=== PATIENT | female | born 1985 | race Caucasian/White ===

== ENCOUNTER 2019-11-21 11:47 | Outpatient (REF) | payer OTHER, SELFPAY | END 2019-11-21 11:48 | disposition home or self-care (01) | LOC: HO.LAB 11:47 | PROVIDERS: PCP Internal Medicine; Visit Provider Internal Medicine | DX: Z20.828 Contact with and (suspected) exposure to other viral communicable diseases (principal) | CPT/HCPCS: 87635 ==

== ENCOUNTER 2020-02-19 06:57 | Outpatient (REF) | payer OTHER, SELFPAY ==
--- NOTE | 2020-02-19 07:02 | ECG_ITS ---
Test Reason : ANESTH PRE OP Blood Pressure : / mmHG Vent. Rate : 072 BPM Atrial Rate : 072 BPM P-R Int : 148 ms QRS Dur : 088 ms QT Int : 386 ms P-R-T Axes : 059 040 038 degrees QTc Int : 422 ms Normal sinus rhythm Normal ECG When compared with ECG of 03-OCT-2016 21:07, No significant change was found Referred By: Mireille Linn Electronically Signed By:Getachew Lui
[2020-02-19 07:40] LABS: MANUAL DIFF FLAG NO
[2020-02-19 07:44] LABS: Basophils Percent Auto 0.5 % (0-2); Eosinophils Absolute Auto 0.1 X10*3/uL (0.0-0.4); Eosinophils Percent Auto 1.9 % (0-4); Hematocrit 41.8 % (37-47); Imm Gran Abs Auto 0.02 X10*3/uL (0.00-0.03); Imm Gran Pct Auto 0.3 % (0.0-0.4); Lymphocytes Percent Auto 31.8 % (20-40); Mean Corpuscular HGB Conc 33.5 g/dl (31.0-35.0); Mean Corpuscular Hemoglobin 29.5 pg (27.0-33.0); Mean Platelet Volume 9.3 fL (9.4-12.3); Monocytes Absolute Auto 0.6 X10*3/uL (0.1-1.2); Monocytes Percent Auto 9.3 % (2-11); Neutrophils Absolute Auto 3.6 X10*3/uL (2.0-8.3); Neutrophils Percent Auto 56.2 % (45-73); Platelet Count 234 X10*3/uL (160-400); Red Blood Count 4.75 X10*6/uL (4.20-5.50); Red Cell Distribution Width 12.3 % (11.0-16.0); White Blood Count 6.4 X10*3/uL (4.8-10.8)
[2020-02-19 07:58] LABS: Estimated Average Glucose 100 mg/dL; Hemoglobin A1c % 5.1 %
[2020-02-19 08:29] LABS: INTERNATIONAL NORM RATIO 1.1 (0.9-1.1); Prothrombin Time 13.3 SEC (10.8-13.0)
[2020-02-19 08:31] LABS: Partial Thromboplastin Time 34.6 SEC (24.1-38.0)
[2020-02-19 08:40] LABS: Alanine Aminotransferase 19 U/L (0-31); Albumin Level 4.3 g/dL (3.5-5.0); Alkaline Phosphatase 87 U/L (39-117); Anion Gap 16 (12-20); Aspartate Amino Transferase 14 U/L (5-31); Bilirubin Total 0.6 mg/dL (0.0-1.0); Blood Urea Nitrogen 14 mg/dL (9-16); Carbon Dioxide 21 mmol/L (22-29); Chloride 105 mmol/L (96-108); Estimated Glomerular Filt Rate > 60; Glucose Fasting 82 mg/dL (60-99); Potassium 3.8 mmol/l (3.3-5.1); Sodium 138 mmol/L (135-145); Total Protein 7.6 g/dL (6.5-8.0)
[2020-02-19 09:01] LABS: Free T4 (Free Thyroxine) 1.22 ng/dL (0.71-1.85); HCG Quantitative < 2 mIU/mL
[2020-02-19 09:09] LABS: HIV AB/AG Nonreactive (Nonreactive); HIV Num 1 0.09 S/CO (0.00-0.99)
[2020-02-20 20:23] LABS: Triiodothyronine T3 Total 107 ng/dL (76-181)
== END 2020-02-19 06:58 | disposition home or self-care (01) ==
LOC: HO.LAB 06:57
PROVIDERS: Visit Provider Internal Medicine
DX: Z01.818 Encounter for other preprocedural examination (principal)
CPT/HCPCS: 36415; 80053; 83036; 84439; 84443; 84480; 84702; 85025; 85610; 85730; 87389; 93005

== ENCOUNTER 2020-02-19 07:36 | Outpatient (REF) | payer OTHER, SELFPAY ==
--- NOTE | 2020-02-19 07:46 | US_ITS ---
EXAMINATION: US DIAGNOSTIC ULTRASOUND BREAST, RIGHT US DIAGNOSTIC ULTRASOUND BREAST, LEFT CLINICAL INFORMATION: Z98.82 Breast implant status. 34-year-old with bilateral implants for approximately 13 years duration. Patient plans replacement to be performed in [place]. No family history breast cancer. No prior breast imaging. COMPARISON: None. TECHNIQUE: Ultrasound of each breast is performed from all 4 quadrants and retroareolar region. Attention is directed to the implants. FINDINGS: There are bilateral saline implants present. The implant contours are smooth and the implant size appears grossly symmetric. There is no visible sonographic linguini sign. There is no skin thickening or edema tracking in soft tissue planes. No parenchymal lesion demonstrated on the submitted images. Results are discussed with the patient at time of visit. If further evaluation of breast implant integrity is clinically indicated, then breast MRI would be recommended. If comprehensive evaluation of the breast parenchyma is clinically indicated prior to surgery, standard 3-D digital breast tomosynthesis would be recommended. US/US breast RT complete IMPRESSION: Normal study. ASSESSMENT: BI-RADS 1: Negative RECOMMENDATION: 1. Patient should be managed based on the clinical impression. 2. If further evaluation of breast implant integrity is clinically indicated, then breast MRI would be recommended. 3. If comprehensive evaluation of the breast parenchyma is clinically indicated prior to surgery, standard 3-D digital breast tomosynthesis would be recommended. Otherwise, routine annual screening mammography beginning age 40 or earlier as clinical risk factors warrant. This patient's information was entered into a reminder system with a target due date for their next mammogram.
== END 2020-02-19 07:37 | disposition home or self-care (01) ==
LOC: HO.MAMMO 07:36
PROVIDERS: Visit Provider Nurse Practitioner Family
DX: Z98.82 Breast implant status (principal)
CPT/HCPCS: 76641

== ENCOUNTER 2020-07-24 09:25 | Outpatient (REF) | payer OTHER, SELFPAY ==
[2020-07-24 14:23] LABS: CT PCR NOT DETECTED (Not Detect.); NG PCR NOT DETECTED (Not Detect.)
[2020-07-25 12:55] LABS: BV Int Neg Control Negative (Negative); BV Int Pos Control Positive (Positive)
== END 2020-07-24 09:26 | disposition home or self-care (01) ==
LOC: HO.LAB 09:25
PROVIDERS: PCP Internal Medicine; Visit Provider Advanced Practice Midwife
DX: N93.0 Postcoital and contact bleeding (principal); N94.10 Unspecified dyspareunia
CPT/HCPCS: 81003; 81025; 87480; 87491; 87510; 87591; 87660; 99212

== ENCOUNTER 2020-08-06 11:14 | Outpatient (REF) | payer OTHER, SELFPAY ==
--- NOTE | ~2020-08-06 | US_ITS ---
EXAMINATION: US PELVIS CLINICAL INFORMATION: Postcoital and contact bleeding COMPARISON: Most recent comparison is a first trimester OB ultrasound from 02/01/2018 TECHNIQUE: Ultrasound of the pelvis is performed using both transabdominal and transvaginal transducers along with Doppler. Transvaginal imaging is performed to better evaluate the endometrium and adnexa. FINDINGS: Uterus: The uterus is anteverted and measures 8.2 x 4.4 x 5.8 cm. The double wall endometrial thickness is 7 mm. The myometrium is heterogeneous. However, no discrete fibroid is identified. Adnexa: Both ovaries are visualized. There is normal color flow to the adnexa. There is no ovarian torsion. The right ovary contains a complex appearing cystic structure measuring 2.7 x 2.3 x 2.1 cm, possibly representing an involuting corpus luteum. On the previous ultrasound, a similar appearing structure was present in the left ovary, now no longer visualized. Right ovary measures 4.3 x 2.9 x 2.3 cm. Volume of 15 mL. Left ovary measures 2.5 x 1.6 x 1.7 cm. Volume of 4 mL. There is no pelvic ascites or fluid collection. There is trace fluid in the cul-de-sac which is likely physiologic in nature. US/US pelvic and transvaginal IMPRESSION: The myometrium of the uterus is heterogeneous in echotexture but no discrete fibroid is identified. The adnexa are within normal limits.
== END 2020-08-06 11:15 | disposition home or self-care (01) ==
LOC: HO.US 11:14
PROVIDERS: Visit Provider Advanced Practice Midwife
DX: N93.0 Postcoital and contact bleeding (principal)
CPT/HCPCS: 76830; 76856

== ENCOUNTER → 2020-08-13 11:53 | Outpatient (BNVA) | payer OTHER, SELFPAY | PROVIDERS: PCP Internal Medicine; Visit Provider Advanced Practice Midwife ==

== ENCOUNTER 2020-08-26 10:52 | Outpatient (REF) | payer OTHER, SELFPAY | END 2020-08-26 10:53 | disposition home or self-care (01) | LOC: HO.LAB 10:52 | PROVIDERS: PCP Internal Medicine; Visit Provider Obstetrics & Gynecology | DX: N92.6 Irregular menstruation, unspecified (principal); N93.0 Postcoital and contact bleeding | CPT/HCPCS: 57454; 58100; 81025; 88305 ==

== ENCOUNTER → 2020-09-09 11:00 | Outpatient (BNVA) | payer OTHER, SELFPAY | PROVIDERS: PCP Internal Medicine; Visit Provider Obstetrics & Gynecology ==

== ENCOUNTER 2020-11-13 09:32 | Outpatient (REF) | payer OTHER, SELFPAY ==
[2020-11-13 09:58] LABS: Hematocrit 40.3 % (37-47); Hemoglobin 13.2 g/dl (12.0-16.0); Mean Corpuscular HGB Conc 32.8 g/dl (31.0-35.0); Mean Corpuscular Hemoglobin 29.1 pg (27.0-33.0); Mean Corpuscular Volume 88.8 fL (80-98); Mean Platelet Volume 9.2 fL (9.4-12.3); Platelet Count 224 X10*3/uL (160-400); Red Blood Count 4.54 X10*6/uL (4.20-5.50); Red Cell Distribution Width 13.4 % (11.0-16.0); White Blood Count 5.5 X10*3/uL (4.8-10.8)
[2020-11-13 10:04] LABS: Prothrombin Time 11.9 SEC (9.9-13.0)
[2020-11-13 10:06] LABS: Partial Thromboplastin Time 36.9 SEC (24.1-38.0)
[2020-11-13 10:27] LABS: Estimated Average Glucose 97 mg/dL; Hemoglobin A1C 108.3599 umol/L
[2020-11-13 10:38] LABS: Alanine Aminotransferase 20 U/L (0-31); Albumin Level 3.9 g/dL (3.5-5.0); Alkaline Phosphatase 90 U/L (39-117); Anion Gap 8 (12-20); Aspartate Amino Transferase 14 U/L (5-31); Bilirubin Total 0.5 mg/dL (0.0-1.0); Blood Urea Nitrogen 9 mg/dL (9-16); Calcium 8.9 mg/dL (8.4-10.2); Carbon Dioxide 27 mmol/L (22-29); Chloride 109 mmol/L (96-108); Estimated Glomerular Filt Rate > 60; Glucose Fasting 89 mg/dL (60-99); Sodium 140 mmol/L (135-145)
[2020-11-13 10:43] LABS: HIV AB/AG Nonreactive (Nonreactive); HIV Num 1 0.06 S/CO (0.00-0.99)
[2020-11-13 10:49] LABS: Thyroid Stimulating Hormone 0.43 uIU/mL (0.32-4.0)
[2020-11-13 10:55] LABS: HCG Quantitative < 2 mIU/mL
== END 2020-11-13 09:33 | disposition home or self-care (01) ==
LOC: HO.LAB 09:32
PROVIDERS: PCP Internal Medicine; Visit Provider Nurse Practitioner Family
DX: Z01.818 Encounter for other preprocedural examination (principal); E11.9 Type 2 diabetes mellitus without complications; E78.00 Pure hypercholesterolemia, unspecified
CPT/HCPCS: 36415; 80053; 83036; 84443; 84702; 85027; 85610; 85730; 87389

== ENCOUNTER 2020-11-13 09:56 | Outpatient (REF) | payer OTHER, SELFPAY | END 2020-11-13 09:57 | disposition home or self-care (01) | LOC: HO.LAB 09:56 | PROVIDERS: PCP Internal Medicine; Visit Provider Internal Medicine | DX: Z20.822 Contact with and (suspected) exposure to COVID-19 (principal) | CPT/HCPCS: C9803; U0003; U0005 ==

== ENCOUNTER 2020-11-22 23:15 | Emergency (ER) | payer OTHER, SELFPAY ==
--- NOTE | ~2020-11-22 | CT_ITS ---
EXAMINATION: CT ABDOMEN AND PELVIS WITH CONTRAST CLINICAL INFORMATION: Right upper quadrant pain COMPARISON: None TECHNIQUE: Multidetector volumetric images were obtained from the superior aspect of the liver through the pubic symphysis following administration 85 mL of Omnipaque 350 intravenous contrast. Sagittal and coronal reformatted images were obtained on the technologist's workstation. Oral contrast: No This CT examination was performed using dose optimization techniques as appropriate, variously including the following: *Automated exposure control *Adjustment of mA and/or kV according to patient size (this includes techniques or standardized protocols for targeted exams where dose is matched to indication/reason for exam; i.e. extremities or head) *Use of iterative reconstruction technique DLP: 645 mGy-cm FINDINGS: LUNG BASES: The visualized lung bases are unremarkable. Partially visualized bilateral breast implants. LIVER, GALLBLADDER, AND BILIARY TREE: The liver is normal in size, shape, and attenuation. Subcentimeter hypoattenuating lesions are noted, too small to fully characterize. No biliary ductal dilatation. The gallbladder is unremarkable with no evidence of radiopaque gallstones, gallbladder wall thickening, or obvious pericholecystic inflammatory changes. PANCREAS: Unremarkable. SPLEEN: Unremarkable. ADRENAL GLANDS: Unremarkable. KIDNEYS AND URETERS: The kidneys are normal in size, shape, and attenuation. No hydronephrosis, hydroureter, or calculi seen. No perinephric stranding. BLADDER: Unremarkable. GASTROINTESTINAL TRACT: The small and large bowel are unremarkable. The appendix is unremarkable. ABDOMINAL WALL: No significant hernia is appreciated. LYMPH NODES: Normal. VASCULAR: Unremarkable. PELVIC VISCERA: The uterus and adnexa are unremarkable. OSSEOUS STRUCTURES: Unremarkable. CT/CT abdomen pelvis w con IMPRESSION: No acute findings in the abdomen or pelvis. No inflammatory changes.
[2020-11-22 23:24] VITALS: BP 125/79; PULSE 71; RESP 16; TEMP 36.6; O2SAT 99; BMI 32.0
[2020-11-22 23:47] LABS: MANUAL DIFF FLAG NO
[2020-11-22 23:48] LABS: Basophils Percent Auto 0.3 % (0-2); Eosinophils Absolute Auto 0.1 X10*3/uL (0.0-0.4); Eosinophils Percent Auto 1.4 % (0-4); Hematocrit 41.1 % (37-47); Hemoglobin 13.5 g/dl (12.0-16.0); Imm Gran Abs Auto 0.02 X10*3/uL (0.00-0.03); Imm Gran Pct Auto 0.3 % (0.0-0.4); Lymphocytes Absolute Auto 2.3 X10*3/uL (1.2-4.9); Lymphocytes Percent Auto 29.3 % (20-40); Mean Corpuscular HGB Conc 32.8 g/dl (31.0-35.0); Mean Corpuscular Hemoglobin 29.2 pg (27.0-33.0); Mean Platelet Volume 9.2 fL (9.4-12.3); Monocytes Absolute Auto 0.5 X10*3/uL (0.1-1.2); Monocytes Percent Auto 6.9 % (2-11); Neutrophils Absolute Auto 4.8 X10*3/uL (2.0-8.3); Neutrophils Percent Auto 61.8 % (45-73); Platelet Count 225 X10*3/uL (160-400); Red Blood Count 4.62 X10*6/uL (4.20-5.50); Red Cell Distribution Width 13.1 % (11.0-16.0); White Blood Count 7.8 X10*3/uL (4.8-10.8)
--- NOTE | 2020-11-22 23:48 | PC.NURSE ---
IN ROOM FOR EVAL. IV PLACED TO LAC, LABS DRAWN TO LAB.
--- NOTE | 2020-11-22 23:50 | ED_ITS ---
HPI - Abdominal Pain General Chief Complaint: Abdominal Pain Stated Complaint: stomach pain radiates to back Time Seen by Provider: 11/22/20 23:30 Source: patient Mode of arrival: ambulatory Limitations: no limitations History of Present Illness HPI narrative: 35-year-old female presents with right upper quadrant pain radiating to her right back for 1 day. Patient has vomited from the pain. States that yesterday she went to a alliance party and ate a lot of chicken salad. The pain started shortly after that. The pain is a 7/10. It is an achy pain that is deep inside. It is worse when she lays down. It is not worse with eating or with movement. No fever, no diarrhea. She has no UTI symptoms. She is sexually active and her last menstrual period was November 10. No abnormal vaginal bleeding or vaginal discharge. Patient has had a tummy tuck and liposuction, no other abdominal surgeries except tubal ligation. No chest pain, no shortness of breath, no fevers. Related Data Home Medications Medication Instructions Recorded Confirmed albuterol sulfate 90 mcg/actuation 2 puff INHALATION Q6H PRN 12/16/19 11/16/20 aerosol inhaler Previous Rx's Medication Instructions Recorded phentermine 37.5 mg tablet 37.5 mg PO DAILY 90 Days #90 tab 07/09/20 Allergies Allergy/AdvReac Type Severity Reaction Status Date / Time amoxicillin [AMOXICILLIN] Allergy Intermediate SWELLING Verified 11/13/20 08:54 OF VAGINAL AREA , vaginal itching Review of Systems Constitutional: Denies body ache(s), Denies chills, Denies fatigue, Denies fever(s), Denies headache(s), Denies malaise and Denies weakness Eyes: Denies diplopia Denies vertigo, Denies dizziness, Denies otalgia, Denies headache(s), Denies mouth pain, Denies post nasal drip, Denies sinus pain, Denies sinus pressure, Denies sore throat and Denies throat swelling Cardiovascular: Denies chest pain, Denies syncope, Denies leg edema, Denies lightheadedness, Denies Loss of Consciousness, Denies palpitations and Denies dyspnea Respiratory: Denies chest congestion, Denies cough and Denies dyspnea Gastrointestinal: Reports abdominal pain, Denies hematochezia, Denies constipation, Denies diarrhea and Reports vomiting Genitourinary: Denies abnormal vaginal bleeding, Denies dyspareunia, Denies dysuria, Denies pelvic pain, Denies urinary hesitancy, Denies urinary urgency and Denies vaginal discharge Musculoskeletal: Reports back pain Skin/Breast: Denies rash Denies confusion, Denies vertigo, Denies dizziness, Denies syncope, Denies headache(s) and Denies weakness Psychiatric: Denies anxiety, Denies confusion and Denies depression Endocrine: Denies fatigue and Denies palpitations Allergic/Immunologic: Denies throat swelling Physical Exam Vital Signs: Vital Signs: Last Vital Signs Temp 97.9 F 11/22/20 23:24 Pulse 71 11/22/20 23:24 Resp 18 11/23/20 00:25 BP 125/79 11/22/20 23:24 Pulse Ox 99 11/22/20 23:24 Body Mass Index 32.0 Const: General: No confusion Nutritional Appearance: well nourished Orientation/consciousness: No confusion Limitations: no limitations Eyes: Pupils: Equal, round and reactive pupils present Neck: Neck: Yes full ROM, Yes no lymphadenopathy and Yes supple Resp: Effort & Inspection: normal respiratory effort and able to speak in complete sentences Auscultation: clear to auscultation bilaterally, no crackles, no rales, no rhonchi and no wheezes Cardio: Rate: regular rate Rhythm: regular rhythm Heart sounds: S1 normal heart sound present and S2 normal heart sound present GI: Inspection: Yes normal to inspection Palpation (GI): Soft to palpation, Tenderness to palpation present (GI) in the RUQ and no guarding Percussion: Yes normal to percussion Auscultation: normal bowel sounds : General: Yes no CVA tenderness Back/Spine/Pelvis: Other: No tenderness to palpation soft tissue of right thoracic back Back: no CVA tenderness Cervical Spine: No cervical ROM normal, No Cervical spine tenderness and No cervical ROM abnormal Thoracic/Lumbar Spine: No paraspinal muscle tenderness, No thoraco-lumbar spasm, No thoracic spinal tenderness and No lumbar spinal tenderness Skin: General skin exam: no rashes or lesions noted Neuro: General: No confusion Cranial nerves: Yes Equal, round and reactive pupils present Extrem: General: Yes normal to inspection and Yes full ROM Psych: Appearance: grossly normal Affect: normal affect Attitude: cooperative Thought process: Normal thought process present Course Course Course Narrative: 35-year-old female presents with 1 day of severe right upper quadrant pain radiating to her back. She has vomited from the pain. On exam, patient is tender in her right upper quadrant, I cannot reproduce the back pain, she has no CVA tenderness. Abdomen soft. Vital signs stable. Patient well appearing. Will get urine analysis, U preg, lipase, labs, and obtain abdominal pelvic CT. Reevaluation(s) Reevaluation #1: On re-examine, patient has no pain is feeling much better. Patient is worried what to do if the pain returns. Patient has normal labs, lipase 23, CT scan is negative for any acute pathology. Awaiting urine. Discuss with patient that CT is not the best imaging modality to image the gallb ladder. Stated patient should call her primary care provider on the next business day and discuss her primary care provider ordering an outpatient ultrasound to assess her gallbladder. Reevaluation #2: UA negative. MDM - Abdominal Pain Lab Data Result diagrams: 11/22/20 23:42 11/22/20 23:42 Labs: Lab Results 11/22/20 11/22/20 11/23/20 Range/Units 23:42 23:42 00:28 WBC 7.8 (4.8-10.8) X10*3/uL RBC 4.62 (4.20-5.50) X10*6/uL Hgb 13.5 (12.0-16.0) g/dl Hct 41.1 (37-47) % MCV 89.0 (80-98) fL MCH 29.2 (27.0-33.0) pg MCHC 32.8 (31.0-35.0) g/dl RDW 13.1 (11.0-16.0) % Plt Count 225 (160-400) X10*3/uL MPV 9.2 L (9.4-12.3) fL Immature Gran % (Auto) 0.3 (0.0-0.4) % Neut % (Auto) 61.8 (45-73) % Lymph % (Auto) 29.3 (20-40) % Burt % (Auto) 6.9 (2-11) % Eos % (Auto) 1.4 (0-4) % Baso % (Auto) 0.3 (0-2) % Lymph # (Auto) 2.3 (1.2-4.9) X10*3/uL Burt # (Auto) 0.5 (0.1-1.2) X10*3/uL Eos # (Auto) 0.1 (0.0-0.4) X10*3/uL Baso # (Auto) 0.0 (0.0-0.2) X10*3/uL Abs Immat Gran (auto) 0.02 (0.00-0.03) X10*3/uL Absolute Neuts (auto) 4.8 (2.0-8.3) X10*3/uL Absolute Nucleated RBC 0.000 (0.0-0.012) X10*3/uL Nucleated RBC % (auto) 0.0 (0.0-0.2) /100WBC Sodium 138 (135-145) mmol/L Potassium 3.8 (3.3-5.1) mmol/L Chloride 105 (96-108) mmol/L Carbon Dioxide 27 (22-29) mmol/L Anion Gap 10 L (12-20) BUN 17 H D (9-16) mg/dL Creatinine 0.78 (0.5-1.4) mg/dL Estim Creat Clear Calc 100.0 Estimated GFR > 60 Random Glucose 100 (60-115) mg/dL Calcium 9.5 D (8.4-10.2) mg/dL Total Bilirubin 0.4 (0.0-1.0) mg/dL AST 14 (5-31) U/L ALT 19 (0-31) U/L Alkaline Phosphatase 114 D (39-117) U/L Total Protein 7.6 (6.5-8.0) g/dL Albumin 4.2 (3.5-5.0) g/dL Lipase 33 (8-78) U/L Urine Color YELLOW Urine Appearance HAZY Urine pH 6.0 (5.0-8.0) Ur Specific [place] 1.020 (1.005-1.025) Urine Protein NEG (NEG-TRACE) MG/DL Urine Glucose (UA) NEG (NEG) MG/DL Urine Ketones NEG (NEG) MG/DL Urine Blood 1+ H (NEG) Urine Nitrite NEG (NEG) Ur Leukocyte Esterase NEG (NEG) Urine RBC 1-4 (0) /HPF Urine WBC 1-4 (0-4) /HPF Ur Squamous Epith Cells 3+ /LPF Urine Bacteria 1+ /LPF Urine Test (NEGATIVE) 11/23/20 Range/Units 00:28 WBC (4.8-10.8) X10*3/uL RBC (4.20-5.50) X10*6/uL Hgb (12.0-16.0) g/dl Hct (37-47) % MCV (80-98) fL MCH (27.0-33.0) pg MCHC (31.0-35.0) g/dl RDW (11.0-16.0) % Plt Count (160-400) X10*3/uL MPV (9.4-12.3) fL Immature Gran % (Auto) (0.0-0.4) % Neut % (Auto) (45-73) % Lymph % (Auto) (20-40) % Burt % (Auto) (2-11) % Eos % (Auto) (0-4) % Baso % (Auto) (0-2) % Lymph # (Auto) (1.2-4.9) X10*3/uL Burt # (Auto) (0.1-1.2) X10*3/uL Eos # (Auto) (0.0-0.4) X10*3/uL Baso # (Auto) (0.0-0.2) X10*3/uL Abs Immat Gran (auto) (0.00-0.03) X10*3/uL Absolute Neuts (auto) (2.0-8.3) X10*3/uL Absolute Nucleated RBC (0.0-0.012) X10*3/uL Nucleated RBC % (auto) (0.0-0.2) /100WBC Sodium (135-145) mmol/L Potassium (3.3-5.1) mmol/L Chloride (96-108) mmol/L Carbon Dioxide (22-29) mmol/L Anion Gap (12-20) BUN (9-16) mg/dL Creatinine (0.5-1.4) mg/dL Estim Creat Clear Calc Estimated GFR Random Glucose (60-115) mg/dL Calcium (8.4-10.2) mg/dL Total Bilirubin (0.0-1.0) mg/dL AST (5-31) U/L ALT (0-31) U/L Alkaline Phosphatase (39-117) U/L Total Protein (6.5-8.0) g/dL Albumin (3.5-5.0) g/dL Lipase (8-78) U/L Urine Color Urine Appearance Urine pH (5.0-8.0) Ur Specific [place] (1.005-1.025) Urine Protein (NEG-TRACE) MG/DL Urine Glucose (UA) (NEG) MG/DL Urine Ketones (NEG) MG/DL Urine Blood (NEG) Urine Nitrite (NEG) Ur Leukocyte Esterase (NEG) Urine RBC (0) /HPF Urine WBC (0-4) /HPF Ur Squamous Epith Cells /LPF Urine Bacteria /LPF Urine Test NEGATIVE (NEGATIVE) Discharge Plan Discharge Clinical Impression: Abdominal pain Qualifiers: Abdominal location: right upper quadrant Qualified Code(s): R10.11 - Right upper quadrant pain Patient Disposition: Home, Self-Care Instructions: Abdominal Pain (ED) Additional Instructions: We did not find a cause of your abdominal pain today, however we discussed that CT scan is not as sensitive as ultrasound to detect gallbladder disease. Today all of your labs were normal, your CT scan was normal, you are not , and your urinalysis was normal. Please call your primary care provider on Monday for a follow-up appointment. They may want to order an outpatient ultrasound of your gallbladder. Please alternate Tylenol and ibuprofen for pain. Take 1 or the other every 4 hours. For example, at midnight take 1000 mg of Tylenol, then at 4:00 a.m. take 800 mg ibuprofen, at 8:00 a.m. take 1000 mg of Tylenol, at noon take 800 mg of ibuprofen, at 4:00 p.m. take 1000 mg of Tylenol, at 8:00 p.m. take 800 mg of ibuprofen. Do not exceed 3000 mg of Tylenol in 24 hours. This method is proven to be as effective as an opioid for pain control. If you have fevers, worsening pain, uncontrollable nausea or vomiting, please return to emergency room. Prescriptions: No Action phentermine 37.5 mg tablet 37.5 mg PO DAILY 90 Days Qty: 90 RF: 0 albuterol sulfate 90 mcg/actuation HFA aerosol inhaler 2 puff inhalation Q6H PRNRF: 0 PMFSH Past Medical History Medical History Breast implant status Mild asthma Surgical History History of abdominoplasty History of tubal ligation History of wisdom tooth extraction Hx of breast implants, bilateral Urethral diverticulum Family History Family History Father Diabetes Mother No problems noted. Maternal Grandmother Diabetes Pacemaker CVD (cardiovascular disease) Paternal Grandfather Alcoholism Family/Other ADHD Chronic mental illness Asthma Social History Social History Housing: House Alcohol intake: current Alcohol intake frequency: holidays/special occasions only Patient Tobacco Use Status: Never used Tobacco Second Hand Smoke Exposure: Yes Advance Directives: No Advance Directives Information Provided: Yes Patient : No service: No Current occupational status: employed
--- NOTE | 2020-11-23 | PC.NURSE ---
PT TO CT IN STRETCHER.
[2020-11-23 00:05] LABS: Alanine Aminotransferase 19 U/L (0-31); Albumin Level 4.2 g/dL (3.5-5.0); Alkaline Phosphatase 114 U/L (39-117); Anion Gap 10 (12-20); Aspartate Amino Transferase 14 U/L (5-31); Bilirubin Total 0.4 mg/dL (0.0-1.0); Blood Urea Nitrogen 17 mg/dL (9-16); Calcium 9.5 mg/dL (8.4-10.2); Carbon Dioxide 27 mmol/L (22-29); Chloride 105 mmol/L (96-108); Estimated Glomerular Filt Rate > 60; Glucose Random 100 mg/dL (60-115); Potassium 3.8 mmol/L (3.3-5.1); Sodium 138 mmol/L (135-145); Total Protein 7.6 g/dL (6.5-8.0)
[2020-11-23 00:25] VITALS: RESP 18
[2020-11-23] MEDS: Morphine Sulfate 4 MG/ML CARTRIDGE IVPUSH (00:25)
[2020-11-23] MEDS: ondansetron HCL 4 MG/2 ML VIAL IVPUSH (00:25)
--- NOTE | 2020-11-23 00:30 | PC.NURSE ---
PT MEDICATED FOR PAIN AND NAUSEA PER EMAR.
[2020-11-23] MEDS: iohexoL 350 MG/ML 100 ML INFUS..BTL 85 ML IV (00:32)
[2020-11-23 00:49] LABS: Lipase 33 U/L (8-78)
[2020-11-23 01:04] LABS: Appearance Urine HAZY; Color Urine YELLOW; Glucose Urine UA NEG (NEG); Leukocyte Esterase Urine NEG (NEG); Nitrite Urine NEG (NEG); Urine Blood 1+ (NEG); Urine Ketones NEG (NEG); Urine Protein NEG (NEG-TRACE)
[2020-11-23 01:05] LABS: UPreg QC Valid YES; Urine Pregnancy NEGATIVE (NEGATIVE)
[2020-11-23 01:15] LABS: Bacteria Urine 1+ /LPF; Squamous Epithelial Cell Urine 3+ /LPF
[2020-11-23] MEDS: Magnesium Hydrox/Alum Hydrox 30 ML ORAL.SUSP PO (01:45)
[2020-11-23] MEDS: Lidocaine HCl Viscous 2 % 15 ML SOLUTION MUCOUS MEM (01:45)
--- NOTE | 2020-11-23 01:50 | PC.NURSE ---
PT MEDICATED PER EMAR.
== END 2020-11-23 01:59 | disposition home or self-care (01) ==
PROVIDERS: Physician Assistant; Emergency Provider Emergency Medicine; PCP Internal Medicine
DX: R10.11 Right upper quadrant pain (principal)
CPT/HCPCS: 36415; 74177; 80053; 81001; 81003; 81025; 83690; 85025; 96374; 96375; 99283; J2270; J2405; Q9967

== ENCOUNTER 2020-11-23 22:44 | Emergency (ER) | payer OTHER, SELFPAY ==
[2020-11-24 00:21] VITALS: BP 129/76; PULSE 71; RESP 18; TEMP 36.6; O2SAT 98; BMI 32.7
--- NOTE | 2020-11-24 00:48 | PC.NURSE ---
REFUSING TO HAVE LABS DRAWN ONLY WNTS TEM DRAWN WHEN AN IV IS PLACED BY THE NURSE, EDUCATED THAT IT GOES BASED OFF OF WHAT THE MD ORDERS. PATIENT VERBALIZED UNDERSTANDING I WILL TAKE MY CHANCES ONCE I AM SEEN
[2020-11-24 00:56] LABS: Appearance Urine CLEAR; Color Urine YELLOW; Glucose Urine UA NEG (NEG); Leukocyte Esterase Urine NEG (NEG); Nitrite Urine NEG (NEG); UACC Culture Trigger NO; Urine Blood 1+ (NEG); Urine Ketones NEG (NEG); Urine Protein NEG (NEG-TRACE)
[2020-11-24 00:58] LABS: UPreg QC Valid YES; Urine Pregnancy NEGATIVE (NEGATIVE)
[2020-11-24 01:03] LABS: Bacteria Urine TRACE /LPF; Mucus Urine TRACE /LPF; Squamous Epithelial Cell Urine 3+ /LPF; WBC Urine 0-2 /HPF (0-4)
[2020-11-24 02:29] VITALS: BP 111/79; PULSE 70; RESP 17; TEMP 36.6; O2SAT 99
--- NOTE | 2020-11-24 02:43 | PC.NURSE ---
Patient refused blood work stating that she wanted to wait for the doctor. Patient was asked 3 times by this marketing copywriter to let staff draw her blood but each time refused stating she would wait for the doctor.
== END 2020-11-24 02:46 | disposition left against medical advice (07) ==
PROVIDERS: Emergency Provider Emergency Medicine; PCP Internal Medicine
DX: R10.10 Upper abdominal pain, unspecified (principal)
CPT/HCPCS: 81001; 81025; 99283; 99284

== ENCOUNTER 2021-02-22 07:52 | Emergency (ER) | payer OTHER, SELFPAY ==
--- NOTE | ~2021-02-22 | XR_ITS ---
EXAMINATION: XR CHEST CLINICAL INFORMATION: Cough. COMPARISON: None TECHNIQUE: 2 views of the chest were obtained. FINDINGS: No significant abnormality is noted involving the heart, lungs, mediastinum, bony thorax or soft tissues. There is a small radiopaque round foreign body along the midline anterior chest wall. XR/XR chest 2V IMPRESSION: Unremarkable chest examination.
[2021-02-22 07:58] VITALS: BP 105/66; PULSE 99; RESP 19; TEMP 36.6; O2SAT 99; BMI 31.1
--- NOTE | 2021-02-22 09:03 | ED.URI ---
HPI - URI/Sore Throat General Chief Complaint: Upper Respiratory Symptoms Stated Complaint: headache body aches chest pain Time Seen by Provider: 02/22/21 08:10 Source: patient Mode of arrival: ambulatory Limitations: no limitations History of Present Illness HPI Narrative: 35-year-old female presenting to the ER with 4 days of headache, body aches, nasal congestion, dry cough, sore throat. She recently had COVID-19 on 02/04/2021 and fully recovered about a week later on the . She states she now again has all of the same symptoms at the same severity. She has been doing home COVID test that of bed negative. She is not sure if she had her flu vaccination this fall. No known sick contacts. She denies any chest pain or shortness of breath. She has had no fevers at home. MD elicited complaint: cough, sore throat, nasal congestion and other (Body aches) Onset (ago): day(s) (4) Consistency: constant Severity: moderate Description of mucous: clear Able to tolerate fluids by mouth: Yes Exacerbating factors: nothing Relieving factors: OTC cold medicine Associated symptoms: chills, myalgias, headache, nasal congestion, sore throat, cough and nausea Treatments prior to arrival: none Related Data Previous Rx's Medication Instructions Recorded albuterol sulfate 90 mcg/actuation 2 puff INHALATION Q6H PRN #8.5 g 12/23/20 aerosol inhaler phentermine 37.5 mg tablet 37.5 mg PO DAILY 90 Days #90 tab 12/23/20 Allergies Allergy/AdvReac Type Severity Reaction Status Date / Time amoxicillin [AMOXICILLIN] Allergy Intermediate SWELLING Verified 02/01/21 11:08 OF VAGINAL AREA , vaginal itching Review of Systems Review of Systems: Constitutional: No Fever, + Chills ENT/Mouth: + sore throat, No Rhinorrhea, No Swallowing Difficulty Eyes: No Eye Pain, No Swelling, No Redness Cardiovascular: No Chest Pain, No SOB Respiratory: + Cough, No Sputum, No Wheezing, No dyspnea Gastrointestinal: + Nausea, No Vomiting, No Diarrhea, No abdominal Pain Musculoskeletal: + joint pain, + Myalgias Skin: No Skin Lesions, No rash Neuro: + Weakness, No Numbness, No Dizziness, + Headache Heme/Lymph: No Lymphadenopathy PMFSH Past Medical History Medical History (Updated 02/22/21 @ 10:21 by DRAKE Sandoval) Breast implant status Migraines Mild asthma Photosensitivity Surgical History History of abdominoplasty History of tubal ligation History of wisdom tooth extraction Hx of breast implants, bilateral Urethral diverticulum Family History Family History Father Diabetes Mother No problems noted. Maternal Grandmother Diabetes Pacemaker CVD (cardiovascular disease) Paternal Grandfather Alcoholism Substance use disorder Family/Other ADHD Chronic mental illness Asthma Social History Social History Housing: House Alcohol intake: never Patient Tobacco Use Status: Never used Tobacco e-Cigarette/Vaping Use: Never Used Second Hand Smoke Exposure: Yes Advance Directives: No Advance Directives Information Provided: No Patient : No service: No Current occupational status: employed Physical Exam Vital Signs: Vital Signs: Last Vital Signs Temp 98 F 02/22/21 07:58 Pulse 99 02/22/21 07:58 Resp 19 02/22/21 07:58 BP 105/66 02/22/21 07:58 Pulse Ox 99 02/22/21 07:58 BMI result Body Mass Index 31.1 Appearance: Alert. Oriented X3. No acute distress. Eyes: Pupils equal, round and reactive to light. ENT: Pharynx with moderate generalized posterior erythema, no tonsillar exudate or swelling. Uvula midline. Nasal turbinates are erythematous with clear nasal discharge. No sinus tenderness. Normal TMs bilaterally Neck: Normal inspection. Neck supple. CVS: Normal heart rate and rhythm. Pulses normal. Respiratory: No respiratory distress. Breath sounds normal. Abdomen: Soft and nontender. +BS x4 Skin: Skin warm and dry. Normal skin color. Normal skin turgor. No rashes. Extremities: No lower extremity edema. Neuro: Oriented X 3. Grossly normal, nonfocal Course Course Course Narrative: 35-year-old female who recently had COVID a few weeks ago presents to the ER with similar symptoms including sore throat, body aches, headache, nasal congestion. Her vital signs today are normal. She appears well. Will check chest x-ray and viral PCR. Her symptoms are most likely viral in etiology. Doubt pneumonia. Reevaluation(s) Reevaluation #1: Strep test is negative. Her viral PCR is pending. She would like to be discharged home and called with the results. Patient is stable for discharge home with supportive care. MDM - URI/Sore Throat Lab Data Labs: Lab Results 02/22/21 Range/Units 09:40 S. pyogenes GrpA GUDELIA Negative (Negative) Discharge Plan Discharge Clinical Impression: Viral infection Patient Disposition: Home, Self-Care Instructions: Viral Syndrome (ED) Additional Instructions: Your Strep test was negative. Your Flu, COVID, & RSV test is pending. Rest. Drink plenty of fluids. Do not go out in public while you are feeling unwell. Take over the counter cold/flu medications as needed for your symptoms. Take Tylenol and/or Motrin as needed for fevers and body aches. Follow up with your doctor this week. If you develop new or worsening symptoms call 911 or come back to the ER for further evaluation. Prescriptions: No Action phentermine 37.5 mg tablet 37.5 mg PO DAILY 90 Days Qty: 90 RF: 0 albuterol sulfate 90 mcg/actuation HFA aerosol inhaler 2 puff inhalation Q6H PRN (Reason: shortness of breath or wheezing) Qty: 8.5 RF: 1 Referrals: Mireille Mari MD [Primary Care Provider] - 1 week (follow up viral syndrome) Stand Alone Forms: Work/School Release
[2021-02-22 09:59] LABS: IDNOW Serial# 08D9AD1C; Strep A Nucleic Acid Negative (Negative)
[2021-02-22 10:28] LABS: Influenza A PCR POSITIVE (Negative); Influenza B PCR NEGATIVE (Negative); Resp Syncy Virus RNA Qual PCR NEGATIVE (Negative); SARS COV2 PCR INHOUSE NEGATIVE (Negative)
== END 2021-02-22 10:29 | disposition home or self-care (01) ==
PROVIDERS: Physician Assistant; Emergency Provider Emergency Medicine; PCP Internal Medicine
DX: J10.1 Influenza due to other identified influenza virus with other respiratory manifestations (principal); B34.9 Viral infection, unspecified; R51.9 Headache, unspecified
CPT/HCPCS: 0241U; 36415; 71046; 87651; 99283

== ENCOUNTER 2021-03-01 10:46 | Emergency (ER) | payer OTHER, SELFPAY ==
--- NOTE | ~2021-03-01 | US_ITS ---
EXAMINATION: US VENOUS ULTRASOUND WITH DOPPLER LOWER EXTREMITY, RIGHT CLINICAL INFORMATION: Right calf pain times months COMPARISON: None TECHNIQUE: Ultrasound of the deep veins is performed from the hip to the calf with compression sonography and color and pulse Doppler assessment. Spectral analysis with color-flow imaging is performed. FINDINGS: There is normal venous compression and respiratory variation and augmented flow. The visualized common femoral vein, superficial femoral vein, profunda femoral vein, popliteal vein, and the trifurcation region shows no evidence of deep venous thrombosis. There is no significant popliteal fossa cyst. If the patient's symptoms persist, followup ultrasound in 5 days 7 days might be of value to exclude proximal propagation from a non-visualized calf vein. US/US venous duplex LE RT IMPRESSION: No DVT demonstrated in the right lower extremity.
[2021-03-01 10:51] VITALS: BP 118/76; PULSE 75; RESP 18; TEMP 36.8; O2SAT 99; BMI 31.1
--- NOTE | 2021-03-01 12:42 | ED.LOWEXIN ---
HPI - Extremity Injury (Lower) General Chief Complaint: Extremity Injury, Lower Stated Complaint: Knee pain Time Seen by Provider: 03/01/21 11:45 Source: patient Mode of arrival: ambulatory History of Present Illness HPI Narrative: 35-year-old female with a past medical history of migraines, asthma, presenting to ED complaining of right calf pain x a couple weeks to months. Denies known injury/ trauma or fall. Denies fever, chills, numbness, tingling, recent travel, oral OCPs, cigarette smoking, history of prior clots, SOB complaint: leg injury Onset (ago): week(s) Related Data Previous Rx's Medication Instructions Recorded albuterol sulfate 90 mcg/actuation 2 puff INHALATION Q6H PRN #8.5 g 12/23/20 aerosol inhaler phentermine 37.5 mg tablet 37.5 mg PO DAILY 90 Days #90 tab 12/23/20 Allergies Allergy/AdvReac Type Severity Reaction Status Date / Time amoxicillin [AMOXICILLIN] Allergy Intermediate SWELLING Verified 02/01/21 11:08 OF VAGINAL AREA , vaginal itching Review of Systems Review of Systems: Constitutional: No Fever, No Chills ENT/Mouth: No Ear Pain, No Nasal Congestion, No Sinus Pain, No sore throat Cardiovascular: No Chest Pain, No SOB Respiratory: No Cough, No Sputum, No Wheezing Gastrointestinal: No Nausea, No Vomiting, No Diarrhea, No Constipation, No Abdominal pain Musculoskeletal: + joint pain, No Myalgias, No Joint Swelling Skin: No Skin Lesions, No rash Neuro: No Weakness, No Numbness, No Paresthesias Yes all other systems are reviewed and are negative [facility] Past Medical History Attestation statement: The following information was validated with the patient. Medical History Breast implant status Migraines Mild asthma Photosensitivity Surgical History History of abdominoplasty History of tubal ligation History of wisdom tooth extraction Hx of breast implants, bilateral Urethral diverticulum Family History Family History Father Diabetes Mother No problems noted. Maternal Grandmother Diabetes Pacemaker CVD (cardiovascular disease) Paternal Grandfather Alcoholism Substance use disorder Family/Other ADHD Chronic mental illness Asthma Social History Social History Housing: House Alcohol intake: never Patient Tobacco Use Status: Never used Tobacco e-Cigarette/Vaping Use: Never Used Second Hand Smoke Exposure: Yes Advance Directives: No Advance Directives Information Provided: No Patient : No service: No Current occupational status: employed Physical Exam Vital Signs: Vital Signs: Last Vital Signs Temp 98.2 F 03/01/21 10:51 Pulse 75 03/01/21 10:51 Resp 18 03/01/21 10:51 BP 118/76 03/01/21 10:51 Pulse Ox 99 03/01/21 10:51 BMI result Body Mass Index 31.1 Const: General: cooperative, healthy appearing and no acute distress Orientation/consciousness: patient oriented x3 Limitations: no limitations HENMT: Head: Yes normal to inspection Ears: hearing grossly normal bilaterally General nose exam: Normal external nose present Face and sinus: Yes normal facial exam Eyes: General: appearance normal, both eyes and all related structures EOM: EOMs intact bilaterally Neck: Neck: Yes normal visual inspection and Yes no meningeal signs Resp: Effort & Inspection: normal respiratory effort and no respiratory distress Cardio: Rate: regular rate Heart sounds: S1 normal heart sound present and S2 normal heart sound present Peripheral pulses: dorsalis pedis present Skin: Rashes: no rashes Wounds: no wounds Neuro: General: patient oriented x3, gait normal, tone normal, moves all extremities and no meningeal signs Gait exam (Neuro): Normal gait present Extrem: Other: + right calf tenderness to palpation. No deformity. No edema. Neurovascular intact distally. General: Yes normal to inspection and Yes no pedal edema Course Course Course Narrative: US venous duplex LE RT IMPRESSION: No DVT demonstrated in the right lower extremity. >> results discussed with patient including worrisome signs and symptoms and strict return precautions to need close follow-up with PCP MDM - Extremity Injury (Lower) MDM Narrative Medical decision making narrative: 35-year-old female with a past medical history of migraines, asthma, presenting to ED complaining of right calf pain x a couple weeks to months. On exam vital signs stable, NAD/ nontoxic-appearing, physical exam as above, right calf tenderness noted. Rule out DVT. Low concern for PE plan: Venous duplex ultrasound Medical Records Attestation: I reviewed the patient's medical records. Lab Data Attestation: I reviewed the patient's lab results. Discharge Plan Discharge Clinical Impression: Pain of right calf Patient Disposition: Home, Self-Care Instructions: Leg Pain (ED) Additional Instructions: your ultrasound was negative for any blood clot please follow-up with her primary care doctor [facility] Take Tylenol and Motrin at home as needed if symptoms persist or worsen, you develop numbness, weakness please return to the ED Prescriptions: No Action phentermine 37.5 mg tablet 37.5 mg PO DAILY 90 Days Qty: 90 RF: 0 albuterol sulfate 90 mcg/actuation HFA aerosol inhaler 2 puff inhalation Q6H PRN (Reason: shortness of breath or wheezing) Qty: 8.5 RF: 1 Referrals: Mireille Mari MD [Primary Care Provider] - 5 days
== END 2021-03-01 13:01 | disposition home or self-care (01) ==
PROVIDERS: Emergency Provider Emergency Medicine; PCP Internal Medicine
DX: M79.661 Pain in right lower leg (principal)
CPT/HCPCS: 93971; 99283; 99284

== ENCOUNTER 2021-03-27 20:08 | Emergency (ER) | payer OTHER, SELFPAY ==
[2021-03-27 20:31] VITALS: BP 131/80; PULSE 70; RESP 16; TEMP 36.7; O2SAT 100; BMI 31.6
[2021-03-27 21:10] LABS: MANUAL DIFF FLAG NO
[2021-03-27 21:11] LABS: Basophils Percent Auto 0.4 % (0-2); Eosinophils Absolute Auto 0.1 X10*3/uL (0.0-0.4); Eosinophils Percent Auto 0.9 % (0-4); Hematocrit 37.5 % (37.0-47.0); Hemoglobin 12.1 g/dl (12.0-16.0); Imm Gran Abs Auto 0.02 X10*3/uL (0.00-0.03); Imm Gran Pct Auto 0.2 % (0.0-0.4); Lymphocytes Absolute Auto 2.5 X10*3/uL (1.2-4.9); Lymphocytes Percent Auto 25.8 % (20-40); Mean Corpuscular HGB Conc 32.3 g/dl (31.0-35.0); Mean Corpuscular Hemoglobin 28.5 pg (27.0-33.0); Mean Corpuscular Volume 88.2 fL (80.0-98.0); Mean Platelet Volume 9.2 fL (9.4-12.3); Monocytes Absolute Auto 0.8 X10*3/uL (0.1-1.2); Monocytes Percent Auto 7.7 % (2-11); Neutrophils Absolute Auto 6.3 x10*3/uL (2.0-8.3); Platelet Count 260 X10*3/uL (160-400); Red Blood Count 4.25 X10*6/uL (4.20-5.50); Red Cell Distribution Width 14.5 % (11.0-16.0); White Blood Count 9.7 X10*3/uL (4.8-10.8)
[2021-03-27 21:25] LABS: Alanine Aminotransferase 22 U/L (0-31); Albumin Level 3.9 g/dL (3.5-5.0); Alkaline Phosphatase 108 U/L (39-117); Anion Gap 12 (12-20); Aspartate Amino Transferase 17 U/L (5-31); Bilirubin Direct < 0.2 mg/dL (0.0-0.5); Bilirubin Total 0.2 mg/dL (0.0-1.0); Blood Urea Nitrogen 14 mg/dL (9-16); Calcium 8.9 mg/dL (8.4-10.2); Carbon Dioxide 24 mmol/L (22-29); Chloride 107 mmol/L (96-108); Creatinine Clr Calc Pharmacy 97.1; Estimated Glomerular Filt Rate > 60; Glucose Random 90 mg/dL (60-115); Lipase 32 U/L (8-78); Sodium 139 mmol/L (135-145); Total Protein 7.1 g/dL (6.5-8.0)
--- NOTE | 2021-03-28 00:36 | ED.ABDPAIN ---
HPI - Abdominal Pain General Chief Complaint: Abdominal Pain Stated Complaint: stomach pain Time Seen by Provider: 03/28/21 00:34 Source: patient Mode of arrival: ambulatory Limitations: no limitations History of Present Illness HPI narrative: 35-year-old female came in for evaluation of abdominal pain. Pain stay for 4-5 days every month for the past 5 months, pain is constant for 5 days then spontaneously go away, described as dull aching pain, pain in his localized to the epigastric area sometimes radiate to the right flank area, no aggravating factor, no relieving factor, no associated nausea or vomiting or diarrhea, no unintentional weight loss or weight gain. Not food related. Never had history of abdominal surgery. Patient was seen and evaluated in the ED for similar abdominal pain, had a CT of the pelvis which was unremarkable. Related Data Previous Rx's Medication Instructions Recorded albuterol sulfate 90 mcg/actuation 2 puff INHALATION Q6H PRN #8.5 g 12/23/20 aerosol inhaler phentermine 37.5 mg tablet 37.5 mg PO DAILY 90 Days #90 tab 12/23/20 Allergies Allergy/AdvReac Type Severity Reaction Status Date / Time amoxicillin [AMOXICILLIN] Allergy Intermediate SWELLING Verified 02/01/21 11:08 OF VAGINAL AREA , vaginal itching Review of Systems Review of Systems All other systems are reviewed and are negative Constitutional: Reports as per HPI and Reports no additional constitutional complaints Eyes: Reports as per HPI and Reports no additional eye complaints Reports system reviewed and no additional complaints, except as documented Cardiovascular: Reports as per HPI and Reports no additional cardiovascular complaints Respiratory: Reports as per HPI and Reports no additional respiratory complaints Gastrointestinal: Reports as per HPI and Reports no additional gastrointestinal complaints Genitourinary: Reports no additional female genitourinary complaints Musculoskeletal: Reports no additional musculoskeletal complaints Skin/Breast: Reports system reviewed and no additional complaints, except as docu Psychiatric: Reports no additional psychiatric complaints Endocrine: Reports no additional endocrine complaints Hematologic/Lymphatic: Reports no additional hematologic/lymphatic complaints Allergic/Immunologic: Reports no additional allergic/immunologic complaints Reports system reviewed and no additional complaints, except as documented and Reports Abnormal speech present Physical Exam Vital Signs: Vital Signs: Last Vital Signs Temp 98.0 F 03/27/21 20:31 Pulse 63 03/28/21 00:38 Resp 16 03/28/21 00:38 BP 119/66 03/28/21 00:38 Pulse Ox 100 03/28/21 00:38 BMI result Body Mass Index 31.6 Vital signs have been reviewed as appeared to be correct. Blood pressure normal. Heart rate normal. Respiration rate normal. Temperature normal. Oxygen saturation normal. Appearance: Alert. Oriented X3. No acute distress. Head: Normal external exam. Normocephalic. Atraumatic. No Lam signs noted. No raccoon eyes noted Eyes: PERRLA. EOMI. Conjunctiva and sclera normal. Eyelids normal. ENT: TM's Normal. Pharynx normal. Uvula midline. Moist mucous membranes. No trismus noted. No drooling noted. No muffled voice noted. Neck: Normal inspection. Neck supple. FROM. No adenopathy. Thyroid Normal. No meningeal signs. No neck mass noted. CVS: Normal heart rate and rhythm. Heart sound normal. No murmurs noted. Pulses normal throughout. Respiratory: No respiratory distress. Painless inspiration. Breath sounds normal. No wheezes/rales/rhonchi noted. Chest nontender. No accessory muscle usage noted or decreased air movement noted. Abdomen: Soft, mild epigastric tenderness, no guarding, no rebound tenderness. Bowel sounds normal in all 4 quadrants. No distention noted. No organomegaly noted. No visible injury noted. Back: No CVA tenderness. Full range of motion noted. Skin: Skin warm and dry. Normal skin color. Normal skin turgor. No rashes/lesions/lacerations noted. Extremities: No lower extremity edema. Extremities exhibit normal range of motion. Extremities nontender. Neuro: Oriented X 3. Cranial nerve exam: II-XII are grossly intact No motor deficit. No sensory deficit. Reflexes normal. Course Course Course Narrative: Assessment and plan. 35-year-old female came in for upper abdominal pain intermittently for the past few months, abdominal exam is revealing mild epigastric tenderness, labs are unremarkable and UA/ is negative. Bedside ultrasound showed no obvious gallbladder stone however patient needs an official ultrasound which is not available now in this institution. Will discharge home refer to outpatient GI follow-up. MDM - Abdominal Pain Lab Data Attestation: I reviewed the patient's lab results. Result diagrams: 03/27/21 21:04 03/27/21 21:04 Labs: Lab Results 03/27/21 03/27/21 03/28/21 Range/Units 21:04 21:04 00:41 WBC 9.7 (4.8-10.8) X10*3/uL RBC 4.25 (4.20-5.50) X10*6/uL Hgb 12.1 (12.0-16.0) g/dl Hct 37.5 (37.0-47.0) % MCV 88.2 (80.0-98.0) fL MCH 28.5 (27.0-33.0) pg MCHC 32.3 (31.0-35.0) g/dl RDW 14.5 (11.0-16.0) % Plt Count 260 (160-400) X10*3/uL MPV 9.2 L (9.4-12.3) fL Immature Gran % (Auto) 0.2 (0.0-0.4) % Neut % (Auto) 65.0 (45-73) % Lymph % (Auto) 25.8 (20-40) % [place] % (Auto) 7.7 (2-11) % Eos % (Auto) 0.9 (0-4) % Baso % (Auto) 0.4 (0-2) % Lymph # (Auto) 2.5 (1.2-4.9) X10*3/uL [place] # (Auto) 0.8 (0.1-1.2) X10*3/uL Eos # (Auto) 0.1 (0.0-0.4) X10*3/uL Baso # (Auto) 0.0 (0.0-0.2) X10*3/uL Abs Immat Gran (auto) 0.02 (0.00-0.03) X10*3/uL Absolute Neuts (auto) 6.3 (2.0-8.3) x10*3/uL Absolute Nucleated RBC 0.000 (0.0-0.012) X10*3/uL Nucleated RBC % (auto) 0.0 (0.0-0.2) /100WBC Sodium 139 (135-145) mmol/L Potassium 4.0 (3.3-5.1) mmol/L Chloride 107 (96-108) mmol/L Carbon Dioxide 24 (22-29) mmol/L Anion Gap 12 (12-20) BUN 14 (9-16) mg/dL Creatinine 0.80 (0.5-1.4) mg/dL Estim Creat Clear Calc 97.1 Estimated GFR > 60 Random Glucose 90 (60-115) mg/dL Calcium 8.9 D (8.4-10.2) mg/dL Total Bilirubin 0.2 (0.0-1.0) mg/dL Direct Bilirubin < 0.2 (0.0-0.5) mg/dL AST 17 (5-31) U/L ALT 22 (0-31) U/L Alkaline Phosphatase 108 (39-117) U/L Total Protein 7.1 (6.5-8.0) g/dL Albumin 3.9 (3.5-5.0) g/dL Lipase 32 (8-78) U/L Urine Color YELLOW Urine Appearance HAZY Urine pH 6.5 (5.0-8.0) Ur Specific [place] 1.025 (1.005-1.025) Urine Protein NEG (NEG-TRACE) MG/DL Urine Glucose (UA) NEG (NEG) MG/DL Urine Ketones NEG (NEG) MG/DL Urine Blood TRACE (NEG) Urine Nitrite NEG (NEG) Ur Leukocyte Esterase NEG (NEG) Urine RBC 1-4 (0) /HPF Urine WBC 0 (0-4) /HPF Ur Squamous Epith Cells 1+ /LPF Amorphous Sediment TRACE /LPF Urine Bacteria NONE /LPF Urine Mucus 3+ /LPF Urine Test (NEGATIVE) 03/28/21 Range/Units 00:41 WBC (4.8-10.8) X10*3/uL RBC (4.20-5.50) X10*6/uL Hgb (12.0-16.0) g/dl Hct (37.0-47.0) % MCV (80.0-98.0) fL MCH (27.0-33.0) pg MCHC (31.0-35.0) g/dl RDW (11.0-16.0) % Plt Count (160-400) X10*3/uL MPV (9.4-12.3) fL Immature Gran % (Auto) (0.0-0.4) % Neut % (Auto) (45-73) % Lymph % (Auto) (20-40) % [place] % (Auto) (2-11) % Eos % (Auto) (0-4) % Baso % (Auto) (0-2) % Lymph # (Auto) (1.2-4.9) X10*3/uL [place] # (Auto) (0.1-1.2) X10*3/uL Eos # (Auto) (0.0-0.4) X10*3/uL Baso # (Auto) (0.0-0.2) X10*3/uL Abs Immat Gran (auto) (0.00-0.03) X10*3/uL Absolute Neuts (auto) (2.0-8.3) x10*3/uL Absolute Nucleated RBC (0.0-0.012) X10*3/uL Nucleated RBC % (auto) (0.0-0.2) /100WBC Sodium (135-145) mmol/L Potassium (3.3-5.1) mmol/L Chloride (96-108) mmol/L Carbon Dioxide (22-29) mmol/L Anion Gap (12-20) BUN (9-16) mg/dL Creatinine (0.5-1.4) mg/dL Estim Creat Clear Calc Estimated GFR Random Glucose (60-115) mg/dL Calcium (8.4-10.2) mg/dL Total Bilirubin (0.0-1.0) mg/dL Direct Bilirubin (0.0-0.5) mg/dL AST (5-31) U/L ALT (0-31) U/L Alkaline Phosphatase (39-117) U/L Total Protein (6.5-8.0) g/dL Albumin (3.5-5.0) g/dL Lipase (8-78) U/L Urine Color Urine Appearance Urine pH (5.0-8.0) Ur Specific [place] (1.005-1.025) Urine Protein (NEG-TRACE) MG/DL Urine Glucose (UA) (NEG) MG/DL Urine Ketones (NEG) MG/DL Urine Blood (NEG) Urine Nitrite (NEG) Ur Leukocyte Esterase (NEG) Urine RBC (0) /HPF Urine WBC (0-4) /HPF Ur Squamous Epith Cells /LPF Amorphous Sediment /LPF Urine Bacteria /LPF Urine Mucus /LPF Urine Test NEGATIVE (NEGATIVE) Discharge Plan Discharge Clinical Impression: Abdominal pain Patient Disposition: Home, Self-Care Instructions: Abdominal Pain (ED) Prescriptions: No Action phentermine 37.5 mg tablet 37.5 mg PO DAILY 90 Days Qty: 90 0RF Rx Instructions: must administer 30 minutes before or 1-2 hours after breakfast albuterol sulfate 90 mcg/actuation HFA aerosol inhaler 2 puff inhalation Q6H PRN (Reason: shortness of breath or wheezing) Qty: 8.5 1RF Referrals: Mireille Mari MD [Primary Care Provider] - 2 days Ray Weller MD [Physician] - 2 days [facility] Past Medical History Medical History Breast implant status Migraines Mild asthma Photosensitivity Surgical History History of abdominoplasty History of tubal ligation History of wisdom tooth extraction Hx of breast implants, bilateral Urethral diverticulum Family History Family History Father Diabetes Mother No problems noted. Maternal Grandmother Diabetes Pacemaker CVD (cardiovascular disease) Paternal Grandfather Alcoholism Substance use disorder Family/Other ADHD Chronic mental illness Asthma Social History Social History Housing: House Alcohol intake: never Patient Tobacco Use Status: Never used Tobacco e-Cigarette/Vaping Use: Never Used Second Hand Smoke Exposure: Yes Advance Directives: No Patient : No service: No Current occupational status: employed
[2021-03-28 00:38] VITALS: BP 119/66; PULSE 63; RESP 16; O2SAT 100
[2021-03-28 00:47] LABS: Appearance Urine HAZY; Color Urine YELLOW; Glucose Urine UA NEG (NEG); Leukocyte Esterase Urine NEG (NEG); Nitrite Urine NEG (NEG); PH 6.5 (5.0-8.0); Specific Gravity - Urine 1.025 (1.005-1.025); UACC Culture Trigger NO; Urine Blood TRACE (NEG); Urine Ketones NEG (NEG); Urine Protein NEG (NEG-TRACE)
[2021-03-28 00:49] LABS: UPreg QC Valid YES; Urine Pregnancy NEGATIVE (NEGATIVE)
[2021-03-28 01:09] LABS: Amorphous Sediment Urine TRACE /LPF; Mucus Urine 3+ /LPF; Squamous Epithelial Cell Urine 1+ /LPF; WBC Urine 0 /HPF (0-4)
== END 2021-03-28 01:34 | disposition home or self-care (01) ==
PROVIDERS: Emergency Provider Emergency Medicine; PCP Internal Medicine
DX: R10.13 Epigastric pain (principal); Z79.899 Other long term (current) drug therapy
CPT/HCPCS: 36415; 80053; 81001; 81025; 82248; 83690; 85025; 99284

== ENCOUNTER 2021-04-22 08:55 | Outpatient (REF) | payer OTHER, SELFPAY ==
--- NOTE | ~2021-04-22 | US_ITS ---
EXAMINATION: US ABDOMEN COMPLETE CLINICAL INFORMATION: Right upper quadrant pain. Rule out cholelithiasis. COMPARISON: CT abdomen and pelvis 11/23/2020. X-ray abdomen KUB 03/08/2016. Ultrasound abdomen 06/01/2010. TECHNIQUE: Real-time imaging of the abdominal viscera. FINDINGS: PANCREAS: Normal. ABDOMINAL AORTA: The proximal, mid, and distal segments are normal in caliber. INFERIOR VENA CAVA: Visualized portions are normal. LIVER: Normal. The liver is normal in size. The liver contour is normal. Parenchymal echogenicity is normal. No focal hepatic lesion. There is no intrahepatic biliary duct dilatation seen. GALLBLADDER: There are 2 structures adherent to the fat of the gallbladder neck which on average measures 3 mm in diameter which either may represent foci of adherent sludge or tiny gallbladder polyps. The gallbladder is otherwise unremarkable. COMMON BILE DUCT: Normal in caliber measuring 0.4 cm in diameter. RIGHT KIDNEY: Normal. No hydronephrosis. No renal calculi or focal parenchymal lesions. The kidney measures 11.4 cm in maximum dimension. LEFT KIDNEY: Normal. No hydronephrosis. No renal calculi or focal parenchymal lesions. The kidney measures 10.8 cm in maximum dimension. SPLEEN: Normal. The spleen measures 12.3 cm in maximum dimension. FREE FLUID: None. US/US abdomen complete IMPRESSION: There are two 3 mm polyps versus adherent sludge within the neck of the gallbladder. There is no evidence of cholecystitis.
== END 2021-04-22 08:56 | disposition home or self-care (01) ==
LOC: HO.HMGCX 08:55
PROVIDERS: PCP Internal Medicine; Visit Provider Internal Medicine
DX: R10.11 Right upper quadrant pain (principal)
CPT/HCPCS: 76700

== ENCOUNTER 2021-06-11 08:22 | Outpatient (REF) | payer OTHER, SELFPAY ==
[2021-06-11 12:44] LABS: Vitamin B12 392 pg/mL (200-900)
[2021-06-13 11:22] LABS: H Pylori Breath Test Positive (Negative)
[2021-06-16 11:06] LABS: Vitamin D 25-OH, D2 <4 ng/mL; Vitamin D 25-OH, D3 15 ng/mL; Vitamin D 25-OH, Total 15 ng/mL (30-100)
== END 2021-06-11 08:23 | disposition home or self-care (01) ==
LOC: HO.LAB 08:22
PROVIDERS: PCP Internal Medicine; Referring Provider Internal Medicine; Visit Provider Nurse Practitioner Family
DX: R19.7 Diarrhea, unspecified (principal); E55.9 Vitamin D deficiency, unspecified; K21.9 Gastro-esophageal reflux disease without esophagitis; K82.4 Cholesterolosis of gallbladder; R14.0 Abdominal distension (gaseous); K58.9 Irritable bowel syndrome, unspecified
CPT/HCPCS: 36415; 82306; 82607; 82746; 83013; 99202

== ENCOUNTER → 2021-07-01 08:16 | Outpatient (BNVA) | payer OTHER, SELFPAY | PROVIDERS: PCP Internal Medicine; Referring Provider Internal Medicine; Visit Provider Surgery | DX: K82.4 Cholesterolosis of gallbladder (principal); K21.9 Gastro-esophageal reflux disease without esophagitis; R10.11 Right upper quadrant pain; A04.8 Other specified bacterial intestinal infections; E66.9 Obesity, unspecified; Z68.33 Body mass index [BMI] 33.0-33.9, adult | CPT/HCPCS: 99202 ==

== ENCOUNTER 2021-07-28 22:13 | Emergency (ER) | payer OTHER, SELFPAY ==
--- NOTE | ~2021-07-28 | CT_ITS ---
EXAMINATION: CT ABDOMEN AND PELVIS WITHOUT CONTRAST CLINICAL INFORMATION: Epigastric and right-sided abdominal pain. COMPARISON: 11/23/2020 TECHNIQUE: Multidetector volumetric imaging was performed from the superior aspect of the liver through the pubic symphysis. Sagittal and coronal reformatted images were obtained on the technologist's workstation. This CT examination was performed using dose optimization techniques as appropriate, variously including the following: *Automated exposure control *Adjustment of mA and/or kV according to patient size (this includes techniques or standardized protocols for targeted exams where dose is matched to indication/reason for exam; i.e. extremities or head) *Use of iterative reconstruction technique DLP: 678 mGy-cm FINDINGS: LUNG BASES: Pleural parenchymal scarring redemonstrated within the middle lobe and lingula. LIVER, GALLBLADDER, AND BILIARY TREE: The liver is normal in size, shape, and attenuation. No focal hepatic lesion or biliary ductal dilatation is present. There is gallbladder wall edema and/or pericholecystic inflammation. PANCREAS: Unremarkable. SPLEEN: Unremarkable. ADRENAL GLANDS: Unremarkable. KIDNEYS AND URETERS: The kidneys are normal in size, shape, and attenuation. There are bilateral nonobstructive intrarenal calculi numbering at least 6 in the left kidney and one in the right kidney ranging in size from punctate to 3 mm (upper pole left kidney). No hydronephrosis or perinephric stranding. No ureteral calculi. BLADDER: Unremarkable. GASTROINTESTINAL TRACT: The small and large bowel are unremarkable. The appendix is unremarkable. ABDOMINAL WALL: No significant hernia is appreciated. Changes related to previous tummy tuck and bilateral flank panniculectomy. LYMPH NODES: Normal. VASCULAR: Unremarkable. PELVIC VISCERA: Uterus and adnexa unremarkable. OSSEOUS STRUCTURES: Unremarkable. CT/CT abdomen pelvis wo con IMPRESSION: * There is gallbladder wall edema/pericholecystic inflammation suggestive of cholecystitis. * Bilateral nonobstructive intrarenal calculi. No ureteral calculi or hydronephrosis. Fleischner guidelines were followed.
[2021-07-28 22:26] VITALS: BP 118/68; PULSE 63; RESP 18; TEMP 36.4; O2SAT 100; BMI 32.9
[2021-07-28 23:04] LABS: MANUAL DIFF FLAG NO
[2021-07-28 23:05] LABS: Basophils Percent Auto 0.4 % (0-2); Eosinophils Absolute Auto 0.1 X10*3/uL (0.0-0.4); Eosinophils Percent Auto 1.5 % (0-4); Hematocrit 36.6 % (37.0-47.0); Hemoglobin 12.1 g/dl (12.0-16.0); Imm Gran Abs Auto 0.03 X10*3/uL (0.00-0.03); Imm Gran Pct Auto 0.4 % (0.0-0.4); Lymphocytes Percent Auto 24.3 % (20-40); Mean Corpuscular HGB Conc 33.1 g/dl (31.0-35.0); Mean Corpuscular Hemoglobin 29.4 pg (27.0-33.0); Mean Corpuscular Volume 89.1 fL (80.0-98.0); Mean Platelet Volume 9.2 fL (9.4-12.3); Monocytes Absolute Auto 0.6 X10*3/uL (0.1-1.2); Monocytes Percent Auto 7.3 % (2-11); Neutrophils Absolute Auto 5.4 x10*3/uL (2.0-8.3); Neutrophils Percent Auto 66.1 % (45-73); Platelet Count 224 X10*3/uL (160-400); Red Blood Count 4.11 X10*6/uL (4.20-5.50); Red Cell Distribution Width 13.3 % (11.0-16.0); White Blood Count 8.1 X10*3/uL (4.8-10.8)
[2021-07-28 23:11] LABS: Appearance Urine HAZY; Color Urine YELLOW; Glucose Urine UA NEG (NEG); Leukocyte Esterase Urine NEG (NEG); Nitrite Urine NEG (NEG); UACC Culture Trigger NO; Urine Blood 1+ (NEG); Urine Ketones NEG (NEG); Urine Protein NEG (NEG-TRACE)
[2021-07-28 23:12] LABS: UPreg QC Valid YES; Urine Pregnancy NEGATIVE (NEGATIVE)
[2021-07-28 23:17] LABS: Bacteria Urine TRACE /LPF; Mucus Urine 2+ /LPF; Squamous Epithelial Cell Urine 3+ /LPF
[2021-07-28 23:24] LABS: Alanine Aminotransferase 30 U/L (0-31); Albumin Level 3.8 g/dL (3.5-5.0); Alkaline Phosphatase 94 U/L (39-117); Anion Gap 9 (12-20); Aspartate Amino Transferase 18 U/L (5-31); Bilirubin Total 0.2 mg/dL (0.0-1.0); Blood Urea Nitrogen 13 mg/dL (9-16); Calcium 8.9 mg/dL (8.4-10.2); Carbon Dioxide 26 mmol/L (22-29); Chloride 109 mmol/L (96-108); Creatinine Clr Calc Pharmacy 102.9; Estimated Glomerular Filt Rate > 60; Glucose Random 112 mg/dL (60-115); Lipase 20 U/L (8-78); Potassium 3.7 mmol/L (3.3-5.1); Sodium 140 mmol/L (135-145); Total Protein 6.5 g/dL (6.5-8.0)
--- NOTE | 2021-07-28 23:50 | ED.ABDPAIN ---
HPI - Abdominal Pain General Chief Complaint: Abdominal Pain Stated Complaint: abd and back pain Time Seen by Provider: 07/28/21 23:40 Source: patient Mode of arrival: ambulatory Limitations: no limitations History of Present Illness HPI narrative: 35-year-old female history of H pylori, GERD, asthma presents to the emergency department with complaints of epigastric pain, and right sided abdominal pain since yesterday night, describes the pain is severe, intermittent in nature with radiation to back at times. Patient tells me that she is having pain mainly tender epigastric region, she describes as a spasming/crampy sensation to her epigastric area and then tells me that she is having pain to the right side of her abdomen. She tells me it is both upper and lower. She tells me that this pain started last night after she ate. She tells me that it went away after 4-5 hours and then came back today. She tells me that the pain today started at around 16:00, after eating, and it did not resolve. She tells me she recently finished treatment for H pylori around 2 weeks ago. She is currently followed by GI nurse practitioner Kandy. Patient denies chest pain, shortness of breath, vomiting, nausea, fevers, chills, weakness, hematochezia, hematemesis, changes in bowel habits MD elicited complaint: abdominal pain Pertinent past history: other (H pylori) Onset (ago): day(s) (2) Pain Consistency: intermittent Location: none Severity: severe Quality: cramping and fullness Exacerbating factors: nothing Relieving factors: nothing Associated symptoms: denies other symptoms Related Data Previous Rx's Medication Instructions Recorded albuterol sulfate 90 mcg/actuation 2 puff inhalation Q6H PRN 12/23/20 aerosol inhaler shortness of breath or wheezing #8.5 grams cholecalciferol (vitamin D3) 50 50 mcg PO DAILY #90 caps 06/18/21 mcg (2,000 unit) capsule levofloxacin 750 mg tablet 750 mg PO DAILY 7 days #7 tabs 07/29/21 metronidazole 500 mg tablet 500 mg PO BID 7 days #14 tabs 07/29/21 Allergies Allergy/AdvReac Type Severity Reaction Status Date / Time amoxicillin [AMOXICILLIN] Allergy Intermediate SWELLING Verified 07/28/21 22:29 OF VAGINAL AREA , vaginal itching Review of Systems Review of Systems Constitutional : No Weight loss, No Fever, No Chills, No Fatigue, No Malaise ENT/Mouth : No sore throat, No Rhinorrhea Eyes: No Eye Pain, No Swelling, No Redness Cardiovascular : No Chest Pain, No SOB, No Dyspnea on Exertion, No Orthopnea, No Edema, No Palpitations Respiratory : No Cough, No Sputum, No Wheezing Gastrointestinal : No Nausea, No Vomiting, No Diarrhea, No Constipation, + abdominal Pain, No Hematochezia, No Melena Genitourinary : No Dysuria, No Urinary Frequency, No Hematuria, Musculoskeletal : No joint pain, No Myalgias, No Joint Swelling Skin : No Skin Lesions, No rash Neuro : No Weakness, No Numbness, No Dizziness, No Headache All other systems reviewed and are negative Yes all other systems are reviewed and are negative [facility] Past Medical History Attestation statement: The following information was validated with the patient. Source: old records reviewed and nursing notes reviewed Surgical History History of abdominoplasty History of blepharoplasty History of tubal ligation History of wisdom tooth extraction Hx of breast implants, bilateral Urethral diverticulum Family History Family History Father Diabetes Mother No problems noted. Maternal Grandmother Diabetes Pacemaker CVD (cardiovascular disease) Paternal Grandfather Alcoholism Substance use disorder Family/Other ADHD Chronic mental illness Asthma Social History Social History Housing: House Alcohol intake: current Alcohol intake frequency: holidays/special occasions only Alcohol type: other Patient Tobacco Use Status: Never used Tobacco e-Cigarette/Vaping Use: Never Used Second Hand Smoke Exposure: Yes Advance Directives: No Advance Directives Information Provided: Yes service: No Current occupational status: employed Current occupational exposures/hazards: No Cognitive needs: No Hearing needs: No Vision needs: No Physical Exam ED Vital Signs: Vital Signs - 24 hr 07/28/21 22:26 07/29/21 00:12 Temperature 97.5 F Pulse Rate 63 56 Respiratory Rate 18 16 Blood Pressure 118/68 109/67 Pulse Oximetry 100 99 Oxygen Delivery Method Room Air Room Air BMI result Body Mass Index 32.9 Vital signs stable Appearance: Alert.? Oriented X3.? No acute distress.? Head: Normocephalic, atraumatic, no step-offs or deformities Eyes: Pupils equal, round and reactive to light.? Neck: Normal inspection.? Neck supple.? CVS: Normal heart rate and rhythm.? Pulses normal.? Respiratory: No respiratory distress.? Breath sounds normal.? Abdomen: Soft and + minimal tenderness to epigastric region,RUQ and RLQ? Normal BS Skin: Skin warm and dry.? Normal skin color.? Normal skin turgor.? Extremities: No lower extremity edema.? No calf ttp. 5/5 strength to bilateral upper and lower extremities Back: No midline tenderness, no C-spine tenderness, full range of motion, no CVA tenderness bilaterally Neuro: Oriented X 3.? No motor deficit.? No sensory deficit. CN 2-12 intact Course Reevaluation(s) Reevaluation #1: There is gallbladder wall edema/pericholecystic inflammation suggestive of cholecystitis, however patient with a very benign exam. Likely contributing to patient's discomfort. I also re-evaluated patient at this time patient is not tender to palpation, she tells me she is feeling better. I discussed this case and image findings with , at this time patient does not require immediate intervention, I will have her follow-up with the general surgery office tomorrow to schedule prompt outpatient follow-up, tells me if it is not tender now and feeling better patient is to be discharged home with po antibiotics for a week. Patient's vital signs are stable, no signs of evident obstruction, patient's exam initially with mild discomfort, borderline normal, patient appears comfortable not complaining of pain at this time. 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 I educated her on all the worrisome signs and symptoms, I educated her on the risks of leaving, she verbalizes understanding and tells me she will return immediately if she is experiencing pain. At this time patient will be discharged home with prompt general surgery follow-up. Educated patient on worrisome signs and symptoms and when to return. At this time I feel comfortable with discharge home Time: 02:25 MDM - Abdominal Pain MDM Narrative Medical decision making narrative: 0020 35-year-old female who recently finished treatment for H pylori presents to the emergency department was which she described as epigastric pain and right abdominal pain including the right upper and right lower quadrant started yesterday has been intermittent since then worse post prandial. Patient tells me that she feels like she can not eat. Upon examination patient is noted to have mild tenderness to the epigastric region, RUQ & RLQ. Abdomen is soft with normoactive bowel sounds. Lungs clear. Regular rate and rhythm. Neuro exam nonfocal. Patient overall appears comfortable. Upon chart review it is noted that patient is seen by GI and nurse practitioner Kandy patient has presented with a similar presentation, she has reported epigastric discomfort postprandially, she is not following a specific diet. She has also had multiple emergency department visits for the same complaint. Will rule out UTI, intra-abdominal processes, kidney stones, cholecystitis. Unlikely appendicitis. Plan at this time is to obtain labs, urine, CT of the abdomen and pelvis. Medical Records Attestation: I reviewed the patient's medical records. Lab Data Attestation: I reviewed the patient's lab results. Result diagrams: 07/28/21 22:52 07/28/21 22:52 Labs: Lab Results 07/28/21 07/28/21 07/28/21 Range/Units 22:52 22:52 22:52 WBC 8.1 (4.8-10.8) X10*3/uL RBC 4.11 L (4.20-5.50) X10*6/uL Hgb 12.1 (12.0-16.0) g/dl Hct 36.6 L (37.0-47.0) % MCV 89.1 (80.0-98.0) fL MCH 29.4 (27.0-33.0) pg MCHC 33.1 (31.0-35.0) g/dl RDW 13.3 (11.0-16.0) % Plt Count 224 (160-400) X10*3/uL MPV 9.2 L (9.4-12.3) fL Immature Gran % (Auto) 0.4 (0.0-0.4) % Neut % (Auto) 66.1 (45-73) % Lymph % (Auto) 24.3 (20-40) % [place] % (Auto) 7.3 (2-11) % Eos % (Auto) 1.5 (0-4) % Baso % (Auto) 0.4 (0-2) % Lymph # (Auto) 2.0 (1.2-4.9) X10*3/uL [place] # (Auto) 0.6 (0.1-1.2) X10*3/uL Eos # (Auto) 0.1 (0.0-0.4) X10*3/uL Baso # (Auto) 0.0 (0.0-0.2) X10*3/uL Abs Immat Gran (auto) 0.03 (0.00-0.03) X10*3/uL Absolute Neuts (auto) 5.4 (2.0-8.3) x10*3/uL Absolute Nucleated RBC 0.000 (0.0-0.012) X10*3/uL Nucleated RBC % (auto) 0.0 (0.0-0.2) /100WBC Sodium 140 (135-145) mmol/L Potassium 3.7 (3.3-5.1) mmol/L Chloride 109 H (96-108) mmol/L Carbon Dioxide 26 (22-29) mmol/L Anion Gap 9 L (12-20) BUN 13 (9-16) mg/dL Creatinine 0.77 (0.5-1.4) mg/dL Estim Creat Clear Calc 102.9 Estimated GFR > 60 Random Glucose 112 (60-115) mg/dL Calcium 8.9 (8.4-10.2) mg/dL Total Bilirubin 0.2 (0.0-1.0) mg/dL AST 18 (5-31) U/L ALT 30 (0-31) U/L Alkaline Phosphatase 94 (39-117) U/L Total Protein 6.5 (6.5-8.0) g/dL Albumin 3.8 (3.5-5.0) g/dL Lipase 20 (8-78) U/L Urine Color YELLOW Urine Appearance HAZY Urine pH 7.0 (5.0-8.0) Ur Specific [place] 1.020 (1.005-1.025) Urine Protein NEG (NEG-TRACE) MG/DL Urine Glucose (UA) NEG (NEG) MG/DL Urine Ketones NEG (NEG) MG/DL Urine Blood 1+ H (NEG) Urine Nitrite NEG (NEG) Ur Leukocyte Esterase NEG (NEG) Urine RBC 5-9 H (0) /HPF Urine WBC 1-4 (0-4) /HPF Ur Squamous Epith Cells 3+ /LPF Urine Bacteria TRACE /LPF Urine Mucus 2+ /LPF Urine Test (NEGATIVE) 07/28/21 Range/Units 22:52 WBC (4.8-10.8) X10*3/uL RBC (4.20-5.50) X10*6/uL Hgb (12.0-16.0) g/dl Hct (37.0-47.0) % MCV (80.0-98.0) fL MCH (27.0-33.0) pg MCHC (31.0-35.0) g/dl RDW (11.0-16.0) % Plt Count (160-400) X10*3/uL MPV (9.4-12.3) fL Immature Gran % (Auto) (0.0-0.4) % Neut % (Auto) (45-73) % Lymph % (Auto) (20-40) % [place] % (Auto) (2-11) % Eos % (Auto) (0-4) % Baso % (Auto) (0-2) % Lymph # (Auto) (1.2-4.9) X10*3/uL [place] # (Auto) (0.1-1.2) X10*3/uL Eos # (Auto) (0.0-0.4) X10*3/uL Baso # (Auto) (0.0-0.2) X10*3/uL Abs Immat Gran (auto) (0.00-0.03) X10*3/uL Absolute Neuts (auto) (2.0-8.3) x10*3/uL Absolute Nucleated RBC (0.0-0.012) X10*3/uL Nucleated RBC % (auto) (0.0-0.2) /100WBC Sodium (135-145) mmol/L Potassium (3.3-5.1) mmol/L Chloride (96-108) mmol/L Carbon Dioxide (22-29) mmol/L Anion Gap (12-20) BUN (9-16) mg/dL Creatinine (0.5-1.4) mg/dL Estim Creat Clear Calc Estimated GFR Random Glucose (60-115) mg/dL Calcium (8.4-10.2) mg/dL Total Bilirubin (0.0-1.0) mg/dL AST (5-31) U/L ALT (0-31) U/L Alkaline Phosphatase (39-117) U/L Total Protein (6.5-8.0) g/dL Albumin (3.5-5.0) g/dL Lipase (8-78) U/L Urine Color Urine Appearance Urine pH (5.0-8.0) Ur Specific [place] (1.005-1.025) Urine Protein (NEG-TRACE) MG/DL Urine Glucose (UA) (NEG) MG/DL Urine Ketones (NEG) MG/DL Urine Blood (NEG) Urine Nitrite (NEG) Ur Leukocyte Esterase (NEG) Urine RBC (0) /HPF Urine WBC (0-4) /HPF Ur Squamous Epith Cells /LPF Urine Bacteria /LPF Urine Mucus /LPF Urine Test NEGATIVE (NEGATIVE) Critical Care Time Critical Care Time Critical Care Time: Yes Total Critical Care Time: 35 Attestation: I attest to this time spent taking care of the patient, obtaining history, physical, reviewing labs, imaging, speaking to specialist. Discharge Plan Discharge Clinical Impression: Abdominal pain, Cholecystitis Patient Disposition: Home, Self-Care Instructions: Cholecystitis (ED), Diet for Stomach Ulcers and Gastritis (ED), Abdominal Pain (ED) Additional Instructions: Take your medications as prescribed. If you were prescribed antibiotics today, it is important that you take your medication to their entirety, do not skip any doses, do not finish them early. Follow-up with your primary care provider this week. Please follow-up with Kandy nurse practitioner within a week. You need to call the general surgery office tomorrow to schedule an appointment as soon as possible preferably tomorrow. Return to the emergency department with new or worsening symptoms. Such as fevers, chills, chest pain, shortness of breath, nausea, vomiting, dizziness, headache, vision changes, lethargy In case of emergency call 911 I offered you hospital admission however you did not want hospital for various reasons, however you did understand the risks of leaving such as potentially worsening condition, infection, progression of disease, you also verbalized understanding of when to return to the emergency department. Return with new or worsening symptoms. And follow-up with general surgery as soon as possible. Educated you a black box warning of levofloxacin. Prescriptions: New metronidazole 500 mg tablet 500 mg PO BID 7 Days Qty: 14 0RF levofloxacin 750 mg tablet 750 mg PO DAILY 7 Days Qty: 7 0RF No Action cholecalciferol (vitamin D3) 50 mcg (2,000 unit) capsule 50 mcg PO DAILY Qty: 90 3RF albuterol sulfate 90 mcg/actuation HFA aerosol inhaler 2 puff inhalation Q6H PRN (Reason: shortness of breath or wheezing) Qty: 8.5 1RF Referrals: Karen Lopez FNP-BC [Nurse Practitioner] - 1 week Mireille Mari MD [Primary Care Provider] - 2 days Stand Alone Forms: Work/School Release
[2021-07-29] MEDS: 0.9 % Sodium Chloride 1,000 ML 999 ML IV (00:09)
[2021-07-29 00:12] VITALS: BP 109/67; PULSE 56; RESP 16; O2SAT 99
[2021-07-29] MEDS: Ketorolac Tromethamine 15 MG/ML VIAL 30 MG IM (00:23)
[2021-07-29] MEDS: Magnesium Hydrox/Alum Hydrox 30 ML ORAL.SUSP 15 ML PO (02:15)
[2021-07-29] MEDS: PHENobarb/Hyoscy/Atropine/Scop 10 ML ELIXIR PO (02:15)
== END 2021-07-29 02:56 | disposition home or self-care (01) ==
PROVIDERS: Emergency Provider Internal Medicine; PCP Internal Medicine
DX: R10.13 Epigastric pain (principal); K81.9 Cholecystitis, unspecified; Z86.19 Personal history of other infectious and parasitic diseases
CPT/HCPCS: 36415; 74176; 80053; 81001; 81025; 83690; 85025; 96360; 96372; 99284; 99285; J1885

== ENCOUNTER 2021-07-30 14:20 | Emergency (ER) | payer OTHER, SELFPAY ==
[2021-07-30 14:22] VITALS: BP 129/83; PULSE 75; RESP 18; TEMP 36.6; O2SAT 99; BMI 32.9
--- NOTE | 2021-07-30 15:00 | ED_ITS ---
HPI - General Adult General Chief complaint: Abdominal Pain Stated complaint: abd pain Time Seen by Provider: 07/30/21 14:55 Source: patient Limitations: no limitations History of Present Illness HPI narrative: This is a 35-year-old female who complains of abdominal pain off and on for several months, worse in the last 3-4 days. The patient was here the night before last and evaluated the CT scan which showed evidence of gallbladder wall inflammation, consistent with cholecystitis. Patient was advised to be admitted however she declined admission and was given surgery follow-up. She was started on Levaquin and Flagyl. Patient reports she felt better yesterday but this morning around 12 12 had eaten fried eggs and fried cheese and then developed abdominal pain that has been persistent since then. She has had nausea but no vomiting. She denies any fever. She denies any constipation or diarrhea. She denies any urinary symptoms. She notes she does have follow-up with her service dog trainer on Monday. Patient does have history of GERD Related Data Previous Rx's Medication Instructions Recorded albuterol sulfate 90 mcg/actuation 2 puff inhalation Q6H PRN 12/23/20 aerosol inhaler shortness of breath or wheezing #8.5 grams cholecalciferol (vitamin D3) 50 50 mcg PO DAILY #90 caps 06/18/21 mcg (2,000 unit) capsule levofloxacin 750 mg tablet 750 mg PO DAILY 7 days #7 tabs 07/29/21 metronidazole 500 mg tablet 500 mg PO BID 7 days #14 tabs 07/29/21 Allergies Allergy/AdvReac Type Severity Reaction Status Date / Time amoxicillin [AMOXICILLIN] Allergy Intermediate SWELLING Verified 07/28/21 22:29 OF VAGINAL AREA , vaginal itching Review of Systems Review of Systems: Yes all other systems are reviewed and are negative Constitutional: Constitutional: Reports as per HPI and Denies fever(s) Eyes: Eyes: Reports as per HPI and Reports no additional eye complaints ENT: Reports system reviewed and no additional complaints, except as documented, Reports as per HPI, Denies nasal congestion, Denies nasal discharge and Denies sore throat Cardiovascular: Cardiovascular: Reports as per HPI, Denies chest pain and Den ies dyspnea Respiratory: Respiratory: Reports as per HPI, Denies cough and Denies dyspnea Gastrointestinal: Gastrointestinal: Reports as per HPI, Reports abdominal pain, Denies diarrhea, Reports nausea and Denies vomiting Genitourinary: Genitourinary: Reports as per HPI, Denies hematuria, Denies urinary frequency and Denies dysuria Musculoskeletal: Musculoskeletal: Reports no additional musculoskeletal complaints and Denies numbness Integumentary/Breasts: Skin/Breast: Reports as per HPI and Denies rash Neurologic: Reports as per HPI, Denies focal weakness and Denies numbness Psychiatric: Psychiatric: Reports no additional psychiatric complaints and Reports as per HPI Endocrine: Endocrine: Reports no additional endocrine complaints and Reports as per HPI Hematologic/Lymphatic: Hematologic/Lymphatic: Reports no additional hemato logic/lymphatic complaints, Reports as per HPI and Reports other (No peripheral edema) [facility], LAT[facility] Past Medical History Surgical History History of abdominoplasty History of blepharoplasty History of tubal ligation History of wisdom tooth extraction Hx of breast implants, bilateral Urethral diverticulum Family History Family History Father Diabetes Mother No problems noted. Maternal Grandmother Diabetes Pacemaker CVD (cardiovascular disease) Paternal Grandfather Alcoholism Substance use disorder Family/Other ADHD Chronic mental illness Asthma Social History Social History Housing: House Alcohol intake: current Alcohol intake frequency: holidays/special occasions only Alcohol type: other Patient Tobacco Use Status: Never used Tobacco e-Cigarette/Vaping Use: Never Used Second Hand Smoke Exposure: Yes Advance Directives: No Advance Directives Information Provided: No service: No Current occupational status: employed Current occupational exposures/hazards: No Cognitive needs: No Hearing needs: No Vision needs: No Physical Exam ED Vital Signs: Vital Signs - 24 hr 07/30/21 14:22 07/30/21 15:21 Temperature 98 F Pulse Rate 75 Respiratory Rate 18 16 Blood Pressure 129/83 Pulse Oximetry 99 Oxygen Delivery Method Room Air BMI result Body Mass Index 32.9 Const General: no acute distress Orientation/consciousness: patient oriented x3 HENMT Head: Yes normal to inspection General nose exam: Normal external nose present Mouth: moist mucous membranes Throat: Yes posterior oropharynx normal, Yes tonsils normal and Yes uvula midline Eyes Eyelids: Yes eyelids normal Conjunctivae: conjunctivae normal Pupils: Equal, round and reactive pupils present Neck Neck: Yes supple Resp Effort & Inspection: normal respiratory effort Auscultation: clear to auscultation bilaterally Cardio Rate: regular rate Rhythm: regular rhythm Heart sounds: S1 normal heart sound present, S2 normal heart sound present, no gallops, no murmurs and no rubs GI Inspection: No distended Palpation (GI): Soft to palpation and Tenderness to palpation present (GI) in the RUQ; not at McBurney's point and with no rebound tenderness Auscultation: normal bowel sounds Skin General skin exam: other (Warm and dry) Neuro General: patient oriented x3 and CN's II-XI intact bilaterally Cranial nerves: Yes Equal, round and reactive pupils present Extrem General: Yes no pedal edema Psych Affect: normal affect Attitude: cooperative Medical Decision Making MDM Narrative Medical decision making narrative: Patient was improved with single dose of Dilaudid 0.5 mg IV, and Reglan 5 mg IV. Said her pain was gone. Patient had eaten fatty food this morning including salami, fried cheese, fried egg. The patient appears well clinically with minimal tenderness, negative Rowland sign. Patient's white blood cell count is normal as are her LFTs. The patient had an ultrasound done in April of this year which did not show gallstones, showed question of some adherent sludge versus polyps near the neck of her gallbladder. CT scan done 2 days ago showed some findings consistent with cholecystitis, though the patient had a normal white blood cell count, was afebrile. The patient had felt better yesterday and says she had eaten pizza with salami yesterday without onset of pain. The patient was prescribed Levaquin and Flagyl after her last visit. At this point I do not have a high clinical suspicion for cholecystitis. The patient is pain- free. She needs to adhere to a low-fat diet and follow up with general surgery. Lab Data Result diagrams: 07/30/21 15:17 07/30/21 15:17 Labs: Lab Results 07/30/21 07/30/21 Range/Units 15:17 15:17 WBC 7.2 (4.8-10.8) X10*3/uL RBC 4.01 L (4.20-5.50) X10*6/uL Hgb 11.8 L (12.0-16.0) g/dl Hct 35.8 L (37.0-47.0) % MCV 89.3 (80.0-98.0) fL MCH 29.4 (27.0-33.0) pg MCHC 33.0 (31.0-35.0) g/dl RDW 13.2 (11.0-16.0) % Plt Count 202 (160-400) X10*3/uL MPV 9.1 L (9.4-12.3) fL Immature Gran % (Auto) 0.3 (0.0-0.4) % Neut % (Auto) 57.9 (45-73) % Lymph % (Auto) 30.9 (20-40) % [place] % (Auto) 8.6 (2-11) % Eos % (Auto) 1.9 (0-4) % Baso % (Auto) 0.4 (0-2) % Lymph # (Auto) 2.2 (1.2-4.9) X10*3/uL [place] # (Auto) 0.6 (0.1-1.2) X10*3/uL Eos # (Auto) 0.1 (0.0-0.4) X10*3/uL Baso # (Auto) 0.0 (0.0-0.2) X10*3/uL Abs Immat Gran (auto) 0.02 (0.00-0.03) X10*3/uL Absolute Neuts (auto) 4.2 (2.0-8.3) x10*3/uL Absolute Nucleated RBC 0.000 (0.0-0.012) X10*3/uL Nucleated RBC % (auto) 0.0 (0.0-0.2) /100WBC Sodium 139 (135-145) mmol/L Potassium 3.6 (3.3-5.1) mmol/L Chloride 107 (96-108) mmol/L Carbon Dioxide 26 (22-29) mmol/L Anion Gap 10 L (12-20) BUN 13 (9-16) mg/dL Creatinine 0.72 (0.5-1.4) mg/dL Estim Creat Clear Calc 110.0 Estimated GFR > 60 Random Glucose 87 (60-115) mg/dL Calcium 9.1 (8.4-10.2) mg/dL Total Bilirubin 0.2 (0.0-1.0) mg/dL AST 19 (5-31) U/L ALT 32 H (0-31) U/L Alkaline Phosphatase 83 (39-117) U/L Total Protein 6.5 (6.5-8.0) g/dL Albumin 3.7 (3.5-5.0) g/dL Lipase 29 (8-78) U/L Discharge Plan Discharge Clinical Impression: Biliary colic Patient Disposition: Home, Self-Care Instructions: Biliary Colic (ED), Low Fat Diet (ED) Additional Instructions: He had a low-fat diet-avoid any fried foods or fatty foods such as cheese, [place] fries or other deep fried foods. Try to be steamed or baked low-fat meats such as chicken breast, fish. Avoid cured meats such as salami. Follow- up with her service dog trainer on Monday, and with general surgery as referred previously. Return for any new or worsened symptoms such as progressive abdominal pain, fever, nausea vomiting Prescriptions: No Action cholecalciferol (vitamin D3) 50 mcg (2,000 unit) capsule 50 mcg PO DAILY Qty: 90 3RF metronidazole 500 mg tablet 500 mg PO BID 7 Days Qty: 14 0RF levofloxacin 750 mg tablet 750 mg PO DAILY 7 Days Qty: 7 0RF albuterol sulfate 90 mcg/actuation HFA aerosol inhaler 2 puff inhalation Q6H PRN (Reason: shortness of breath or wheezing) Qty: 8.5 1RF Referrals: Vu Barry MD [Physician] - 3 days
[2021-07-30 15:21] VITALS: RESP 16
[2021-07-30 15:21] LABS: MANUAL DIFF FLAG NO
[2021-07-30] MEDS: HYDROmorphone HCl 0.5 MG/0.5 ML SYRINGE IVPUSH (15:21)
[2021-07-30] MEDS: Metoclopramide HCl 10 MG/2 ML VIAL 5 MG IVPUSH (15:21)
[2021-07-30 15:22] LABS: Basophils Percent Auto 0.4 % (0-2); Eosinophils Absolute Auto 0.1 X10*3/uL (0.0-0.4); Eosinophils Percent Auto 1.9 % (0-4); Hematocrit 35.8 % (37.0-47.0); Hemoglobin 11.8 g/dl (12.0-16.0); Imm Gran Abs Auto 0.02 X10*3/uL (0.00-0.03); Imm Gran Pct Auto 0.3 % (0.0-0.4); Lymphocytes Absolute Auto 2.2 X10*3/uL (1.2-4.9); Lymphocytes Percent Auto 30.9 % (20-40); Mean Corpuscular Hemoglobin 29.4 pg (27.0-33.0); Mean Corpuscular Volume 89.3 fL (80.0-98.0); Mean Platelet Volume 9.1 fL (9.4-12.3); Monocytes Absolute Auto 0.6 X10*3/uL (0.1-1.2); Monocytes Percent Auto 8.6 % (2-11); Neutrophils Absolute Auto 4.2 x10*3/uL (2.0-8.3); Neutrophils Percent Auto 57.9 % (45-73); Platelet Count 202 X10*3/uL (160-400); Red Blood Count 4.01 X10*6/uL (4.20-5.50); Red Cell Distribution Width 13.2 % (11.0-16.0); White Blood Count 7.2 X10*3/uL (4.8-10.8)
[2021-07-30 15:41] LABS: Alanine Aminotransferase 32 U/L (0-31); Albumin Level 3.7 g/dL (3.5-5.0); Alkaline Phosphatase 83 U/L (39-117); Anion Gap 10 (12-20); Aspartate Amino Transferase 19 U/L (5-31); Bilirubin Total 0.2 mg/dL (0.0-1.0); Blood Urea Nitrogen 13 mg/dL (9-16); Calcium 9.1 mg/dL (8.4-10.2); Carbon Dioxide 26 mmol/L (22-29); Chloride 107 mmol/L (96-108); Estimated Glomerular Filt Rate > 60; Glucose Random 87 mg/dL (60-115); Lipase 29 U/L (8-78); Potassium 3.6 mmol/L (3.3-5.1); Sodium 139 mmol/L (135-145); Total Protein 6.5 g/dL (6.5-8.0)
== END 2021-07-30 16:20 | disposition home or self-care (01) ==
PROVIDERS: Emergency Provider Emergency Medicine; PCP Internal Medicine
DX: K80.50 Calculus of bile duct without cholangitis or cholecystitis without obstruction (principal)
CPT/HCPCS: 36415; 80053; 83690; 85025; 96374; 96375; 99284; J1170; J2765

== ENCOUNTER 2021-08-01 05:18 | Emergency (ER) | payer OTHER, SELFPAY ==
--- NOTE | ~2021-08-01 | US_ITS ---
EXAMINATION: US ABDOMEN LIMITED CLINICAL INFORMATION: Right upper quadrant pain. Evaluate for cholecystitis. COMPARISON: Abdomen CT from 07/29/2021. Prior ultrasound from 04/22/2021. TECHNIQUE: Limited real-time imaging of the right upper quadrant. FINDINGS: Limited right upper quadrant ultrasound focused on the gallbladder is performed. Gallbladder is physiologically distended. No evidence of stones or sludge. Small, 0.3 cm gallbladder polyp is detected (image 4 of 33). There is no edematous thickening of the gallbladder wall. No pericholecystic fluid. Common bile duct is 0.4 - 0.5 cm diameter. No free fluid in the visualized upper abdomen. US/US abdomen limited IMPRESSION: * No acute abnormalities compared to prior ultrasound from 04/22/2021. * Small gallbladder polyp is detected.
[2021-08-01 05:22] VITALS: BP 116/81; PULSE 81; RESP 18; TEMP 37.1; O2SAT 97; BMI 32.9
[2021-08-01 05:44] VITALS: BP 109/70; PULSE 74; RESP 22; TEMP 37.1; O2SAT 97
[2021-08-01 05:46] LABS: Basophils Percent Auto 0.2 % (0-2); Eosinophils Absolute Auto 0.2 X10*3/uL (0.0-0.4); Eosinophils Percent Auto 1.9 % (0-4); Hematocrit 38.8 % (37.0-47.0); Hemoglobin 12.9 g/dl (12.0-16.0); Imm Gran Abs Auto 0.02 X10*3/uL (0.00-0.03); Imm Gran Pct Auto 0.2 % (0.0-0.4); Lymphocytes Absolute Auto 1.8 X10*3/uL (1.2-4.9); Lymphocytes Percent Auto 21.4 % (20-40); MANUAL DIFF FLAG NO; Mean Corpuscular HGB Conc 33.2 g/dl (31.0-35.0); Mean Corpuscular Hemoglobin 29.4 pg (27.0-33.0); Mean Corpuscular Volume 88.4 fL (80.0-98.0); Monocytes Absolute Auto 0.6 X10*3/uL (0.1-1.2); Monocytes Percent Auto 7.4 % (2-11); Neutrophils Absolute Auto 5.9 x10*3/uL (2.0-8.3); Neutrophils Percent Auto 68.9 % (45-73); Platelet Count 227 X10*3/uL (160-400); Red Blood Count 4.39 X10*6/uL (4.20-5.50); Red Cell Distribution Width 13.3 % (11.0-16.0); White Blood Count 8.6 X10*3/uL (4.8-10.8)
[2021-08-01 06:02] LABS: Alanine Aminotransferase 35 U/L (0-31); Albumin Level 3.9 g/dL (3.5-5.0); Alkaline Phosphatase 91 U/L (39-117); Anion Gap 11 (12-20); Aspartate Amino Transferase 19 U/L (5-31); Bilirubin Total 0.2 mg/dL (0.0-1.0); Blood Urea Nitrogen 17 mg/dL (9-16); Calcium 9.2 mg/dL (8.4-10.2); Carbon Dioxide 26 mmol/L (22-29); Chloride 107 mmol/L (96-108); Creatinine Clr Calc Pharmacy 84.2; Estimated Glomerular Filt Rate > 60; Glucose Random 102 mg/dL (60-115); Lipase 30 U/L (8-78); Potassium 4.1 mmol/L (3.3-5.1); Sodium 140 mmol/L (135-145); Total Protein 6.9 g/dL (6.5-8.0)
[2021-08-01 06:04] LABS: Appearance Urine HAZY; Color Urine YELLOW; Glucose Urine UA NEG (NEG); Leukocyte Esterase Urine NEG (NEG); Nitrite Urine NEG (NEG); Specific Gravity - Urine 1.025 (1.005-1.025); UACC Culture Trigger NO; Urine Blood 1+ (NEG); Urine Ketones NEG (NEG); Urine Protein NEG (NEG-TRACE)
[2021-08-01 06:08] LABS: UPreg QC Valid YES; Urine Pregnancy NEGATIVE (NEGATIVE)
[2021-08-01 06:13] LABS: Bacteria Urine TRACE /LPF; RBC Urine 0-2 /HPF (0); Squamous Epithelial Cell Urine 3+ /LPF; WBC Urine 0 /HPF (0-4)
[2021-08-01] MEDS: 0.9 % Sodium Chloride 1,000 ML 999 ML IV (06:42)
[2021-08-01] MEDS: ondansetron HCL 4 MG/2 ML VIAL IVPUSH (06:42)
[2021-08-01] MEDS: Morphine Sulfate 4 MG/ML CARTRIDGE IVPUSH (06:42)
--- NOTE | 2021-08-01 06:42 | ED_ITS ---
HPI - Abdominal Pain General Chief Complaint: Abdominal Pain Stated Complaint: abd & back pains Time Seen by Provider: 08/01/21 06:16 Source: patient Mode of arrival: ambulatory Limitations: no limitations History of Present Illness HPI narrative: 35-year-old female who presents emergency department for evaluation abdominal pain. This is the patient's 3rd visit within a week for this pain. The patient states that she was getting this pain every month last year and resolved in November. She states that in June she had 1 week of similar pain. States the pain often comes on after eating. She states that over the past week she has had 5 episodes of this pain. The patient states that she ate dinner last night around 18:00. She states that around 22:00 she ate potato chips and then went to bed. She states that this morning at 05:30 she woke up with abdominal pain. She points to her mid epigastric area and right upper quadrant when asked to localize the pain. The pain is a constant soreness that is 6/10 at its worst. The pain does radiate to her back. Patient had associated nausea with no vomiting. She denied fever, chills, change in her bowel movements. The patient was seen in the emergency room on 07/28/2021 for similar pain. At that time her laboratory evaluation was unremarkable with normal LFTs and non elevated lipase. She had a CT scan of the abdomen pelvis which revealed g allbladder wall edema with very colic fluid. The patient was feeling better and was discharged home with a plan to follow-up with outpatient surgery. The patient was again seen on 07/30/2021 with similar pain, her laboratory evaluation was unremarkable and she was treated with pain medications and discharged home. The patient had a right upper quadrant ultrasound on 04/22/2021 which was consistent with a 3 mm polyp versus sludge. MD elicited complaint: abdominal pain Pertinent past history: other ( gallbladder polyp/blood, CT scan 07/29/2021 gallbladder wall thickening pericholecystic fluid) Onset (ago): minute(s) (45 prior to arrival) Pain Consistency: constant Location: RUQ Severity: moderate Pain scale (0-10): 6 Quality: other ( soreness) Radiation: back Migration to: no migration Exacerbating factors: eating Relieving factors: nothing Associated symptoms: nausea Related Data Previous Rx's Medication Instructions Recorded albuterol sulfate 90 mcg/actuation 2 puff inhalation Q6H PRN 12/23/20 aerosol inhaler shortness of breath or wheezing #8.5 grams cholecalciferol (vitamin D3) 50 50 mcg PO DAILY #90 caps 06/18/21 mcg (2,000 unit) capsule levofloxacin 750 mg tablet 750 mg PO DAILY 7 days #7 tabs 07/29/21 metronidazole 500 mg tablet 500 mg PO BID 7 days #14 tabs 07/29/21 Allergies Allergy/AdvReac Type Severity Reaction Status Date / Time amoxicillin [AMOXICILLIN] Allergy Intermediate SWELLING Verified 08/01/21 05:26 OF VAGINAL AREA , vaginal itching Review of Systems Review of Systems Yes all other systems are reviewed and are negative PMFSH Past Medical History Surgical History History of abdominoplasty History of blepharoplasty History of tubal ligation History of wisdom tooth extraction Hx of breast implants, bilateral Urethral diverticulum Family History Family History Father Diabetes Mother No problems noted. Maternal Grandmother Diabetes Pacemaker CVD (cardiovascular disease) Paternal Grandfather Alcoholism Substance use disorder Family/Other ADHD Chronic mental illness Asthma Social History Social History Housing: House Alcohol intake: current Alcohol intake frequency: holidays/special occasions only Alcohol type: other Patient Tobacco Use Status: Never used Tobacco e-Cigarette/Vaping Use: Never Used Second Hand Smoke Exposure: Yes Advance Directives: No Advance Directives Information Provided: Yes service: No Current occupational status: employed Current occupational exposures/hazards: No Cognitive needs: No Hearing needs: No Vision needs: No Physical Exam ED Vital Signs: Vital Signs - 24 hr 08/01/21 05:22 08/01/21 05:44 08/01/21 08:07 Temperature 98.8 F 98.7 F 98.4 F Pulse Rate 81 74 67 Respiratory Rate 18 22 H 18 Blood Pressure 116/81 109/70 105/63 Pulse Oximetry 97 97 99 Oxygen Delivery Method Room Air Room Air Room Air BMI result Body Mass Index 32.9 Const General: cooperative and no acute distress Orientation/consciousness: oriented to person and oriented to place Limitations: no limitations HENMT Head: Yes normal to inspection, Yes normocephalic and Yes atraumatic Ears: external ears normal General nose exam: Normal external nose present Face and sinus: Yes normal facial exam Mouth: Normal oral and palatal mucosa present Throat: Yes posterior oropharynx normal Eyes General: appearance normal, both eyes and all related structures Pupils: Equal, round and reactive pupils present Neck Neck: Yes normal visual inspection, Yes no lymphadenopathy, Yes trachea midline and Yes supple Chest Chest palpation & inspection: normal inspection of the chest and normal palpation of entire chest wall Resp Effort & Inspection: normal respiratory effort and able to speak in complete sentences Auscultation: clear to auscultation bilaterally Cardio Rate: regular rate Rhythm: regular rhythm Heart sounds: S1 normal heart sound present, S2 normal heart sound present and no murmurs GI Inspection: Yes normal to inspection Palpation (GI): Soft to palpation, Tenderness to palpation present (GI) in the epigastrum (mild), in the RLQ ( moderate) and Rowland's sign positive and no guarding Auscultation: normal bowel sounds General: Yes no CVA tenderness Back/Spine/Pelvis Back: no CVA tenderness Skin General skin exam: no rashes or lesions noted Neuro General: oriented to person and oriented to place Cranial nerves: Yes CN's II-XII intact bilaterally and Yes Equal, round and reactive pupils present Cognition (Neuro): normal cognition Motor exam (neuro): 5/5 motor strength present throughout Extrem General: Yes normal to inspection Psych Appearance: grossly normal Speech and movement: Normal speech and movement present Affect: normal affect Attitude: cooperative Thought process: Normal thought process present Thought content: Normal thought content present Course Course Course Narrative: 35-year-old female who presents emergency department for evaluation mid epiga stric abdominal and right upper quadpain radiating to her back which started approximately 45 minutes prior to coming to the emergency department. The patient last ate at around 22:00 hours ( potato chips). This is the patient's 3rd visit for this type of pain, on 07/29/[address] scan of the abdomen pelvis which revealed gallbladder wall thickening impaired coli cystic fluid with normal laboratory evaluation. She was seen again 2 days prior on 07/30/2021 with similar abdominal pain, treated with medications and discharged home. The patient has had similar recurring pain over the past year with at least 5 episodes over the past week. Patient's vital signs were normal. Patient had a CBC, CMP, lipase, urinalysis and test which were relatively unremarkable except for an elevated AST of 35. Patient was ordered to get morphine 4 mg IV, Zofran 4 mg IV and normal saline x1 L. I will obtain a right upper quadrant ultrasound and discuss the patient's presentation with the covering surgeon. 0944: ultrasound revealed a gallbladder polyp which was seen previously as well, there was no evidence for gallbladder thickening or distension seen to suggest that she has acute cholecystitis at this time. The patient did tell me she is not taking the antibiotics that were prescribed previously, given her findings I do not think that she needs to be on antibiotics. I did discuss the patient's presentation with the covering surgeon, Dr. Barry and he agreed to follow the patient up in the office. Patient also states she has an appointment to see GI tomorrow for this pain MDM - Abdominal Pain Lab Data Result diagrams: 08/01/21 05:42 08/01/21 05:42 Labs: Lab Results 08/01/21 08/01/21 08/01/21 Range/Units 05:42 05:42 05:55 WBC 8.6 (4.8-10.8) X10*3/uL RBC 4.39 (4.20-5.50) X10*6/uL Hgb 12.9 (12.0-16.0) g/dl Hct 38.8 (37.0-47.0) % MCV 88.4 (80.0-98.0) fL MCH 29.4 (27.0-33.0) pg MCHC 33.2 (31.0-35.0) g/dl RDW 13.3 (11.0-16.0) % Plt Count 227 (160-400) X10*3/uL MPV 9.0 L (9.4-12.3) fL Immature Gran % (Auto) 0.2 (0.0-0.4) % Neut % (Auto) 68.9 (45-73) % Lymph % (Auto) 21.4 (20-40) % [place] % (Auto) 7.4 (2-11) % Eos % (Auto) 1.9 (0-4) % Baso % (Auto) 0.2 (0-2) % Lymph # (Auto) 1.8 (1.2-4.9) X10*3/uL [place] # (Auto) 0.6 (0.1-1.2) X10*3/uL Eos # (Auto) 0.2 (0.0-0.4) X10*3/uL Baso # (Auto) 0.0 (0.0-0.2) X10*3/uL Abs Immat Gran (auto) 0.02 (0.00-0.03) X10*3/uL Absolute Neuts (auto) 5.9 (2.0-8.3) x10*3/uL Absolute Nucleated RBC 0.000 (0.0-0.012) X10*3/uL Nucleated RBC % (auto) 0.0 (0.0-0.2) /100WBC Sodium 140 (135-145) mmol/L Potassium 4.1 (3.3-5.1) mmol/L Chloride 107 (96-108) mmol/L Carbon Dioxide 26 (22-29) mmol/L Anion Gap 11 L (12-20) BUN 17 H (9-16) mg/dL Creatinine 0.94 (0.5-1.4) mg/dL Estim Creat Clear Calc 84.2 Estimated GFR > 60 Random Glucose 102 (60-115) mg/dL Calcium 9.2 (8.4-10.2) mg/dL Total Bilirubin 0.2 (0.0-1.0) mg/dL AST 19 (5-31) U/L ALT 35 H (0-31) U/L Alkaline Phosphatase 91 (39-117) U/L Total Protein 6.9 (6.5-8.0) g/dL Albumin 3.9 (3.5-5.0) g/dL Lipase 30 (8-78) U/L Urine Color YELLOW Urine Appearance HAZY Urine pH 7.0 (5.0-8.0) Ur Specific [place] 1.025 (1.005-1.025) Urine Protein NEG (NEG-TRACE) MG/DL Urine Glucose (UA) NEG (NEG) MG/DL Urine Ketones NEG (NEG) MG/DL Urine Blood 1+ H (NEG) Urine Nitrite NEG (NEG) Ur Leukocyte Esterase NEG (NEG) Urine RBC 0-2 (0) /HPF Urine WBC 0 (0-4) /HPF Ur Squamous Epith Cells 3+ /LPF Urine Bacteria TRACE /LPF Urine Yeast TRACE /HPF Urine Test (NEGATIVE) 08/01/21 Range/Units 05:55 WBC (4.8-10.8) X10*3/uL RBC (4.20-5.50) X10*6/uL Hgb (12.0-16.0) g/dl Hct (37.0-47.0) % MCV (80.0-98.0) fL MCH (27.0-33.0) pg MCHC (31.0-35.0) g/dl RDW (11.0-16.0) % Plt Count (160-400) X10*3/uL MPV (9.4-12.3) fL Immature Gran % (Auto) (0.0-0.4) % Neut % (Auto) (45-73) % Lymph % (Auto) (20-40) % [place] % (Auto) (2-11) % Eos % (Auto) (0-4) % Baso % (Auto) (0-2) % Lymph # (Auto) (1.2-4.9) X10*3/uL [place] # (Auto) (0.1-1.2) X10*3/uL Eos # (Auto) (0.0-0.4) X10*3/uL Baso # (Auto) (0.0-0.2) X10*3/uL Abs Immat Gran (auto) (0.00-0.03) X10*3/uL Absolute Neuts (auto) (2.0-8.3) x10*3/uL Absolute Nucleated RBC (0.0-0.012) X10*3/uL Nucleated RBC % (auto) (0.0-0.2) /100WBC Sodium (135-145) mmol/L Potassium (3.3-5.1) mmol/L Chloride (96-108) mmol/L Carbon Dioxide (22-29) mmol/L Anion Gap (12-20) BUN (9-16) mg/dL Creatinine (0.5-1.4) mg/dL Estim Creat Clear Calc Estimated GFR Random Glucose (60-115) mg/dL Calcium (8.4-10.2) mg/dL Total Bilirubin (0.0-1.0) mg/dL AST (5-31) U/L ALT (0-31) U/L Alkaline Phosphatase (39-117) U/L Total Protein (6.5-8.0) g/dL Albumin (3.5-5.0) g/dL Lipase (8-78) U/L Urine Color Urine Appearance Urine pH (5.0-8.0) Ur Specific [place] (1.005-1.025) Urine Protein (NEG-TRACE) MG/DL Urine Glucose (UA) (NEG) MG/DL Urine Ketones (NEG) MG/DL Urine Blood (NEG) Urine Nitrite (NEG) Ur Leukocyte Esterase (NEG) Urine RBC (0) /HPF Urine WBC (0-4) /HPF Ur Squamous Epith Cells /LPF Urine Bacteria /LPF Urine Yeast /HPF Urine Test NEGATIVE (NEGATIVE) Discharge Plan Discharge Clinical Impression: Biliary colic, Gallbladder polyp Patient Disposition: Home, Self-Care Instructions: Biliary Colic (ED), Low Fat Diet (ED) Additional Instructions: Your blood work today was normal. The ultrasound of your gallbladder revealed a polyp, you had a similar finding on your previous ultrasound. There was no evidence for gallbladder inflammation on today's study which is reassuring. At this time I believe that your pain is being caused by your gallbladder and you will need to follow-up with Dr. Barry, he has the same surgeon that you saw before. Call his office on Monday morning to schedule an appointment for next week, when you talk to the office let the office know that I spoke to Dr. Barry and he wants you scheduled for an urgent appointment this week. Stay on a low-fat diet Take Tylenol (acetaminophen) 500 mg pills, 2 pills every 4 to 6 hours as needed for pain. Follow-up with your doctor in 2 days. Please return to the emergency department if your symptoms get worse or if you develop any symptoms that are concerning to you. Prescriptions: No Action cholecalciferol (vitamin D3) 50 mcg (2,000 unit) capsule 50 mcg PO DAILY Qty: 90 3RF metronidazole 500 mg tablet 500 mg PO BID 7 Days Qty: 14 0RF levofloxacin 750 mg tablet 750 mg PO DAILY 7 Days Qty: 7 0RF albuterol sulfate 90 mcg/actuation HFA aerosol inhaler 2 puff inhalation Q6H PRN (Reason: shortness of breath or wheezing) Qty: 8.5 1RF
[2021-08-01 08:07] VITALS: BP 105/63; PULSE 67; RESP 18; TEMP 36.9; O2SAT 99
== END 2021-08-01 10:16 | disposition home or self-care (01) ==
PROVIDERS: Emergency Provider Emergency Medicine Emergency Medical Services; PCP Internal Medicine
DX: K80.50 Calculus of bile duct without cholangitis or cholecystitis without obstruction (principal); R10.9 Unspecified abdominal pain; M54.50 Low back pain, unspecified; Z79.899 Other long term (current) drug therapy
CPT/HCPCS: 36415; 76705; 80053; 81001; 81025; 83690; 85025; 96374; 96376; 99284; J2270; J2405

== ENCOUNTER → 2021-08-02 12:05 | Outpatient (BNVA) | payer OTHER, SELFPAY | PROVIDERS: PCP Internal Medicine; Visit Provider Nurse Practitioner Family | DX: A04.8 Other specified bacterial intestinal infections (principal); K21.9 Gastro-esophageal reflux disease without esophagitis; K80.50 Calculus of bile duct without cholangitis or cholecystitis without obstruction; R10.11 Right upper quadrant pain; E66.09 Other obesity due to excess calories; Z68.33 Body mass index [BMI] 33.0-33.9, adult | CPT/HCPCS: 99212 ==

== ENCOUNTER → 2021-08-04 15:31 | Outpatient (BNVA) | payer OTHER, SELFPAY | PROVIDERS: PCP Internal Medicine; Visit Provider Surgery | DX: K82.4 Cholesterolosis of gallbladder (principal); R10.11 Right upper quadrant pain; K21.9 Gastro-esophageal reflux disease without esophagitis; E66.09 Other obesity due to excess calories; A04.8 Other specified bacterial intestinal infections; Z68.33 Body mass index [BMI] 33.0-33.9, adult | CPT/HCPCS: 99212 ==

== ENCOUNTER 2021-08-04 15:45 | Outpatient (REF) | payer OTHER, SELFPAY ==
[2021-08-05 17:27] LABS: H Pylori Breath Test Positive (Negative)
== END 2021-08-04 15:46 | disposition home or self-care (01) ==
LOC: HO.LNP 15:45
PROVIDERS: Visit Provider Nurse Practitioner Family
DX: Z11.2 Encounter for screening for other bacterial diseases (principal)
CPT/HCPCS: 83013

== ENCOUNTER 2021-08-11 10:03 | Outpatient (REF) | payer OTHER, SELFPAY ==
[2021-08-11 10:57] LABS: Alanine Aminotransferase 32 U/L (0-31); Alkaline Phosphatase 94 U/L (39-117); Anion Gap 12 (12-20); Aspartate Amino Transferase 20 U/L (5-31); Bilirubin Total 0.6 mg/dL (0.0-1.0); Blood Urea Nitrogen 10 mg/dL (9-16); Calcium 8.6 mg/dL (8.4-10.2); Carbon Dioxide 23 mmol/L (22-29); Chloride 108 mmol/L (96-108); Cholesterol 164 mg/dL; Estimated Glomerular Filt Rate > 60; Glucose Fasting 93 mg/dL (60-99); HDL Cholesterol 42 mg/dL; LDL Cholesterol Calculated 110 mg/dl; Potassium 3.7 mmol/L (3.3-5.1); Sodium 139 mmol/L (135-145); Triglycerides 64 mg/dL
[2021-08-11 11:23] LABS: Vitamin D 25-OH Total 18.1 ng/mL (>30)
== END 2021-08-11 10:04 | disposition home or self-care (01) ==
LOC: HO.LAB 10:03
PROVIDERS: PCP Internal Medicine; Visit Provider Internal Medicine
DX: Z00.00 Encounter for general adult medical examination without abnormal findings (principal); E55.9 Vitamin D deficiency, unspecified
CPT/HCPCS: 36415; 80053; 80061; 82306

== ENCOUNTER 2021-09-29 23:49 | Emergency (ER) | payer OTHER, SELFPAY ==
--- NOTE | ~2021-09-29 | CT_ITS ---
EXAMINATION: CT ABDOMEN AND PELVIS WITHOUT CONTRAST CLINICAL INFORMATION: Right flank pain COMPARISON: 07/29/2021 TECHNIQUE: Multidetector volumetric imaging was performed from the superior aspect of the liver through the pubic symphysis. Sagittal and coronal reformatted images were obtained on the technologist's workstation. This CT examination was performed using dose optimization techniques as appropriate, variously including the following: *Automated exposure control *Adjustment of mA and/or kV according to patient size (this includes techniques or standardized protocols for targeted exams where dose is matched to indication/reason for exam; i.e. extremities or head) *Use of iterative reconstruction technique DLP: 706 mGy-cm FINDINGS: LUNG BASES: The visualized lung bases are clear. Bilateral breast implants partially visualized. LIVER, GALLBLADDER, AND BILIARY TREE: The liver is normal in size, shape, and attenuation. No focal hepatic lesion or biliary ductal dilatation is present. The gallbladder is unremarkable with no evidence of radiopaque gallstones, gallbladder wall thickening, or obvious pericholecystic inflammatory changes. PANCREAS: Unremarkable. SPLEEN: Unremarkable. ADRENAL GLANDS: Unremarkable. KIDNEYS AND URETERS: The kidneys are normal in size, shape, and attenuation. No hydronephrosis or hydroureter. There are 2 left upper pole renal calculi. The largest measures 0.3 cm, 7 cm from the posterior axillary line. BLADDER: Unremarkable. GASTROINTESTINAL TRACT: The small and large bowel are unremarkable. The appendix is unremarkable. ABDOMINAL WALL: No significant hernia is appreciated. LYMPH NODES: Normal. VASCULAR: Unremarkable. PELVIC VISCERA: The uterus and adnexa are unremarkable. OSSEOUS STRUCTURES: No acute or suspicious osseous abnormality. CT/CT abdomen pelvis wo con IMPRESSION: No hydronephrosis. Nonobstructing left renal calculi. No acute finding in the abdomen or pelvis. Fleischner guidelines were followed.
[2021-09-30 00:03] VITALS: BP 113/75; PULSE 73; RESP 20; TEMP 36.1; O2SAT 97; BMI 33.5
[2021-09-30] MEDS: Ondansetron ODT 4 MG TAB.RAPDIS PO (00:15)
--- NOTE | 2021-09-30 00:16 | PC.NURSE ---
Patient declined to have labs drawn in triage. Does not want to get stuck twice.
[2021-09-30 00:27] LABS: Appearance Urine Clear; Color Urine Yellow; Glucose Urine UA Negative (Negative); Leukocyte Esterase Urine Trace (Negative); Nitrite Urine Negative (Negative); Specific Gravity - Urine 1.025 (1.005-1.025); Urine Blood Negative (Negative); Urine Ketones Trace mg/dL (Negative); Urine Protein Trace mg/dL (Neg-Trace)
[2021-09-30 00:29] LABS: UPreg QC Valid YES; Urine Pregnancy NEGATIVE (NEGATIVE)
[2021-09-30 00:42] LABS: Bacteria Urine None Seen (None Seen); Hyaline Casts Urine 0-2 /LPF (0-2); WBC Urine 0-5 /HPF (0-5)
--- NOTE | 2021-09-30 01:22 | PC.NURSE ---
PATIENT REFUSED TO BE DRAWN ,BECAUSE SHE DOES NOT WANT TO BE POKE TWICE .
[2021-09-30 03:13] LABS: Basophils Percent Auto 0.5 % (0-2); Eosinophils Absolute Auto 0.2 X10*3/uL (0.0-0.4); Eosinophils Percent Auto 1.8 % (0-4); Hematocrit 41.8 % (37.0-47.0); Hemoglobin 13.7 g/dl (12.0-16.0); Imm Gran Abs Auto 0.03 X10*3/uL (0.00-0.03); Imm Gran Pct Auto 0.3 % (0.0-0.4); Lymphocytes Absolute Auto 2.2 X10*3/uL (1.2-4.9); Lymphocytes Percent Auto 24.4 % (20-40); MANUAL DIFF FLAG NO; Mean Corpuscular HGB Conc 32.8 g/dl (31.0-35.0); Mean Corpuscular Hemoglobin 29.2 pg (27.0-33.0); Mean Corpuscular Volume 89.1 fL (80.0-98.0); Mean Platelet Volume 8.9 fL (9.4-12.3); Monocytes Absolute Auto 0.7 X10*3/uL (0.1-1.2); Monocytes Percent Auto 7.4 % (2-11); Neutrophils Absolute Auto 5.8 x10*3/uL (2.0-8.3); Neutrophils Percent Auto 65.6 % (45-73); Platelet Count 249 X10*3/uL (160-400); Red Blood Count 4.69 X10*6/uL (4.20-5.50); White Blood Count 8.8 X10*3/uL (4.8-10.8)
[2021-09-30 03:31] LABS: Alanine Aminotransferase 30 U/L (0-31); Albumin Level 4.3 g/dL (3.5-5.0); Alkaline Phosphatase 107 U/L (39-117); Anion Gap 13 (12-20); Aspartate Amino Transferase 17 U/L (5-31); Bilirubin Total < 0.2 mg/dL (0.0-1.0); Blood Urea Nitrogen 12 mg/dL (9-16); Calcium 8.9 mg/dL (8.4-10.2); Carbon Dioxide 26 mmol/L (22-29); Chloride 104 mmol/L (96-108); Creatinine Clr Calc Pharmacy 105.1; Estimated Glomerular Filt Rate > 60; Glucose Random 88 mg/dL (60-115); Potassium 4.1 mmol/L (3.3-5.1); Sodium 139 mmol/L (135-145); Total Protein 7.6 g/dL (6.5-8.0)
--- NOTE | 2021-09-30 03:41 | ED.BACK ---
HPI - Back Pain/Injury General Chief Complaint: Back Pain/Injury Stated Complaint: pain on right side, moving towards stomach Time Seen by Provider: 09/30/21 00:10 Source: patient Mode of arrival: ambulatory History of Present Illness HPI Narrative: 35-year-old female without significant past medical history presents with recurrent right-sided approximate T12 back pain that starts off in a ?pulsing manner? and then becomes constant with radiation into the ?front?. This was associated with some nausea but patient denies any fever or chills and denies any diarrhea or urinary pain/burning/frequency. Related Data Previous Rx's Medication Instructions Recorded albuterol sulfate 90 mcg/actuation 2 puff inhalation Q6H PRN 12/23/20 aerosol inhaler shortness of breath or wheezing #8.5 grams cholecalciferol (vitamin D3) 50 50 mcg PO DAILY #90 caps 06/18/21 mcg (2,000 unit) capsule clarithromycin 500 mg tablet 500 mg PO BID 14 days #28 tabs 08/14/21 tetracycline 500 mg capsule 1,000 mg PO Q12H #56 caps 08/14/21 meloxicam 15 mg tablet 15 mg PO DAILY #14 tabs 08/17/21 omeprazole 20 mg capsule,delayed 20 mg PO DAILY #30 caps 08/18/21 release ketorolac 10 mg tablet 10 mg PO Q6H PRN pain 5 days #20 09/30/21 tabs Allergies Allergy/AdvReac Type Severity Reaction Status Date / Time amoxicillin [AMOXICILLIN] Allergy Intermediate SWELLING Verified 09/30/21 00:03 OF VAGINAL AREA , vaginal itching Review of Systems Review of Systems: Pertinent positives and negatives as stated in HPI 10 point review of systems otherwise negative. [facility] Past Medical History Source: nursing notes reviewed Medical History Breast implant status Class 1 obesity with body mass index (BMI) of 33.0 to 33.9 in adult Gallbladder polyp GERD (gastroesophageal reflux disease) Helicobacter pylori (H. pylori) Migraines Mild asthma Photosensitivity Physical exam Right upper quadrant abdominal pain Surgical History History of abdominoplasty History of blepharoplasty History of tubal ligation History of wisdom tooth extraction Hx of breast implants, bilateral Urethral diverticulum Family History Family History Father Diabetes Mother No problems noted. Maternal Grandmother Diabetes Pacemaker CVD (cardiovascular disease) Paternal Grandfather Alcoholism Substance use disorder Family/Other ADHD Chronic mental illness Asthma Social History Social History Housing: House Alcohol intake: current Alcohol intake frequency: holidays/special occasions only Alcohol type: other Patient Tobacco Use Status: Never used Tobacco e-Cigarette/Vaping Use: Never Used Second Hand Smoke Exposure: Yes Advance Directives: No service: No Current occupational status: employed Current occupational exposures/hazards: No Cognitive needs: No Hearing needs: No Vision needs: No Physical Exam Vital Signs: Vital Signs: Last Vital Signs Temp 97.0 F 09/30/21 00:03 Pulse 73 09/30/21 00:03 Resp 20 09/30/21 00:03 BP 113/75 09/30/21 00:03 Pulse Ox 97 09/30/21 00:03 O2 Del Method 09/30/21 00:03 BMI result Body Mass Index 33.5 VITAL SIGNS: Reviewed. GENERAL: Well developed, well nourished, in no acute distress. HEAD: Normocephalic/atraumatic EYES: PERRLA, EOMI EARS: Ext canals without abnormality OROPHARYNX: no oral lesions noted, posterior pharynx clear LUNGS: Normal breath sounds. No adventitious sounds or accessory muscle use. SpO2<97> CARDIOVASCULAR: Regular rate and rhythm without noted murmurs ABDOMEN: Soft, non-tender, non-distended with bowel sounds, no CVA tenderness BACK: No midline vertebral tenderness, there is noted spasming on the right paraspinal area near the T12 location there is no erythema or induration MUSCULOSKELETAL: No tenderness, deformities, or effusions noted on gross inspection. EXTREMITIES: No cyanosis, clubbing or edema. SKIN: Inspection of the skin reveals no rashes NEUROLOGIC: Alert and oriented x 4. Strength and sensation to light touch were grossly intact x 4. Course Course Course Narrative: 35-year-old female with history and clinical presentation most consistent with muscle spasm and doubt infectious etiologies such as cholecystitis/pyelonephritis given the absence of fever/chills. Given the clinical exam which demonstrates muscle spasm and on review of all investigations there are no acute findings to otherwise explain patient's presentation. Patient was reassured and given combination analgesics to include lidocaine patch and on re-evaluation patient reports resolution of her discomfort. MDM - Back Pain/Injury Lab Data Result diagrams: 09/30/21 03:08 09/30/21 03:08 Labs: Lab Results 09/30/21 09/30/21 09/30/21 Range/Units 00:21 00:21 03:08 WBC 8.8 (4.8-10.8) X10*3/uL RBC 4.69 (4.20-5.50) X10*6/uL Hgb 13.7 (12.0-16.0) g/dl Hct 41.8 (37.0-47.0) % MCV 89.1 (80.0-98.0) fL MCH 29.2 (27.0-33.0) pg MCHC 32.8 (31.0-35.0) g/dl RDW 13.0 (11.0-16.0) % Plt Count 249 (160-400) X10*3/uL MPV 8.9 L (9.4-12.3) fL Immature Gran % (Auto) 0.3 (0.0-0.4) % Neut % (Auto) 65.6 (45-73) % Lymph % (Auto) 24.4 (20-40) % [place] % (Auto) 7.4 (2-11) % Eos % (Auto) 1.8 (0-4) % Baso % (Auto) 0.5 (0-2) % Lymph # (Auto) 2.2 (1.2-4.9) X10*3/uL [place] # (Auto) 0.7 (0.1-1.2) X10*3/uL Eos # (Auto) 0.2 (0.0-0.4) X10*3/uL Baso # (Auto) 0.0 (0.0-0.2) X10*3/uL Abs Immat Gran (auto) 0.03 (0.00-0.03) X10*3/uL Absolute Neuts (auto) 5.8 (2.0-8.3) x10*3/uL Absolute Nucleated RBC 0.000 (0.0-0.012) X10*3/uL Nucleated RBC % (auto) 0.0 (0.0-0.2) /100WBC Sodium (135-145) mmol/L Potassium (3.3-5.1) mmol/L Chloride (96-108) mmol/L Carbon Dioxide (22-29) mmol/L Anion Gap (12-20) BUN (9-16) mg/dL Creatinine (0.5-1.4) mg/dL Estim Creat Clear Calc Estimated GFR Random Glucose (60-115) mg/dL Calcium (8.4-10.2) mg/dL Total Bilirubin (0.0-1.0) mg/dL AST (5-31) U/L ALT (0-31) U/L Alkaline Phosphatase (39-117) U/L Total Protein (6.5-8.0) g/dL Albumin (3.5-5.0) g/dL Urine Color Yellow Urine Appearance Clear Urine pH 8.0 (5.0-8.0) Ur Specific [place] 1.025 (1.005-1.025) Urine Protein Trace (Neg-Trace) mg/dL Urine Glucose (UA) Negative (Negative) mg/dL Urine Ketones Trace (Negative) mg/dL Urine Blood Negative (Negative) Urine Nitrite Negative (Negative) Ur Leukocyte Esterase Trace H (Negative) Urine RBC 6-10 H (0-2) /HPF Urine WBC 0-5 (0-5) /HPF Ur Squamous Epith Cells 6-10 (0-2) /HPF Urine Bacteria None Seen (None Seen) Hyaline Casts 0-2 (0-2) /LPF Urine Test NEGATIVE (NEGATIVE) 09/30/21 Range/Units 03:08 WBC (4.8-10.8) X10*3/uL RBC (4.20-5.50) X10*6/uL Hgb (12.0-16.0) g/dl Hct (37.0-47.0) % MCV (80.0-98.0) fL MCH (27.0-33.0) pg MCHC (31.0-35.0) g/dl RDW (11.0-16.0) % Plt Count (160-400) X10*3/uL MPV (9.4-12.3) fL Immature Gran % (Auto) (0.0-0.4) % Neut % (Auto) (45-73) % Lymph % (Auto) (20-40) % [place] % (Auto) (2-11) % Eos % (Auto) (0-4) % Baso % (Auto) (0-2) % Lymph # (Auto) (1.2-4.9) X10*3/uL [place] # (Auto) (0.1-1.2) X10*3/uL Eos # (Auto) (0.0-0.4) X10*3/uL Baso # (Auto) (0.0-0.2) X10*3/uL Abs Immat Gran (auto) (0.00-0.03) X10*3/uL Absolute Neuts (auto) (2.0-8.3) x10*3/uL Absolute Nucleated RBC (0.0-0.012) X10*3/uL Nucleated RBC % (auto) (0.0-0.2) /100WBC Sodium 139 (135-145) mmol/L Potassium 4.1 (3.3-5.1) mmol/L Chloride 104 (96-108) mmol/L Carbon Dioxide 26 (22-29) mmol/L Anion Gap 13 (12-20) BUN 12 (9-16) mg/dL Creatinine 0.76 (0.5-1.4) mg/dL Estim Creat Clear Calc 105.1 Estimated GFR > 60 Random Glucose 88 (60-115) mg/dL Calcium 8.9 (8.4-10.2) mg/dL Total Bilirubin < 0.2 (0.0-1.0) mg/dL AST 17 (5-31) U/L ALT 30 (0-31) U/L Alkaline Phosphatase 107 (39-117) U/L Total Protein 7.6 (6.5-8.0) g/dL Albumin 4.3 (3.5-5.0) g/dL Urine Color Urine Appearance Urine pH (5.0-8.0) Ur Specific [place] (1.005-1.025) Urine Protein (Neg-Trace) mg/dL Urine Glucose (UA) (Negative) mg/dL Urine Ketones (Negative) mg/dL Urine Blood (Negative) Urine Nitrite (Negative) Ur Leukocyte Esterase (Negative) Urine RBC (0-2) /HPF Urine WBC (0-5) /HPF Ur Squamous Epith Cells (0-2) /HPF Urine Bacteria (None Seen) Hyaline Casts (0-2) /LPF Urine Test (NEGATIVE) Discharge Plan Discharge Clinical Impression: Back pain, Acid reflux, Muscle spasm Patient Disposition: Home, Self-Care Instructions: Indigestion (ED), Muscle Spasm (ED), Back Pain (ED) Additional Instructions: 1. Tylenol 1000 mg, orally, every 6 hours as needed for pain control. Do not exceed 4000 mg within 24 hours. 2. Lidocaine patch, apply to area of maximal tenderness as directed on the outside packaging. 3. Would recommend back stretches to help resolve the spasm. 4. Follow-up with your primary care provider by calling the office in the morning and setting up an appointment for re-evaluation and possible discussion regarding referral for physical therapy. Return to the ER for worsening symptoms. Prescriptions: New ketorolac 10 mg tablet 10 mg PO Q6H PRN (Reason: pain) 5 Days Qty: 20 0RF Rx Instructions: 1. Patient received Toradol in the emergency room. 2. Please instruct patient to stop all other NSAIDs. No Action cholecalciferol (vitamin D3) 50 mcg (2,000 unit) capsule 50 mcg PO DAILY Qty: 90 3RF clarithromycin 500 mg tablet 500 mg PO BID 14 Days Qty: 28 0RF tetracycline 500 mg capsule 1,000 mg PO Q12H Qty: 56 0RF omeprazole 20 mg capsule,delayed release(DR/EC) 20 mg PO DAILY Qty: 30 2RF albuterol sulfate 90 mcg/actuation HFA aerosol inhaler 2 puff inhalation Q6H PRN (Reason: shortness of breath or wheezing) Qty: 8.5 1RF meloxicam 15 mg tablet 15 mg PO DAILY Qty: 14 0RF Referrals: Mireille Mari MD [Primary Care Provider] - Stand Alone Forms: Work/School Release
[2021-09-30] MEDS: Lidocaine 4 % Patch ADH..PATCH 1 PATCH TRANSDERMA (03:59)
[2021-09-30] MEDS: Ketorolac Tromethamine 30 MG/ML VIAL 15 MG IVPUSH (03:59)
[2021-09-30] MEDS: Acetaminophen 325 MG TABLET 975 MG PO (04:00)
[2021-09-30 04:08] VITALS: BP 130/76; PULSE 83; RESP 16; TEMP 36.8; O2SAT 98
== END 2021-09-30 04:09 | disposition home or self-care (01) ==
PROVIDERS: Emergency Provider Student in an Organized Health Care Education/Training Program; PCP Internal Medicine
DX: M54.6 Pain in thoracic spine (principal); M62.830 Muscle spasm of back; K21.9 Gastro-esophageal reflux disease without esophagitis
CPT/HCPCS: 36415; 74176; 80053; 81001; 81025; 85025; 96372; 99284; J1885

== ENCOUNTER 2021-11-08 16:47 | Emergency (ER) | payer OTHER, SELFPAY ==
[2021-11-08 19:21] VITALS: BP 124/97; PULSE 77; RESP 16; TEMP 37; O2SAT 99; BMI 32.9
[2021-11-08 19:53] LABS: Appearance Urine Cloudy; Color Urine Yellow; Glucose Urine UA Negative (Negative); Leukocyte Esterase Urine Trace (Negative); Nitrite Urine Negative (Negative); PH 7.5 (5.0-9.0); UMIC TRIGGER UACC YES; Urine Blood Trace (Negative); Urine Ketones Negative (Negative); Urine Protein Negative (Neg-Trace)
[2021-11-08 20:03] LABS: UPreg QC Valid YES; Urine Pregnancy NEGATIVE (NEGATIVE)
[2021-11-08 20:03] LABS: Basophils Percent Auto 0.4 % (0-2); Eosinophils Absolute Auto 0.2 X10*3/uL (0.0-0.4); Eosinophils Percent Auto 2.7 % (0-4); Hemoglobin 13.2 g/dl (12.0-16.0); Imm Gran Abs Auto 0.02 X10*3/uL (0.00-0.03); Imm Gran Pct Auto 0.2 % (0.0-0.4); Lymphocytes Absolute Auto 2.2 X10*3/uL (1.2-4.9); Lymphocytes Percent Auto 24.3 % (20-40); MANUAL DIFF FLAG NO; Mean Corpuscular Hemoglobin 29.5 pg (27.0-33.0); Mean Corpuscular Volume 89.5 fL (80.0-98.0); Mean Platelet Volume 9.1 fL (9.4-12.3); Monocytes Absolute Auto 0.7 X10*3/uL (0.1-1.2); Neutrophils Absolute Auto 5.7 x10*3/uL (2.0-8.3); Neutrophils Percent Auto 64.4 % (45-73); Platelet Count 243 X10*3/uL (160-400); Red Blood Count 4.47 X10*6/uL (4.20-5.50); Red Cell Distribution Width 12.9 % (11.0-16.0); White Blood Count 8.9 X10*3/uL (4.8-10.8)
[2021-11-08 20:25] LABS: Anion Gap 14 (12-20); Blood Urea Nitrogen 16 mg/dL (9-16); Calcium 9.4 mg/dL (8.4-10.2); Carbon Dioxide 24 mmol/L (22-29); Chloride 106 mmol/L (96-108); Estimated Glomerular Filt Rate > 60; Glucose Random 85 mg/dL (60-115); Potassium 3.9 mmol/L (3.3-5.1); Sodium 140 mmol/L (135-145)
[2021-11-08 20:26] LABS: Bacteria Urine Trace (None Seen); Hyaline Casts Urine 0-2 /LPF (0-2); RBC Urine 0-2 /HPF (0-2); WBC Urine 0-5 /HPF (0-5)
[2021-11-08 23:39] VITALS: BP 110/56; PULSE 66; O2SAT 99
--- NOTE | 2021-11-08 23:50 | ED_ITS ---
HPI - General Adult General Chief complaint: Headache Stated complaint: head and neck pain Time Seen by Provider: 11/08/21 23:50 Source: patient Mode of arrival: ambulatory Limitations: no limitations History of Present Illness HPI narrative: Patient has no significant past medical history complaining of bilateral occipital pain right frontal pain stating for last 1 week no nausea no neck pain no paresthesia, no history of migraine headache, multiple complaints Related Data Previous Rx's Medication Instructions Recorded albuterol sulfate 90 mcg/actuation 2 puff inhalation Q6H PRN 12/23/20 aerosol inhaler shortness of breath or wheezing #8.5 grams cholecalciferol (vitamin D3) 50 50 mcg PO DAILY #90 caps 06/18/21 mcg (2,000 unit) capsule clarithromycin 500 mg tablet 500 mg PO BID 14 days #28 tabs 08/14/21 tetracycline 500 mg capsule 1,000 mg PO Q12H #56 caps 08/14/21 meloxicam 15 mg tablet 15 mg PO DAILY #14 tabs 08/17/21 omeprazole 20 mg capsule,delayed 20 mg PO DAILY #30 caps 08/18/21 release ketorolac 10 mg tablet 10 mg PO Q6H PRN pain 5 days #20 09/30/21 tabs tramadol 50 mg tablet 50 mg PO Q6H PRN pain #20 tabs 11/09/21 Allergies Allergy/AdvReac Type Severity Reaction Status Date / Time amoxicillin [AMOXICILLIN] Allergy Intermediate SWELLING Verified 09/30/21 00:03 OF VAGINAL AREA , vaginal itching Review of Systems Review of Systems: Yes all other systems are reviewed and are negative PMFSH Past Medical History Medical History Breast implant status Class 1 obesity with body mass index (BMI) of 33.0 to 33.9 in adult Gallbladder polyp GERD (gastroesophageal reflux disease) Helicobacter pylori (H. pylori) Migraines Mild asthma Photosensitivity Physical exam Right upper quadrant abdominal pain Surgical History History of abdominoplasty History of blepharoplasty History of tubal ligation History of wisdom tooth extraction Hx of breast implants, bilateral Urethral diverticulum Family History Family History Father Diabetes Mother No problems noted. Maternal Grandmother Diabetes Pacemaker CVD (cardiovascular disease) Paternal Grandfather Alcoholism Substance use disorder Family/Other ADHD Chronic mental illness Asthma Social History Social History Housing: House Alcohol intake: current Alcohol intake frequency: holidays/special occasions only Alcohol type: other Patient Tobacco Use Status: Never used Tobacco e-Cigarette/Vaping Use: Never Used Second Hand Smoke Exposure: Yes Advance Directives: No Patient : No service: No Current occupational status: employed Current occupational exposures/hazards: No Cognitive needs: No Hearing needs: No Vision needs: No Physical Exam ED Vital Signs: Vital Signs - 24 hr 11/08/21 19:21 11/08/21 23:39 Temperature 98.6 F Pulse Rate 77 66 Respiratory Rate 16 Blood Pressure 124/97 H 110/56 L Pulse Oximetry 99 99 Oxygen Delivery Method Room Air Room Air BMI result Body Mass Index 32.9 Appearance: Alert. Oriented X3. No acute distress. Eyes: PERRLA, No Nystagmus HEENT: Pharynx normal. Oral Mucosa moist tenderness at the bilateral occipital nerve area no temporal artery tenderness cervical spine nontender good range of movement Neck: Normal inspection. Neck supple. CVS: Normal heart rate and rhythm. Pulses normal. Respiratory: No respiratory distress. Equal air entry bilateral, Abdomen: Soft and nontender. Bowel sounds are present, Skin: Skin warm and dry. Normal skin color. Normal skin turgor. Extremities: No lower extremity edema. No calf tenderness Neuro: Oriented X 3. No motor deficit. No sensory deficit. Medical Decision Making MDM Narrative Medical decision making narrative: Clinically patient has occipital neuralgia with tenderness at the great occipital nerve area at this time patient does not have significant tenderness we will give a trial follow with PCP Lab Data Result diagrams: 11/08/21 19:57 11/08/21 19:57 Labs: Lab Results 11/08/21 11/08/21 11/08/21 Range/Units 19:44 19:44 19:57 WBC 8.9 (4.8-10.8) X10*3/uL RBC 4.47 (4.20-5.50) X10*6/uL Hgb 13.2 (12.0-16.0) g/dl Hct 40.0 (37.0-47.0) % MCV 89.5 (80.0-98.0) fL MCH 29.5 (27.0-33.0) pg MCHC 33.0 (31.0-35.0) g/dl RDW 12.9 (11.0-16.0) % Plt Count 243 (160-400) X10*3/uL MPV 9.1 L (9.4-12.3) fL Immature Gran % (Auto) 0.2 (0.0-0.4) % Neut % (Auto) 64.4 (45-73) % Lymph % (Auto) 24.3 (20-40) % [place] % (Auto) 8.0 (2-11) % Eos % (Auto) 2.7 (0-4) % Baso % (Auto) 0.4 (0-2) % Lymph # (Auto) 2.2 (1.2-4.9) X10*3/uL [place] # (Auto) 0.7 (0.1-1.2) X10*3/uL Eos # (Auto) 0.2 (0.0-0.4) X10*3/uL Baso # (Auto) 0.0 (0.0-0.2) X10*3/uL Abs Immat Gran (auto) 0.02 (0.00-0.03) X10*3/uL Absolute Neuts (auto) 5.7 (2.0-8.3) x10*3/uL Absolute Nucleated RBC 0.000 (0.0-0.012) X10*3/uL Nucleated RBC % (auto) 0.0 (0.0-0.2) /100WBC Sodium (135-145) mmol/L Potassium (3.3-5.1) mmol/L Chloride (96-108) mmol/L Carbon Dioxide (22-29) mmol/L Anion Gap (12-20) BUN (9-16) mg/dL Creatinine (0.5-1.4) mg/dL Estim Creat Clear Calc Estimated GFR Random Glucose (60-115) mg/dL Calcium (8.4-10.2) mg/dL Urine Color Yellow Urine Appearance Cloudy Urine pH 7.5 (5.0-9.0) Ur Specific [place] 1.020 (1.005-1.025) Urine Protein Negative (Neg-Trace) mg/dL Urine Glucose (UA) Negative (Negative) mg/dL Urine Ketones Negative (Negative) mg/dL Urine Blood Trace H (Negative) Urine Nitrite Negative (Negative) Ur Leukocyte Esterase Trace H (Negative) Urine RBC 0-2 (0-2) /HPF Urine WBC 0-5 (0-5) /HPF Ur Squamous Epith Cells 6-10 (0-2) /HPF Urine Bacteria Trace (None Seen) Hyaline Casts 0-2 (0-2) /LPF Urine Test NEGATIVE (NEGATIVE) 11/08/21 Range/Units 19:57 WBC (4.8-10.8) X10*3/uL RBC (4.20-5.50) X10*6/uL Hgb (12.0-16.0) g/dl Hct (37.0-47.0) % MCV (80.0-98.0) fL MCH (27.0-33.0) pg MCHC (31.0-35.0) g/dl RDW (11.0-16.0) % Plt Count (160-400) X10*3/uL MPV (9.4-12.3) fL Immature Gran % (Auto) (0.0-0.4) % Neut % (Auto) (45-73) % Lymph % (Auto) (20-40) % [place] % (Auto) (2-11) % Eos % (Auto) (0-4) % Baso % (Auto) (0-2) % Lymph # (Auto) (1.2-4.9) X10*3/uL [place] # (Auto) (0.1-1.2) X10*3/uL Eos # (Auto) (0.0-0.4) X10*3/uL Baso # (Auto) (0.0-0.2) X10*3/uL Abs Immat Gran (auto) (0.00-0.03) X10*3/uL Absolute Neuts (auto) (2.0-8.3) x10*3/uL Absolute Nucleated RBC (0.0-0.012) X10*3/uL Nucleated RBC % (auto) (0.0-0.2) /100WBC Sodium 140 (135-145) mmol/L Potassium 3.9 (3.3-5.1) mmol/L Chloride 106 (96-108) mmol/L Carbon Dioxide 24 (22-29) mmol/L Anion Gap 14 (12-20) BUN 16 (9-16) mg/dL Creatinine 0.74 (0.5-1.4) mg/dL Estim Creat Clear Calc 106.0 Estimated GFR > 60 Random Glucose 85 (60-115) mg/dL Calcium 9.4 (8.4-10.2) mg/dL Urine Color Urine Appearance Urine pH (5.0-9.0) Ur Specific [place] (1.005-1.025) Urine Protein (Neg-Trace) mg/dL Urine Glucose (UA) (Negative) mg/dL Urine Ketones (Negative) mg/dL Urine Blood (Negative) Urine Nitrite (Negative) Ur Leukocyte Esterase (Negative) Urine RBC (0-2) /HPF Urine WBC (0-5) /HPF Ur Squamous Epith Cells (0-2) /HPF Urine Bacteria (None Seen) Hyaline Casts (0-2) /LPF Urine Test (NEGATIVE) Discharge Plan Discharge Clinical Impression: Bilateral occipital neuralgia Patient Disposition: Home, Self-Care Instructions: Acute Headache (ED) Additional Instructions: Likely you have occipital neuralgia Take pain medication as prescribed At this time you do not need any imaging Follow-up with PCP Report to the ER if headache gets worse/vomiting/fever Prescriptions: New tramadol 50 mg tablet 50 mg PO Q6H PRN (Reason: pain) Qty: 20 0RF No Action cholecalciferol (vitamin D3) 50 mcg (2,000 unit) capsule 50 mcg PO DAILY Qty: 90 3RF clarithromycin 500 mg tablet 500 mg PO BID 14 Days Qty: 28 0RF tetracycline 500 mg capsule 1,000 mg PO Q12H Qty: 56 0RF omeprazole 20 mg capsule,delayed release(DR/EC) 20 mg PO DAILY Qty: 30 2RF ketorolac 10 mg tablet 10 mg PO Q6H PRN (Reason: pain) 5 Days Qty: 20 0RF Rx Instructions: 1. Patient received Toradol in the emergency room. 2. Please instruct patient to stop all other NSAIDs. albuterol sulfate 90 mcg/actuation HFA aerosol inhaler 2 puff inhalation Q6H PRN (Reason: shortness of breath or wheezing) Qty: 8.5 1RF meloxicam 15 mg tablet 15 mg PO DAILY Qty: 14 0RF Interventions: ED Discharge Assessment Last Done: 11/09/21 00:07 Discharge Date/Time: 11/09/21 00:08
[2021-11-09] MEDS: traMADoL HCL 50 MG TABLET PO (00:06)
== END 2021-11-09 00:08 | disposition home or self-care (01) ==
PROVIDERS: Emergency Provider Internal Medicine; PCP Internal Medicine
DX: M54.81 Occipital neuralgia (principal); R51.9 Headache, unspecified; E66.9 Obesity, unspecified; Z68.32 Body mass index [BMI] 32.0-32.9, adult
CPT/HCPCS: 36415; 80048; 81001; 81003; 81025; 85025; 99283; 99284

== ENCOUNTER 2021-11-19 15:16 | Emergency (ER) | payer OTHER, SELFPAY ==
[2021-11-19 15:44] VITALS: BP 124/86; PULSE 87; RESP 16; TEMP 36.6; O2SAT 97; BMI 32.9
[2021-11-19 16:06] LABS: Appearance Urine Clear; Color Urine Yellow; Glucose Urine UA Negative (Negative); Leukocyte Esterase Urine Trace (Negative); Nitrite Urine Negative (Negative); PH 6.5 (5.0-9.0); Specific Gravity - Urine 1.025 (1.005-1.025); UMIC TRIGGER UACC YES; Urine Blood Negative (Negative); Urine Ketones Trace mg/dL (Negative); Urine Protein Negative (Neg-Trace)
[2021-11-19 16:09] LABS: Bacteria Urine 1+ (None Seen); UACC Culture Trigger YES
[2021-11-19 19:48] VITALS: BP 118/66; PULSE 78; RESP 17; TEMP 36.1; O2SAT 97
[2021-11-19 21:56] VITALS: BP 122/73; PULSE 63; RESP 16; TEMP 36.4; O2SAT 98
[2021-11-19 22:20] LABS: MANUAL DIFF FLAG NO
[2021-11-19 22:21] LABS: Basophils Percent Auto 0.5 % (0-2); Eosinophils Absolute Auto 0.2 X10*3/uL (0.0-0.4); Eosinophils Percent Auto 2.3 % (0-4); Hematocrit 39.5 % (37.0-47.0); Hemoglobin 13.2 g/dl (12.0-16.0); Imm Gran Abs Auto 0.02 X10*3/uL (0.00-0.03); Imm Gran Pct Auto 0.2 % (0.0-0.4); Lymphocytes Absolute Auto 2.2 X10*3/uL (1.2-4.9); Lymphocytes Percent Auto 26.5 % (20-40); Mean Corpuscular HGB Conc 33.4 g/dl (31.0-35.0); Mean Corpuscular Hemoglobin 29.4 pg (27.0-33.0); Monocytes Absolute Auto 0.6 X10*3/uL (0.1-1.2); Monocytes Percent Auto 6.9 % (2-11); Neutrophils Absolute Auto 5.3 x10*3/uL (2.0-8.3); Neutrophils Percent Auto 63.6 % (45-73); Platelet Count 240 X10*3/uL (160-400); Red Blood Count 4.49 X10*6/uL (4.20-5.50); Red Cell Distribution Width 12.7 % (11.0-16.0); White Blood Count 8.4 X10*3/uL (4.8-10.8)
[2021-11-19] MEDS: Ketorolac Tromethamine 15 MG/ML VIAL IVPUSH (22:26)
[2021-11-19] MEDS: 0.9 % Sodium Chloride 1,000 ML 999 ML IV (22:26)
--- NOTE | 2021-11-19 22:27 | ED.BACK ---
HPI - Back Pain/Injury General Chief Complaint: Back Pain/Injury Stated Complaint: lower r side back pain Time Seen by Provider: 11/19/21 21:41 Source: patient Mode of arrival: ambulatory Limitations: no limitations History of Present Illness HPI Narrative: 36-year-old female with chronic right lower back pain she states has been going for several months she has not seen anyone or taken any medications for that she denies any nausea vomiting she denies any falls or injuries she states she did feel some dizziness which feels like she might pass out but did not. Patient denies chest pain or cough. Of note with months of back pain she was seen here a little over a week ago she was seen here for headache MD elicited complaint: back pain Pertinent past history: prior back pain Related Data Previous Rx's Medication Instructions Recorded albuterol sulfate 90 mcg/actuation 2 puff inhalation Q6H PRN 12/23/20 aerosol inhaler shortness of breath or wheezing #8.5 grams cholecalciferol (vitamin D3) 50 50 mcg PO DAILY #90 caps 06/18/21 mcg (2,000 unit) capsule clarithromycin 500 mg tablet 500 mg PO BID 14 days #28 tabs 08/14/21 tetracycline 500 mg capsule 1,000 mg PO Q12H #56 caps 08/14/21 meloxicam 15 mg tablet 15 mg PO DAILY #14 tabs 08/17/21 omeprazole 20 mg capsule,delayed 20 mg PO DAILY #30 caps 08/18/21 release ketorolac 10 mg tablet 10 mg PO Q6H PRN pain 5 days #20 09/30/21 tabs tramadol 50 mg tablet 50 mg PO Q6H PRN pain #20 tabs 11/09/21 prednisone 20 mg tablet 60 mg PO DAILY Asthma 5 days #15 11/19/21 tabs Allergies Allergy/AdvReac Type Severity Reaction Status Date / Time amoxicillin [AMOXICILLIN] Allergy Intermediate SWELLING Verified 09/30/21 00:03 OF VAGINAL AREA , vaginal itching Review of Systems Review of Systems: Review of systems: General: Patient denies any fever chills recent illness or falls Musculoskeletal: back denies or body aches or other injuries HEENT: denies headache, runny nose, ear pain Respiratory: denies shortness of breath, cough Cardiovascular: no chest pain or palpitations : denies dysuria, frequency Abdomen: no nausea vomiting denies abdominal pain Extremities: no swelling, no pain Skin: no diaphoresis Yes all other systems are reviewed and are negative PMFSH Past Medical History Medical History Breast implant status Class 1 obesity with body mass index (BMI) of 33.0 to 33.9 in adult Gallbladder polyp GERD (gastroesophageal reflux disease) Helicobacter pylori (H. pylori) Migraines Mild asthma Photosensitivity Physical exam Right upper quadrant abdominal pain Surgical History History of abdominoplasty History of blepharoplasty History of tubal ligation History of wisdom tooth extraction Hx of breast implants, bilateral Urethral diverticulum Family History Family History Father Diabetes Mother No problems noted. Maternal Grandmother Diabetes Pacemaker CVD (cardiovascular disease) Paternal Grandfather Alcoholism Substance use disorder Family/Other ADHD Chronic mental illness Asthma Social History Social History Housing: House Alcohol intake: current Alcohol intake frequency: holidays/special occasions only Alcohol type: other Patient Tobacco Use Status: Never used Tobacco e-Cigarette/Vaping Use: Never Used Second Hand Smoke Exposure: Yes Advance Directives: No Advance Directives Information Provided: Yes service: No Current occupational status: employed Current occupational exposures/hazards: No Cognitive needs: No Hearing needs: No Vision needs: No Physical Exam Vital Signs: Vital Signs: Last Vital Signs Temp 97.5 F 11/19/21 21:56 Pulse 63 11/19/21 21:56 Resp 16 11/19/21 21:56 BP 122/73 11/19/21 21:56 Pulse Ox 98 11/19/21 21:56 O2 Del Method 11/19/21 21:56 BMI result Body Mass Index 32.9 General: Well-appearing well-nourished in no signs of distress HEENT: Normocephalic atraumatic Neck: No signs of JVD, no masses no tenderness or lymphadenopathy Cardiovascular: Regular rate and rhythm Respiratory: Clear to auscultation bilaterally Abdomen: Soft nontender no massesno CVA tenderness. Extremities: Normal pedal pulses no signs of edema Skin: Dry warm no rashes Back: No tenderness full ROM MDM - Back Pain/Injury MDM Narrative Medical decision making narrative: Patient with normal vitals pain is reproducible with movement not on exam or palpation. I will give toradol fluids and recheck the UA as the patient gave a contaminated sample and has had a bad reaction in the past to antibiotics including desquamation of her clitoris. I will resend the urine after educating the patient. No CVA tenderness no blood in the urine I don't think this is a kidney stone so I will hold off on imaging. 2317 Urine is negative story sounds like a musculoskeletal pain. I will discharge home on prednisone. Differential Diagnosis Differential diagnosis: Likely lumbar radiculopathy, strain of lumbar region and renal colic Medical Records Attestation: I reviewed the patient's medical records. Lab Data Attestation: I reviewed the patient's lab results. Result diagrams: 11/19/21 22:16 11/19/21 22:16 Labs: Lab Results 11/19/21 11/19/21 11/19/21 Range/Units 15:55 22:16 22:16 WBC 8.4 (4.8-10.8) X10*3/uL RBC 4.49 (4.20-5.50) X10*6/uL Hgb 13.2 (12.0-16.0) g/dl Hct 39.5 (37.0-47.0) % MCV 88.0 (80.0-98.0) fL MCH 29.4 (27.0-33.0) pg MCHC 33.4 (31.0-35.0) g/dl RDW 12.7 (11.0-16.0) % Plt Count 240 (160-400) X10*3/uL MPV 9.0 L (9.4-12.3) fL Immature Gran % (Auto) 0.2 (0.0-0.4) % Neut % (Auto) 63.6 (45-73) % Lymph % (Auto) 26.5 (20-40) % Slope % (Auto) 6.9 (2-11) % Eos % (Auto) 2.3 (0-4) % Baso % (Auto) 0.5 (0-2) % Lymph # (Auto) 2.2 (1.2-4.9) X10*3/uL Slope # (Auto) 0.6 (0.1-1.2) X10*3/uL Eos # (Auto) 0.2 (0.0-0.4) X10*3/uL Baso # (Auto) 0.0 (0.0-0.2) X10*3/uL Abs Immat Gran (auto) 0.02 (0.00-0.03) X10*3/uL Absolute Neuts (auto) 5.3 (2.0-8.3) x10*3/uL Absolute Nucleated RBC 0.000 (0.0-0.012) X10*3/uL Nucleated RBC % (auto) 0.0 (0.0-0.2) /100WBC Sodium 141 (135-145) mmol/L Potassium 4.1 (3.3-5.1) mmol/L Chloride 105 (96-108) mmol/L Carbon Dioxide 26 (22-29) mmol/L Anion Gap 14 (12-20) BUN 12 (9-16) mg/dL Creatinine 0.70 (0.5-1.4) mg/dL Estim Creat Clear Calc 112.1 Estimated GFR > 60 Random Glucose 92 (60-115) mg/dL Calcium 9.4 (8.4-10.2) mg/dL Beta HCG, Quant < 2 mIU/mL Urine Color Yellow Urine Appearance Clear Urine pH 6.5 (5.0-9.0) Ur Specific [place] 1.025 (1.005-1.025) Urine Protein Negative (Neg-Trace) mg/dL Urine Glucose (UA) Negative (Negative) mg/dL Urine Ketones Trace (Negative) mg/dL Urine Blood Negative (Negative) Urine Nitrite Negative (Negative) Ur Leukocyte Esterase Trace H (Negative) Urine RBC 3-5 H (0-2) /HPF Urine WBC 6-10 H (0-5) /HPF Ur Squamous Epith Cells 6-10 (0-2) /HPF Urine Bacteria 1+ (None Seen) Hyaline Casts 3-5 (0-2) /LPF 11/19/21 Range/Units 22:22 WBC (4.8-10.8) X10*3/uL RBC (4.20-5.50) X10*6/uL Hgb (12.0-16.0) g/dl Hct (37.0-47.0) % MCV (80.0-98.0) fL MCH (27.0-33.0) pg MCHC (31.0-35.0) g/dl RDW (11.0-16.0) % Plt Count (160-400) X10*3/uL MPV (9.4-12.3) fL Immature Gran % (Auto) (0.0-0.4) % Neut % (Auto) (45-73) % Lymph % (Auto) (20-40) % Slope % (Auto) (2-11) % Eos % (Auto) (0-4) % Baso % (Auto) (0-2) % Lymph # (Auto) (1.2-4.9) X10*3/uL Slope # (Auto) (0.1-1.2) X10*3/uL Eos # (Auto) (0.0-0.4) X10*3/uL Baso # (Auto) (0.0-0.2) X10*3/uL Abs Immat Gran (auto) (0.00-0.03) X10*3/uL Absolute Neuts (auto) (2.0-8.3) x10*3/uL Absolute Nucleated RBC (0.0-0.012) X10*3/uL Nucleated RBC % (auto) (0.0-0.2) /100WBC Sodium (135-145) mmol/L Potassium (3.3-5.1) mmol/L Chloride (96-108) mmol/L Carbon Dioxide (22-29) mmol/L Anion Gap (12-20) BUN (9-16) mg/dL Creatinine (0.5-1.4) mg/dL Estim Creat Clear Calc Estimated GFR Random Glucose (60-115) mg/dL Calcium (8.4-10.2) mg/dL Beta HCG, Quant mIU/mL Urine Color Yellow Urine Appearance Clear Urine pH 6.0 (5.0-9.0) Ur Specific [place] 1.025 (1.005-1.025) Urine Protein Negative (Neg-Trace) mg/dL Urine Glucose (UA) Negative (Negative) mg/dL Urine Ketones Negative (Negative) mg/dL Urine Blood Negative (Negative) Urine Nitrite Negative (Negative) Ur Leukocyte Esterase Negative (Negative) Urine RBC (0-2) /HPF Urine WBC (0-5) /HPF Ur Squamous Epith Cells (0-2) /HPF Urine Bacteria (None Seen) Hyaline Casts (0-2) /LPF Discharge Plan Discharge Clinical Impression: Back pain Patient Disposition: Home, Self-Care Instructions: Acute Low Back Pain (ED) Additional Instructions: Please take the prednisone as prescribed and follow up with your doctor. Prescriptions: New prednisone 20 mg tablet 60 mg PO DAILY 5 Days Qty: 15 0RF No Action cholecalciferol (vitamin D3) 50 mcg (2,000 unit) capsule 50 mcg PO DAILY Qty: 90 3RF clarithromycin 500 mg tablet 500 mg PO BID 14 Days Qty: 28 0RF tetracycline 500 mg capsule 1,000 mg PO Q12H Qty: 56 0RF omeprazole 20 mg capsule,delayed release(DR/EC) 20 mg PO DAILY Qty: 30 2RF ketorolac 10 mg tablet 10 mg PO Q6H PRN (Reason: pain) 5 Days Qty: 20 0RF Rx Instructions: 1. Patient received Toradol in the emergency room. 2. Please instruct patient to stop all other NSAIDs. tramadol 50 mg tablet 50 mg PO Q6H PRN (Reason: pain) Qty: 20 0RF albuterol sulfate 90 mcg/actuation HFA aerosol inhaler 2 puff inhalation Q6H PRN (Reason: shortness of breath or wheezing) Qty: 8.5 1RF meloxicam 15 mg tablet 15 mg PO DAILY Qty: 14 0RF
[2021-11-19 22:34] LABS: Anion Gap 14 (12-20); Blood Urea Nitrogen 12 mg/dL (9-16); Calcium 9.4 mg/dL (8.4-10.2); Carbon Dioxide 26 mmol/L (22-29); Chloride 105 mmol/L (96-108); Creatinine Clr Calc Pharmacy 112.1; Estimated Glomerular Filt Rate > 60; Glucose Random 92 mg/dL (60-115); Potassium 4.1 mmol/L (3.3-5.1); Sodium 141 mmol/L (135-145)
[2021-11-19 22:35] LABS: Appearance Urine Clear; Color Urine Yellow; Glucose Urine UA Negative (Negative); Leukocyte Esterase Urine Negative (Negative); Nitrite Urine Negative (Negative); Specific Gravity - Urine 1.025 (1.005-1.025); Urine Blood Negative (Negative); Urine Ketones Negative (Negative); Urine Protein Negative (Neg-Trace)
[2021-11-19 22:51] LABS: HCG Quantitative < 2 mIU/mL
[2021-11-19 23:25] VITALS: BP 108/66; PULSE 63; RESP 17; TEMP 36.4; O2SAT 98
[2021-11-19 23:56] VITALS: BP 100/61; PULSE 64; RESP 16; TEMP 36.6; O2SAT 99
== END 2021-11-19 23:57 | disposition home or self-care (01) ==
PROVIDERS: Emergency Provider Student in an Organized Health Care Education/Training Program; PCP Internal Medicine
DX: M54.50 Low back pain, unspecified (principal); Z79.899 Other long term (current) drug therapy
CPT/HCPCS: 36415; 80048; 81001; 81003; 84702; 85025; 87086; 96374; 99284; 99285; J1885

== ENCOUNTER 2021-11-28 18:53 | Emergency (ER) | payer OTHER, SELFPAY ==
[2021-11-28 19:17] VITALS: BP 118/64; PULSE 80; RESP 18; TEMP 36.7; O2SAT 97; BMI 32.9
--- NOTE | 2021-11-28 21:58 | ED.GENADULT ---
HPI - General Adult General Chief complaint: General Medical Stated complaint: pain on neck (nerve), right side abdominal pain Time Seen by Provider: 11/28/21 21:30 Source: patient Mode of arrival: ambulatory History of Present Illness HPI narrative: 36-year-old female presents with concerns regarding months of left-sided neck discomfort that is been going on and off for months now . Patient states that she has had some difficulty getting in to see her primary care doctor but states she does have an appointment with a physician this Monday. Patient denies any associated fevers, chills and has been evaluated here previously for the same pain. She denies any traumatic event and has not been associated with shortness of breath or chest pain/palpitations. Patient also has complaints regarding right-sided flank discomfort but was evaluated last week. Related Data Previous Rx's Medication Instructions Recorded albuterol sulfate 90 mcg/actuation 2 puff inhalation Q6H PRN 12/23/20 aerosol inhaler shortness of breath or wheezing #8.5 grams cholecalciferol (vitamin D3) 50 50 mcg PO DAILY #90 caps 06/18/21 mcg (2,000 unit) capsule clarithromycin 500 mg tablet 500 mg PO BID 14 days #28 tabs 08/14/21 tetracycline 500 mg capsule 1,000 mg PO Q12H #56 caps 08/14/21 meloxicam 15 mg tablet 15 mg PO DAILY #14 tabs 08/17/21 omeprazole 20 mg capsule,delayed 20 mg PO DAILY #30 caps 08/18/21 release ketorolac 10 mg tablet 10 mg PO Q6H PRN pain 5 days #20 09/30/21 tabs tramadol 50 mg tablet 50 mg PO Q6H PRN pain #20 tabs 11/09/21 prednisone 20 mg tablet 60 mg PO DAILY Asthma 5 days #15 11/19/21 tabs cyclobenzaprine 5 mg tablet 5 mg PO BEDTIME PRN muscle spasm 11/28/21 #3 tabs Allergies Allergy/AdvReac Type Severity Reaction Status Date / Time amoxicillin [AMOXICILLIN] Allergy Intermediate SWELLING Verified 09/30/21 00:03 OF VAGINAL AREA , vaginal itching Review of Systems Review of Systems: Pertinent positives and negatives as stated in HPI 10 point review of systems is otherwise negative. PMFSH Past Medical History Source: nursing notes reviewed Medical History Breast implant status Class 1 obesity with body mass index (BMI) of 33.0 to 33.9 in adult Gallbladder polyp GERD (gastroesophageal reflux disease) Helicobacter pylori (H. pylori) Migraines Mild asthma Photosensitivity Physical exam Right upper quadrant abdominal pain Surgical History History of abdominoplasty History of blepharoplasty History of tubal ligation History of wisdom tooth extraction Hx of breast implants, bilateral Urethral diverticulum Family History Family History Father Diabetes Mother No problems noted. Maternal Grandmother Diabetes Pacemaker CVD (cardiovascular disease) Paternal Grandfather Alcoholism Substance use disorder Family/Other ADHD Chronic mental illness Asthma Social History Social History Housing: House Alcohol intake: never Patient Tobacco Use Status: Never used Tobacco e-Cigarette/Vaping Use: Never Used Second Hand Smoke Exposure: Yes Advance Directives: No Advance Directives Information Provided: No service: No Current occupational status: employed Current occupational exposures/hazards: No Cognitive needs: No Hearing needs: No Vision needs: No Physical Exam ED Vital Signs: Vital Signs - 24 hr 11/28/21 19:17 Temperature 98.0 F Pulse Rate 80 Respiratory Rate 18 Blood Pressure 118/64 Pulse Oximetry 97 Oxygen Delivery Method Nasal Cannula BMI result Body Mass Index 32.9 VITAL SIGNS: Reviewed. GENERAL: Well developed, well nourished, in no acute distress. HEAD: Normocephalic/atraumatic EYES: PERRLA, EOMI intact without pain, no nystagmus/pallor/icterus noted EARS: Ext canals without abnormality, TMs non-bulging and non-erythematous NOSE: Nares patent bilateral OROPHARYNX: no oral lesions noted, posterior pharynx clear and non-erythematous without noted tonsillar enlargement/erythema/exudates NECK: Supple, no adenopathy, obvious muscle spasm noted along the left neck extending down into the left shoulder area LUNGS: Normal breath sounds. No adventitious sounds or accessory muscle use. SpO2<97> CARDIOVASCULAR: Regular rate and rhythm without noted murmurs ABDOMEN: Soft, non-tender, non-distended with bowel sounds. MUSCULOSKELETAL: No tenderness, deformities, or effusions noted on gross inspection. EXTREMITIES: No cyanosis, clubbing or edema. SKIN: Inspection of the skin reveals no rashes NEUROLOGIC: Alert and oriented x 4. Strength and sensation to light touch were grossly intact x 4. Course Course Course Narrative: 36-year-old female with history and clinical presentation consistent with musculoskeletal pain, muscle spasm and no evidence to suggest acute infection or traumatic injury. Patient was provided with combination analgesics and will be placed on a short course of muscle relaxant and she has good follow-up on Monday. I reviewed her prior visit laboratory results which were negative for any acute findings to better explain her presentation. She is otherwise discharged home in stable condition. She received combination analgesics as well as lidocaine patch. Discharge Plan Discharge Clinical Impression: Musculoskeletal pain, Muscle spasm, Back pain Patient Disposition: Home, Self-Care Instructions: Musculoskeletal Pain (ED), Muscle Spasm (ED), Back Pain (ED) Additional Instructions: Tylenol 1000 mg, orally, every 6 hours as needed for pain control. Do not exceed 4000 mg within 24 hours. You are already taking meloxicam which is an anti-inflammatory, but if you no longer take this medication you can take ibuprofen 400 mg, orally with milk or food, every 6 hours as needed for additional pain relief. You may take the ibuprofen and/or the meloxicam with the Tylenol for improved symptom relief. Lidocaine patch apply to area of maximal tenderness as directed in the outside packaging. Keep your scheduled appointment on Monday for re-evaluation and further outpatient management. Return to the ER for worsening symptoms. Prescriptions: New cyclobenzaprine 5 mg tablet 5 mg PO BEDTIME PRN (Reason: muscle spasm) Qty: 3 0RF No Action cholecalciferol (vitamin D3) 50 mcg (2,000 unit) capsule 50 mcg PO DAILY Qty: 90 3RF clarithromycin 500 mg tablet 500 mg PO BID 14 Days Qty: 28 0RF tetracycline 500 mg capsule 1,000 mg PO Q12H Qty: 56 0RF omeprazole 20 mg capsule,delayed release(DR/EC) 20 mg PO DAILY Qty: 30 2RF ketorolac 10 mg tablet 10 mg PO Q6H PRN (Reason: pain) 5 Days Qty: 20 0RF Rx Instructions: 1. Patient received Toradol in the emergency room. 2. Please instruct patient to stop all other NSAIDs. tramadol 50 mg tablet 50 mg PO Q6H PRN (Reason: pain) Qty: 20 0RF prednisone 20 mg tablet 60 mg PO DAILY 5 Days Qty: 15 0RF albuterol sulfate 90 mcg/actuation HFA aerosol inhaler 2 puff inhalation Q6H PRN (Reason: shortness of breath or wheezing) Qty: 8.5 1RF meloxicam 15 mg tablet 15 mg PO DAILY Qty: 14 0RF Referrals: Mireille Mari MD [Primary Care Provider] -
[2021-11-28] MEDS: Lidocaine 4 % Patch ADH..PATCH 1 PATCH TRANSDERMA (22:42)
[2021-11-28] MEDS: Ketorolac Tromethamine 15 MG/ML VIAL IM (22:43)
[2021-11-28] MEDS: Acetaminophen 325 MG TABLET 975 MG PO (22:43)
== END 2021-11-28 23:30 | disposition home or self-care (01) ==
PROVIDERS: Emergency Provider Student in an Organized Health Care Education/Training Program; PCP Internal Medicine
DX: M54.2 Cervicalgia (principal); M54.50 Low back pain, unspecified; Z79.899 Other long term (current) drug therapy
CPT/HCPCS: 96372; 99283; 99284; J1885

== ENCOUNTER 2021-12-07 07:35 | Day surgery (SDC) | payer OTHER, SELFPAY ==
[2021-11-30 19:59] VITALS: BMI 35.1
--- NOTE | 2021-12-06 10:36 | P.CONAN_ITS ---
Documented by User: Shira Sierra NP 12/06/21 10:37 HPI - Anesthesia Eval Consult details Narrative: 36yo F for Upper Endoscopy PMFSH Active Problems Active Problems: All Active Problems (Updated 11/30/21 @ 19:59 by Kierra Irby, TATE) PCB (post coital bleeding) (Acute) Encounter to discuss test results (Acute) Metrorrhagia (Acute) Irregular menses (Acute) Mild intermittent asthma (Acute) Right upper quadrant pain (Acute) Scarring (Acute) Pain of right calf (Acute) Tendinitis of right forearm (Acute) Right sided sciatica (Acute) Stress incontinence, female (Acute) Physical exam (Acute) Helicobacter pylori (H. pylori) (Acute) Gallbladder polyp (Acute) Class 1 obesity with body mass index (BMI) of 33.0 to 33.9 in adult (Acute) GERD (gastroesophageal reflux disease) (Acute) Right upper quadrant abdominal pain (Acute) Migraines (Acute) Photosensitivity (Acute) Mild asthma (Acute) Breast implant status (Acute) Past Medical History Medical History Breast implant status Class 1 obesity with body mass index (BMI) of 33.0 to 33.9 in adult Gallbladder polyp GERD (gastroesophageal reflux disease) Helicobacter pylori (H. pylori) History of blood transfusion Migraines Mild asthma Photosensitivity Physical exam Right upper quadrant abdominal pain Family History Family History Father Diabetes Mother No problems noted. Maternal Grandmother Diabetes Pacemaker CVD (cardiovascular disease) Paternal Grandfather Alcoholism Substance use disorder Family/Other ADHD Chronic mental illness Asthma Surgical History Surgical History History of abdominoplasty History of blepharoplasty History of tubal ligation History of wisdom tooth extraction Hx of breast implants, bilateral Urethral diverticulum Social History Social History Housing: House Alcohol intake: never Patient Tobacco Use Status: Never used Tobacco e-Cigarette/Vaping Use: Never Used Second Hand Smoke Exposure: Yes Use of substances other than those prescribed or required for medical reasons: No Are you DNR?: No Advance Directives: No Advance Directives Information Provided: Yes Advance Directives on File: No Recently lost weight without trying: No Nutrition Risks: No Nutritional Risk Patient : No : No service: No Current occupational status: employed Current occupational exposures/hazards: No Cognitive needs: No Hearing needs: No Vision needs: No Meds Allergies Allergy/AdvReac Type Severity Reaction Status Date / Time amoxicillin [AMOXICILLIN] Allergy Intermediate SWELLING Verified 11/30/21 11:09 OF VAGINAL AREA , vaginal itching Home Medications Medication Instructions Recorded Confirmed Last Taken Type magnesium 1,200 mg PO DAILY 12/07/21 12/07/21 Unknown History Exam Exam Date and Time: December 06, 2021 1036 Height,Weight and Vital Signs: Height 5 ft 2 in Weight 87.09 kg Pertinent Lab Results Pertinent Lab Results: Laboratory Tests 11/19/21 11/19/21 22:16 22:16 WBC 8.4 Hgb 13.2 Hct 39.5 Plt Count 240 Sodium 141 Potassium 4.1 Chloride 105 Carbon Dioxide 26 BUN 12 Creatinine 0.70 Assessment and Plan Assessment Anesthesia Assessment: Chart Reviewed Documented by User: Mukesh Villa MD 12/07/21 08:11 [facility] Past Medical History Medical History Breast implant status Class 1 obesity with body mass index (BMI) of 33.0 to 33.9 in adult Gallbladder polyp GERD (gastroesophageal reflux disease) Helicobacter pylori (H. pylori) History of blood transfusion Migraines Mild asthma Photosensitivity Physical exam Right upper quadrant abdominal pain Family History Family History Father Diabetes Mother No problems noted. Maternal Grandmother Diabetes Pacemaker CVD (cardiovascular disease) Paternal Grandfather Alcoholism Substance use disorder Family/Other ADHD Chronic mental illness Asthma Family history of problems with anesthesia: No Surgical History Surgical History History of abdominoplasty History of blepharoplasty History of tubal ligation History of wisdom tooth extraction Hx of breast implants, bilateral Urethral diverticulum History of Problems with Anesthesia: No Social History Social History Housing: House Alcohol intake: never Patient Tobacco Use Status: Never used Tobacco e-Cigarette/Vaping Use: Never Used Second Hand Smoke Exposure: Yes Use of substances other than those prescribed or required for medical reasons: No Are you DNR?: No Advance Directives: No Advance Directives Information Provided: Yes Advance Directives on File: No Recently lost weight without trying: No Nutrition Risks: No Nutritional Risk Patient : No : No service: No Current occupational status: employed Current occupational exposures/hazards: No Cognitive needs: No Hearing needs: No Vision needs: No Meds Allergies Allergy/AdvReac Type Severity Reaction Status Date / Time amoxicillin [AMOXICILLIN] Allergy Intermediate SWELLING Verified 11/30/21 11:09 OF VAGINAL AREA , vaginal itching Home Medications Medication Instructions Recorded Confirmed Last Taken Type magnesium 1,200 mg PO DAILY 12/07/21 12/07/21 Unknown History Exam Airway Mallampati Class: II TM Dist: >3cm Neck ROM: Full Loose/Missing/Broken Teeth: No Heart: [id number] Lungs: cta b/l Assessment and Plan Assessment Anesthesia Assessment: Anesthesia Plan Discussed Final Anesthetic Review Family History of Problems with Anesthesia: No History of Problems with Anesthesia: No NPO: Yes ASA Class: II Final Preanesthetic Review: No Changes in Pt Med Stat, Meds/Allgs Chart Reviewed, Consent Obtained/Reviewed and Anes Risks/Benef Reviewed Patient Risk: Intermediate Procedure Risk: Intermediate Assessment/Block/Sedation in SS: Assess/Block/Sedation-SS Anesthetic Plan Anesthetic Plan: MAC: and Agree w/ Assess. and Plan Disposition: Standard PACU
[2021-12-07 07:57] VITALS: BP 102/69; PULSE 77; RESP 15; TEMP 36.4; O2SAT 96
[2021-12-07] MEDS: Lactated Ringers 1,000 ML 100 ML IVCONT (08:06)
--- NOTE | 2021-12-07 08:21 | MHC.SHP ---
Pre-Procedural Eval Section A Date of Service: 12/07/21 The patient is an INPATIENT: No The History & Physical has been completed within 30 days and I have reviewed it.: No Section B Chief Complaint: reflux disease Relevant Family History (Specify if Yes): No Relevant Social History: None Present Medications: see Short Stay Collaborative assessment Medical History: Significant History (Mild asthma, history of Helicobacter pylori infection, right upper quadrant pain) History of Previous Operations: Relevant previous surgery/procedure and date(s) Allergies: Allergies Allergy/AdvReac Type Severity Reaction Status Date / Time amoxicillin [AMOXICILLIN] Allergy Intermediate SWELLING Verified 11/30/21 11:09 OF VAGINAL AREA , vaginal itching Review of Systems Sugical H&P ROS: Negative: Constitution, Cardiovascular and Respiratory and Yes, Specify: Gastrointestinal (abdominal pain) Exam Surgical H&P Exam: Normal: Heart, Normal: Lungs, Normal: Extremities and Normal: Abdomen Plan Diagnosis/Plan: Unchanged I have reviewed the history and physical and performed a pertinent physical examination on my patient. No changes have occurred unless specified.
--- NOTE | 2021-12-07 08:39 | P.BOP_ITS ---
Brief Operative Note Date of Service: 12/07/21 Pre-op diagnosis: Abdominal pain, persistent H pylori infection Post-op diagnosis: other (GERD, gastritis) Procedure: FLEXIBLE TRANSORAL UPPER GASTROINTESTINAL ENDOSCOPY WITH BIOPSIES Consent: Indications for the procedure and potential complications of bleeding, perforation, reaction to medications and missed diagnosis were discussed with the patient and informed consent was obtained. Instrument: Olympus GIF H 190 mid size upper endoscope Monitoring: Vital signs and clinical assessment, continuous EKG monitoring, Pulse oximetry, Carbon Dioxide monitoring and blood pressure monitoring were done throughout the procedure. Procedure: The patient was placed in the left lateral decubitis position and pre-procedure medications were administered and a bite block was placed. The endoscope was inserted into the mouth and advanced under direct vision to the third part of duodenum. A careful inspection was made as the upper endoscope was withdrawn including a retroflexed examination of the proximal stomach; Findings and interventions are described below. Findings: Larynx: Normal Esophagus: GE junction at 35 cms. No esophagitis or Nicholas's Stomach: Moderate diffuse gastric erythema with submucosal hemorrhages and nodular appearing gastric mucosa in the body of the stomach - biopsied. Antral biopsies were obtained for H pylori culture and sensitivity. Grade 2 flap valve on retroflexed examination of the cardia. Duodenum: Normal bulb and descending duodenum. Biopsies were obtained from 3rd part of the duodenum to check for celiac sprue Intervention: Biopsies as noted above Impression and Post Procedure Diagnosis: Endoscopy Findings: STOMACH: Moderate diffuse gastric erythema with submucosal hemorrhages and nodular appearing gastric mucosa in the body of the stomach - biopsied. Antral biopsies were obtained for H pylori culture and sensitivity. DUODENUM: Normal - biopsied to check for celiac sprue Plan: Await pathology results Patient has an appointment on 12/21/21 in the GI Clinic with Karen Lopez FNP- . Above findings were reviewed with the patient and Helicobacter Pylori handout was given in the discharge area Surgeon: Kelly Ventura MD Anesthesia: MAC (Dr Garcia) Was an Pumping Station Engineer used for this Procedure?: Yes Pumping Station Engineer: Cady Hollis Estimated blood loss (mL): 0 Pathology: other (A. small bowel bxs, R/O celiac B. g astric antrum bxs, R/O H. pylori C. gastric body bxs) Condition: stable Disposition: PACU
--- NOTE | 2021-12-07 09:03 | W.PM.OPN ---
Operative Note Operative Note Date of Service: 12/07/21 Narrative: Pre-op diagnosis: Abdominal pain, persistent H pylori infection Post-op diagnosis:?other (GERD, gastritis) Procedure: FLEXIBLE TRANSORAL UPPER GASTROINTESTINAL ENDOSCOPY WITH BIOPSIES Consent:?Indications for the procedure and potential complications of bleeding, perforation, reaction to medications and missed diagnosis were discussed with the patient and informed consent was obtained. Instrument:?Olympus GIF H 190 mid size upper endoscope Monitoring: Vital signs and clinical assessment, continuous EKG monitoring, Pulse oximetry, Carbon Dioxide monitoring and blood pressure monitoring were done throughout the procedure. Procedure:?The patient was placed in the left lateral decubitis position and pre-procedure medications were administered and a bite block was placed. The endoscope was inserted into the mouth and advanced under direct vision to the third part of duodenum. A careful inspection was made as the upper endoscope was withdrawn including a retroflexed examination of the proximal stomach; Findings and interventions are described below. Findings: Larynx:? Normal Esophagus: GE junction at 35 cms. No esophagitis or Nicholas's Stomach: Moderate diffuse gastric erythema with submucosal hemorrhages and nodular appearing gastric mucosa in the body of the stomach - biopsied. ? Antral biopsies were obtained for H pylori culture and sensitivity. Grade 2 flap valve on retroflexed examination of the cardia. Duodenum: Normal bulb and descending duodenum.? Biopsies were obtained from 3rd part of the duodenum to check for celiac sprue Intervention: Biopsies as noted above Impression and Post Procedure Diagnosis: Endoscopy Findings: STOMACH: Moderate diffuse gastric erythema with submucosal hemorrhages and nodular appearing gastric mucosa in the body of the stomach - biopsied. ? Antral biopsies were obtained for H pylori culture and sensitivity. DUODENUM:? Normal - biopsied to check for celiac sprue Plan: Await pathology results Patient has an appointment on 12/21/21 in the GI Clinic with Karen Lopez FNP-BC. Above findings were reviewed with the patient and Helicobacter Pylori handout was given in the discharge area Surgeon: Kelly Ventura MD Anesthesia:?MAC (Dr Garcia) Was an Supervisor Histology used for this Procedure?:?Yes Supervisor Histology:?Cady Hollis Estimated blood loss (mL):?0 Pathology:?other (A. small bowel bxs, R/O celiac? B. gastric antrum bxs, R/O H. pylori? C. gastric body bxs) Condition:?stable Disposition:?PACU
[2021-12-07 09:05] VITALS: BP 122/78; PULSE 88; RESP 18; TEMP 36.9; O2SAT 98
[2021-12-07 09:20] VITALS: BP 122/82; PULSE 87; RESP 18; TEMP 36.4; O2SAT 99
== END 2021-12-07 09:43 | disposition home or self-care (01) ==
PROVIDERS: PCP Internal Medicine; Visit Provider Internal Medicine Gastroenterology
PROC: 0DJ08ZZ Inspection of Upper Intestinal Tract, Via Natural or Artificial Opening Endoscopic (ICD-10-PCS; CPT 43235; principal; 2021-12-07 08:30)
DX: R10.11 Right upper quadrant pain (principal); B96.81 Helicobacter pylori [H. pylori] as the cause of diseases classified elsewhere; K29.50 Unspecified chronic gastritis without bleeding; K21.9 Gastro-esophageal reflux disease without esophagitis; K82.4 Cholesterolosis of gallbladder; J45.20 Mild intermittent asthma, uncomplicated; E66.9 Obesity, unspecified; Z68.33 Body mass index [BMI] 33.0-33.9, adult; G43.909 Migraine, unspecified, not intractable, without status migrainosus; Z79.899 Other long term (current) drug therapy; Z88.1 Allergy status to other antibiotic agents; Z98.82 Breast implant status
CPT/HCPCS: 43239; 36415; 87081; 88305; 88342

== ENCOUNTER → 2021-12-21 08:07 | Outpatient (BNVA) | payer OTHER, SELFPAY | PROVIDERS: PCP Internal Medicine; Visit Provider Nurse Practitioner Family | DX: K21.9 Gastro-esophageal reflux disease without esophagitis (principal); A04.8 Other specified bacterial intestinal infections | CPT/HCPCS: 99212 ==

== ENCOUNTER → 2022-01-27 13:34 | Outpatient (BNVA) | payer OTHER, SELFPAY | PROVIDERS: PCP Internal Medicine; Visit Provider Nurse Practitioner Family | DX: R51.9 Headache, unspecified (principal) | CPT/HCPCS: 99202 ==

== ENCOUNTER 2022-02-15 12:01 | Outpatient (REF) | payer OTHER, SELFPAY ==
[2022-02-17 11:37] LABS: H Pylori Breath Test Negative (Negative)
== END 2022-02-15 12:02 | disposition home or self-care (01) ==
LOC: HO.LNP 12:01
PROVIDERS: PCP Internal Medicine; Visit Provider Nurse Practitioner Family
DX: Z12.2 Encounter for screening for malignant neoplasm of respiratory organs (principal)
CPT/HCPCS: 83013; 99211

== ENCOUNTER 2022-04-18 18:02 | Emergency (ER) | payer OTHER, SELFPAY ==
--- NOTE | ~2022-04-18 | US_ITS ---
EXAMINATION: CHEST X-RAY. ULTRASOUND ABDOMEN LIMITED CLINICAL INFORMATION: Right upper quadrant pain and nausea COMPARISON: Ultrasound abdomen limited 08/01/[address] abdomen pelvis 09/30/2021. TECHNIQUE: Routine limited right upper quadrant abdominal ultrasound performed. Chest 2 views. FINDINGS: Limited abdomen ultrasound: The head and the body of the pancreas is homogeneous in echotexture. The tail is obscured by overlying gas. The peripancreatic soft tissues are normal. Liver: The liver is homogeneous echotexture without focal lesion or intrahepatic ductal dilatation. No perihepatic fluid collection seen. Gallbladder. There is no acute echogenic stones or wall thickening. No polyps is detected on the present exam. CBD: 0.3 cm. Right kidney: The right kidney is cortex is normal thickness is normal echo differentiation kidney cortex and medulla. No congenital stones, cysts or hydronephrosis seen. It measures 10.7 cm. Chest x-ray: The lungs are well-expanded and clear. The heart size and pulmonary vascularity is normal. No gross bony abnormality seen. US/US abdomen limited IMPRESSION: Unremarkable limited abdomen ultrasound. Unremarkable chest exam.
[2022-04-18 18:48] VITALS: BP 128/88; PULSE 88; RESP 16; TEMP 36.6; O2SAT 100; BMI 33.8
--- NOTE | 2022-04-18 18:49 | ECG_ITS ---
Test Reason : ABD PAIN Blood Pressure : / mmHG Vent. Rate : 063 BPM Atrial Rate : 063 BPM P-R Int : 136 ms QRS Dur : 082 ms QT Int : 396 ms P-R-T Axes : 048 038 042 degrees QTc Int : 405 ms Normal sinus rhythm Normal ECG When compared with ECG of 19-FEB-2020 07:08, No significant change was found Referred By: Cady Mcintosh Electronically Signed By:CAROL CRISTOBAL
--- NOTE | 2022-04-18 18:50 | ED.ABDPAIN ---
HPI - Abdominal Pain General Chief Complaint: Abdominal Pain Stated Complaint: abd pain Time Seen by Provider: 04/18/22 22:12 Related Data Home Medications Medication Instructions Recorded Confirmed magnesium 1,200 mg PO DAILY 12/07/21 01/27/22 Previous Rx's Medication Instructions Recorded albuterol sulfate 90 mcg/actuation 2 puff inhalation Q6H PRN 12/23/20 aerosol inhaler shortness of breath or wheezing #8.5 grams tramadol 50 mg tablet 50 mg PO Q6H PRN pain #20 tabs 11/09/21 tobramycin 0.3 % eye drops 1 drp ophthalmic (eye) Q4H 5 days 02/23/22 #5 mL fluconazole 150 mg tablet 150 mg PO Q3D 2 doses #2 tabs 04/12/22 ketoconazole 2 % shampoo 1 appl topical 2XW 30 days #120 mL 04/12/22 ondansetron 4 mg disintegrating 4 mg PO Q6-8H PRN nausea and 04/18/22 tablet vomiting #7 tabs tramadol 50 mg tablet 50 mg PO Q6H PRN pain #20 tabs 04/18/22 Allergies Allergy/AdvReac Type Severity Reaction Status Date / Time amoxicillin [AMOXICILLIN] Allergy Intermediate SWELLING Verified 01/27/22 13:46 OF VAGINAL AREA , vaginal itching PMFSH Past Medical History Medical History Breast implant status Class 1 obesity with body mass index (BMI) of 33.0 to 33.9 in adult Gallbladder polyp GERD (gastroesophageal reflux disease) Helicobacter pylori (H. pylori) History of blood transfusion Migraines Mild asthma Photosensitivity Physical exam Right upper quadrant abdominal pain Surgical History History of abdominoplasty History of blepharoplasty History of esophagogastroduodenoscopy (EGD) History of tubal ligation History of wisdom tooth extraction Hx of breast implants, bilateral Urethral diverticulum Family History Family History Father Diabetes Mother No problems noted. Maternal Grandmother Diabetes Pacemaker CVD (cardiovascular disease) Paternal Grandfather Alcoholism Substance use disorder Family/Other ADHD Chronic mental illness Asthma Social History Social History Housing: House Alcohol intake: never Patient Tobacco Use Status: Never used Tobacco e-Cigarette/Vaping Use: Never Used Second Hand Smoke Exposure: Yes Advance Directives: No Advance Directives Information Provided: Yes service: No Current occupational status: employed Current occupational exposures/hazards: No Cognitive needs: No Hearing needs: No Vision needs: No Physical Exam ED Vital Signs: Vital Signs - 24 hr 04/18/22 18:48 Temperature 98 F Pulse Rate 88 Respiratory Rate 16 Blood Pressure 128/88 Pulse Oximetry 100 Oxygen Delivery Method Room Air BMI result Body Mass Index 33.8 Course Course Course Narrative: RME - 36 yo female with history of H. pyolri x2 treatments, GERD, history of biliary colic who presents to the ER for evaluation of acute onset of RUQ pain that woke her from sleep at 1am and lasted til 9am. It spontaneously resolved and then recurred at 4pm along with central and right sided chest pains and SOB. Plan: labs, RUQ U/S, EKG, CXR Medical Decision Making Lab Data 04/18/22 19:08 04/18/22 19:08 Labs: Lab Results 04/18/22 04/18/22 04/18/22 Range/Units 19:07 19:07 19:08 WBC 9.5 (4.8-10.8) X10*3/uL RBC 4.61 (4.20-5.50) X10*6/uL Hgb 13.8 (12.0-16.0) g/dl Hct 41.5 (37.0-47.0) % MCV 90.0 (80.0-98.0) fL MCH 29.9 (27.0-33.0) pg MCHC 33.3 (31.0-35.0) g/dl RDW 13.0 (11.0-16.0) % Plt Count 238 (160-400) X10*3/uL MPV 9.2 L (9.4-12.3) fL Immature Gran % (Auto) 0.1 (0.0-0.4) % Neut % (Auto) 65.9 (45-73) % Lymph % (Auto) 23.4 (20-40) % [place] % (Auto) 6.2 (2-11) % Eos % (Auto) 4.0 (0-4) % Baso % (Auto) 0.4 (0-2) % Lymph # (Auto) 2.2 (1.2-4.9) X10*3/uL [place] # (Auto) 0.6 (0.1-1.2) X10*3/uL Eos # (Auto) 0.4 (0.0-0.4) X10*3/uL Baso # (Auto) 0.0 (0.0-0.2) X10*3/uL Abs Immat Gran (auto) 0.01 (0.00-0.03) X10*3/uL Absolute Neuts (auto) 6.2 (2.0-8.3) x10*3/uL Absolute Nucleated RBC 0.000 (0.0-0.012) X10*3/uL Nucleated RBC % (auto) 0.0 (0.0-0.2) /100WBC Sodium (135-145) mmol/L Potassium (3.3-5.1) mmol/L Chloride (96-108) mmol/L Carbon Dioxide (22-29) mmol/L Anion Gap (12-20) BUN (9-16) mg/dL Creatinine (0.5-1.4) mg/dL Estim Creat Clear Calc Estimated GFR Random Glucose (60-115) mg/dL Calcium (8.4-10.2) mg/dL Magnesium (1.6-2.6) mg/dL Total Bilirubin (0.0-1.0) mg/dL Direct Bilirubin (0.0-0.5) mg/dL AST (5-31) U/L ALT (0-31) U/L Alkaline Phosphatase (39-117) U/L Total Protein (6.5-8.0) g/dL Albumin (3.5-5.0) g/dL Lipase (8-78) U/L Urine Color Yellow Urine Appearance Clear Urine pH 6.5 (5.0-9.0) Ur Specific [place] 1.025 (1.005-1.025) Urine Protein Negative (Neg-Trace) mg/dL Urine Glucose (UA) Negative (Negative) mg/dL Urine Ketones Negative (Negative) mg/dL Urine Blood Small (1+) H (Negative) Urine Nitrite Negative (Negative) Ur Leukocyte Esterase Negative (Negative) Urine RBC 6-10 H (0-2) /HPF Urine WBC 0-5 (0-5) /HPF Ur Squamous Epith Cells 11-20 (0-2) /HPF Urine Bacteria Trace (None Seen) Hyaline Casts 0-2 (0-2) /LPF Urine Test NEGATIVE (NEGATIVE) 04/18/22 Range/Units 19:08 WBC (4.8-10.8) X10*3/uL RBC (4.20-5.50) X10*6/uL Hgb (12.0-16.0) g/dl Hct (37.0-47.0) % MCV (80.0-98.0) fL MCH (27.0-33.0) pg MCHC (31.0-35.0) g/dl RDW (11.0-16.0) % Plt Count (160-400) X10*3/uL MPV (9.4-12.3) fL Immature Gran % (Auto) (0.0-0.4) % Neut % (Auto) (45-73) % Lymph % (Auto) (20-40) % [place] % (Auto) (2-11) % Eos % (Auto) (0-4) % Baso % (Auto) (0-2) % Lymph # (Auto) (1.2-4.9) X10*3/uL [place] # (Auto) (0.1-1.2) X10*3/uL Eos # (Auto) (0.0-0.4) X10*3/uL Baso # (Auto) (0.0-0.2) X10*3/uL Abs Immat Gran (auto) (0.00-0.03) X10*3/uL Absolute Neuts (auto) (2.0-8.3) x10*3/uL Absolute Nucleated RBC (0.0-0.012) X10*3/uL Nucleated RBC % (auto) (0.0-0.2) /100WBC Sodium 141 (135-145) mmol/L Potassium 4.2 (3.3-5.1) mmol/L Chloride 107 (96-108) mmol/L Carbon Dioxide 26 (22-29) mmol/L Anion Gap 12 (12-20) BUN 15 (9-16) mg/dL Creatinine 0.69 (0.5-1.4) mg/dL Estim Creat Clear Calc 115.3 Estimated GFR > 60 Random Glucose 88 (60-115) mg/dL Calcium 9.4 (8.4-10.2) mg/dL Magnesium 1.8 (1.6-2.6) mg/dL Total Bilirubin 0.2 (0.0-1.0) mg/dL Direct Bilirubin < 0.2 (0.0-0.5) mg/dL AST 15 (5-31) U/L ALT 20 (0-31) U/L Alkaline Phosphatase 101 (39-117) U/L Total Protein 7.3 (6.5-8.0) g/dL Albumin 4.3 (3.5-5.0) g/dL Lipase 21 (8-78) U/L Urine Color Urine Appearance Urine pH (5.0-9.0) Ur Specific [place] (1.005-1.025) Urine Protein (Neg-Trace) mg/dL Urine Glucose (UA) (Negative) mg/dL Urine Ketones (Negative) mg/dL Urine Blood (Negative) Urine Nitrite (Negative) Ur Leukocyte Esterase (Negative) Urine RBC (0-2) /HPF Urine WBC (0-5) /HPF Ur Squamous Epith Cells (0-2) /HPF Urine Bacteria (None Seen) Hyaline Casts (0-2) /LPF Urine Test (NEGATIVE) Medications Administered Discontinued Medications Generic Name Dose Route Start Last Admin Trade Name Freq PRN Reason Stop Dose Admin Ondansetron HCl 4 mg 04/18/22 22:33 04/18/22 22:42 Ondansetron Odt 4 Mg Tab.Rapdis TRANSLINGU 04/18/22 22:34 4 mg ONCE ONE Administration Tramadol HCl 50 mg 04/18/22 22:33 04/18/22 22:42 Tramadol Hcl 50 Mg Tablet PO 04/18/22 22:34 50 mg ONCE ONE Administration Discharge Plan Discharge Clinical Impression: Abdominal pain Patient Disposition: Home, Self-Care Instructions: Abdominal Pain (ED) Additional Instructions: cause of your pain is not very clear follow-up with riding silks custodian for possible HIDA scan if needed Pain medication for now Avoid fried food Prescriptions: New tramadol 50 mg tablet 50 mg PO Q6H PRN (Reason: pain) Qty: 20 0RF ondansetron 4 mg tablet,disintegrating 4 mg PO Q6-8H PRN (Reason: nausea and vomiting) Qty: 7 0RF No Action tobramycin 0.3 % drops 1 drp ophthalmic (eye) Q4H 5 Days Qty: 5 0RF fluconazole 150 mg tablet 150 mg PO Q3D Qty: 2 0RF ketoconazole 2 % shampoo 1 appl topical 2XW 30 Days Qty: 120 1RF tramadol 50 mg tablet 50 mg PO Q6H PRN (Reason: pain) Qty: 20 0RF magnesium 1,200 mg PO DAILY albuterol sulfate 90 mcg/actuation HFA aerosol inhaler 2 puff inhalation Q6H PRN (Reason: shortness of breath or wheezing) Qty: 8.5 1RF Stand Alone Forms: Work/School Release Interventions: ED Discharge Assessment Last Done: 04/18/22 22:54 Discharge Date/Time: 04/18/22 22:55
[2022-04-18 19:14] LABS: MANUAL DIFF FLAG NO
[2022-04-18 19:15] LABS: Basophils Percent Auto 0.4 % (0-2); Eosinophils Absolute Auto 0.4 X10*3/uL (0.0-0.4); Hematocrit 41.5 % (37.0-47.0); Hemoglobin 13.8 g/dl (12.0-16.0); Imm Gran Abs Auto 0.01 X10*3/uL (0.00-0.03); Imm Gran Pct Auto 0.1 % (0.0-0.4); Lymphocytes Absolute Auto 2.2 X10*3/uL (1.2-4.9); Lymphocytes Percent Auto 23.4 % (20-40); Mean Corpuscular HGB Conc 33.3 g/dl (31.0-35.0); Mean Corpuscular Hemoglobin 29.9 pg (27.0-33.0); Mean Platelet Volume 9.2 fL (9.4-12.3); Monocytes Absolute Auto 0.6 X10*3/uL (0.1-1.2); Monocytes Percent Auto 6.2 % (2-11); Neutrophils Absolute Auto 6.2 x10*3/uL (2.0-8.3); Neutrophils Percent Auto 65.9 % (45-73); Platelet Count 238 X10*3/uL (160-400); Red Blood Count 4.61 X10*6/uL (4.20-5.50); White Blood Count 9.5 X10*3/uL (4.8-10.8)
[2022-04-18 19:17] LABS: Appearance Urine Clear; Color Urine Yellow; Glucose Urine UA Negative (Negative); Leukocyte Esterase Urine Negative (Negative); Nitrite Urine Negative (Negative); PH 6.5 (5.0-9.0); Specific Gravity - Urine 1.025 (1.005-1.025); UMIC TRIGGER UACC YES; Urine Blood Small (1+) (Negative); Urine Ketones Negative (Negative); Urine Protein Negative (Neg-Trace)
[2022-04-18 19:22] LABS: Bacteria Urine Trace (None Seen); Hyaline Casts Urine 0-2 /LPF (0-2); WBC Urine 0-5 /HPF (0-5)
[2022-04-18 19:34] LABS: UPreg QC Valid YES; Urine Pregnancy NEGATIVE (NEGATIVE)
[2022-04-18 19:34] LABS: Alanine Aminotransferase 20 U/L (0-31); Albumin Level 4.3 g/dL (3.5-5.0); Alkaline Phosphatase 101 U/L (39-117); Anion Gap 12 (12-20); Aspartate Amino Transferase 15 U/L (5-31); Bilirubin Direct < 0.2 mg/dL (0.0-0.5); Bilirubin Total 0.2 mg/dL (0.0-1.0); Blood Urea Nitrogen 15 mg/dL (9-16); Calcium 9.4 mg/dL (8.4-10.2); Carbon Dioxide 26 mmol/L (22-29); Chloride 107 mmol/L (96-108); Creatinine Clr Calc Pharmacy 115.3; Estimated Glomerular Filt Rate > 60; Glucose Random 88 mg/dL (60-115); Magnesium 1.8 mg/dL (1.6-2.6); Potassium 4.2 mmol/L (3.3-5.1); Sodium 141 mmol/L (135-145); Total Protein 7.3 g/dL (6.5-8.0)
--- NOTE | 2022-04-18 22:39 | ED.ABDPAIN ---
HPI - Abdominal Pain General Chief Complaint: Abdominal Pain Stated Complaint: abd pain Time Seen by Provider: 04/18/22 22:12 Source: patient Mode of arrival: ambulatory Limitations: no limitations History of Present Illness HPI narrative: Patient with frequent right upper quadrant epigastric pain for last few months with history of H pylori been treated had previous CT scan which was negative comes here for similar pain since last night. Pain is localized in epigastric and right upper quadrant with nausea no fever no chills no urinary complaints patient had ultrasound done prior to my evaluation which was normal labs are also normal including LFTs and lipase Related Data Home Medications Medication Instructions Recorded Confirmed magnesium 1,200 mg PO DAILY 12/07/21 01/27/22 Previous Rx's Medication Instructions Recorded albuterol sulfate 90 mcg/actuation 2 puff inhalation Q6H PRN 12/23/20 aerosol inhaler shortness of breath or wheezing #8.5 grams tramadol 50 mg tablet 50 mg PO Q6H PRN pain #20 tabs 11/09/21 tobramycin 0.3 % eye drops 1 drp ophthalmic (eye) Q4H 5 days 02/23/22 #5 mL fluconazole 150 mg tablet 150 mg PO Q3D 2 doses #2 tabs 04/12/22 ketoconazole 2 % shampoo 1 appl topical 2XW 30 days #120 mL 04/12/22 ondansetron 4 mg disintegrating 4 mg PO Q6-8H PRN nausea and 04/18/22 tablet vomiting #7 tabs tramadol 50 mg tablet 50 mg PO Q6H PRN pain #20 tabs 04/18/22 Allergies Allergy/AdvReac Type Severity Reaction Status Date / Time amoxicillin [AMOXICILLIN] Allergy Intermediate SWELLING Verified 01/27/22 13:46 OF VAGINAL AREA , vaginal itching Review of Systems Review of Systems Yes all other systems are reviewed and are negative PMFSH Past Medical History Medical History Breast implant status Class 1 obesity with body mass index (BMI) of 33.0 to 33.9 in adult Gallbladder polyp GERD (gastroesophageal reflux disease) Helicobacter pylori (H. pylori) History of blood transfusion Migraines Mild asthma Photosensitivity Physical exam Right upper quadrant abdominal pain Surgical History History of abdominoplasty History of blepharoplasty History of esophagogastroduodenoscopy (EGD) History of tubal ligation History of wisdom tooth extraction Hx of breast implants, bilateral Urethral diverticulum Family History Family History Father Diabetes Mother No problems noted. Maternal Grandmother Diabetes Pacemaker CVD (cardiovascular disease) Paternal Grandfather Alcoholism Substance use disorder Family/Other ADHD Chronic mental illness Asthma Social History Social History Housing: House Alcohol intake: never Patient Tobacco Use Status: Never used Tobacco e-Cigarette/Vaping Use: Never Used Second Hand Smoke Exposure: Yes Advance Directives: No Advance Directives Information Provided: Yes service: No Current occupational status: employed Current occupational exposures/hazards: No Cognitive needs: No Hearing needs: No Vision needs: No Physical Exam ED Vital Signs: Vital Signs - 24 hr 04/18/22 18:48 04/18/22 22:44 Temperature 98 F 97.7 F Pulse Rate 88 70 Respiratory Rate 16 14 Blood Pressure 128/88 121/65 Pulse Oximetry 100 99 Oxygen Delivery Method Room Air Room Air BMI result Body Mass Index 33.8 Appearance: Alert. Oriented X3. No acute distress. Eyes: no pallor or icterus ENT: Pharynx normal. Oral Mucosa moist Neck: Normal inspection. Neck supple. CVS: Normal heart rate and rhythm. Pulses normal. Respiratory: No respiratory distress. Equal air entry bilateral, no wheezing/rales/rhonchi Abdomen: Soft, tenderness at epigastric area no rebound tenderness or guarding Bowel sounds are present, no mass palpable, no CVA tenderness Skin: Skin warm and dry. Normal skin color. Normal skin turgor. Extremities: No lower extremity edema. No calf tenderness Neuro: Oriented X 3. No motor deficit. Medical Decision Making Medical Decision Making MDM Narrative: Patient with chronic epigastric and right upper quadrant pain with multiple imaging done in the past negative followed by GI advised patient to follow-up with GI for possible HIDA scan at this time labs are stable an ultrasound is negative for any CBD dilatation of cholecystitis or gallstone Lab Data [facility] Lab Attestation statement: I reviewed the patient's lab results. 04/18/22 19:08 04/18/22 19:08 Labs: Lab Results 04/18/22 04/18/22 04/18/22 Range/Units 19:07 19:07 19:08 WBC 9.5 (4.8-10.8) X10*3/uL RBC 4.61 (4.20-5.50) X10*6/uL Hgb 13.8 (12.0-16.0) g/dl Hct 41.5 (37.0-47.0) % MCV 90.0 (80.0-98.0) fL MCH 29.9 (27.0-33.0) pg MCHC 33.3 (31.0-35.0) g/dl RDW 13.0 (11.0-16.0) % Plt Count 238 (160-400) X10*3/uL MPV 9.2 L (9.4-12.3) fL Immature Gran % (Auto) 0.1 (0.0-0.4) % Neut % (Auto) 65.9 (45-73) % Lymph % (Auto) 23.4 (20-40) % [place] % (Auto) 6.2 (2-11) % Eos % (Auto) 4.0 (0-4) % Baso % (Auto) 0.4 (0-2) % Lymph # (Auto) 2.2 (1.2-4.9) X10*3/uL [place] # (Auto) 0.6 (0.1-1.2) X10*3/uL Eos # (Auto) 0.4 (0.0-0.4) X10*3/uL Baso # (Auto) 0.0 (0.0-0.2) X10*3/uL Abs Immat Gran (auto) 0.01 (0.00-0.03) X10*3/uL Absolute Neuts (auto) 6.2 (2.0-8.3) x10*3/uL Absolute Nucleated RBC 0.000 (0.0-0.012) X10*3/uL Nucleated RBC % (auto) 0.0 (0.0-0.2) /100WBC Sodium (135-145) mmol/L Potassium (3.3-5.1) mmol/L Chloride (96-108) mmol/L Carbon Dioxide (22-29) mmol/L Anion Gap (12-20) BUN (9-16) mg/dL Creatinine (0.5-1.4) mg/dL Estim Creat Clear Calc Estimated GFR Random Glucose (60-115) mg/dL Calcium (8.4-10.2) mg/dL Magnesium (1.6-2.6) mg/dL Total Bilirubin (0.0-1.0) mg/dL Direct Bilirubin (0.0-0.5) mg/dL AST (5-31) U/L ALT (0-31) U/L Alkaline Phosphatase (39-117) U/L Total Protein (6.5-8.0) g/dL Albumin (3.5-5.0) g/dL Lipase (8-78) U/L Urine Color Yellow Urine Appearance Clear Urine pH 6.5 (5.0-9.0) Ur Specific [place] 1.025 (1.005-1.025) Urine Protein Negative (Neg-Trace) mg/dL Urine Glucose (UA) Negative (Negative) mg/dL Urine Ketones Negative (Negative) mg/dL Urine Blood Small (1+) H (Negative) Urine Nitrite Negative (Negative) Ur Leukocyte Esterase Negative (Negative) Urine RBC 6-10 H (0-2) /HPF Urine WBC 0-5 (0-5) /HPF Ur Squamous Epith Cells 11-20 (0-2) /HPF Urine Bacteria Trace (None Seen) Hyaline Casts 0-2 (0-2) /LPF Urine Test NEGATIVE (NEGATIVE) 04/18/22 Range/Units 19:08 WBC (4.8-10.8) X10*3/uL RBC (4.20-5.50) X10*6/uL Hgb (12.0-16.0) g/dl Hct (37.0-47.0) % MCV (80.0-98.0) fL MCH (27.0-33.0) pg MCHC (31.0-35.0) g/dl RDW (11.0-16.0) % Plt Count (160-400) X10*3/uL MPV (9.4-12.3) fL Immature Gran % (Auto) (0.0-0.4) % Neut % (Auto) (45-73) % Lymph % (Auto) (20-40) % [place] % (Auto) (2-11) % Eos % (Auto) (0-4) % Baso % (Auto) (0-2) % Lymph # (Auto) (1.2-4.9) X10*3/uL [place] # (Auto) (0.1-1.2) X10*3/uL Eos # (Auto) (0.0-0.4) X10*3/uL Baso # (Auto) (0.0-0.2) X10*3/uL Abs Immat Gran (auto) (0.00-0.03) X10*3/uL Absolute Neuts (auto) (2.0-8.3) x10*3/uL Absolute Nucleated RBC (0.0-0.012) X10*3/uL Nucleated RBC % (auto) (0.0-0.2) /100WBC Sodium 141 (135-145) mmol/L Potassium 4.2 (3.3-5.1) mmol/L Chloride 107 (96-108) mmol/L Carbon Dioxide 26 (22-29) mmol/L Anion Gap 12 (12-20) BUN 15 (9-16) mg/dL Creatinine 0.69 (0.5-1.4) mg/dL Estim Creat Clear Calc 115.3 Estimated GFR > 60 Random Glucose 88 (60-115) mg/dL Calcium 9.4 (8.4-10.2) mg/dL Magnesium 1.8 (1.6-2.6) mg/dL Total Bilirubin 0.2 (0.0-1.0) mg/dL Direct Bilirubin < 0.2 (0.0-0.5) mg/dL AST 15 (5-31) U/L ALT 20 (0-31) U/L Alkaline Phosphatase 101 (39-117) U/L Total Protein 7.3 (6.5-8.0) g/dL Albumin 4.3 (3.5-5.0) g/dL Lipase 21 (8-78) U/L Urine Color Urine Appearance Urine pH (5.0-9.0) Ur Specific [place] (1.005-1.025) Urine Protein (Neg-Trace) mg/dL Urine Glucose (UA) (Negative) mg/dL Urine Ketones (Negative) mg/dL Urine Blood (Negative) Urine Nitrite (Negative) Ur Leukocyte Esterase (Negative) Urine RBC (0-2) /HPF Urine WBC (0-5) /HPF Ur Squamous Epith Cells (0-2) /HPF Urine Bacteria (None Seen) Hyaline Casts (0-2) /LPF Urine Test (NEGATIVE) Medications Administered Discontinued Medications Generic Name Dose Route Start Last Admin Trade Name Freq PRN Reason Stop Dose Admin Ondansetron HCl 4 mg 04/18/22 22:33 04/18/22 22:42 Ondansetron Odt 4 Mg Tab.Rapdis TRANSLINGU 04/18/22 22:34 4 mg ONCE ONE Administration Tramadol HCl 50 mg 04/18/22 22:33 04/18/22 22:42 Tramadol Hcl 50 Mg Tablet PO 04/18/22 22:34 50 mg ONCE ONE Administration Discharge Plan Discharge Clinical Impression: Abdominal pain Patient Disposition: Home, Self-Care Instructions: Abdominal Pain (ED) Additional Instructions: cause of your pain is not very clear follow-up with rough carpenter for possible HIDA scan if needed Pain medication for now Avoid fried food Prescriptions: New tramadol 50 mg tablet 50 mg PO Q6H PRN (Reason: pain) Qty: 20 0RF ondansetron 4 mg tablet,disintegrating 4 mg PO Q6-8H PRN (Reason: nausea and vomiting) Qty: 7 0RF No Action tobramycin 0.3 % drops 1 drp ophthalmic (eye) Q4H 5 Days Qty: 5 0RF fluconazole 150 mg tablet 150 mg PO Q3D Qty: 2 0RF ketoconazole 2 % shampoo 1 appl topical 2XW 30 Days Qty: 120 1RF tramadol 50 mg tablet 50 mg PO Q6H PRN (Reason: pain) Qty: 20 0RF magnesium 1,200 mg PO DAILY albuterol sulfate 90 mcg/actuation HFA aerosol inhaler 2 puff inhalation Q6H PRN (Reason: shortness of breath or wheezing) Qty: 8.5 1RF Stand Alone Forms: Work/School Release Interventions: ED Discharge Assessment Last Done: 04/18/22 22:54 Discharge Date/Time: 04/18/22 22:55
[2022-04-18] MEDS: traMADoL HCL 50 MG TABLET PO (22:42)
[2022-04-18] MEDS: Ondansetron ODT 4 MG TAB.RAPDIS TRANSLINGU (22:42)
[2022-04-18 22:44] VITALS: BP 121/65; PULSE 70; RESP 14; TEMP 36.5; O2SAT 99
[2022-04-18 23:02] LABS: Lipase 21 U/L (8-78)
== END 2022-04-18 22:55 | disposition home or self-care (01) ==
PROVIDERS: Physician Assistant; Emergency Provider Internal Medicine; PCP Internal Medicine
DX: R10.11 Right upper quadrant pain (principal); R06.02 Shortness of breath
CPT/HCPCS: 36415; 71046; 76705; 80048; 80076; 81001; 81025; 83690; 83735; 85025; 93005; 99284

== ENCOUNTER 2022-05-26 00:20 | Emergency (ER) | payer OTHER, SELFPAY ==
--- NOTE | ~2022-05-26 | CT_ITS ---
EXAMINATION: NONCONTRAST HEAD CT NONCONTRAST CERVICAL SPINE CT INDICATION INFORMATION: Trauma COMPARISON: None TECHNIQUE: Separate noncontrast CT examinations of the head and cervical spine were performed. Coronal and sagittal images were created for each examination at the technologist workstation. This CT examination was performed using dose optimization techniques as appropriate, variously including the following: *Automated exposure control *Adjustment of mA and/or kV according to patient size (this includes techniques or standardized protocols for targeted exams where dose is matched to indication/reason for exam; i.e. extremities or head) *Use of iterative reconstruction technique DLP: 1012 mGy-cm FINDINGS: Head: There is no evidence of acute intracranial hemorrhage or territorial infarction. No abnormal mass effect or midline shift is seen. Bean to white matter differentiation is well preserved. No extra-axial fluid collections are identified. No hydrocephalus. No significant volume loss. There is no abnormal attenuation within the brain parenchyma. Left parietal calvarial subgaleal hematoma. The mastoid air cells and visualized portions of the paranasal sinuses are well aerated. Cervical spine: There is anatomic alignment of the vertebral bodies and posterior elements. The atlantoaxial and atlantooccipital articulations are intact. Vertebral body heights and intervertebral disc spaces are maintained. No evidence of acute fracture. No prevertebral soft tissue swelling. Visualized portions of the lung apices are unremarkable. The thyroid gland is unremarkable. CT/CT head/brain wo IV con IMPRESSION: * No acute intracranial bleed or territorial infarction. * No acute fracture or malalignment of the cervical spine. * Left parietal calvarial subgaleal hematoma.
--- NOTE | ~2022-05-26 | CT_ITS ---
EXAMINATION: NONCONTRAST HEAD CT NONCONTRAST CERVICAL SPINE CT INDICATION INFORMATION: Trauma COMPARISON: None TECHNIQUE: Separate noncontrast CT examinations of the head and cervical spine were performed. Coronal and sagittal images were created for each examination at the technologist workstation. This CT examination was performed using dose optimization techniques as appropriate, variously including the following: *Automated exposure control *Adjustment of mA and/or kV according to patient size (this includes techniques or standardized protocols for targeted exams where dose is matched to indication/reason for exam; i.e. extremities or head) *Use of iterative reconstruction technique DLP: 1012 mGy-cm FINDINGS: Head: There is no evidence of acute intracranial hemorrhage or territorial infarction. No abnormal mass effect or midline shift is seen. Bean to white matter differentiation is well preserved. No extra-axial fluid collections are identified. No hydrocephalus. No significant volume loss. There is no abnormal attenuation within the brain parenchyma. Left parietal calvarial subgaleal hematoma. The mastoid air cells and visualized portions of the paranasal sinuses are well aerated. Cervical spine: There is anatomic alignment of the vertebral bodies and posterior elements. The atlantoaxial and atlantooccipital articulations are intact. Vertebral body heights and intervertebral disc spaces are maintained. No evidence of acute fracture. No prevertebral soft tissue swelling. Visualized portions of the lung apices are unremarkable. The thyroid gland is unremarkable. CT/CT cervical spine wo IV con IMPRESSION: * No acute intracranial bleed or territorial infarction. * No acute fracture or malalignment of the cervical spine. * Left parietal calvarial subgaleal hematoma.
[2022-05-26 00:25] VITALS: BP 112/80; PULSE 87; RESP 16; TEMP 36.9; O2SAT 98; BMI 34.7
[2022-05-26 01:08] LABS: MANUAL DIFF FLAG NO
[2022-05-26 01:09] LABS: Basophils Percent Auto 0.3 % (0-2); Eosinophils Absolute Auto 0.1 X10*3/uL (0.0-0.4); Eosinophils Percent Auto 1.2 % (0-4); Hematocrit 38.6 % (37.0-47.0); Hemoglobin 12.9 g/dl (12.0-16.0); Imm Gran Abs Auto 0.05 X10*3/uL (0.00-0.03); Imm Gran Pct Auto 0.5 % (0.0-0.4); Lymphocytes Absolute Auto 1.9 X10*3/uL (1.2-4.9); Lymphocytes Percent Auto 17.6 % (20-40); Mean Corpuscular HGB Conc 33.4 g/dl (31.0-35.0); Mean Corpuscular Hemoglobin 29.2 pg (27.0-33.0); Mean Corpuscular Volume 87.3 fL (80.0-98.0); Mean Platelet Volume 9.2 fL (9.4-12.3); Monocytes Absolute Auto 0.6 X10*3/uL (0.1-1.2); Monocytes Percent Auto 5.6 % (2-11); Neutrophils Absolute Auto 8.2 x10*3/uL (2.0-8.3); Neutrophils Percent Auto 74.8 % (45-73); Platelet Count 241 X10*3/uL (160-400); Red Blood Count 4.42 X10*6/uL (4.20-5.50)
[2022-05-26 01:21] LABS: Anion Gap 12 (12-20); Blood Urea Nitrogen 18 mg/dL (9-16); Calcium 8.6 mg/dL (8.4-10.2); Carbon Dioxide 24 mmol/L (22-29); Chloride 109 mmol/L (96-108); Creatinine Clr Calc Pharmacy 96.1; Estimated Glomerular Filt Rate > 60; Glucose Random 90 mg/dL (60-115); Potassium 3.5 mmol/L (3.3-5.1); Sodium 141 mmol/L (135-145)
[2022-05-26 01:37] LABS: HCG Quantitative < 2 mIU/mL
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
[2022-05-26] MEDS: Ibuprofen 400 MG TABLET PO (01:51)
[2022-05-26] MEDS: Bacitracin Oint 0.9 GM PACKET 1 APPL TOPICAL (01:52)
[2022-05-26] MEDS: Acetaminophen 325 MG TABLET 975 MG PO (01:52)
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
== END 2022-05-26 02:22 | disposition home or self-care (01) ==
PROVIDERS: Physician Assistant; Student in an Organized Health Care Education/Training Program; Emergency Provider Internal Medicine; PCP Internal Medicine
DX: S00.03XA Contusion of scalp, initial encounter (principal); S00.91XA Abrasion of unspecified part of head, initial encounter; R51.9 Headache, unspecified; M54.2 Cervicalgia; W01.0XXA Fall on same level from slipping, tripping and stumbling without subsequent striking against object, initial encounter; Y93.9 Activity, unspecified; Y92.9 Unspecified place or not applicable; Y99.9 Unspecified external cause status; Z79.899 Other long term (current) drug therapy
CPT/HCPCS: 36415; 70450; 72125; 80048; 84702; 85025; 99284

== ENCOUNTER 2022-07-27 19:29 | Emergency (ER) | payer OTHER, SELFPAY ==
--- NOTE | ~2022-07-27 | US_ITS ---
EXAMINATION: US ABDOMEN LIMITED CLINICAL INFORMATION: Right upper quadrant pain. COMPARISON: None available. TECHNIQUE: Real-time imaging of the right upper quadrant abdominal viscera. FINDINGS: PANCREAS: Normal. LIVER: Normal. The liver is normal in size. The liver contour is normal. Parenchymal echogenicity is normal. No focal hepatic lesion. There is no intrahepatic biliary duct dilatation seen. GALLBLADDER: Normal. The gallbladder is physiologically distended without evidence of stones, sludge, polyps, wall thickening or pericholecystic fluid. COMMON BILE DUCT: Normal in caliber measuring 0.2 cm in diameter. RIGHT KIDNEY: Normal. No hydronephrosis. No renal calculi or focal parenchymal lesions. The kidney measures 10.8 cm in maximum dimension. FREE FLUID: None. US/US abdomen limited IMPRESSION: Unremarkable examination.
[2022-07-27 19:40] VITALS: BP 139/70; PULSE 87; RESP 20; TEMP 36.9; O2SAT 98; BMI 33.1
--- NOTE | 2022-07-27 19:41 | ED_ITS ---
HPI - Abdominal Pain General Chief Complaint: Abdominal Pain Stated Complaint: right upper abd pain, difficult breathing Time Seen by Provider: 07/27/22 22:39 Source: patient Mode of arrival: ambulatory Limitations: no limitations History of Present Illness HPI narrative: Patient with frequent chronic upper abdominal pain for last 2 years has seen gastroenterology endoscopy diagnosed with GERD and H pylori infection which she was treated for comes here again for similar pain in upper no nausea no vomiting relation with of also complaining of pain in legs no nausea no vomiting or diarrhea Related Data Home Medications Medication Instructions Recorded Confirmed magnesium 1,200 mg PO DAILY 12/07/21 01/27/22 Previous Rx's Medication Instructions Recorded albuterol sulfate 90 mcg/actuation 2 puff inhalation Q6H PRN 12/23/20 aerosol inhaler shortness of breath or wheezing #8.5 grams tramadol 50 mg tablet 50 mg PO Q6H PRN pain #20 tabs 11/09/21 tobramycin 0.3 % eye drops 1 drp ophthalmic (eye) Q4H 5 days 02/23/22 #5 mL fluconazole 150 mg tablet 150 mg PO Q3D 2 doses #2 tabs 04/12/22 ondansetron 4 mg disintegrating 4 mg PO Q6-8H PRN nausea and 04/18/22 tablet vomiting #7 tabs tramadol 50 mg tablet 50 mg PO Q6H PRN pain #20 tabs 04/18/22 loratadine 10 mg tablet 10 mg PO DAILY PRN allergy 05/29/22 symptoms 90 days #90 tabs ketoconazole 2 % shampoo 1 appl topical 2XW 30 days #120 mL 07/18/22 sucralfate 1 gram tablet 1 g PO BID #60 tabs 07/27/22 tramadol 50 mg tablet 50 mg PO Q6H PRN pain #20 tabs 07/27/22 Allergies Allergy/AdvReac Type Severity Reaction Status Date / Time amoxicillin [AMOXICILLIN] Allergy Intermediate SWELLING Verified 01/27/22 13:46 OF VAGINAL AREA , vaginal itching Review of Systems Review of Systems Yes all other systems are reviewed and are negative PMFSH Past Medical History Medical History Breast implant status Class 1 obesity with body mass index (BMI) of 33.0 to 33.9 in adult Gallbladder polyp GERD (gastroesophageal reflux disease) Helicobacter pylori (H. pylori) History of blood transfusion Migraines Mild asthma Photosensitivity Physical exam Right upper quadrant abdominal pain Surgical History History of abdominoplasty History of blepharoplasty History of esophagogastroduodenoscopy (EGD) History of tubal ligation History of wisdom tooth extraction Hx of breast implants, bilateral Urethral diverticulum Family History Family History Father Diabetes Mother No problems noted. Maternal Grandmother Diabetes Pacemaker CVD (cardiovascular disease) Paternal Grandfather Alcoholism Substance use disorder Family/Other ADHD Chronic mental illness Asthma Social History Social History Housing: House Alcohol intake: never Patient Tobacco Use Status: Never used Tobacco Smoked in Last 30 Days: No e-Cigarette/Vaping Use: Never Used Second Hand Smoke Exposure: Yes Use of substances other than those prescribed or required for medical reasons: No Any prior treatment program specific to substance use: No Advance Directives: No Advance Directives Information Provided: Yes Patient : No service: No Current occupational status: employed Current occupational exposures/hazards: No Cognitive needs: No Hearing needs: No Vision needs: No Physical Exam ED Vital Signs: Vital Signs - 24 hr 07/27/22 19:40 07/27/22 22:36 Temperature 98.5 F 97.8 F Pulse Rate 87 72 Respiratory Rate 20 16 Blood Pressure 139/70 114/78 Pulse Oximetry 98 98 Oxygen Delivery Method Room Air Room Air BMI result Body Mass Index 33.1 Appearance: Alert. Oriented X3. No acute distress. Eyes: PERRLA, No Nystagmus ENT: Pharynx normal. Oral Mucosa moist Neck: Normal inspection. Neck supple. CVS: Normal heart rate and rhythm. Pulses normal. Respiratory: No respiratory distress. Equal air entry bilateral, no wheezing/rales/rhonchi Abdomen: Soft mild epigastric tenderness. Bowel sounds are present, no mass palpable, no CVA tenderness Skin: Skin warm and dry. Normal skin color. Normal skin turgor. Extremities: No lower extremity edema. No calf tenderness Neuro: Oriented X 3. Course Course Course Narrative: RME - 36 y/o female with history of H. pylori, hx RUQ Pain in the past presents to the ER for evaluation of acute onset of RUQ pain that radiates to her back that started 2.5 hours ago. Nausea but no vomiting. Pain has been gradually getting worse. Hx gallbladder polys but not stones. No urinary symptoms. Plans: Labs and RUQ U/S Medical Decision Making Medical Decision Making [facility] Narrative: Patient with stable lab ultrasound no gallstone with chronic upper abdominal pain with tightest advised to continue her Prilosec and start taking soak also given chronic body pain Lab Data [facility] Lab Attestation statement: I reviewed the patient's lab results. 07/27/22 21:22 07/27/22 21:22 Labs: Lab Results 07/27/22 07/27/22 07/27/22 Range/Units 21:22 21:22 22:44 WBC 9.6 (4.8-10.8) X10*3/uL RBC 4.45 (4.20-5.50) X10*6/uL Hgb 13.5 (12.0-16.0) g/dl Hct 40.0 (37.0-47.0) % MCV 89.9 (80.0-98.0) fL MCH 30.3 (27.0-33.0) pg MCHC 33.8 (31.0-35.0) g/dl RDW 12.8 (11.0-16.0) % Plt Count 227 (160-400) X10*3/uL MPV 9.1 L (9.4-12.3) fL Immature Gran % (Auto) 0.2 (0.0-0.4) % Neut % (Auto) 67.8 (45-73) % Lymph % (Auto) 24.6 (20-40) % [place] % (Auto) 5.9 (2-11) % Eos % (Auto) 1.1 (0-4) % Baso % (Auto) 0.4 (0-2) % Lymph # (Auto) 2.4 (1.2-4.9) X10*3/uL [place] # (Auto) 0.6 (0.1-1.2) X10*3/uL Eos # (Auto) 0.1 (0.0-0.4) X10*3/uL Baso # (Auto) 0.0 (0.0-0.2) X10*3/uL Abs Immat Gran (auto) 0.02 (0.00-0.03) X10*3/uL Absolute Neuts (auto) 6.5 (2.0-8.3) x10*3/uL Absolute Nucleated RBC 0.000 (0.0-0.012) X10*3/uL Nucleated RBC % (auto) 0.0 (0.0-0.2) /100WBC Sodium 141 (135-145) mmol/L Potassium 3.9 (3.3-5.1) mmol/L Chloride 107 (96-108) mmol/L Carbon Dioxide 28 (22-29) mmol/L Anion Gap 10 L (12-20) BUN 12 (9-16) mg/dL Creatinine 0.70 (0.5-1.4) mg/dL Estim Creat Clear Calc 112.5 Estimated GFR > 60 Random Glucose 89 (60-115) mg/dL Calcium 9.5 D (8.4-10.2) mg/dL Magnesium 1.8 (1.6-2.6) mg/dL Total Bilirubin 0.3 (0.0-1.0) mg/dL Direct Bilirubin 0.1 (0.0-0.5) mg/dL AST 19 (5-31) U/L ALT 36 H (0-31) U/L Alkaline Phosphatase 87 (39-117) U/L Total Protein 7.4 (6.5-8.0) g/dL Albumin 3.9 (3.5-5.0) g/dL Lipase 25 (8-78) U/L Urine Color Urine Appearance Urine pH (5.0-9.0) Ur Specific [place] (1.005-1.025) Urine Protein (Neg-Trace) mg/dL Urine Glucose (UA) (Negative) mg/dL Urine Ketones (Negative) mg/dL Urine Blood (Negative) Urine Nitrite (Negative) Ur Leukocyte Esterase (Negative) Urine RBC (0-2) /HPF Urine WBC (0-5) /HPF Ur Squamous Epith Cells (0-2) /HPF Urine Bacteria (None Seen) Hyaline Casts (0-2) /LPF Urine Test NEGATIVE (NEGATIVE) 07/27/22 Range/Units 22:44 WBC (4.8-10.8) X10*3/uL RBC (4.20-5.50) X10*6/uL Hgb (12.0-16.0) g/dl Hct (37.0-47.0) % MCV (80.0-98.0) fL MCH (27.0-33.0) pg MCHC (31.0-35.0) g/dl RDW (11.0-16.0) % Plt Count (160-400) X10*3/uL MPV (9.4-12.3) fL Immature Gran % (Auto) (0.0-0.4) % Neut % (Auto) (45-73) % Lymph % (Auto) (20-40) % [place] % (Auto) (2-11) % Eos % (Auto) (0-4) % Baso % (Auto) (0-2) % Lymph # (Auto) (1.2-4.9) X10*3/uL [place] # (Auto) (0.1-1.2) X10*3/uL Eos # (Auto) (0.0-0.4) X10*3/uL Baso # (Auto) (0.0-0.2) X10*3/uL Abs Immat Gran (auto) (0.00-0.03) X10*3/uL Absolute Neuts (auto) (2.0-8.3) x10*3/uL Absolute Nucleated RBC (0.0-0.012) X10*3/uL Nucleated RBC % (auto) (0.0-0.2) /100WBC Sodium (135-145) mmol/L Potassium (3.3-5.1) mmol/L Chloride (96-108) mmol/L Carbon Dioxide (22-29) mmol/L Anion Gap (12-20) BUN (9-16) mg/dL Creatinine (0.5-1.4) mg/dL Estim Creat Clear Calc Estimated GFR Random Glucose (60-115) mg/dL Calcium (8.4-10.2) mg/dL Magnesium (1.6-2.6) mg/dL Total Bilirubin (0.0-1.0) mg/dL Direct Bilirubin (0.0-0.5) mg/dL AST (5-31) U/L ALT (0-31) U/L Alkaline Phosphatase (39-117) U/L Total Protein (6.5-8.0) g/dL Albumin (3.5-5.0) g/dL Lipase (8-78) U/L Urine Color Yellow Urine Appearance Clear Urine pH 6.5 (5.0-9.0) Ur Specific [place] 1.020 (1.005-1.025) Urine Protein Negative (Neg-Trace) mg/dL Urine Glucose (UA) Negative (Negative) mg/dL Urine Ketones Negative (Negative) mg/dL Urine Blood Trace H (Negative) Urine Nitrite Negative (Negative) Ur Leukocyte Esterase Negative (Negative) Urine RBC 3-5 H (0-2) /HPF Urine WBC 0-5 (0-5) /HPF Ur Squamous Epith Cells 0-2 (0-2) /HPF Urine Bacteria None Seen (None Seen) Hyaline Casts 0-2 (0-2) /LPF Urine Test (NEGATIVE) Discharge Plan Discharge Clinical Impression: Chronic upper abdominal pain Patient Disposition: Home, Self-Care Instructions: Gastroesophageal Reflux Disease (ED), Chronic Abdominal Pain (ED) Additional Instructions: Take pain medication as prescribed Continue Prilosec and start taking sucralfate Avoid taking ibuprofen Prescriptions: New tramadol 50 mg tablet 50 mg PO Q6H PRN (Reason: pain) Qty: 20 0RF sucralfate 1 gram tablet 1 g PO BID Qty: 60 0RF No Action tobramycin 0.3 % drops 1 drp ophthalmic (eye) Q4H 5 Days Qty: 5 0RF fluconazole 150 mg tablet 150 mg PO Q3D Qty: 2 0RF loratadine 10 mg tablet 10 mg PO DAILY PRN (Reason: allergy symptoms) 90 Days Qty: 90 0RF ketoconazole 2 % shampoo 1 appl topical 2XW 30 Days Qty: 120 1RF tramadol 50 mg tablet 50 mg PO Q6H PRN (Reason: pain) Qty: 20 0RF magnesium 1,200 mg PO DAILY tramadol 50 mg tablet 50 mg PO Q6H PRN (Reason: pain) Qty: 20 0RF ondansetron 4 mg tablet,disintegrating 4 mg PO Q6-8H PRN (Reason: nausea and vomiting) Qty: 7 0RF albuterol sulfate 90 mcg/actuation HFA aerosol inhaler 2 puff inhalation Q6H PRN (Reason: shortness of breath or wheezing) Qty: 8.5 1RF
[2022-07-27 21:28] LABS: MANUAL DIFF FLAG NO
[2022-07-27 21:29] LABS: Basophils Percent Auto 0.4 % (0-2); Eosinophils Absolute Auto 0.1 X10*3/uL (0.0-0.4); Eosinophils Percent Auto 1.1 % (0-4); Hemoglobin 13.5 g/dl (12.0-16.0); Imm Gran Abs Auto 0.02 X10*3/uL (0.00-0.03); Imm Gran Pct Auto 0.2 % (0.0-0.4); Lymphocytes Absolute Auto 2.4 X10*3/uL (1.2-4.9); Lymphocytes Percent Auto 24.6 % (20-40); Mean Corpuscular HGB Conc 33.8 g/dl (31.0-35.0); Mean Corpuscular Hemoglobin 30.3 pg (27.0-33.0); Mean Corpuscular Volume 89.9 fL (80.0-98.0); Mean Platelet Volume 9.1 fL (9.4-12.3); Monocytes Absolute Auto 0.6 X10*3/uL (0.1-1.2); Monocytes Percent Auto 5.9 % (2-11); Neutrophils Absolute Auto 6.5 x10*3/uL (2.0-8.3); Neutrophils Percent Auto 67.8 % (45-73); Platelet Count 227 X10*3/uL (160-400); Red Blood Count 4.45 X10*6/uL (4.20-5.50); Red Cell Distribution Width 12.8 % (11.0-16.0); White Blood Count 9.6 X10*3/uL (4.8-10.8)
[2022-07-27 21:46] LABS: Alanine Aminotransferase 36 U/L (0-31); Albumin Level 3.9 g/dL (3.5-5.0); Alkaline Phosphatase 87 U/L (39-117); Anion Gap 10 (12-20); Aspartate Amino Transferase 19 U/L (5-31); Bilirubin Direct 0.1 mg/dL (0.0-0.5); Bilirubin Total 0.3 mg/dL (0.0-1.0); Blood Urea Nitrogen 12 mg/dL (9-16); Calcium 9.5 mg/dL (8.4-10.2); Carbon Dioxide 28 mmol/L (22-29); Chloride 107 mmol/L (96-108); Creatinine Clr Calc Pharmacy 112.5; Estimated Glomerular Filt Rate > 60; Glucose Random 89 mg/dL (60-115); Lipase 25 U/L (8-78); Magnesium 1.8 mg/dL (1.6-2.6); Potassium 3.9 mmol/L (3.3-5.1); Sodium 141 mmol/L (135-145); Total Protein 7.4 g/dL (6.5-8.0)
[2022-07-27 22:36] VITALS: BP 114/78; PULSE 72; RESP 16; TEMP 36.6; O2SAT 98
[2022-07-27 22:56] LABS: UPreg QC Valid YES; Urine Pregnancy NEGATIVE (NEGATIVE)
[2022-07-27 22:58] LABS: Appearance Urine Clear; Color Urine Yellow; Glucose Urine UA Negative (Negative); Leukocyte Esterase Urine Negative (Negative); Nitrite Urine Negative (Negative); PH 6.5 (5.0-9.0); UMIC TRIGGER UACC YES; Urine Blood Trace (Negative); Urine Ketones Negative (Negative); Urine Protein Negative (Neg-Trace)
[2022-07-27 23:00] LABS: Bacteria Urine None Seen (None Seen); Hyaline Casts Urine 0-2 /LPF (0-2); Squamous Epithelial Cell Urine 0-2 /HPF (0-2); WBC Urine 0-5 /HPF (0-5)
[2022-07-27] MEDS: Magnesium Hydrox/Alum Hydrox 30 ML ORAL.SUSP PO (23:28)
[2022-07-27] MEDS: traMADoL HCL 50 MG TABLET PO (23:28)
== END 2022-07-27 23:55 | disposition home or self-care (01) ==
PROVIDERS: Physician Assistant; Emergency Provider Internal Medicine; PCP Internal Medicine
DX: R10.11 Right upper quadrant pain (principal); K21.9 Gastro-esophageal reflux disease without esophagitis
CPT/HCPCS: 36415; 76705; 80048; 80076; 81001; 81025; 83690; 83735; 85025; 99284

== ENCOUNTER 2022-09-14 09:03 | Outpatient (REF) | payer OTHER, SELFPAY ==
[2022-09-20 07:53] LABS: HPV mRNA E6/E7 rflx Not Detected (Not Detected)
== END 2022-09-14 09:04 | disposition home or self-care (01) ==
LOC: HO.LNP 09:03
PROVIDERS: PCP Internal Medicine; Visit Provider Advanced Practice Midwife
DX: Z01.419 Encounter for gynecological examination (general) (routine) without abnormal findings (principal); N89.8 Other specified noninflammatory disorders of vagina; L29.0 Pruritus ani; Z87.42 Personal history of other diseases of the female genital tract; Z98.82 Breast implant status; Z11.3 Encounter for screening for infections with a predominantly sexual mode of transmission; Z79.899 Other long term (current) drug therapy
CPT/HCPCS: 87624; 88142

== ENCOUNTER 2022-09-14 09:03 | Outpatient (AMB) | payer OTHER, SELFPAY ==
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
[2022-09-14 09:10] VITALS: BP 116/74; BMI 31.3
== END 2022-09-14 09:53 | disposition home or self-care (01) ==
LOC: HO.HWS 09:03
PROVIDERS: PCP Internal Medicine; Visit Provider Advanced Practice Midwife
DX: Z01.419 Encounter for gynecological examination (general) (routine) without abnormal findings (principal); L29.0 Pruritus ani; Z11.3 Encounter for screening for infections with a predominantly sexual mode of transmission; Z98.82 Breast implant status; Z87.42 Personal history of other diseases of the female genital tract
CPT/HCPCS: 99385

== ENCOUNTER 2022-09-14 11:27 | Outpatient (REF) | payer OTHER, SELFPAY ==
[2022-09-14 14:50] LABS: Syphilis Screen Nonreactive (Nonreactive)
[2022-09-15 05:54] LABS: HBsAGNum1 0.39 S/CO (0.00-0.99); HIV AB/AG Nonreactive (Nonreactive); HIV Num 1 0.05 S/CO (0.00-0.99); Hepatitis B Surface Antigen Negative (Negative); ~HepC Num1 0.08 S/CO (0.00-0.79); ~Hepatitis C Antibody Nonreactive (Nonreactive)
[2022-09-15 09:12] LABS: BV Int Neg Control Negative (Negative); BV Int Pos Control Positive (Positive)
[2022-09-15 14:14] LABS: CT PCR NOT DETECTED (Not Detect.); NG PCR NOT DETECTED (Not Detect.)
== END 2022-09-14 11:28 | disposition home or self-care (01) ==
LOC: HO.LAB 11:27
PROVIDERS: PCP Internal Medicine; Visit Provider Advanced Practice Midwife
DX: Z01.419 Encounter for gynecological examination (general) (routine) without abnormal findings (principal); Z11.3 Encounter for screening for infections with a predominantly sexual mode of transmission; Z87.42 Personal history of other diseases of the female genital tract
CPT/HCPCS: 0353U; 86780; 86803; 87340; 87389; 87480; 87510; 87660

== ENCOUNTER 2022-10-25 04:17 | Emergency (ER) | payer OTHER, SELFPAY ==
--- NOTE | ~2022-10-25 | XR_ITS ---
EXAMINATION: XR LUMBOSACRAL SPINE CLINICAL INFORMATION: Pain COMPARISON: None available. TECHNIQUE: Three views of the lumbosacral spine. FINDINGS: The alignment is normal. The vertebral body heights are maintained. The disc spaces are fairly well-maintained. There is lower lumbar facet degenerative change. There is no fracture. The soft tissues are unremarkable. XR/XR lumbar spine 2-3V IMPRESSION: No fracture or malalignment. Lower lumbar facet degenerative change.
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
[2022-10-25 04:29] VITALS: BP 123/80; PULSE 75; RESP 16; TEMP 36.6; O2SAT 98; BMI 32.0
[2022-10-25 06:12] VITALS: BP 105/68; PULSE 68; RESP 17; TEMP 36.6; O2SAT 98
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
== END 2022-10-25 06:54 | disposition home or self-care (01) ==
PROVIDERS: Emergency Provider Internal Medicine; PCP Internal Medicine
DX: S46.911A Strain of unspecified muscle, fascia and tendon at shoulder and upper arm level, right arm, initial encounter (principal); V43.52XA Car driver injured in collision with other type car in traffic accident, initial encounter; R51.9 Headache, unspecified; Y93.89 Activity, other specified; Y92.415 Exit ramp or entrance ramp of street or highway as the place of occurrence of the external cause; Y99.9 Unspecified external cause status
CPT/HCPCS: 72100; 73060; 99283

== ENCOUNTER 2023-02-26 09:36 | Emergency (ER) | payer OTHER, SELFPAY ==
[2023-02-26 09:41] VITALS: BP 123/81; PULSE 98; RESP 18; TEMP 37.3; O2SAT 96; BMI 33.5
[2023-02-26 10:59] LABS: IDNOW Serial# 58CA691E
[2023-02-26 11:00] LABS: Strep A Nucleic Acid Positive (Negative)
[2023-02-26 11:08] LABS: COVID-19 Test Negative (Negative); IDNOW Serial# 6674DD1D
[2023-02-26 11:11] LABS: IDNOW Serial# 9DB6401D; Influenza A Negative (Negative); Influenza B2 Negative (Negative)
--- NOTE | 2023-02-26 11:15 | ED.GENADULT ---
HPI - General Adult General Chief complaint: Upper Respiratory Symptoms Stated complaint: Headache/Sore throat/Body aches Time Seen by Provider: 02/26/23 10:07 Source: patient Mode of arrival: ambulatory Limitations: no limitations History of Present Illness HPI narrative: 37-year-old female with past medical history of asthma gallbladder polyps, and migraines Presents to the ED for sore throat, body aches, chills, malaise, and headache. Patient states causing tested positive for strep and sister tested positive for COVID. Patient states having symptoms for the past 2 days. Patient denies any coughing, chest pain, or shortness of breath Related Data Home Medications Medication Instructions Recorded Confirmed magnesium 1,200 mg PO DAILY 12/07/21 09/14/22 Previous Rx's Medication Instructions Recorded albuterol sulfate 90 mcg/actuation 2 puff inhalation Q6H PRN 12/23/20 aerosol inhaler shortness of breath or wheezing #8.5 grams tramadol 50 mg tablet 50 mg PO Q6H PRN pain #20 tabs 11/09/21 fluconazole 150 mg tablet 150 mg PO Q3D 2 doses #2 tabs 04/12/22 tramadol 50 mg tablet 50 mg PO Q6H PRN pain #20 tabs 04/18/22 ketoconazole 2 % shampoo 1 appl topical 2XW 30 days #120 mL 07/18/22 tramadol 50 mg tablet 50 mg PO Q6H PRN pain #20 tabs 07/27/22 miconazole nitrate 2 % vaginal 1 appful vaginal BEDTIME 7 days 09/14/22 cream (Miconazole-7) #45 grams loratadine 10 mg tablet 10 mg PO DAILY PRN allergy 09/16/22 symptoms 90 days #90 tabs cyclobenzaprine 10 mg tablet 10 mg PO TID PRN muscle spasm #10 10/25/22 tabs ibuprofen 600 mg tablet 600 mg PO Q8H PRN pain #20 tabs 10/25/22 lidocaine 5 % topical patch 1 patch topical DAILY #15 ea 10/25/22 cephalexin 500 mg capsule 500 mg PO Q12H 10 days #20 caps 02/26/23 ibuprofen 400 mg tablet 400 mg PO Q6H PRN pain 7 days #28 02/26/23 tabs Allergies Allergy/AdvReac Type Severity Reaction Status Date / Time amoxicillin [AMOXICILLIN] Allergy Intermediate SWELLING Verified 02/26/23 09:41 OF VAGINAL AREA , vaginal itching Review of Systems Review of Systems: headache, malaise, sore throat, chills, body aches Yes all other systems are reviewed and are negative PMFSH Past Medical History Onset Date is defined in the Problem List Problems that require an onset date and time if occurred within 24 hrs of arrival to the ED Aortic Dissection and Rupture; Neurologic impairment; Cardiopulmonary Arrest; Endotracheal Intubation; Insertion or Replacement of Mechanical Circulatory Assist Device Medical History Breast implant status Class 1 obesity with body mass index (BMI) of 33.0 to 33.9 in adult Gallbladder polyp GERD (gastroesophageal reflux disease) Helicobacter pylori (H. pylori) History of blood transfusion Migraines Mild asthma Photosensitivity Physical exam Right upper quadrant abdominal pain Surgical History History of abdominoplasty History of blepharoplasty History of esophagogastroduodenoscopy (EGD) History of tubal ligation History of wisdom tooth extraction Hx of breast implants, bilateral Urethral diverticulum Family History Family History Father Diabetes Mother No problems noted. Maternal Grandmother Diabetes Pacemaker CVD (cardiovascular disease) Paternal Grandfather Alcoholism Substance use disorder Family/Other ADHD Chronic mental illness Asthma Social History Social History Housing: House Alcohol intake: never Patient Tobacco Use Status: Never used Tobacco e-Cigarette/Vaping Use: Never Used Second Hand Smoke Exposure: Yes Advance Directives: No service: No Current occupational status: employed Current occupational exposures/hazards: No Cognitive needs: No Hearing needs: No Vision needs: No Physical Exam ED Vital Signs: Vital Signs - 24 hr 02/26/23 09:41 Temperature 99.2 F Pulse Rate 98 Respiratory Rate 18 Blood Pressure 123/81 Pulse Oximetry 96 Oxygen Delivery Method Room Air BMI result Body Mass Index 33.5 Const General: cooperative, healthy appearing, comfortable, no acute distress, well developed, alert, awake and Physically active Orientation/consciousness: oriented to person, oriented to place, oriented to time and patient oriented x3 HENMT Head: Yes normal to inspection, Yes No palpable skull fracture present, Yes normocephalic and Yes atraumatic Ears: hearing grossly normal bilaterally, external ears normal, TM's normal bilaterally, TM normal on the right, TM normal on the left, EAC's normal, mastoids normal and no periauricular adenopathy Throat: Yes uvula midline and Yes abnormal tonsil ( bilateral tonsillar white exudates. Negative for peritonsillar abscess) Eyes General: appearance normal, both eyes and all related structures Neck Neck: Yes normal visual inspection, Yes full ROM, Yes no lymphadenopathy, Yes no meningeal signs, Yes trachea midline, Yes supple, No anterior neck swelling and No tender Chest Chest palpation & inspection: normal inspection of the chest and normal palpation of entire chest wall Resp Effort & Inspection: normal respiratory effort and able to speak in complete sentences Auscultation: clear to auscultation bilaterally Cardio Jugular venous distension: no JVD Heart sounds: S1 normal heart sound present and S2 normal heart sound present GI Inspection: Yes normal to inspection Palpation (GI): Soft to palpation, not firm, nontender, no guarding and not rigid General: Yes no CVA tenderness Back/Spine/Pelvis Back: no CVA tenderness and No back tenderness Skin General skin exam: no rashes or lesions noted, elasticity normal and turgor normal Neuro General: oriented to person, oriented to place, oriented to time, patient oriented x3, gait normal, tone normal, moves all extremities, Normal light touch and pain sensation, no meningeal signs, no focal motor deficits, CN's II-XI intact bilaterally and normal sensation to monofilament Extrem General: Yes normal to inspection, Yes full ROM and Yes capillary refill normal Psych Appearance: grossly normal, well kempt and not disheveled Medical Decision Making Medical Decision Making MDM Narrative: 37 year female presents to ED for sore throat, headache, body aches, chills, malaise for the past 2 days. Patient states causing sister has similar symptoms. Patient denies any drooling, change in voice, trouble swallowing food/liquid, abdominal pain, chest pain, shortness of breath, or any other concerning symptoms. Patient negative COVID or influenza. Patient positive strep. Patient allergic to amoxicillin. patient able to take cephalosporin. Differential Diagnosis Differential Diagnoses: The differential diagnosis associated with the presentation includes ( Influenza, strep, COVID) Lab Data MDM Lab Attestation statement: I reviewed the patient's lab results. Labs: Lab Results 02/26/23 Range/Units 10:45 COVID-19 (GORGE) Negative (Negative) COVID-19 Clin Com See Note Influenza Type A (GUDELIA) Negative (Negative) Influenza Type B (GUDELIA) Negative (Negative) Influenza A & B Note See Note S. pyogenes GrpA GUDELIA Positive A (Negative) External Record Review External record reviewed: Other ( prior visits) Prescription Management I considered prescription management with: Pain Medication and Antibiotic Discharge Plan Discharge Clinical Impression: Strep throat Patient Disposition: Home, Self-Care Instructions: Strep Throat (ED) Additional Instructions: you tested positive for strep and will be discharged with antibiotic and pain medication. Please follow-up with your primary care provider. Return to the ED immediately for any difficulty eating food or swallowing liquid, drooling, change in voice, neck swelling, chest pain, shortness of breath, or any other concerning symptoms. Prescriptions: New cephalexin 500 mg capsule 500 mg PO Q12H 10 Days Qty: 20 0RF ibuprofen 400 mg tablet 400 mg PO Q6H PRN (Reason: pain) 7 Days Qty: 28 0RF No Action fluconazole 150 mg tablet 150 mg PO Q3D Qty: 2 0RF ketoconazole 2 % shampoo 1 appl topical 2XW 30 Days Qty: 120 1RF loratadine 10 mg tablet 10 mg PO DAILY PRN (Reason: allergy symptoms) 90 Days Qty: 90 1RF tramadol 50 mg tablet 50 mg PO Q6H PRN (Reason: pain) Qty: 20 0RF magnesium 1,200 mg PO DAILY tramadol 50 mg tablet 50 mg PO Q6H PRN (Reason: pain) Qty: 20 0RF cyclobenzaprine 10 mg tablet 10 mg PO TID PRN (Reason: muscle spasm) Qty: 10 0RF ibuprofen 600 mg tablet 600 mg PO Q8H PRN (Reason: pain) Qty: 20 0RF lidocaine 5 % adhesive patch,medicated 1 patch topical DAILY Qty: 15 0RF Rx Instructions: leave on most painful area for up to 12 hrs tramadol 50 mg tablet 50 mg PO Q6H PRN (Reason: pain) Qty: 20 0RF albuterol sulfate 90 mcg/actuation HFA aerosol inhaler 2 puff inhalation Q6H PRN (Reason: shortness of breath or wheezing) Qty: 8.5 1RF miconazole nitrate [Miconazole-7] 2 % cream 1 appful vaginal BEDTIME 7 Days Qty: 45 1RF Rx Instructions: May place a small dab at rectum if that is where the itching is Stand Alone Forms: Work/School Release Interventions: ED Discharge Assessment Last Done: 02/26/23 12:00 Discharge Date/Time: 02/26/23 12:01 Print Language: Martiniquais
== END 2023-02-26 12:01 | disposition home or self-care (01) ==
PROVIDERS: Physician Assistant; Emergency Provider Emergency Medicine; PCP Internal Medicine
DX: J02.0 Streptococcal pharyngitis (principal); R51.9 Headache, unspecified; M79.10 Myalgia, unspecified site; Z11.52 Encounter for screening for COVID-19; Z79.899 Other long term (current) drug therapy
CPT/HCPCS: 87502; 87635; 87651; 99283

== ENCOUNTER 2023-03-22 03:37 | Emergency (ER) | payer OTHER, SELFPAY ==
--- NOTE | ~2023-03-22 | US_ITS ---
EXAMINATION: US ABDOMEN LIMITED CLINICAL INFORMATION: Right upper quadrant pain. COMPARISON: 07/27/2022 TECHNIQUE: Real-time imaging of the right upper quadrant abdominal viscera. FINDINGS: PANCREAS: The pancreatic head and body appear normal. The tail is obscured by bowel gas. LIVER: Normal. The liver is normal in size. The liver contour is normal. Parenchymal echogenicity is normal. No focal hepatic lesion. There is no intrahepatic biliary duct dilatation seen. GALLBLADDER: Normal. The gallbladder is physiologically distended without evidence of stones, sludge, polyps, wall thickening or pericholecystic fluid. COMMON BILE DUCT: Normal in caliber measuring 0.5 cm in diameter. RIGHT KIDNEY: Normal. No hydronephrosis. No renal calculi or focal parenchymal lesions. The kidney measures 10.5 cm in maximum dimension. FREE FLUID: None. US/US abdomen limited IMPRESSION: No gallstones or biliary dilatation.
[2023-03-22 04:05] VITALS: BP 141/87; PULSE 94; RESP 16; TEMP 36.6; O2SAT 96; BMI 33.3
[2023-03-22 04:33] LABS: MANUAL DIFF FLAG NO
[2023-03-22 04:36] LABS: Basophils Percent Auto 0.5 % (0-2); Eosinophils Absolute Auto 0.2 X10*3/uL (0.0-0.4); Eosinophils Percent Auto 2.6 % (0-4); Hematocrit 37.6 % (37.0-47.0); Hemoglobin 12.9 g/dl (12.0-16.0); Imm Gran Abs Auto 0.03 X10*3/uL (0.00-0.03); Imm Gran Pct Auto 0.5 % (0.0-0.4); Lymphocytes Absolute Auto 1.9 X10*3/uL (1.2-4.9); Lymphocytes Percent Auto 29.1 % (20-40); Mean Corpuscular HGB Conc 34.3 g/dl (31.0-35.0); Mean Corpuscular Hemoglobin 30.1 pg (27.0-33.0); Mean Corpuscular Volume 87.6 fL (80.0-98.0); Mean Platelet Volume 9.1 fL (9.4-12.3); Monocytes Absolute Auto 0.5 X10*3/uL (0.1-1.2); Monocytes Percent Auto 6.9 % (2-11); Neutrophils Percent Auto 60.4 % (45-73); Platelet Count 240 X10*3/uL (160-400); Red Blood Count 4.29 X10*6/uL (4.20-5.50); Red Cell Distribution Width 12.7 % (11.0-16.0); White Blood Count 6.6 X10*3/uL (4.8-10.8)
[2023-03-22 04:47] LABS: Alanine Aminotransferase 17 U/L (0-31); Albumin Level 3.6 g/dL (3.5-5.0); Alkaline Phosphatase 109 U/L (39-117); Anion Gap 11 (12-20); Aspartate Amino Transferase 14 U/L (5-31); Bilirubin Total 0.1 mg/dL (0.0-1.0); Blood Urea Nitrogen 15 mg/dL (9-16); Calcium 9.2 mg/dL (8.4-10.2); Carbon Dioxide 23 mmol/L (22-29); Chloride 109 mmol/L (96-108); Creatinine Clr Calc Pharmacy 95.4; Estimated Glomerular Filt Rate > 60; Glucose Random 109 mg/dL (60-115); Potassium 3.4 mmol/L (3.3-5.1); Sodium 140 mmol/L (135-145)
[2023-03-22 06:15] VITALS: BP 116/73; PULSE 68; RESP 14; O2SAT 98
--- NOTE | 2023-03-22 06:50 | ED.ABDPAIN ---
HPI - Abdominal Pain General Chief Complaint: Abdominal Pain Stated Complaint: abd pain Time Seen by Provider: 03/22/23 06:47 Source: patient Mode of arrival: ambulatory Limitations: no limitations History of Present Illness HPI narrative: 37-year-old female history of GERD, H pylori ( has been treated 2x), asthma, migraines presents for evaluation of right upper quadrant pain with associated nausea that has been intermittent since Monday night, patient reports she ate pork and fried Plan stains and since then has been experiencing intermittent right upper quadrant discomfort. Patient also reports she has been burping a lot and her burp smell bad. She has been having normal bowel movements and urinating per usual. Denies fevers, chills, chest pain, shortness of breath, headache, vision changes, dizziness and weakness. Related Data Home Medications Medication Instructions Recorded Confirmed magnesium 1,200 mg PO DAILY 12/07/21 09/14/22 Previous Rx's Medication Instructions Recorded albuterol sulfate 90 mcg/actuation 2 puff inhalation Q6H PRN 12/23/20 aerosol inhaler shortness of breath or wheezing #8.5 grams tramadol 50 mg tablet 50 mg PO Q6H PRN pain #20 tabs 11/09/21 fluconazole 150 mg tablet 150 mg PO Q3D 2 doses #2 tabs 04/12/22 tramadol 50 mg tablet 50 mg PO Q6H PRN pain #20 tabs 04/18/22 ketoconazole 2 % shampoo 1 appl topical 2XW 30 days #120 mL 07/18/22 tramadol 50 mg tablet 50 mg PO Q6H PRN pain #20 tabs 07/27/22 miconazole nitrate 2 % vaginal 1 appful vaginal BEDTIME 7 days 09/14/22 cream (Miconazole-7) #45 grams cyclobenzaprine 10 mg tablet 10 mg PO TID PRN muscle spasm #10 10/25/22 tabs ibuprofen 600 mg tablet 600 mg PO Q8H PRN pain #20 tabs 10/25/22 lidocaine 5 % topical patch 1 patch topical DAILY #15 ea 10/25/22 cephalexin 500 mg capsule 500 mg PO Q12H 10 days #20 caps 02/26/23 ibuprofen 400 mg tablet 400 mg PO Q6H PRN pain 7 days #28 02/26/23 tabs loratadine 10 mg tablet 10 mg PO DAILY PRN allergy 03/16/23 symptoms 90 days #90 tabs famotidine 20 mg tablet (Pepcid) 20 mg PO DAILY #30 tabs 03/22/23 pantoprazole 40 mg tablet,delayed 40 mg PO DAILY #30 tabs 03/22/23 release (Protonix) Allergies Allergy/AdvReac Type Severity Reaction Status Date / Time amoxicillin [AMOXICILLIN] Allergy Intermediate SWELLING Verified 02/26/23 09:41 OF VAGINAL AREA , vaginal itching Review of Systems Review of Systems Constitutional : No Weight loss, No Fever, No Chills, No Fatigue, No Malaise ENT/Mouth : No sore throat, No Rhinorrhea Eyes: No Eye Pain, No Swelling, No Redness Cardiovascular : No Chest Pain, No SOB, No Dyspnea on Exertion, No Orthopnea, No Edema, No Palpitations Respiratory : No Cough, No Sputum, No Wheezing Gastrointestinal : + Nausea, No Vomiting, No Diarrhea, No Constipation, + abdominal Pain, No Hematochezia, No Melena Genitourinary : No Dysuria, No Urinary Frequency, No Hematuria, Musculoskeletal : No joint pain, No Myalgias, No Joint Swelling Skin : No Skin Lesions, No rash Neuro : No Weakness, No Numbness, No Dizziness, No Headache Psych : No Anxiety/Panic, No Depression All other systems reviewed and are negative Yes all other systems are reviewed and are negative [facility] Past Medical History Attestation statement: The following information was validated with the patient. Source: old records reviewed and nursing notes reviewed Medical History History of blood transfusion Physical exam Helicobacter pylori (H. pylori) Gallbladder polyp Class 1 obesity with body mass index (BMI) of 33.0 to 33.9 in adult GERD (gastroesophageal reflux disease) Right upper quadrant abdominal pain Migraines Photosensitivity Mild asthma Breast implant status Surgical History History of esophagogastroduodenoscopy (EGD) History of blepharoplasty Urethral diverticulum History of tubal ligation History of abdominoplasty Hx of breast implants, bilateral History of wisdom tooth extraction Family History Family History Father Diabetes Mother No problems noted. Maternal Grandmother Diabetes Pacemaker CVD (cardiovascular disease) Paternal Grandfather Alcoholism Substance use disorder Family/Other ADHD Chronic mental illness Asthma Social History Social History Housing: House Alcohol intake: never Patient Tobacco Use Status: Never used Tobacco e-Cigarette/Vaping Use: Never Used Second Hand Smoke Exposure: Yes Advance Directives: No Advance Directives Information Provided: No service: No Current occupational status: employed Current occupational exposures/hazards: No Cognitive needs: No Hearing needs: No Vision needs: No Physical Exam ED Vital Signs: Vital Signs - 24 hr 03/22/23 04:05 03/22/23 06:15 03/22/23 08:24 Temperature 97.9 F Pulse Rate 94 68 70 Respiratory Rate 16 14 14 Blood Pressure 141/87 H 116/73 107/60 Pulse Oximetry 96 98 98 Oxygen Delivery Method Room Air Room Air Room Air BMI result Body Mass Index 33.3 vss Appearance: Alert.? Oriented X3.? No acute distress.? Head: Normocephalic, atraumatic, no step-offs or deformities Eyes: Pupils equal, round and reactive to light.? ENT: Pharynx normal.? Neck: Normal inspection.? Neck supple.? CVS: Normal heart rate and rhythm.? Pulses normal.? Respiratory: No respiratory distress.? Breath sounds normal.? Abdomen: Soft and very mild epigastric and right upper quadrant pain.? Negative Rovsing, McBurney's and Rowland's sign. Skin: Skin warm and dry.? Normal skin color.? Normal skin turgor.? Extremities: No lower extremity edema.? No calf ttp. 5/5 strength to bilateral upper and lower extremities Neuro: Oriented X 3.? No motor deficit.? No sensory deficit. CN 2-12 intact Course Reevaluation(s) Reevaluation #1: CBC unremarkable. Chemistry no acute findings requiring intervention. Normal lipase. UA without infection. Urine negative. Ultrasound no gallstones or biliary duct dilation. Time: 09:04 Reevaluation #2: Discuss this case with GI provider Kandy HENNING recommends protonix in am and pepcid at night. Reports patient is not med compliant with treatment of H pylori this is likely a recurrent episode. Will try to obtain stool sample for H pylori. Educated patient on diagnosis and treatment plan, answered all question, patient verbalizes understanding. At this time patient will be discharged home, advised to return with new or worsening symptoms. Educated on worrisome signs and symptoms and when to return. At this time I feel comfortable discharge home. Time: 09:13 Reevaluation #3: Patient tolerating p.o. at time of discharge unremarkable abdominal exam. Pain improved. Medical Decision Making Medical Decision Making [facility] Narrative: 37-year-old female presents with complaints of right upper quadrant pain for 3-4 days. Worse after eating pork and fried plantains Physical exam with very mild epigastric and right upper quadrant tenderness. History and physical exam concerning for possible recurrence of H pylori versus GERD versus gastritis versus cholecystitis. Unlikely acute abdomen, appendicitis, obstruction, pancreatitis, diverticulitis. Will rule out metabolic derangements in urinary infection Plan at this time labs, imaging, urine Differential Diagnosis Differential Diagnoses: The differential diagnosis associated with the presentation includes History and physical exam concerning for possible recurrence of H pylori versus GERD versus gastritis versus cholecystitis. Unlikely acute abdomen, appendicitis, obstruction, pancreatitis, diverticulitis. Will rule out metabolic derangements in urinary infection Admission/Observation Consideration of admission/observation: Escalation of care including admission/observation considered Consult Healthcare Provider Management of the patient was discussed with: Cooler Conveyor Loader (GI ) Lab Data [facility] Lab Attestation statement: I reviewed the patient's lab results. 03/22/23 04:17 03/22/23 04:17 Labs: Lab Results 03/22/23 03/22/23 Range/Units 04:17 07:27 WBC 6.6 (4.8-10.8) X10*3/uL RBC 4.29 (4.20-5.50) X10*6/uL Hgb 12.9 (12.0-16.0) g/dl Hct 37.6 (37.0-47.0) % MCV 87.6 (80.0-98.0) fL MCH 30.1 (27.0-33.0) pg MCHC 34.3 (31.0-35.0) g/dl RDW 12.7 (11.0-16.0) % Plt Count 240 (160-400) X10*3/uL MPV 9.1 L (9.4-12.3) fL Immature Gran % (Auto) 0.5 H (0.0-0.4) % Neut % (Auto) 60.4 (45-73) % Lymph % (Auto) 29.1 (20-40) % [place] % (Auto) 6.9 (2-11) % Eos % (Auto) 2.6 (0-4) % Baso % (Auto) 0.5 (0-2) % Lymph # (Auto) 1.9 (1.2-4.9) X10*3/uL [place] # (Auto) 0.5 (0.1-1.2) X10*3/uL Eos # (Auto) 0.2 (0.0-0.4) X10*3/uL Baso # (Auto) 0.0 (0.0-0.2) X10*3/uL Abs Immat Gran (auto) 0.03 (0.00-0.03) X10*3/uL Absolute Neuts (auto) 4.0 (2.0-8.3) x10*3/uL Absolute Nucleated RBC 0.000 (0.0-0.012) X10*3/uL Nucleated RBC % (auto) 0.0 (0.0-0.2) /100WBC Sodium 140 (135-145) mmol/L Potassium 3.4 (3.3-5.1) mmol/L Chloride 109 H (96-108) mmol/L Carbon Dioxide 23 (22-29) mmol/L Anion Gap 11 L (12-20) BUN 15 (9-16) mg/dL Creatinine 0.82 (0.5-1.4) mg/dL Estim Creat Clear Calc 95.4 Estimated GFR > 60 Random Glucose 109 (60-115) mg/dL Calcium 9.2 (8.4-10.2) mg/dL Total Bilirubin 0.1 (0.0-1.0) mg/dL AST 14 (5-31) U/L ALT 17 (0-31) U/L Alkaline Phosphatase 109 (39-117) U/L Total Protein 7.0 (6.5-8.0) g/dL Albumin 3.6 (3.5-5.0) g/dL Lipase 18 (8-78) U/L Urine Color Yellow Urine Appearance Clear Urine pH 6.0 (5.0-9.0) Ur Specific Logan >= 1.030 H (1.005-1.025) Urine Protein Trace (Neg-Trace) mg/dL Urine Glucose (UA) Negative (Negative) mg/dL Urine Ketones Negative (Negative) mg/dL Urine Blood Trace H (Negative) Urine Nitrite Negative (Negative) Ur Leukocyte Esterase Negative (Negative) Urine RBC 3-5 H (0-2) /HPF Urine WBC 0-5 (0-5) /HPF Ur Squamous Epith Cells 0-2 (0-2) /HPF Urine Bacteria None Seen (None Seen) Hyaline Casts 0-2 (0-2) /LPF Urine Test NEGATIVE (NEGATIVE) Independent Interpretation I performed an independent interpretation of an: Ultrasound (US/US abdomen limited IMPRESSION: No gallstones or biliary dilatation.) Radiology Impression Discussion of test interpretation with radiology: I have reviewed the radiologist's reading. External Record Review External record reviewed: Inpatient record, Office record, Outpatient record, Prior outpatient labs, Prior outpatient radiology, Primary care record and Outside ED record Prescription Management I considered prescription management with: Other (pecid and protonix) Medications Administered Discontinued Medications Generic Name Dose Route Start Last Admin Trade Name Freq PRN Reason Stop Dose Admin Al Hydroxide/Mg Hydroxide 15 ml 03/22/23 08:07 03/22/23 08:48 Magnesium Hydrox/Alum Hydrox 30 Ml Oral.Susp PO 03/22/23 08:08 15 ml ONCE ONE Administration Belladonna Alkaloids/Phenobarbital 5 ml 03/22/23 08:07 03/22/23 08:48 Phenobarb/Hyoscy/Atropine/Scop 10 Ml Elixir PO 03/22/23 08:08 5 ml ONCE ONE Administration Critical Care Time Critical Care Time Critical Care Time: Yes Total Critical Care Time: 35 Attestation: I attest to this time spent taking care of the patient, obtaining history, physical, reviewing labs, imaging, speaking to my attending, speaking to specialist. Discharge Plan Discharge Clinical Impression: Acute epigastric pain Patient Disposition: Home, Self-Care Instructions: Abdominal Pain (ED), Epigastric Pain (ED) Additional Instructions: Take your medications as prescribed. If you were prescribed antibiotics today, it is important that you take your medication to their entirety, do not skip any doses, do not finish them early. Follow-up with your primary care provider this week. Return to the emergency department with new or worsening symptoms. Such as fevers, chills, chest pain, shortness of breath, nausea, vomiting, dizziness, headache, vision changes, lethargy In case of emergency call 911 Take protonix 40 mg in the morning and take pepcid at night. Follow up with GI as soon as possible. Prescriptions: New pantoprazole [Protonix] 40 mg tablet,delayed release (DR/EC) 40 mg PO DAILY Qty: 30 0RF famotidine [Pepcid] 20 mg tablet 20 mg PO DAILY Qty: 30 0RF Rx Instructions: take at night No Action fluconazole 150 mg tablet 150 mg PO Q3D Qty: 2 0RF ketoconazole 2 % shampoo 1 appl topical 2XW 30 Days Qty: 120 1RF loratadine 10 mg tablet 10 mg PO DAILY PRN (Reason: allergy symptoms) 90 Days Qty: 90 1RF tramadol 50 mg tablet 50 mg PO Q6H PRN (Reason: pain) Qty: 20 0RF magnesium 1,200 mg PO DAILY tramadol 50 mg tablet 50 mg PO Q6H PRN (Reason: pain) Qty: 20 0RF cyclobenzaprine 10 mg tablet 10 mg PO TID PRN (Reason: muscle spasm) Qty: 10 0RF ibuprofen 600 mg tablet 600 mg PO Q8H PRN (Reason: pain) Qty: 20 0RF lidocaine 5 % adhesive patch,medicated 1 patch topical DAILY Qty: 15 0RF Rx Instructions: leave on most painful area for up to 12 hrs tramadol 50 mg tablet 50 mg PO Q6H PRN (Reason: pain) Qty: 20 0RF cephalexin 500 mg capsule 500 mg PO Q12H 10 Days Qty: 20 0RF ibuprofen 400 mg tablet 400 mg PO Q6H PRN (Reason: pain) 7 Days Qty: 28 0RF albuterol sulfate 90 mcg/actuation HFA aerosol inhaler 2 puff inhalation Q6H PRN (Reason: shortness of breath or wheezing) Qty: 8.5 1RF miconazole nitrate [Miconazole-7] 2 % cream 1 appful vaginal BEDTIME 7 Days Qty: 45 1RF Rx Instructions: May place a small dab at rectum if that is where the itching is Referrals: Physician,Unknown J [Primary Care Provider] - 2 days [facility] [Provider Group] - 1 day
--- NOTE | 2023-03-22 07:07 | ECG_ITS ---
Test Reason : epigastric pain Blood Pressure : / mmHG Vent. Rate : 064 BPM Atrial Rate : 064 BPM P-R Int : 160 ms QRS Dur : 082 ms QT Int : 422 ms P-R-T Axes : 060 037 033 degrees QTc Int : 435 ms Normal sinus rhythm Normal ECG When compared with ECG of 18-APR-2022 18:53, No significant change was found Referred By: Sallie Milian Electronically Signed By:CAROL CRISTOBAL
[2023-03-22 08:05] LABS: Appearance Urine Clear; Color Urine Yellow; Glucose Urine UA Negative (Negative); Leukocyte Esterase Urine Negative (Negative); Nitrite Urine Negative (Negative); Specific Gravity - Urine >= 1.030 (1.005-1.025); UMIC TRIGGER UACC YES; Urine Blood Trace (Negative); Urine Ketones Negative (Negative); Urine Protein Trace mg/dL (Neg-Trace)
[2023-03-22 08:06] LABS: UPreg QC Valid YES; Urine Pregnancy NEGATIVE (NEGATIVE)
[2023-03-22 08:10] LABS: Bacteria Urine None Seen (None Seen); Hyaline Casts Urine 0-2 /LPF (0-2); Squamous Epithelial Cell Urine 0-2 /HPF (0-2); WBC Urine 0-5 /HPF (0-5)
[2023-03-22 08:17] LABS: Lipase 18 U/L (8-78)
[2023-03-22 08:24] VITALS: BP 107/60; PULSE 70; RESP 14; O2SAT 98
[2023-03-22] MEDS: Magnesium Hydrox/Alum Hydrox 30 ML ORAL.SUSP 15 ML PO (08:48)
[2023-03-22] MEDS: PHENobarb/Hyoscy/Atropine/Scop 10 ML ELIXIR 5 ML PO (08:48)
== END 2023-03-22 09:38 | disposition home or self-care (01) ==
PROVIDERS: Physician Assistant; Emergency Provider Emergency Medicine
DX: R10.13 Epigastric pain (principal)
CPT/HCPCS: 36415; 76705; 80053; 81001; 81025; 83690; 85025; 87338; 93005; 99284; 99285

== ENCOUNTER → 2023-03-22 07:07 | Outpatient (BNV) | payer OTHER, SELFPAY | PROVIDERS: Emergency Provider Emergency Medicine; Visit Provider Internal Medicine | DX: R10.13 Epigastric pain (principal) | CPT/HCPCS: 93010 ==

== ENCOUNTER 2023-04-19 08:04 | Outpatient (REF) | payer OTHER, SELFPAY ==
[2023-04-21 11:26] LABS: H Pylori Breath Test Negative (Negative)
== END 2023-04-19 08:05 | disposition home or self-care (01) ==
LOC: HO.LNP 08:04
PROVIDERS: Visit Provider Nurse Practitioner Family
DX: K21.9 Gastro-esophageal reflux disease without esophagitis (principal); R10.13 Epigastric pain; R10.11 Right upper quadrant pain; A04.8 Other specified bacterial intestinal infections
CPT/HCPCS: 83013; 99212

== ENCOUNTER 2023-04-19 08:04 | Outpatient (AMB) | payer OTHER, SELFPAY ==
[2023-04-19 08:16] VITALS: BP 117/74; PULSE 87; BMI 34.2
--- NOTE | 2023-04-19 08:16 | MHC.OFFVIS ---
Intake Vital Signs 04/19/23 08:16 Height 5 ft 2 in Weight 187 lb BMI 34.2 BP 117/74 Blood Pressure Location Lt brachial Position Sitting Pulse 87 Intake Visit Reasons: ER Follow Up Intake Note: Patient ED follow up for abdominal pain Patient went to the [facility] ED due abdominal pain she have US and lab done at the ED. 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 Patient states that she no longer is taking any medications. Diagnosed with H pylori up upper endoscopy. Patient was encouraged to start taking her medications. Patient states that she picked up all her medications from the pharmacy, however she did not know what they were for. Patient educated on how to take it and the importance of finishing all of the antibiotics. Helicobacter pylori (H. pylori) Antibiotics order. We will make sure that we will check for eradication in couple months. Patient will call us if she will have trouble taking the medications for if she will have any GI concerning symptoms. She is agreeable to this plan and verbalizes understanding of instructions. She was given the opportunity to ask questions all questions answered. ? Thank you for allowing me to participate in her care Plan Medications New omeprazole 20 mg PO BID 180 caps 4RF K21.9 TODAY'S VISIT Patient is here today for follow-up ED visit. Patient was seen by me in December of 2021 has not come for follow-up appointment. Last visit in the ER patient was treated with antibiotics for H pylori and was supposed to come to the office for retesting to check for eradication of the bacteria. Patient reports that she was very busy and has been feeling better. Reports that last month she started having epigastric discomfort right upper quadrant pain postprandially. Nausea and vomiting. Patient was seen in the ER script for pantoprazole and Pepcid given. Patient continues to have occasional epigastric discomfort, however reports that pantoprazole and famotidine were not helping. Patient reports right upper quadrant discomfort postprandially. Patient reports that she is moving her bowels well without any issues. Denies melena, hematochezia, unintentional weight loss or ribbon like stools. [facility] Medical History History of blood transfusion Physical exam Helicobacter pylori (H. pylori) Gallbladder polyp Class 1 obesity with body mass index (BMI) of 33.0 to 33.9 in adult GERD (gastroesophageal reflux disease) Right upper quadrant abdominal pain Migraines Photosensitivity Mild asthma Breast implant status Surgical History History of esophagogastroduodenoscopy (EGD) History of blepharoplasty Urethral diverticulum History of tubal ligation History of abdominoplasty Hx of breast implants, bilateral History of wisdom tooth extraction Family History Father Diabetes Mother No problems noted. Maternal Grandmother Diabetes Pacemaker CVD (cardiovascular disease) Paternal Grandfather Alcoholism Substance use disorder Family/Other ADHD Chronic mental illness Asthma Social History Housing: House Alcohol intake: never Patient Tobacco Use Status: Never used Tobacco e-Cigarette/Vaping Use: Never Used Second Hand Smoke Exposure: Yes service: No Current occupational status: employed Current occupational exposures/hazards: No Cognitive needs: No Hearing needs: No Vision needs: No Female Reproductive History Menstrual Age of Menarche: 14 Review of Systems Const Denies weight gain and Denies weight loss ENT Reports no additional complaints, Denies dysphagia and Denies odynophagia Card Reports no additional complaints Resp Reports no additional complaints GI Reports abdominal pain (Epigastric), Denies belching, Denies melena, Denies bloating, Denies change in bowel habits, Denies dysphagia, Denies excessive flatus, Reports dyspepsia, Reports heartburn, Denies diarrhea, Denies loose stools, Reports nausea, Denies odynophagia and Denies vomiting Reports no additional complaints Musc Reports no additional complaints Neuro Reports no additional complaints Psych Reports no additional complaints Endo Reports no additional complaints Physical Exam Vital Signs: Last Vital Signs Pulse 87 04/19/23 08:16 BP 117/74 04/19/23 08:16 BMI result Body Mass Index 34.2 Const General: healthy appearing, no acute distress and well developed Nutritional Appearance: obese Orientation/consciousness: patient oriented x3 Resp Effort & Inspection: normal respiratory effort, able to speak in complete sentences, no tracheal deviation and symmetric chest movement Auscultation: clear to auscultation bilaterally Cardio Rate: regular rate GI Inspection: Yes normal to inspection, No distended and Yes obesity Palpation (GI): Soft to palpation, not firm, nontender and No hepatosplenomegaly present Auscultation: normal bowel sounds General: Yes no CVA tenderness Back/Spine/Pelvis Back: no CVA tenderness Skin General skin exam: elasticity normal, turgor normal and dry skin Neuro General: patient oriented x3 Psych Appearance: grossly normal Mental Status: mental status grossly normal Assessment & Plan Assessment & Plan (1) GERD (gastroesophageal reflux disease): Code(s): K21.9 - Gastro-esophageal reflux disease without esophagitis Qualifiers: Esophagitis presence: esophagitis presence not specified Qualified Code(s): K21.9 - Gastro-esophageal reflux disease without esophagitis (2) Helicobacter pylori (H. pylori): Code(s): A04.8 - Other specified bacterial intestinal infections (3) Postprandial epigastric pain: Code(s): R10.13 - Epigastric pain (4) Dyspepsia: Code(s): R10.13 - Epigastric pain (5) Postprandial abdominal pain in right upper quadrant: Code(s): R10.11 - Right upper quadrant pain Plan Will retest for H pylori today. Patient currently is not taking any PPI. No food, drink or chewing on for more than 1 hour. Patient will be sent for HIDA scan to rule out cholelithiasis, cholecystitis, biliary dyskinesia. Patient ran out of PPI and famotidine. Will change this to Nexium and sucralfate. Patient will return to the office in 6 weeks, sooner on as needed basis. Patient is agreeable to this plan and verbalizes understanding of instructions. She was given the opportunity to ask questions and all questions answered. Thank you for allowing me to participate in her care Orders: Orders H Pylori Breath Test 04/19/23 NM hepatobiliary w pharm 04/19/23 K21.9 - Gastro-esophageal reflux disease without esophagitis Medications: New esomeprazole magnesium (Nexium) 40 mg PO DAILY 30 caps 5RF K21.9 - Gastro-esophageal reflux disease without esophagitis sucralfate 1 g PO BEDTIME 30 tabs 4RF R19.7 - Diarrhea, unspecified Discontinued pantoprazole (Protonix) Discontinued Reason: Doctor's Order 40 mg PO DAILY 30 tabs 0RF famotidine (Pepcid) take at night Discontinued Reason: Change Referral Type 20 mg PO DAILY 30 tabs 0RF Coding Level of Care Code Est Pt Level 4 (86178) Diagnoses Gastroesophageal reflux disease, unspecified whether esophagitis present K21.9 Esophagitis presence: esophagitis presence not specified Helicobacter pylori (H. pylori) A04.8 Postprandial epigastric pain R10.13 Dyspepsia R10.13 Postprandial abdominal pain in right upper quadrant R10.11 Time Spent (min) 40 Comment 25 minutes spent with patient and additional 15 minutes spent reviewing her records
== END 2023-04-19 09:02 | disposition home or self-care (01) ==
PROVIDERS: Visit Provider Nurse Practitioner Family
DX: K21.9 Gastro-esophageal reflux disease without esophagitis (principal); A04.8 Other specified bacterial intestinal infections; R10.13 Epigastric pain; R10.11 Right upper quadrant pain
CPT/HCPCS: 99214

== ENCOUNTER → 2023-04-27 13:27 | Outpatient (REF) | payer OTHER, SELFPAY ==
--- NOTE | ~2023-04-27 | NM_ITS ---
EXAMINATION: NM BILIARY TRACT CLINICAL INFORMATION: Gastroesophageal reflux disease. COMPARISON: Ultrasound abdomen 03/22/2023, negative. TECHNIQUE: Following intravenous administration of 5 mCi of 99m technetium mebrofenin, imaging over right upper quadrant was obtained up to 60 minutes. 1.7 mcg of CCK was administered at 1 hour and further imaging was obtained for next 30 minutes. FINDINGS: There is normal hepatic uptake without any focal defects. There is prompt visualization of CBD by 10 minutes. Gallbladder is visualized initially at 41 minutes and completely opacified by 60 minutes. Post-CCK the gallbladder ejection fraction of 30 minutes is 13% and abnormal. NM/NM hepatobiliary w pharm IMPRESSION: Normal hepatic uptake. Patent CBD and cystic duct. Abnormal gallbladder ejection fraction of 13% at 30 minutes post CCK.
== END ==
LOC: HO.NUCMED 13:27
PROVIDERS: PCP Internal Medicine; Visit Provider Nurse Practitioner Family
DX: K21.9 Gastro-esophageal reflux disease without esophagitis (principal); R10.11 Right upper quadrant pain
CPT/HCPCS: 78227; A9537; J2805

== ENCOUNTER 2023-05-08 13:41 | Outpatient (AMB) | payer OTHER, SELFPAY ==
--- NOTE | 2023-05-08 13:35 | MHC.OFFVIS ---
Intake Vital Signs 05/08/23 13:47 Height 5 ft 2 in Weight 193 lb BMI 35.3 BP 133/81 Blood Pressure Location Lt brachial Position Sitting Pulse 80 Intake Visit Reasons: Gallbladder Intake Note: Patient is seen in office for evaluation and treatment of the gallbladder. 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 She has had extensive workup including endoscopy, ultrasound, and HIDA scan, the latter of which demonstrates biliary dyskinesia. Patient has had these bouts. She is unclear if diet related. She has never been jaundiced before. Otherwise tolerating her diet having regular bowel habits. Chart was reviewed and patient evaluated. Patient had a tubal ligation followed by oophorectomy in the past [facility] Medical History History of blood transfusion Physical exam Helicobacter pylori (H. pylori) Gallbladder polyp Class 1 obesity with body mass index (BMI) of 33.0 to 33.9 in adult GERD (gastroesophageal reflux disease) Right upper quadrant abdominal pain Migraines Photosensitivity Mild asthma Breast implant status Surgical History History of esophagogastroduodenoscopy (EGD) History of blepharoplasty Urethral diverticulum History of tubal ligation History of abdominoplasty Hx of breast implants, bilateral History of wisdom tooth extraction Family History Father Diabetes Mother No problems noted. Maternal Grandmother Diabetes Pacemaker CVD (cardiovascular disease) Paternal Grandfather Alcoholism Substance use disorder Family/Other ADHD Chronic mental illness Asthma Social History Housing: House Alcohol intake: never Patient Tobacco Use Status: Never used Tobacco e-Cigarette/Vaping Use: Never Used Second Hand Smoke Exposure: Yes service: No Current occupational status: employed Current occupational exposures/hazards: No Cognitive needs: No Hearing needs: No Vision needs: No Female Reproductive History Menstrual Age of Menarche: 14 Physical Exam Vital Signs: Last Vital Signs Pulse 80 05/08/23 13:47 BP 133/81 05/08/23 13:47 BMI result Body Mass Index 35.3 Chest Other: Chest breath sounds bilaterally, HS 1 in 2 GI Other: Abdomen corpulent, soft, benign Assessment & Plan Assessment & Plan (1) Biliary dyskinesia: Code(s): K82.8 - Other specified diseases of gallbladder Plan Risks, benefits, alternatives laparoscopic possible open cholecystectomy reviewed with the patient included but not limited to bleeding, infection, recurrence of symptoms, numbness, pain, scarring, bile or bowel injury or leak and the patient wishes to proceed all questions answered. Arrangements were made for this. Coding Level of Care Code New Pt Level 5 (04577) Diagnoses Biliary dyskinesia K82.8
[2023-05-08 13:47] VITALS: BP 133/81; PULSE 80; BMI 35.3
== END 2023-05-08 14:07 | disposition home or self-care (01) ==
PROVIDERS: PCP Internal Medicine; Referring Provider Nurse Practitioner Family; Visit Provider Surgery
DX: K82.8 Other specified diseases of gallbladder (principal)
CPT/HCPCS: 99204

== ENCOUNTER → 2023-05-08 13:41 | Outpatient (BNVA) | payer OTHER, SELFPAY | PROVIDERS: PCP Internal Medicine; Referring Provider Nurse Practitioner Family; Visit Provider Surgery | DX: K82.8 Other specified diseases of gallbladder (principal) | CPT/HCPCS: 99202 ==

== ENCOUNTER 2023-05-22 05:42 | Day surgery (SDC) | payer OTHER, SELFPAY ==
[2023-05-18 07:12] VITALS: BMI 35.3
--- NOTE | 2023-05-18 13:13 | HO.ANESPROP2 ---
Documented by User: Shira Sierra NP 05/18/23 13:14 HPI - Anesthesia Eval Consult details Narrative: 37yo F for Cholecystectomy Laparoscopic, possible open PMFSH Active Problems Active Problems: All Active Problems Biliary dyskinesia (Acute) Hx of abnormal cervical Pap smear (Acute) Screen for sexually transmitted diseases (Acute) Well woman exam with routine gynecological exam (Acute) Rectal itching (Acute) Headache (Acute) PCB (post coital bleeding) (Acute) Encounter to discuss test results (Acute) Metrorrhagia (Acute) Irregular menses (Acute) Mild intermittent asthma (Acute) Right upper quadrant pain (Acute) Scarring (Acute) Pain of right calf (Acute) Tendinitis of right forearm (Acute) Right sided sciatica (Acute) Stress incontinence, female (Acute) Physical exam (Acute) Helicobacter pylori (H. pylori) (Acute) Gallbladder polyp (Acute) Class 1 obesity with body mass index (BMI) of 33.0 to 33.9 in adult (Acute) GERD (gastroesophageal reflux disease) (Acute) Right upper quadrant abdominal pain (Acute) Migraines (Acute) Photosensitivity (Acute) Mild asthma (Acute) Breast implant status (Acute) Past Medical History Medical History History of blood transfusion Physical exam Helicobacter pylori (H. pylori) Gallbladder polyp Class 1 obesity with body mass index (BMI) of 33.0 to 33.9 in adult GERD (gastroesophageal reflux disease) Right upper quadrant abdominal pain Migraines Photosensitivity Mild asthma Breast implant status Family History Family History Father Diabetes Mother No problems noted. Maternal Grandmother Diabetes Pacemaker CVD (cardiovascular disease) Paternal Grandfather Alcoholism Substance use disorder Family/Other ADHD Chronic mental illness Asthma Family history of problems with anesthesia: No Surgical History Surgical History History of esophagogastroduodenoscopy (EGD) History of blepharoplasty Urethral diverticulum History of tubal ligation History of abdominoplasty Hx of breast implants, bilateral History of wisdom tooth extraction History of Problems with Anesthesia: No Social History Social History Housing: House Alcohol intake: never Patient Tobacco Use Status: Never used Tobacco e-Cigarette/Vaping Use: Never Used Second Hand Smoke Exposure: No Use of substances other than those prescribed or required for medical reasons: No Are you DNR?: No Advance Directives: No Advance Directives Information Provided: Yes Advance Directives on File: No service: No Current occupational status: employed Current occupational exposures/hazards: No Cognitive needs: No Hearing needs: No Vision needs: No Meds Allergies Allergy/AdvReac Type Severity Reaction Status Date / Time amoxicillin [AMOXICILLIN] Allergy Intermediate SWELLING Verified 05/08/23 13:36 OF VAGINAL AREA , vaginal itching Home Medications ?Medication ?Instructions ?Recorded ?Confirmed ?Last Taken ?Type No Known Home Meds 05/08/23 Unknown History Exam Height,Weight and Vital Signs: Height 5 ft 2 in Weight 87.543 kg Pertinent Lab Results Pertinent Lab Results: Laboratory Tests 03/22/23 04:17 WBC 6.6 Hgb 12.9 Hct 37.6 Plt Count 240 Sodium 140 Potassium 3.4 Chloride 109 H Carbon Dioxide 23 BUN 15 Creatinine 0.82 Narrative Narrative: EKG 03/2023 Vent. Rate : 064 BPM Atrial Rate : 064 BPM P-R Int : 160 ms QRS Dur : 082 ms QT Int : 422 ms P-R-T Axes : 060 037 033 degrees QTc Int : 435 ms Normal sinus rhythm Normal ECG When compared with ECG of 18-APR-2022 18:53, No significant change was found Assessment and Plan Assessment Anesthesia Assessment: Chart Reviewed Final Anesthetic Review Family History of Problems with Anesthesia: No History of Problems with Anesthesia: No Documented by User: Shahab Lawson MD 05/22/23 07:11 [facility] Past Medical History Medical History History of blood transfusion Physical exam Helicobacter pylori (H. pylori) Gallbladder polyp Class 1 obesity with body mass index (BMI) of 33.0 to 33.9 in adult GERD (gastroesophageal reflux disease) Right upper quadrant abdominal pain Migraines Photosensitivity Mild asthma Breast implant status Family History Family History Father Diabetes Mother No problems noted. Maternal Grandmother Diabetes Pacemaker CVD (cardiovascular disease) Paternal Grandfather Alcoholism Substance use disorder Family/Other ADHD Chronic mental illness Asthma Surgical History Surgical History History of esophagogastroduodenoscopy (EGD) History of blepharoplasty Urethral diverticulum History of tubal ligation History of abdominoplasty Hx of breast implants, bilateral History of wisdom tooth extraction Social History Social History Housing: House Alcohol intake: never Patient Tobacco Use Status: Never used Tobacco e-Cigarette/Vaping Use: Never Used Second Hand Smoke Exposure: No Use of substances other than those prescribed or required for medical reasons: No Are you DNR?: No Advance Directives: No Advance Directives Information Provided: Yes Advance Directives on File: No service: No Current occupational status: employed Current occupational exposures/hazards: No Cognitive needs: No Hearing needs: No Vision needs: No Meds Allergies Allergy/AdvReac Type Severity Reaction Status Date / Time amoxicillin [AMOXICILLIN] Allergy Intermediate SWELLING Verified 05/08/23 13:36 OF VAGINAL AREA , vaginal itching Home Medications ?Medication ?Instructions ?Recorded ?Confirmed ?Last Taken ?Type No Known Home Meds 05/08/23 Unknown History Exam Airway Mallampati Class: II TM Dist: >3cm Neck ROM: Full Loose/Missing/Broken Teeth: No Heart: rrr Lungs: cta Assessment and Plan Assessment Anesthesia Assessment: Anesthesia Plan Discussed Final Anesthetic Review NPO: Yes ASA Class: II Final Preanesthetic Review: Meds/Allgs Chart Reviewed, Consent Obtained/Reviewed and Anes Risks/Benef Reviewed Patient Risk: Intermediate Procedure Risk: Intermediate Anesthetic Plan Anesthetic Plan: GA Disposition: Standard PACU
[2023-05-22] VITALS (12 sets, daily range): BP systolic 105–148; BP diastolic 53–86; PULSE 67–82; RESP 16–21; TEMP 36.1–36.8; O2SAT 95–100; BMI 36.5
[2023-05-22] MEDS: Lactated Ringers 1,000 ML 100 ML IVCONT (06:33)
--- NOTE | 2023-05-22 07:31 | MHC.SHP ---
Pre-Procedural Eval Section A - 24 Hr Update-Section A only Date of Service: 05/22/23 The patient is an INPATIENT: No Changes since office visit: No Cold of Flu in the past 2 weeks, No New Medical Problems, No Changes in Medication and No Patient answered all questions The patient has been examined within 24 hours of the surgical procedure. The History & Physical has been completed within 30 days and I have reviewed it.: Yes Section B - Complete if H&P > 30 days Chief Complaint: Other specified diseases of gallbladder Allergies: Allergies Allergy/AdvReac Type Severity Reaction Status Date / Time amoxicillin [AMOXICILLIN] Allergy Intermediate SWELLING Verified 05/08/23 13:36 OF VAGINAL AREA , vaginal itching Plan I have reviewed the history and physical and performed a pertinent physical examination on my patient. No changes have occurred unless specified. Time Spent With Patient Time: Total time managing care of this patient today ____ minutes.
--- NOTE | 2023-05-22 08:42 | W.PM.OPN ---
Operative Note Operative Note Date of Service: 05/22/23 Narrative: Preoperative diagnosis: [] Biliary dyskinesia Postop diagnosis: [] Same Procedure [] laparoscopic cholecystectomy Surgeon: [] Shayne Lead Manufacturing Engineering Tech: [] Jaden Type of Anesthesia: [] General Indication for surgery: [] Gallbladder with omental adhesions to it. Corpulent abdomen Findings: [] Patient was brought to the operating room operative table in supine position, after an adequate level of general patient's abdomen was prepped and draped in usual sterile fashion. Using a supraumbilical curvilinear incision, this carried down through skin, subcutaneous tissue, and Weller technique was used to insufflate the abdominal cavity to 15 mm of CO2. Upper midline and right subcostal ports were placed under direct laparoscopic view, and the patient placed in reverse Trendelenburg position, and tilted to the left. Findings were as noted above. Omental adhesions swept off the gallbladder were its hilum was approached. Common bile duct was identified and preserved throughout the procedure. Cystic artery and cystic duct were each identified, circumferentially skeletonized, each traced directly into the gallbladder, and critical view obtained. Each was clipped proximally x2, distally x1, and transected. Gallbladder which was moderately intrahepatic was cauterized from the gallbladder fossa using Bovie. Specimen was placed in an Endo-Catch bag, a retrieved through the umbilical port. Abdominal cavity was copiously irrigated, and secured hemostasis. All ports removed under direct laparoscopic view. Wounds were closed in the following manner; umbilical wound has fascia reapproximated using interrupted 0 Vicryl sutures. Skin wounds were closed using subcuticular 4-0 Vicryl sutures followed by Steri-Strips and sterile dressings. Wounds were infiltrated 0.5% Marcaine at completion. Sponge, needle, and instrument counts were reported to be correct. Patient tolerated the procedure well and emerged from anesthesia stable condition. EBL minimal
[2023-05-22] MEDS: HYDROmorphone HCl 0.5 MG/0.5 ML SYRINGE IVPUSH ×2 (09:03→09:28)
== END 2023-05-22 11:06 | disposition home or self-care (01) ==
PROVIDERS: PCP Internal Medicine; Visit Provider Surgery
PROC: 0FT44ZZ Resection of Gallbladder, Percutaneous Endoscopic Approach (ICD-10-PCS; CPT 47562; principal; 2023-05-22 07:30)
DX: K81.1 Chronic cholecystitis (principal); K82.8 Other specified diseases of gallbladder; E66.8 Other obesity; Z68.35 Body mass index [BMI] 35.0-35.9, adult; J45.909 Unspecified asthma, uncomplicated; Z88.1 Allergy status to other antibiotic agents; Z98.890 Other specified postprocedural states
CPT/HCPCS: 47562; 88304; J0665; J0690; J1100; J1170; J1885; J2250; J2405; J2704; J3010

== ENCOUNTER → 2023-05-22 05:42 | Outpatient (BNV) | payer OTHER, SELFPAY | PROVIDERS: PCP Internal Medicine; Visit Provider Surgery | DX: K82.8 Other specified diseases of gallbladder (principal) | CPT/HCPCS: 47562 ==

== ENCOUNTER 2023-05-31 13:00 | Outpatient (AMB) | payer OTHER, SELFPAY ==
--- NOTE | 2023-05-31 13:15 | A.OFFVIS_ITS ---
Intake Intake Visit Reasons: S/P lap grecia Intake Note: Patient here s/p lap grecia. Reports incisions healing well. Patient c/o: rx pain meds did not help. States she called the office to request tramadol but never heard back. 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 Patient is doing well. She is tolerating her diet. She is having regular bowel habits. She is increasing her activity level. She has minimal incisional discomfort. [facility] Medical History History of blood transfusion Physical exam Helicobacter pylori (H. pylori) Gallbladder polyp Class 1 obesity with body mass index (BMI) of 33.0 to 33.9 in adult GERD (gastroesophageal reflux disease) Right upper quadrant abdominal pain Migraines Photosensitivity Mild asthma Breast implant status Surgical History History of esophagogastroduodenoscopy (EGD) History of blepharoplasty Urethral diverticulum History of tubal ligation History of abdominoplasty Hx of breast implants, bilateral History of wisdom tooth extraction Family History Father Diabetes Mother No problems noted. Maternal Grandmother Diabetes Pacemaker CVD (cardiovascular disease) Paternal Grandfather Alcoholism Substance use disorder Family/Other ADHD Chronic mental illness Asthma Social History Housing: House Alcohol intake: never Patient Tobacco Use Status: Never used Tobacco e-Cigarette/Vaping Use: Never Used Second Hand Smoke Exposure: No service: No Current occupational status: employed Current occupational exposures/hazards: No Cognitive needs: No Hearing needs: No Vision needs: No Female Reproductive History Menstrual Age of Menarche: 14 Physical Exam Eyes Other: Anicteric GI Other: Abdomen is soft, benign. All wounds clean dry and intact healing well Assessment & Plan Assessment & Plan (1) Status post laparoscopic cholecystectomy: Code(s): Z90.49 - Acquired absence of other specified parts of digestive tract Plan Patient has been given local instructions, including avoiding strenuous activities actually weeks time and will otherwise follow-up p.r.n.. All questions answered. Note will be provided regarding her insurance/FMLA issues. Coding Level of Care Code Global (14502) Diagnoses Status post laparoscopic cholecystectomy Z90.49
== END 2023-05-31 13:25 | disposition home or self-care (01) ==
PROVIDERS: PCP Internal Medicine; Visit Provider Surgery
DX: Z90.49 Acquired absence of other specified parts of digestive tract (principal)
CPT/HCPCS: 99024

== ENCOUNTER → 2023-05-31 13:00 | Outpatient (BNVA) | payer OTHER, SELFPAY | PROVIDERS: PCP Internal Medicine; Visit Provider Surgery | DX: Z90.49 Acquired absence of other specified parts of digestive tract (principal) | CPT/HCPCS: 99212 ==

== ENCOUNTER 2023-07-03 10:46 | Outpatient (AMB) | payer OTHER, SELFPAY ==
--- NOTE | 2023-07-03 10:54 | MHC.OFFVIS ---
Intake Visit Reasons: Pain around surgical site on abd Intake Note: Patient tucked in today for urgent concern. HX lap grecia on 05-22-23. Patient c/o: pain around surgical site on abd. Sharp pain that kept her up since 3am for 4 hours. Taking OTC pain meds as needed. 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 He has tolerating a diet. Having regular bowel habits. She is increasing her activity level. Patient has incisional discomfort at the umbilical site but otherwise no other complaints or issues. [facility] Medical History History of blood transfusion Physical exam Helicobacter pylori (H. pylori) Gallbladder polyp Class 1 obesity with body mass index (BMI) of 33.0 to 33.9 in adult GERD (gastroesophageal reflux disease) Right upper quadrant abdominal pain Migraines Photosensitivity Mild asthma Breast implant status Surgical History History of esophagogastroduodenoscopy (EGD) History of blepharoplasty Urethral diverticulum History of tubal ligation History of abdominoplasty Hx of breast implants, bilateral History of wisdom tooth extraction Family History Father Diabetes Mother No problems noted. Maternal Grandmother Diabetes Pacemaker CVD (cardiovascular disease) Paternal Grandfather Alcoholism Substance use disorder Family/Other ADHD Chronic mental illness Asthma Social History Housing: House Alcohol intake: never Patient Tobacco Use Status: Never used Tobacco e-Cigarette/Vaping Use: Never Used Second Hand Smoke Exposure: No service: No Current occupational status: employed Current occupational exposures/hazards: No Cognitive needs: No Hearing needs: No Vision needs: No Female Reproductive History Menstrual Age of Menarche: 14 Physical Exam Eyes Other: Anicteric GI Other: Abdomen is soft. All wounds clean dry and intact healing well Assessment & Plan Assessment & Plan (1) Status post laparoscopic cholecystectomy: Code(s): Z90.49 - Acquired absence of other specified parts of digestive tract Category: Medical Plan Patient has been given local instructions including avoiding strenuous activities for next 2 weeks time, we will otherwise follow-up p.r.n.. All questions answered. Coding Level of Care Code Global (43283) Diagnoses Status post laparoscopic cholecystectomy Z90.49
== END 2023-07-03 11:05 | disposition home or self-care (01) ==
PROVIDERS: PCP Internal Medicine; Visit Provider Surgery
DX: Z90.49 Acquired absence of other specified parts of digestive tract (principal)
CPT/HCPCS: 99024

== ENCOUNTER → 2023-07-03 10:46 | Outpatient (BNVA) | payer OTHER, SELFPAY | PROVIDERS: PCP Internal Medicine; Visit Provider Surgery | DX: Z90.49 Acquired absence of other specified parts of digestive tract (principal) | CPT/HCPCS: 99212 ==

== ENCOUNTER 2023-09-10 07:26 | Emergency (ER) | payer OTHER, SELFPAY ==
[2023-09-10 07:28] VITALS: BP 115/75; PULSE 71; RESP 16; TEMP 37.2; O2SAT 98; BMI 34.1
[2023-09-10 07:48] LABS: IDNOW Serial# 08D9AD1C; Strep A Nucleic Acid Negative (Negative)
--- NOTE | 2023-09-10 08:10 | ED_ITS ---
HPI - General Adult General Chief complaint: General Medical Stated complaint: Strep throat Time Seen by Provider: 09/10/23 07:38 Source: patient Mode of arrival: ambulatory Limitations: no limitations History of Present Illness HPI narrative: Patient is a 37-year-old female who presents emergency department for evaluation of a sore throat with redness and white patches, mild pain with swallowing but is able to solids and liquids.. Onset approximately 3 days ago. She expresses concern that she may have strep throat as she has experienced this in the past. Of note and ask whether there is any concern for possible sexually transmitted infections of the oral parents, she does admit to having worrisome new oral intercourse partners. She denies fevers, chills, ear pain, headache, neck pain, neck stiffness, chest pain shortness of breath symptoms. Denies any genitourinary concerns. Related Data Previous Rx's ?Medication ?Instructions ?Recorded phentermine 37.5 mg capsule 37.5 mg PO DAILY 30 days #30 caps 06/05/23 fluconazole 150 mg tablet 150 mg PO Q3D 2 doses #2 tabs 07/03/23 sulfamethoxazole 800 1 tab PO BID 10 days #20 tabs 08/08/23 mg-trimethoprim 160 mg tablet (Bactrim DS) semaglutide (weight loss) 0.25 0.25 mg (0.5 mL) subcut QWEEK 4 09/05/23 mg/0.5 mL subcutaneous pen weeks #2 mL injector (Wegovy) Allergies Allergy/AdvReac Type Severity Reaction Status Date / Time amoxicillin [AMOXICILLIN] Allergy Intermediate SWELLING Verified 09/10/23 07:29 OF VAGINAL AREA , vaginal itching Review of Systems Review of Systems: Yes all other systems are reviewed and are negative PMFSH Past Medical History Attestation statement: The following information was validated with the patient. Source: old records reviewed Medical History History of blood transfusion Physical exam Helicobacter pylori (H. pylori) Gallbladder polyp Class 1 obesity with body mass index (BMI) of 33.0 to 33.9 in adult GERD (gastroesophageal reflux disease) Right upper quadrant abdominal pain Migraines Photosensitivity Mild asthma Breast implant status Surgical History History of esophagogastroduodenoscopy (EGD) History of blepharoplasty Urethral diverticulum History of tubal ligation History of abdominoplasty Hx of breast implants, bilateral History of wisdom tooth extraction Family History Family History Father Diabetes Mother No problems noted. Maternal Grandmother Diabetes Pacemaker CVD (cardiovascular disease) Paternal Grandfather Alcoholism Substance use disorder Family/Other ADHD Chronic mental illness Asthma Social History Social History Housing: House Alcohol intake: never Patient Tobacco Use Status: Never used Tobacco e-Cigarette/Vaping Use: Never Used Second Hand Smoke Exposure: No Advance Directives: No Advance Directives Information Provided: Yes Do you have a plan to hurt others: No Plan service: No Current occupational status: employed Current occupational exposures/hazards: No Cognitive needs: No Hearing needs: No Vision needs: No Physical Exam ED Vital Signs: Vital Signs - 24 hr 09/10/23 07:28 09/10/23 09:41 09/10/23 09:41 Temperature 98.9 F 98.2 F 98.2 F Pulse Rate 71 72 72 Respiratory Rate 16 16 16 Blood Pressure 115/75 118/76 118/76 Pulse Oximetry 98 98 98 Oxygen Delivery Method Room Air Room Air Room Air BMI result Body Mass Index 34.1 Appearance: Alert.?Oriented to person, place and time. No acute distress.?Normal affect. Eyes: Pupils equal, round and reactive to light.? ENT: Pharynx erythematous, white exudates on the bilateral tonsils without significant hypertrophy, uvula midline, no trismus, no drooling. TM normal bilaterally. Neck: Normal inspection.? Neck supple.??Full range of motion. No adenopathy CVS: Heart sounds normal. Normal heart rate and rhythm.? Pulses normal.?? Respiratory: No respiratory distress.? Lung sounds clear to auscultation bilaterally?? Skin: Skin warm and dry.? Normal skin color.? Extremities: No lower extremity edema.? Neuro: Moves all extremities spontaneously. Sensation intact bilaterally. Ambulates with normal steady gait. Medical Decision Making Medical Decision Making MDM Narrative: Patient is a 37-year-old female who presents emergency department for evaluation of sore throat as per HPI. No distress, able to manage secretions, swallow solids and fluids without difficulty. No signs of DIRECTOR FINANCIAL SYSTEMS/RPA. Strep a testing was negative. Viral panel was negative. Sent testing for chlamydia and gonorrhea of the throat, advised patient she would be contacted with any positive findings over the next few days from the hospital. Given history and presentation, discussed conservative treatment in addition to a prescription for doxycycline and instructed on precautions with use, and provided with a prescription for Diflucan as she she easily gets yeast infections with antibiotics. Discussed worrisome signs and symptoms that would warrant re-evaluation emergency department. All questions answered. Stable for discharge Differential Diagnosis Differential Diagnoses: The differential diagnosis associated with the presentation includes (See narrative above) Lab Data MDM Lab Attestation statement: I reviewed the patient's lab results. (See narrative above) Labs: Lab Results 09/10/23 09/10/23 Range/Units 07:34 08:04 Influenza Type A (PCR) NEGATIVE (Negative) Influenza Type B (PCR) NEGATIVE (Negative) RSV RNA Qual (PCR) NEGATIVE (Negative) SARS-CoV-2 RNA (RT-PCR) NEGATIVE (Negative) S. pyogenes GrpA GUDELIA Negative (Negative) Prescription Management I considered prescription management with: Pain Medication and Antibiotic Discharge Plan Discharge Clinical Impression: Pharyngitis Qualifiers: Pharyngitis/tonsillitis etiology: unspecified etiology Qualified Code(s): J02.9 - Acute pharyngitis, unspecified Patient Disposition: Home, Self-Care Instructions: Pharyngitis (ED) Additional Instructions: Warm salt water gargles, Cepacol throat lozenges, Chloraseptic throat spray may be used You can take ibuprofen 200 mg, 3 tablets (600mg) every 6-8 hours as needed for pain, in addition to Tylenol 500 mg, 2 tablets (1,000mg) every 4-6 hours as needed for pain, but not to exceed 3 doses daily (3,000mg).? A prescription for an antibiotic was sent to your pharmacy; doxycycline. On doxycycline, do not take pills immediately before going to bed and swallow pills with plenty of water. Avoid direct sunlight, iron, antacids, and Pepto Bismol. Call your provider if you develop new ringing in your ears, new problems hearing, dizziness, difficulty swallowing, rash, abdominal discomfort, nausea, or diarrhea.? Take Diflucan 1 tablet by mouth today, if you develop yeast infection symptoms that do not resolve, you may take a 2nd after 3 days Prescriptions: No Action phentermine 37.5 mg capsule 37.5 mg PO DAILY 30 Days Qty: 30 0RF Rx Instructions: must administer 30 minutes before or 1-2 hours after breakfast fluconazole 150 mg tablet 150 mg PO Q3D Qty: 2 0RF sulfamethoxazole-trimethoprim [Bactrim DS] 800-160 mg tablet 1 tab PO BID 10 Days Qty: 20 0RF Wegovy 0.25 mg/0.5 mL pen injector 0.25 mg subcut QWEEK 28 Days Qty: 2 0RF Rx Instructions: administer weeks 1 through 4 of therapy Referrals: Mireille Mari MD [Primary Care Provider] - Interventions: ED Discharge Assessment Last Done: 09/10/23 09:41 Discharge Date/Time: 09/10/23 09:42 Print Language: Maltese
[2023-09-10 09:23] LABS: Influenza A PCR NEGATIVE (Negative); Influenza B PCR NEGATIVE (Negative); Resp Syncy Virus RNA Qual PCR NEGATIVE (Negative); SARS COV2 PCR INHOUSE NEGATIVE (Negative)
[2023-09-10 09:41] VITALS: BP 118/76; PULSE 72; RESP 16; TEMP 36.8; O2SAT 98
[2023-09-14 12:47] LABS: C. Trachomatis RNA TMA, Throat NOT DETECTED; N. gonorrhoeae RNA TMA, Throat NOT DETECTED
== END 2023-09-10 09:42 | disposition home or self-care (01) ==
PROVIDERS: Nurse Practitioner Family; Emergency Provider Emergency Medicine; PCP Internal Medicine
DX: J02.9 Acute pharyngitis, unspecified (principal); Z03.818 Encounter for observation for suspected exposure to other biological agents ruled out; Z79.899 Other long term (current) drug therapy
CPT/HCPCS: 0241U; 87491; 87591; 87651; 99283

== ENCOUNTER → 2023-10-18 14:50 | Outpatient (BNVA) | payer SELFPAY | PROVIDERS: PCP Internal Medicine; Visit Provider Physician Assistant Medical | DX: Z02.79 Encounter for issue of other medical certificate (principal) ==

== ENCOUNTER 2023-11-02 10:56 | Outpatient (REF) | payer OTHER, SELFPAY ==
[2023-11-02 12:50] LABS: Alanine Aminotransferase 27 U/L (0-31); Alkaline Phosphatase 105 U/L (39-117); Anion Gap 11 (12-20); Aspartate Amino Transferase 19 U/L (5-31); Bilirubin Total 0.3 mg/dL (0.0-1.0); Blood Urea Nitrogen 12 mg/dL (9-16); Calcium 9.1 mg/dL (8.4-10.2); Carbon Dioxide 25 mmol/L (22-29); Chloride 108 mmol/L (96-108); Cholesterol 168 mg/dL (<200); Estimated Glomerular Filt Rate > 60; Glucose Fasting 94 mg/dL (60-99); HDL Cholesterol 51 mg/dL (>40); LDL Cholesterol Calculated 104 mg/dL (<100); Potassium 4.2 mmol/L (3.3-5.1); Sodium 140 mmol/L (135-145); Total Protein 7.4 g/dL (6.5-8.0); Triglycerides 67 mg/dL (<150)
== END 2023-11-02 10:57 | disposition home or self-care (01) ==
LOC: HO.LAB 10:56
PROVIDERS: PCP Internal Medicine; Visit Provider Internal Medicine
DX: Z00.01 Encounter for general adult medical examination with abnormal findings (principal); L02.31 Cutaneous abscess of buttock; E66.9 Obesity, unspecified; Z68.35 Body mass index [BMI] 35.0-35.9, adult
CPT/HCPCS: 36415; 80053; 80061; 96127; 99212; 99395

== ENCOUNTER 2023-11-02 10:56 | Outpatient (AMB) | payer OTHER, SELFPAY ==
--- NOTE | 2023-11-02 10:58 | A.OFFPC_ITS ---
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 Accompanied by: Self / Same As Patient Allergies amoxicillin [AMOXICILLIN] Allergy (Intermediate, Verified 11/02/23 11:14) SWELLING OF VAGINAL AREA , vaginal itching Medication List - Last Reconciled 11/02/23 by Mireille Linn MD semaglutide (weight loss) (Wegovy) 0.25 mg (0.5 mL) subcut QWEEK 4 weeks Tobacco use date assessed: 11/02/23 Dental Screening Dental Screen Date: 11/02/23 Did you have a dental visit in the last 12 months?: Yes Did you have a dental problem in the last 6 months where you did not have access to dental care?: No Was dental information given to patient?: Patient has dentist HPI HPI Comments History of Present Illness Details This is a 38-year-old female that comes for her physical exam. Pap smear done 2022 was normal. She is obese with a BMI of 35.1 and has tried diet and exercise in the past with no relief. Has also tried phentermine with no significant improvement. I will start her on WEgovy. She also complains of recurrent abscess that happens in the buttock and I will refer her to General surgery. [facility] Medical History (Updated 11/02/23 @ 11:28 by Mireille Linn MD) History of blood transfusion Physical exam Helicobacter pylori (H. pylori) Gallbladder polyp Class 1 obesity with body mass index (BMI) of 33.0 to 33.9 in adult GERD (gastroesophageal reflux disease) Right upper quadrant abdominal pain Migraines Photosensitivity Mild asthma Breast implant status Surgical History (Updated 11/02/23 @ 11:19 by Mireille Linn MD) History of cholecystectomy History of esophagogastroduodenoscopy (EGD) History of blepharoplasty Urethral diverticulum History of tubal ligation History of abdominoplasty Hx of breast implants, bilateral History of wisdom tooth extraction Family History Father Diabetes Mother No problems noted. Maternal Grandmother Diabetes Pacemaker CVD (cardiovascular disease) Paternal Grandfather Alcoholism Substance use disorder Family/Other ADHD Chronic mental illness Asthma Social History (Updated 11/02/23 @ 11:19 by Mireille Linn MD) Housing: House Alcohol intake: current Alcohol intake frequency: holidays/special occasions only Alcohol type: wine and other Patient Tobacco Use Status: Never used Tobacco e-Cigarette/Vaping Use: Never Used Second Hand Smoke Exposure: No service: No Current occupational status: employed Current occupational exposures/hazards: No Cognitive needs: No Hearing needs: No Vision needs: No Female Reproductive History Menstrual Age of Menarche: 14 Questionnaire PHQ-9 Over the last 2 weeks, how often have you been bothered by any of the following problems? 1. Little interest or pleasure in doing things: not at all 2. Feeling down, depressed, or hopeless: not at all 3. Trouble falling or staying asleep, or sleeping too much: not at all 4. Feeling tired or having little energy: more than half the days 5. Poor appetite or overeating: more than half the days 6. Feeling bad about yourself - or that you are a failure or have let yourself or your family down: more than half the days 7. Trouble concentrating on things, such as reading the newspaper or watching television: not at all 8. Moving or speaking so slowly that other people could have noticed. Or the opposite - being so fidgety or restless that you have been moving around a lot more than usual: not at all 9. Thoughts that you would be better off or of hurting yourself in some way: not at all Total score: 6 Depression Screening Interpretation: Positive Depression Screening Follow-up: Existing condition and Follow-up Visit Requested Depression Screening Done: Yes 82026 - PHQ-9 Billing: Yes Source: Developed by Drs. Fortunato Perez, Carol Navarrete, Fan Palomares and colleagues, with an educational lexie from [employer]. Thrive Questionnaire Date Thrive assessed: 11/02/23 I am a: Patient What is your living situation today?: I have a steady place to live Within the past 12 months, did the food you bought not last and you didn't have the money to get more?: Never true Within the past 12 months, did you worry whether your food would run out before you got money to buy more?: Never true Do you have trouble paying for medicines?: No Do you have trouble getting transportation to medical appointments?: No Do you have trouble paying your heating and electricity bill?: No Do you have trouble taking care of your child, family member or friend?: No Do you have trouble with day-to-day activities such as bathing, preparing meals, shopping, managing finances, etc.?: No Are you currently unemployed and looking for a job?: No Are you interested in more education?: Yes Please select the resources that you would like help with: None Currently or been in a relationship where the following occur: No concerns reported THRIVE Score: 0 AUDIT C Alcohol Use Questionnaire (AUDIT-C) 1. How often do you have a drink containing alcohol?: Never Total Score: 0 Score Reviewed/Action Taken: No DENISA-7 AMB Questionnaire DENISA-7 Date DENISA - 7 assessed: 11/02/23 Feeling nervous, anxious, or on edge: 2 = More than half the days Not being able to stop or control worryin = More than half the days Worrying too much about different things: 2 = More than half the days Trouble relaxin = Several days Being so restless that it is hard to sit still: 1 = Several days Becoming easily annoyed or irritable: 1 = Several days Feeling afraid as if something awful might happen: 0 = Not at all Total DENISA-7 score (0-4 normal; 5-9 mild; 10-14 moderate; 15-21 severe): 9 Source: Developed by Drs. Fortunato Perez, Carol Navarrete, Fan Paolmares and colleagues, with an educational lexie from [employer]. DENISA-7 Assessment Billing DENISA-7 Assessment Tool: DENISA-7 Assessment 19037 Review of Systems Const All systems reviewed & are unremarkable except as noted in HPI and below Card Denies chest pain at rest, Denies chest pain with activity, Denies edema, Denies irregular heart rhythm, Denies claudication, Denies dyspnea, Denies dyspnea on exertion, Denies orthopnea, Denies paroxysmal nocturnal dyspnea and Denies slow heart rate Resp Denies cough, Denies dyspnea and Denies dyspnea on exertion GI Denies abdominal pain, Denies change in bowel habits, Denies excessive flatus, Denies nausea and Denies vomiting Denies urinary incontinence, Denies urinary hesitancy and Denies urinary urgency Musc Denies atrophy, Denies deformity and Denies limited range of motion Skin/Breast Denies bleeding lesions, Denies changing lesions and Denies rash Physical exam (Primary Care) Vital Signs: Last Vital Signs BP 112/80 11/02/23 10:59 BMI result Body Mass Index 35.1 BMI Assessment/Plan discussion: High BMI High, discussed plan: lifestyle, weight reduction, dietary and physical activity Tobacco/Smoking Status: Tobacco use Status Tobacco use date assessed 11/02/23 11/02/23 11:03 Patient Tobacco Use Status Never used Tobacco 11/02/23 11:19 e-Cigarette/Vaping Use Never Used 11/02/23 11:19 PHQ-9: PHQ-9 Score PHQ-9: Total score 6 11/02/23 11:20 Depression Screening Interpretation: Positive Depression Screening Follow-up: Existing condition and Follow-up Visit Requested Thrive Assessment: Date of Thrive Assessment Date Thrive assessed 11/02/23 11/02/23 11:03 Currently or been in a relationship where the following occur: No concerns reported [facility] Head: Yes normal to inspection, Yes normocephalic and Yes atraumatic Ears: external ears normal Eyes General: appearance normal, both eyes and all related structures Eyelids: Yes eyelids normal Conjunctivae: conjunctivae normal Neck Neck: Yes normal visual inspection and Yes supple Resp Effort & Inspection: normal respiratory effort Auscultation: clear to auscultation bilaterally Cardio Jugular venous distension: no JVD Rate: regular rate Rhythm: regular rhythm Heart sounds: S1 normal heart sound present and S2 normal heart sound present GI Inspection: Yes normal to inspection Palpation (GI): Soft to palpation and nontender Auscultation: normal bowel sounds Skin General skin exam: no rashes or lesions noted Neuro General: no focal motor deficits Extrem General: Yes full ROM Psych Appearance: grossly normal Assessment and Plan Assessment & Plan (1) Physical exam: Code(s): Z00.00 - Encounter for general adult medical examination without abnormal findings Plan: Repeat in a year. (2) Abscess: Code(s): L02.91 - Cutaneous abscess, unspecified Plan: Referred to surgery. (3) Obesity (BMI 35.0-39.9 without comorbidity): Code(s): E66.9 - Obesity, unspecified Plan: Start Wegovy. BMI goal is less than 30. Orders: Orders Lipid Panel Today Z00.00 - Encounter for general adult medical examination without abnormal findings Comprehensive [place]. Panel Fast Today Z00.00 - Encounter for general adult medical examination without abnormal findings Referrals General Surgery Referral L02.91 - Cutaneous abscess, unspecified Medications: Refilled semaglutide (weight loss) (Wegovy) administer weeks 1 through 4 of therapy 0.25 mg (0.5 mL) subcut QWEEK 2 mL 0RF 4 weeks E66.9 - Obesity, unspecified semaglutide (weight loss) (Wegovy) administer weeks 1 through 4 of therapy 0.25 mg (0.5 mL) subcut QWEEK 4 weeks 2 mL 0RF E66.9 - Obesity, unspecified Coding Level of Care Code Est Pt Level 3 (73703) Est Pt Prev Care 18-39y(29018) Diagnoses Physical exam Z00.00 Abscess L02.91 Obesity (BMI 35.0-39.9 without comorbidity) E66.9 Additional Codes DENISA-7 Assessment Billing - DENISA-7 Assessment Tool: DENISA-7 Assessment 99058 ([id number]) Time Spent (min) 33
[2023-11-02 10:59] VITALS: BP 112/80; BMI 35.1
== END 2023-11-02 11:31 | disposition home or self-care (01) ==
PROVIDERS: PCP Internal Medicine; Visit Provider Internal Medicine
DX: Z00.00 Encounter for general adult medical examination without abnormal findings (principal); L02.91 Cutaneous abscess, unspecified; E66.9 Obesity, unspecified; Z68.35 Body mass index [BMI] 35.0-35.9, adult

== ENCOUNTER 2023-12-01 18:44 | Emergency (ER) | payer OTHER, SELFPAY ==
--- NOTE | 2023-12-01 18:45 | ECG_ITS ---
Test Reason : CHEST PAIN Blood Pressure : / mmHG Vent. Rate : 091 BPM Atrial Rate : 091 BPM P-R Int : 158 ms QRS Dur : 072 ms QT Int : 364 ms P-R-T Axes : 048 016 030 degrees QTc Int : 447 ms Normal sinus rhythm Anterior infarct , age undetermined Abnormal ECG When compared with ECG of 22-MAR-2023 07:24, T wave inversion now evident in Anterior leads Referred By: Generic ED Physician Electronically Signed By:
[2023-12-01 18:47] VITALS: BP 129/91; PULSE 89; RESP 18; TEMP 36.9; O2SAT 99; BMI 35.3
--- NOTE | 2023-12-01 18:59 | MHC.EDTECH ---
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
[2023-12-01 19:09] LABS: MANUAL DIFF FLAG NO
[2023-12-01 19:12] LABS: Basophils Absolute Auto 0.1 X10*3/uL (0.0-0.2); Basophils Percent Auto 0.4 % (0-2); Eosinophils Absolute Auto 0.2 X10*3/uL (0.0-0.4); Eosinophils Percent Auto 1.2 % (0-4); Hemoglobin 13.2 g/dl (12.0-16.0); Imm Gran Abs Auto 0.04 X10*3/uL (0.00-0.03); Imm Gran Pct Auto 0.3 % (0.0-0.4); Lymphocytes Absolute Auto 1.9 X10*3/uL (1.2-4.9); Lymphocytes Percent Auto 14.2 % (20-40); Mean Corpuscular HGB Conc 33.8 g/dl (31.0-35.0); Mean Corpuscular Hemoglobin 30.3 pg (27.0-33.0); Mean Corpuscular Volume 89.7 fL (80.0-98.0); Mean Platelet Volume 8.9 fL (9.4-12.3); Monocytes Absolute Auto 0.6 X10*3/uL (0.1-1.2); Monocytes Percent Auto 4.7 % (2-11); Neutrophils Absolute Auto 10.8 x10*3/uL (2.0-8.3); Neutrophils Percent Auto 79.2 % (45-73); Platelet Count 227 X10*3/uL (160-400); Red Blood Count 4.35 X10*6/uL (4.20-5.50); Red Cell Distribution Width 12.7 % (11.0-16.0); White Blood Count 13.7 X10*3/uL (4.8-10.8)
--- NOTE | 2023-12-01 19:19 | MHC.EDTECH ---
Patient blood drawn and urine sample collected all sent to lab .
[2023-12-01 19:29] LABS: Alanine Aminotransferase 34 U/L (0-31); Albumin Level 3.9 g/dL (3.5-5.0); Alkaline Phosphatase 97 U/L (39-117); Anion Gap 16 (12-20); Aspartate Amino Transferase 19 U/L (5-31); Bilirubin Total 0.3 mg/dL (0.0-1.0); Blood Urea Nitrogen 14 mg/dL (9-16); Calcium 8.6 mg/dL (8.4-10.2); Carbon Dioxide 25 mmol/L (22-29); Chloride 106 mmol/L (96-108); Creatinine Clr Calc Pharmacy 74.6; Estimated Glomerular Filt Rate 58; Glucose Random 99 mg/dL (60-115); Magnesium 1.7 mg/dL (1.6-2.6); Potassium 3.9 mmol/L (3.3-5.1); Sodium 143 mmol/L (135-145)
[2023-12-01 19:40] LABS: Troponin-I High Sensitivity < 2.7 ng/L (<3.5-17.0)
[2023-12-01 19:40] LABS: Appearance Urine Clear; Color Urine Yellow; Glucose Urine UA Negative (Negative); Leukocyte Esterase Urine Small (1+) (Negative); Nitrite Urine Negative (Negative); PH 8.5 (5.0-9.0); UMIC TRIGGER UACC YES; Urine Blood Trace (Negative); Urine Ketones Negative (Negative); Urine Protein Negative (Neg-Trace)
[2023-12-01 19:45] LABS: Bacteria Urine Trace (None Seen); Hyaline Casts Urine 0-2 /LPF (0-2); UACC Culture Trigger YES; WBC Urine 21-50 /HPF (0-5)
[2023-12-01 21:13] VITALS: BP 97/67; PULSE 74; RESP 20; TEMP 36.9; O2SAT 97
--- NOTE | 2023-12-01 21:27 | ED_ITS ---
HPI - Chest Pain General Chief Complaint: Chest Pain Stated Complaint: chest pain Time Seen by Provider: 12/01/23 21:19 Source: patient and family Mode of arrival: ambulatory Limitations: no limitations History of Present Illness ED Provider: HPI narrative: Patient woke up at 2am this morning with chest pain that has not gone away. She denies shortness of breath, no reflux, no anxiety or depression. Patient denies chest pain with exertion. Related Data Previous Rx's ?Medication ?Instructions ?Recorded semaglutide (weight loss) 0.25 0.25 mg (0.5 mL) subcut QWEEK 4 11/02/23 mg/0.5 mL subcutaneous pen weeks #2 mL injector ([employer]) fluconazole 150 mg tablet 150 mg PO Q3D 2 doses #2 tabs 11/30/23 naproxen 500 mg tablet (Naprosyn) 500 mg PO BID #20 tabs 12/01/23 Allergies Allergy/AdvReac Type Severity Reaction Status Date / Time amoxicillin [AMOXICILLIN] Allergy Intermediate SWELLING Verified 12/01/23 18:51 OF VAGINAL AREA , vaginal itching Review of Systems 2 Review of Systems: Yes all other systems are reviewed and are negative Neurologic: Denies Sensory deficit (Neuro) [facility] Past Medical History Medical History History of blood transfusion Physical exam Helicobacter pylori (H. pylori) Gallbladder polyp Class 1 obesity with body mass index (BMI) of 33.0 to 33.9 in adult GERD (gastroesophageal reflux disease) Right upper quadrant abdominal pain Migraines Photosensitivity Mild asthma Breast implant status Surgical History History of cholecystectomy History of esophagogastroduodenoscopy (EGD) History of blepharoplasty Urethral diverticulum History of tubal ligation History of abdominoplasty Hx of breast implants, bilateral History of wisdom tooth extraction Family History Family History Father Diabetes Mother No problems noted. Maternal Grandmother Diabetes Pacemaker CVD (cardiovascular disease) Paternal Grandfather Alcoholism Substance use disorder Family/Other ADHD Chronic mental illness Asthma Social History Social History Housing: House Alcohol intake: current Alcohol intake frequency: holidays/special occasions only Alcohol type: wine and other Patient Tobacco Use Status: Never used Tobacco e-Cigarette/Vaping Use: Never Used Second Hand Smoke Exposure: No Advance Directives: No Advance Directives Information Provided: No Do you have a plan to hurt others: No Plan service: No Current occupational status: employed Current occupational exposures/hazards: No Cognitive needs: No Hearing needs: No Vision needs: No Physical Exam 2 Vital Signs: Vital Signs: Last Vital Signs Temp 98.4 F 12/01/23 21:13 Pulse 74 12/01/23 21:13 Resp 20 12/01/23 21:13 BP 97/67 12/01/23 21:13 Pulse Ox 97 12/01/23 21:13 O2 Del Method Room Air 12/01/23 21:13 BMI result Body Mass Index 35.3 Const: General: healthy appearing Nutritional Appearance: average body habitus Orientation/consciousness: oriented to person and patient oriented x3 Limitations: no limitations HEENT: Head: Yes normal to inspection Ears: external ears normal General nose exam: Normal external nose present Mouth: Normal oral and palatal mucosa present and oropharynx normal Throat: Yes posterior oropharynx normal Eyes: General: appearance normal, both eyes and all related structures Neck: Other: supple Neck: Yes normal visual inspection Chest: Other: there is reproducible chest pain on palpation Resp: Auscultation: clear to auscultation bilaterally Cardio: Jugular venous distension: no JVD Rate: regular rate Rhythm: r egular rhythm Heart sounds: S1 normal heart sound present and S2 normal heart sound present GI: Inspection: Yes normal to inspection Palpation (GI): Soft to palpation, nontender and No hepatosplenomegaly present Auscultation: normal bowel sounds : General: Yes no CVA tenderness Back/Spine/Pelvis: Back: no CVA tenderness Skin: General skin exam: no rashes or lesions noted Neuro: General: oriented to person and patient oriented x3 Cranial nerves: Yes CN's II-XII intact bilaterally Motor exam (neuro): 5/5 motor strength present throughout Sensory Exam: No Sensory deficit (Neuro) Extrem: General: Yes normal to inspection Psych: Appearance: grossly normal Course Reevaluation(s) Reevaluation #1: EKG normal, troponin negative, no cough or fever, reproducible pain on palpation, will treat with nsaids Time: 21:37 Medical Decision Making Differential Diagnosis Differential Diagnoses: The differential diagnosis associated with the presentation includes (cardiac ischemia, pericarditis, costrochondritis) Admission/Observation Consideration of admission/observation: Escalation of care including admission/observation considered (upon arrival patient was considered for admission) Lab Data 12/01/23 19:04 12/01/23 19:04 Labs: Lab Results 12/01/23 12/01/23 Range/Units 19:04 19:18 WBC 13.7 H (4.8-10.8) X10*3/uL RBC 4.35 (4.20-5.50) X10*6/uL Hgb 13.2 (12.0-16.0) g/dl Hct 39.0 (37.0-47.0) % MCV 89.7 (80.0-98.0) fL MCH 30.3 (27.0-33.0) pg MCHC 33.8 (31.0-35.0) g/dl RDW 12.7 (11.0-16.0) % Plt Count 227 (160-400) X10*3/uL MPV 8.9 L (9.4-12.3) fL Immature Gran % (Auto) 0.3 (0.0-0.4) % Neut % (Auto) 79.2 H (45-73) % Lymph % (Auto) 14.2 L (20-40) % [place] % (Auto) 4.7 (2-11) % Eos % (Auto) 1.2 (0-4) % Baso % (Auto) 0.4 (0-2) % Lymph # (Auto) 1.9 (1.2-4.9) X10*3/uL [place] # (Auto) 0.6 (0.1-1.2) X10*3/uL Eos # (Auto) 0.2 (0.0-0.4) X10*3/uL Baso # (Auto) 0.1 (0.0-0.2) X10*3/uL Abs Immat Gran (auto) 0.04 H (0.00-0.03) X10*3/uL Absolute Neuts (auto) 10.8 H (2.0-8.3) x10*3/uL Absolute Nucleated RBC 0.000 (0.0-0.012) X10*3/uL Nucleated RBC % (auto) 0.0 (0.0-0.2) /100WBC Sodium 143 (135-145) mmol/L Potassium 3.9 (3.3-5.1) mmol/L Chloride 106 (96-108) mmol/L Carbon Dioxide 25 (22-29) mmol/L Anion Gap 16 (12-20) BUN 14 (9-16) mg/dL Creatinine 1.07 (0.5-1.4) mg/dL Estim Creat Clear Calc 74.6 Estimated GFR 58 Random Glucose 99 (60-115) mg/dL Calcium 8.6 (8.4-10.2) mg/dL Magnesium 1.7 (1.6-2.6) mg/dL Total Bilirubin 0.3 (0.0-1.0) mg/dL AST 19 (5-31) U/L ALT 34 H (0-31) U/L Alkaline Phosphatase 97 (39-117) U/L Troponin I High Sens < 2.7 (<3.5-17.0) ng/L Total Protein 7.0 (6.5-8.0) g/dL Albumin 3.9 (3.5-5.0) g/dL Urine Color Yellow Urine Appearance Clear Urine pH 8.5 (5.0-9.0) Ur Specific [place] 1.020 (1.005-1.025) Urine Protein Negative (Neg-Trace) mg/dL Urine Glucose (UA) Negative (Negative) mg/dL Urine Ketones Negative (Negative) mg/dL Urine Blood Trace H (Negative) Urine Nitrite Negative (Negative) Ur Leukocyte Esterase Small (1+) H (Negative) Urine RBC 3-5 H (0-2) /HPF Urine WBC 21-50 H (0-5) /HPF Ur Squamous Epith Cells 3-5 (0-2) /HPF Urine Bacteria Trace (None Seen) Hyaline Casts 0-2 (0-2) /LPF Independent Interpretation I performed an independent interpretation of an: EKG (sinus 90, no st or twave changes) Independent Historian Clinical information obtained from an independent historian. History obtained from or confirmed by: Parent Tests considered The following testing was considered but not selected: CXR considered but no cough, no rales no sob Discharge Plan Discharge Clinical Impression: Costalchondritis Patient Disposition: Home, Self-Care Instructions: Costochondritis (ED), Thoracic Pain (ED) Prescriptions: New naproxen [Naprosyn] 500 mg tablet 500 mg PO BID Qty: 20 0RF No Action fluconazole 150 mg tablet 150 mg PO Q3D Qty: 2 0RF Wegovy 0.25 mg/0.5 mL pen injector 0.25 mg subcut QWEEK 28 Days Qty: 2 0RF Rx Instructions: administer weeks 1 through 4 of therapy Referrals: Mireille Mari MD [Primary Care Provider] - 3 days Print Language: [place] Citizen
--- NOTE | 2023-12-01 21:35 | PC.NURSE ---
pt from lobby, assume care of pt at this time
[2023-12-01] MEDS: Ketorolac Tromethamine 60 MG/2 ML VIAL IM (21:41)
[2023-12-01 21:45] VITALS: PULSE 72
[2023-12-01 21:52] VITALS: BP 97/67; PULSE 74; RESP 20; TEMP 36.9; O2SAT 97
== END 2023-12-01 21:51 | disposition home or self-care (01) ==
PROVIDERS: Emergency Provider Emergency Medicine; PCP Internal Medicine
DX: M94.0 Chondrocostal junction syndrome [Tietze] (principal); R07.9 Chest pain, unspecified; J45.20 Mild intermittent asthma, uncomplicated; K21.9 Gastro-esophageal reflux disease without esophagitis
CPT/HCPCS: 36415; 80053; 81001; 83735; 84484; 85025; 87086; 93005; 96372; 99284; 99285; J1885

== ENCOUNTER 2024-01-18 20:37 | Emergency (ER) | payer OTHER, SELFPAY ==
[2024-01-18 20:40] VITALS: BP 150/84; PULSE 85; RESP 16; TEMP 36.3; O2SAT 97; BMI 36.0
--- NOTE | 2024-01-18 20:46 | ED.SKABFB ---
HPI - Skin/Abscess/Foreign Bdy General Chief complaint: Skin/Abscess/Foreign Body Stated complaint: Kidney pain and rash, ?Shingles rash Time Seen by Provider: 01/18/24 20:41 Source: patient and RN notes reviewed Mode of arrival: ambulatory Limitations: no limitations History of Present Illness ED Provider: MICHAELA ABBASI PA-C HPI narrative: 38-year-old female with past medical history significant for GERD, H pylori ( has been treated 2x), asthma, migraines presents to the ED today for evaluation of rash to her right flank. She reports a sharp burning pain to her right flank approximately 1 week ago. She then began to notice a rash to the area 4 days ago. Admits to history of chickenpox as a child. Admits to recent stressors. Denies new soaps, lotions, detergents. No tick or insect bites. No recent antibiotics. Denies fever, chills, N/V, urinary symptoms, abd pain. Related Data Previous Rx's ?Medication ?Instructions ?Recorded semaglutide (weight loss) 0.25 0.25 mg (0.5 mL) subcut QWEEK 4 11/02/23 mg/0.5 mL subcutaneous pen weeks #2 mL injector ([employer]) fluconazole 150 mg tablet 150 mg PO Q3D 2 doses #2 tabs 11/30/23 naproxen 500 mg tablet (Naprosyn) 500 mg PO BID #20 tabs 12/01/23 tirzepatide (weight loss) 2.5 2.5 mg (0.5 mL) subcut QWEEK 4 12/13/23 mg/0.5 mL subcutaneous pen weeks #2 mL injector (Zepbound) semaglutide (weight loss) 0.5 0.5 mg (0.5 mL) subcut QWEEK 4 01/02/24 mg/0.5 mL subcutaneous pen weeks #2 mL injector ([employer]) valacyclovir 1 gram tablet 1,000 mg PO TID 7 days #21 tabs 01/18/24 (Valtrex) semaglutide (weight loss) 1 mg/0.5 1 mg (0.5 mL) subcut Q7D 4 weeks 01/23/24 mL subcutaneous pen injector #2 mL (Wegovy) Allergies Allergy/AdvReac Type Severity Reaction Status Date / Time No Known Allergies Allergy Verified 01/18/24 20:42 Review of Systems Review of Systems: Constitutional: No fever, chills, fatigue, night sweats, weight changes ENT/Mouth: No ear pain, hearing loss, nasal congestion, sinus pain, rhinorrhea, sore throat Eyes: No eye pain, swelling, redness, vision changes, discharge Cardio: No chest pain, palpitations, HODGE, orthopnea, peripheral edema Pulm: No SOB, cough, sputum, wheezing, dyspnea, hemoptysis GI: No nausea, vomiting, hematemesis, abdominal pain, diarrhea, constipation, hematochezia, melena : No irregular bleeding, dysuria, frequency, urgency, hesitancy, hematuria, flank pain, urinary flow changes, urinary incontinence or retention MSK: No back pain, neck pain, joint pain, myalgias Skin: No lesions, +rash Neuro: No weakness, numbness, paresthesias, LOC, dizziness, headache Psych: No anxiety/panic, depression, SI/HI, AH/VH All other systems reviewed and are negative. [facility] Past Medical History Attestation statement: The following information was validated with the patient. Source: old records reviewed and nursing notes reviewed Medical History History of blood transfusion Physical exam Helicobacter pylori (H. pylori) Gallbladder polyp Class 1 obesity with body mass index (BMI) of 33.0 to 33.9 in adult GERD (gastroesophageal reflux disease) Right upper quadrant abdominal pain Migraines Photosensitivity Mild asthma Breast implant status Surgical History History of cholecystectomy History of esophagogastroduodenoscopy (EGD) History of blepharoplasty Urethral diverticulum History of tubal ligation History of abdominoplasty Hx of breast implants, bilateral History of wisdom tooth extraction Family History Family History Father Diabetes Mother No problems noted. Maternal Grandmother Diabetes Pacemaker CVD (cardiovascular disease) Paternal Grandfather Alcoholism Substance use disorder Family/Other ADHD Chronic mental illness Asthma Social History Social History Housing: House Alcohol intake: current Alcohol intake frequency: holidays/special occasions only Alcohol type: wine and other Patient Tobacco Use Status: Never used Tobacco e-Cigarette/Vaping Use: Never Used Second Hand Smoke Exposure: No Advance Directives: No Advance Directives Information Provided: No Do you have a plan to hurt others: No Plan service: No Current occupational status: employed Current occupational exposures/hazards: No Cognitive needs: No Hearing needs: No Vision needs: No Physical Exam Vital Signs: Vital Signs: Last Vital Signs Temp 97.4 F 01/18/24 20:50 Pulse 85 01/18/24 20:50 Resp 16 01/18/24 20:50 BP 150/84 H 01/18/24 20:50 Pulse Ox 97 01/18/24 20:50 O2 Del Method Room Air 01/18/24 20:50 BMI result Body Mass Index 36.0 General: Well appearing, in no acute distress. Skin: + erythematous pustules in linear distribution noted along right T7/T8 dermatome (right flank). does not cross midline. no sloughing. no involvement of mucous membranes, webbed spaces, palms/soles, no target lesions. Head: Normocephalic, atraumatic. EENT: Hearing is intact b/l. Conjunctiva clear. PERRLA. EOM intact. Moist mucous membranes.? Cardiac: Chest wall symmetric. RRR Lungs: Normal respiratory effort without accessory muscle use. CTA bilaterally Neuro: AOx3. Normal speech. Ambulating with steady gait. Psych: Appropriate mood and affect. Responds appropriately to questions. Course Course Course Narrative: Rash consistent with shingles. valtrex presribed. Patient has remained stable throughout ED visit today. Discussed worrisome signs and symptoms and when to return to the ED. All questions answered at this time. Patient is agreeable with disposition and stable for discharge. Medical Decision Making Medical Decision Making MDM Narrative: 38-year-old female with past medical history significant for GERD, H pylori ( has been treated 2x), asthma, migraines presents to the ED today for evaluation of rash to her right flank. Patient is hypertensive, vitals are otherwise wnl. she is nontoxic appearing and in NAD. Exam significant for erythematous pustules in linear distribution noted along right T7/T8 dermatome (right flank). does not cross midline. no sloughing. no involvement of mucous membranes, webbed spaces, palms/soles, no target lesions. Rash consistent with herpes zoster.? Differential diagnosis includes contact/atopic/eczematous dermatitis, psoriasis. History and exam findings not consistent with lyme/tick bourne illness, herpes simplex, scabies, HFM,? dangerous etiologies of rash such as SJS/TEN, or secondary dangerous causes such as petechial rashes from thrombocytopenia or rickettsial infections.? Plan at this time is to treat symptomatically, instruct to follow up with PCP or derm PRN. Differential Diagnosis Differential Diagnoses: The differential diagnosis associated with the presentation includes as above. Admission/Observation Not indicated. External Record Review External record reviewed: Inpatient record, Office record, Outpatient record, Prior outpatient labs, Prior outpatient radiology, Primary care record and Outside ED record Prescription Management I considered prescription management with: Antiviral (Valtrex) Social Determinants Patient?s care significantly limited by Social Determinants of Health including: Other Social Determinant of Health Critical Care Time Critical Care Time Critical Care Time: No Discharge Plan Discharge Clinical Impression: Herpes zoster Patient Disposition: Home, Self-Care Instructions: Shingles (ED) Additional Instructions: You were evaluated in the ED today for a rash. Your rash is consistent with shingles. Treatment for this is an antiviral medication called valtrex. This has been sent to your pharmacy for treatment. Take tylenol or motrin at home for pain/ discomfort. Return with new or worsening symptoms. In the case of an emergency call 911. Prescriptions: New valacyclovir [Valtrex] 1 gram tablet 1,000 mg PO TID 7 Days Qty: 21 0RF No Action fluconazole 150 mg tablet 150 mg PO Q3D Qty: 2 0RF Zepbound 2.5 mg/0.5 mL pen injector 2.5 mg subcut QWEEK 28 Days Qty: 2 0RF Rx Instructions: for 4 weeks Wegovy 0.5 mg/0.5 mL pen injector 0.5 mg subcut QWEEK 28 Days Qty: 2 0RF Rx Instructions: administer weeks 5 through 8 of therapy Wegovy 1 mg/0.5 mL pen injector 1 mg subcut Q7D 28 Days Qty: 2 0RF naproxen [Naprosyn] 500 mg tablet 500 mg PO BID Qty: 20 0RF Wegovy 0.25 mg/0.5 mL pen injector 0.25 mg subcut QWEEK 28 Days Qty: 2 0RF Rx Instructions: administer weeks 1 through 4 of therapy Referrals: Mireille Mari MD [Primary Care Provider] - Interventions: ED Discharge Assessment Last Done: 01/18/24 20:50 Discharge Date/Time: 01/18/24 20:50 Print Language: Kiswahili
[2024-01-18 20:50] VITALS: BP 150/84; PULSE 85; RESP 16; TEMP 36.3; O2SAT 97
== END 2024-01-18 20:50 | disposition home or self-care (01) ==
PROVIDERS: Emergency Provider Emergency Medicine; PCP Internal Medicine
DX: B02.8 Zoster with other complications (principal); N23 Unspecified renal colic; R21 Rash and other nonspecific skin eruption; Z79.899 Other long term (current) drug therapy
CPT/HCPCS: 99282; 99283

== ENCOUNTER 2024-02-15 11:57 | Outpatient (AMB) | payer OTHER, SELFPAY ==
[2024-02-15 13:46] VITALS: BP 118/76; PULSE 83; O2SAT 98
--- NOTE | 2024-02-15 13:46 | AM.OFFWIN_ITS ---
Intake Vital Signs 02/15/24 13:46 Weight 192 lb BP 118/76 Blood Pressure Location Rt brachial Position Sitting Pulse 83 Pulse Source Pulse Oximeter Pulse Oximetry (%) 98 Oxygen Delivery Method Room Air Intake Visit Reasons: EP Lump under rt breast Intake Note: Patient here for lump on right breast that she noticed last night, she would also like to address left arm pain that started about 2 months ago. Patient Tobacco Use Status: Never used Tobacco Allergies No Known Allergies Allergy (Verified 02/15/24 13:48) Do you need a note to return to daycare/school/sports/work: No HPI HPI Comments History of Present Illness Details History of Present Illness - The patient is a 38-year-old female pr esenting with a palpable breast lump. - [facility], without recent changes in menstrual cycle. - Breast implants changed from saline 3 to 4 years ago; the current type is described as ?al bear?. - Described as tender but not painful, w ith no discharge or bleeding from the nipple and no skin changes reported. - Normal breast ultrasound was performed in February 2020. - No mammogram history reported. No fami ly history of br ca noted. Physical Exam General: Cooperative, healthy appearing, comfortable, no acute distress and well developed Orientation: Patient oriented x3 Limitations: No limitations Head: Normal to inspection Ears: Hearing grossly normal bilaterally Nose: Normal Nxternal nose present Face and sinus: ormal facial exam Eyes: Appearance normal, both eyes and all related structures Neck: Normal visual inspection and Yes full ROM Chest: Right breast, no skin changes, palpable 2cm round mass, mobile, at 6 o'clock position. Nipple is normal appearing, no discharge noted. Respiratory: Normal respiratory effort and able to speak in complete sentences. Skin: No rashes or lesions noted Neuro: Patient oriented x3 Extremities: Normal to inspection [facility] Medical History History of blood transfusion Physical exam Helicobacter pylori (H. pylori) Gallbladder polyp Class 1 obesity with body mass index (BMI) of 33.0 to 33.9 in adult GERD (gastroesophageal reflux disease) Right upper quadrant abdominal pain Migraines Photosensitivity Mild asthma Breast implant status Surgical History History of cholecystectomy History of esophagogastroduodenoscopy (EGD) History of blepharoplasty Urethral diverticulum History of tubal ligation History of abdominoplasty Hx of breast implants, bilateral History of wisdom tooth extraction Family History Father Diabetes Mother No problems noted. Maternal Grandmother Diabetes Pacemaker CVD (cardiovascular disease) Paternal Grandfather Alcoholism Substance use disorder Family/Other ADHD Chronic mental illness Asthma Social History Housing: House Alcohol intake: current Alcohol intake frequency: holidays/special occasions only Alcohol type: wine and other Patient Tobacco Use Status: Never used Tobacco e-Cigarette/Vaping Use: Never Used Second Hand Smoke Exposure: No service: No Current occupational status: employed Current occupational exposures/hazards: No Cognitive needs: No Hearing needs: No Vision needs: No Female Reproductive History Menstrual Age of Menarche: 14 Review of Systems Const All systems reviewed & are unremarkable except as noted in HPI and below Physical Exam Vital Signs: Last Vital Signs Pulse 83 02/15/24 13:46 BP 118/76 02/15/24 13:46 Pulse Ox 98 02/15/24 13:46 Oxygen Delivery Method Room Air 02/15/24 13:46 Assessment & Plan Assessment & Plan (1) Breast lump on right side at 6 o'clock position: Code(s): N63.15 - Unspecified lump in the right breast, overlapping quadrants Plan: The primary concern involves the evaluation of a palpable lump in the right breast. I have communicated with Dr. Hernandez to potentially schedule an ultrasound and/or mammogram given the discovery of the lump post-previous normal findings. The patient will be informed by Dr. Hernandez or a covering provider, with the aim of thorough evaluation to exclude pathological breast changes. Patient was informed and verbally consented to the use of an ambient scribe for clinic note documentation during this visit. Coding Level of Care Code Est Pt Level 4 (77128) Diagnoses Breast lump on right side at 6 o'clock position N63.15
== END 2024-02-15 14:20 | disposition home or self-care (01) ==
PROVIDERS: PCP Internal Medicine; Visit Provider Physician Assistant
DX: N63.15 Unspecified lump in the right breast, overlapping quadrants (principal)

== ENCOUNTER → 2024-02-15 11:57 | Outpatient (BNVA) | payer OTHER, SELFPAY | PROVIDERS: PCP Internal Medicine; Visit Provider Physician Assistant | DX: N63.15 Unspecified lump in the right breast, overlapping quadrants (principal) | CPT/HCPCS: 99212 ==

== ENCOUNTER 2024-02-16 08:22 | Outpatient (AMB) | payer OTHER, SELFPAY ==
--- NOTE | 2024-02-16 08:26 | A.OFFPC_ITS ---
Vital Signs 3 02/16/24 08:27 Height 5 ft 2 in Weight 191 lb 8 oz BMI 35.0 BP 132/82 Blood Pressure Location Lt brachial Position Sitting Pulse 76 Pulse Source Pulse Oximeter Pulse Oximetry (%) 98 Oxygen Delivery Method Room Air Intake Visit Reasons: Breast lump/Dr. Hernandez pt Intake Note: Patient is here to follow up on Right Breast Lump and left forearm pain. 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 Hernandez pt 2 HPI0 Details The patient is a 38-year-old female presenting with a breast lump and renal function elevation. The patient reported noticing a lump on the right side of the breast, characterized by discomfort upon touch, with no associated redness or discharge. She noted the lump on Monday night but believes it has been present for some time, previously going unnoticed. There is no prior history of similar issues or infections in the breast area. In addition to the breast issue, the patient had a previous episode of shingles in December, with appropriate treatment received at that time. Recent blood work indicated a slightly elevated creatinine level of 1.07, which is concerning for her age, although still within normal limits. The patient reported occasional use of analgesics such as ibuprofen, and she has been prescribed Phentermine for weight loss. Her past medical history is significant for a cholecystectomy following gallbladder issues, leading to elevated liver enzymes which have since normalized. A CAT scan in 2021 revealed a left kidney stone, and she acknowledged insufficient water intake, which could exacerbate this issue. The patient also mentioned elbow pain attributed to repetitive motion from her occupation, suspected to be lateral epicondylitis. [facility] Medical History History of blood transfusion Physical exam Helicobacter pylori (H. pylori) Gallbladder polyp Class 1 obesity with body mass index (BMI) of 33.0 to 33.9 in adult GERD (gastroesophageal reflux disease) Right upper quadrant abdominal pain Migraines Photosensitivity Mild asthma Breast implant status Surgical History History of cholecystectomy History of esophagogastroduodenoscopy (EGD) History of blepharoplasty Urethral diverticulum History of tubal ligation History of abdominoplasty Hx of breast implants, bilateral History of wisdom tooth extraction Family History Father Diabetes Mother No problems noted. Maternal Grandmother Diabetes Pacemaker CVD (cardiovascular disease) Paternal Grandfather Alcoholism Substance use disorder Family/Other ADHD Chronic mental illness Asthma Social History Housing: House Alcohol intake: current Alcohol intake frequency: holidays/special occasions only Alcohol type: wine and other Patient Tobacco Use Status: Never used Tobacco e-Cigarette/Vaping Use: Never Used Second Hand Smoke Exposure: No service: No Current occupational status: employed Current occupational exposures/hazards: No Cognitive needs: No Hearing needs: No Vision needs: No Female Reproductive History Menstrual Age of Menarche: 14 Questionnaire PHQ-9 Over the last 2 weeks, how often have you been bothered by any of the following problems? 1. Little interest or pleasure in doing things: not at all 2. Feeling down, depressed, or hopeless: not at all 3. Trouble falling or staying asleep, or sleeping too much: not at all 4. Feeling tired or having little energy: not at all 5. Poor appetite or overeating: not at all 6. Feeling bad about yourself - or that you are a failure or have let yourself or your family down: not at all 7. Trouble concentrating on things, such as reading the newspaper or watching television: not at all 8. Moving or speaking so slowly that other people could have noticed. Or the opposite - being so fidgety or restless that you have been moving around a lot more than usual: not at all 9. Thoughts that you would be better off or of hurting yourself in some way: not at all Total score: 0 Depression Screening Interpretation: Negative Depression Screening Done: Yes Source: Developed by Drs. Fortunato Perez, Carol Navarrete, Fan Palomares and colleagues, with an educational lexie from [employer]. Thrive Questionnaire Date Thrive assessed: 02/16/24 I am a: Patient What is your living situation today?: I have a steady place to live Within the past 12 months, did the food you bought not last and you didn't have the money to get more?: Never true Within the past 12 months, did you worry whether your food would run out before you got money to buy more?: Never true Do you have trouble paying for medicines?: No Do you have trouble getting transportation to medical appointments?: No Do you have trouble paying your heating and electricity bill?: No Do you have trouble taking care of your child, family member or friend?: No Do you have trouble with day-to-day activities such as bathing, preparing meals, shopping, managing finances, etc.?: No Are you currently unemployed and looking for a job?: No Are you interested in more education?: No Please select the resources that you would like help with: None Currently or been in a relationship where the following occur: No concerns reported THRIVE Score: 0 AUDIT C Alcohol Use Questionnaire (AUDIT-C) 1. How often do you have a drink containing alcohol?: Never Total Score: 0 DENISA-7 AMB Questionnaire DENISA-7 Date DENISA - 7 assessed: 02/16/24 Feeling nervous, anxious, or on edge: 0 = Not at all Not being able to stop or control worryin = Not at all Worrying too much about different things: 0 = Not at all Trouble relaxin = Not at all Being so restless that it is hard to sit still: 0 = Not at all Becoming easily annoyed or irritable: 0 = Not at all Feeling afraid as if something awful might happen: 0 = Not at all Total DENISA-7 score (0-4 normal; 5-9 mild; 10-14 moderate; 15-21 severe): 0 Source: Developed by Drs. Fortunato Perez, Carol Navarrete, Fan Palomares and colleagues, with an educational lexie from [employer]. Physical exam (Primary Care) Vital Signs: Last Vital Signs Pulse 76 02/16/24 08:27 BP 132/82 02/16/24 08:27 Pulse Ox 98 02/16/24 08:27 Oxygen Delivery Method Room Air 02/16/24 08:27 BMI result Body Mass Index 35.0 Tobacco/Smoking Status: Tobacco use Status Tobacco use date assessed 02/16/24 02/16/24 08:31 Patient Tobacco Use Status Never used Tobacco 02/16/24 08:31 e-Cigarette/Vaping Use Never Used 02/16/24 08:31 PHQ-9: PHQ-9 Score PHQ-9: Total score 0 02/16/24 08:31 Depression Screening Interpretation: Negative Thrive Assessment: Date of Thrive Assessment Date Thrive assessed 02/16/24 02/16/24 08:31 Currently or been in a relationship where the following occur: No concerns reported Chest Chest/axillae images: 2 1. 3 cm mass noted non tender no redness , 6 oclock position Right Coding Level of Care Code Est Pt Level 4 (36817) Complex EM visit Add On G2211 Diagnoses Breast lump on right side at 6 o'clock position N63.15 Left renal stone N20.0 Left lateral epicondylitis M77.12 Renal insufficiency N28.9 Assessment & Plan Assessment & Plan (1) Breast lump on right side at 6 o'clock position: Code(s): N63.15 - Unspecified lump in the right breast, overlapping quadrants Category: Medical (2) Left renal stone: Comment: 2021 Code(s): N20.0 - Calculus of kidney Category: Medical Plan: keep well hydrated (3) Left lateral epicondylitis: Code(s): M77.12 - Lateral epicondylitis, left elbow Category: Medical Plan: dicsussed about conservative treatment (4) Renal insufficiency: Code(s): N28.9 - Disorder of kidney and ureter, unspecified Category: Medical Plan: discussed concern on decrease GFR at 38 year old- keep well hydrated and judicious use of NSAID Plan - Arrange specialized mammogram and ultrasound for breast lump evaluation, considering the presence of an implant. - Monitor renal function; advise caution with NSAID use due to the elevated creatinine level and provide education on safe analgesic alternatives. - Encourage increased fluid intake to prevent kidney stone enlargement. - - Discuss pmet-yqt-butipus treatments such as Voltaren gel for elbow tendonitis and suggest heat application. Discuss possible interventions like a tendon brace or injections if the pain persists. - Reinforce information on the non-invasive nature of an ultrasound for further evaluation of the left kidney stone, while recommending against unnecessary CAT scans due to radiation exposure. - Schedule follow-up tests to continue monitoring kidney and liver function based on initial blood work results. Orders: Orders 2 MM tomosynthesis diag imp BI Today N63.15 - Unspecified lump in the right breast, overlapping quadrants US breast RT complete Today N63.15 - Unspecified lump in the right breast, overlapping quadrants
[2024-02-16 08:27] VITALS: BP 132/82; PULSE 76; O2SAT 98; BMI 35.0
--- OUTSIDE RECORDS SUMMARY | 2024-02-16 08:27 | XMS_ITS | Continuity of Care Document ---
Author Organization [facility] Address [address] [place] [address] [address] [place] [phone] Phone Care Team Providers Care Sack Keeper Name Role Phone Vito PATRICK, EDUAR, Fortunato ALVARADO Unavailable U navailable Procedures Procedure Date Offic Cons New/estab Mod-hi 60- CT & [place] Duplex Scan-extrem Veins; Comp- CT & [place] Advance Directives Directive Yes / No Effective Date File Name No Information Encounters Encounter Description Practice Location Reason(s) For Visit Diagnoses Date Provider Providers Copied on Encounter [facility], [address] [place] [address] [address]Harjinder [place], [id number], tel:[phone] [facility] No Information 4 Vito PATRICK RVT, RPVI Robert. [address] [place] [address], [id number] , [place]. tel:[phone] Offic Cons New/estab Mod-hi 60- CT & [place] [facility], [address] [place] [address] [address]Harjinder [place], [id number], tel:[phone] [facility] hypertension (idiopathic) without complications of bilateral lower extremityRest less legs syndromeVenou s insufficiency (chronic) (peripheral)P ruritus, unspecifiedCr amp and spasmLocalize d edema 4 Vito PATRICK RVT, RPVI Robert. [address], [place], [id number] , [place]. tel:[phone] Referring Provider: Mireille Hernandez MD, [address], [address] M[place] D/B/A: reecedeedee [place], [address]. tel:[phone] [facility], [address] [facility] [address], [place] Harjinder, [id number], tel:[phone] [facility] [place] [facility] [place] Chronic venous hypertension (idiopathic) with other complications of bilateral lower extremity 4 Vito PATRICK, RVT, RPVI Fortunato. [address] [facility], [address], [place], [place], [id number] , [place]. [phone] Referring Provider: Mireille Hernandez MD, [address] [facility] , [address] Mims D/B/A: [place], [address]. tel:[phone] Family History Family Member Type Diagnosis Age At Onset No Information Payers Payer name Insurance type Covered libertarian ID Authorslim gonzalez(s) [facility] [id number] Social History Type Description Quantity Date Captured Comments Sex Female Smoking Status No Information Chief Complaint And Reason For Visit No Information Reason For Referral Reason For Referral No Information Plan Of Treatment Date Type Action Status Goal Diet education completed Referral Ordered: Weight management: Referral to physician timeframe: 3 Months (related to Body mass index (BMI) 35.0-35.9, adult) ordered Appointment Darleen Gannon BOOKED Appointment Darleen Gannon BOOKED Appointment Darleen Gannon BOOKED Appointment Darleen Gannon BOOKED Appointment Darleen Gannon BOOKED Appointment Darleen Gannon BOOKED Appointment Darleen Gannon BOOKED Appointment Darleen Gannon BOOKED History Of Present Illness Encounter Date Complaint History Of Prese nt Illness No Information Functional Status Date Functional Assessmen t No Information Instructions Date Instruction Additional Infor gordon Patient education booklet given Related to Chronic venous hypertension (idiopathic) without complications of bilateral lower extremity Compression stocking usage as conservative measure Related to Chronic venous hypertension (idiopathic) without complications of bilateral lower extremity Lifestyle education Related to B nova mass index (BMI) 35.0-35.9, adult Diet education Related to Body mass index (BMI) 35.0-35.9, adult Giving Encouragement to exercise Related to Body mass index (BMI) 35.0-35.9, adult Assessments Type Assessment Date No Information Patient Care Teams Name Effective Dates (start - stop) Status Members No Information
== END 2024-02-16 08:58 | disposition home or self-care (01) ==
PROVIDERS: PCP Internal Medicine; Visit Provider Internal Medicine
DX: N63.15 Unspecified lump in the right breast, overlapping quadrants (principal); N20.0 Calculus of kidney; M77.12 Lateral epicondylitis, left elbow; N28.9 Disorder of kidney and ureter, unspecified

== ENCOUNTER → 2024-02-16 08:22 | Outpatient (BNVA) | payer OTHER, SELFPAY | PROVIDERS: PCP Internal Medicine; Visit Provider Internal Medicine | DX: N63.15 Unspecified lump in the right breast, overlapping quadrants (principal); M77.12 Lateral epicondylitis, left elbow; N20.0 Calculus of kidney; N28.9 Disorder of kidney and ureter, unspecified | CPT/HCPCS: 99212 ==

== ENCOUNTER 2024-02-19 09:02 | Outpatient (REF) | payer OTHER, SELFPAY ==
--- NOTE | ~2024-02-19 | US_ITS ---
EXAMINATION: MM DIAGNOSTIC DIGITAL BREAST TOMOSYNTHESIS, BILATERAL US BREAST LIMITED, RIGHT Limited right breast ultrasound. CLINICAL INFORMATION: Right breast palpable lump at 6:00 felt by the patient and the patient's clinician. COMPARISON: Mammography: Comparison is made with available prior examinations. TECHNIQUE: Digital breast tomosynthesis is performed in both the craniocaudal and mediolateral oblique views along with computer-aided detection (CAD). Synthesized 2D images are generated from the tomosynthesis. Limited right breast ultrasound. FINDINGS: The breasts are heterogeneously dense, which may obscure small masses (ACR BI-RADS breast composition Category c). Bilateral retropectoral silicone implants are normal-appearing. BB marker in the lower central breast without underlying abnormality. There are no significant masses, abnormal calcifications, or other abnormalities. Targeted color Doppler ultrasound scanning in the area the patient felt palpable lump at 4-8 o'clock and 7-11 o'clock demonstrates normal fibronodular breast tissue. There is no sonographic abnormality. US/US breast RT limited mamm only IMPRESSION: Left: Benign. Right: No mammographic or sonographic abnormality to account for the patient's palpable lump. Recommend clinical evaluation and follow-up. OVERALL ASSESSMENT: Mammography: BI-RADS 2 - Benign Findings Ultrasound: BI-RADS 2 - Benign Findings RECOMMENDATION: 1 year F/U Results were provided to the patient at time of visit by the technologist. This patient's information was entered into a reminder system with a target due date for their next mammogram. Electronically signed by: Nataliia Ibanez DO 02/19/2024 10:22 AM [facility]
--- OUTSIDE RECORDS SUMMARY | 2024-02-19 09:24 | XMS_ITS | Continuity of Care Document ---
Author Organization [facility] Address [address] [place] [address] Dr [address] [place] Harjinder [phone] Phone Care Team Providers Care Optometry Doctor Name Role Phone Vito PATRICK, EDUAR, Fortunato ALVARADO Unavailable U navailable Procedures Procedure Date Offic Cons New/estab Mod-hi 60- CT & [place] Duplex Scan-extrem Veins; Comp- CT & MA Advance Directives Directive Yes / No Effective Date File Name No Information Encounters Encounter Description Practice Location Reason(s) For Visit Diagnoses Date Provider Providers Copied on Encounter [facility], [address] [place] [address] [address]Harjinder [place], [id number], tel:[phone] [facility] No Information 4 Vito PATRICK RVT, RPVI Robert. [address] [place] [address], [id number] , [place]. tel:[phone] Offic Cons New/estab Mod-hi 60- CT & [place] [facility], [address] [place] [address] [address]Harjinder [place], [id number], tel:[phone] [facility] hypertension (idiopathic) without complications of bilateral lower extremityRest less legs syndromeVenou s insufficiency (chronic) (peripheral)P ruritus, unspecifiedCr amp and spasmLocalize d edema 4 Vito PATRICK RVT, RPVI Robert. [address], [place], [id number] , [place]. [phone] Referring Provider: Mireille Hernandez MD, [address], [address] [place] D/B/A: [place], [address]. tel:[phone] [facility], [address] [facility] [address], [place] Harjinder, [id number], tel:[phone] [facility] [place] [facility] [place] Chronic venous hypertension (idiopathic) with other complications of bilateral lower extremity 4 Vito PATRICK, RVT, RPVI Fortunato. [address] [facility], [address], [place], [place], [id number] , [place]. [phone] Referring Provider: Mireille Hernandez MD, [address] [facility] , [address] [place] D/B/A: [place], [address]. tel:[phone] Family History Family Member Type Diagnosis Age At Onset No Information Payers Payer name Insurance type Covered alliance party ID Authorslim gonzalez(s) [facility] [id number] Social History Type Description Quantity Date [...]
== END 2024-02-19 09:03 | disposition home or self-care (01) ==
LOC: HO.MAMMO 09:02
PROVIDERS: PCP Internal Medicine; Visit Provider Internal Medicine
DX: N63.15 Unspecified lump in the right breast, overlapping quadrants (principal); R92.333 Mammographic heterogeneous density, bilateral breasts
CPT/HCPCS: 76642; 77062; 77066

== ENCOUNTER → 2024-02-19 09:15 | Outpatient (BNV) | payer OTHER, SELFPAY | PROVIDERS: PCP Internal Medicine; Visit Provider Internal Medicine | DX: N63.15 Unspecified lump in the right breast, overlapping quadrants (principal) | CPT/HCPCS: 76642; 77062; 77066 ==

== ENCOUNTER 2024-03-05 06:00 | Outpatient (REF) | payer OTHER, SELFPAY ==
--- NOTE | 2024-03-05 06:02 | EMG_ITS ---
Left median and ulnar motor and sensory studies were performed. Left radial sensory and median and lateral antecubital brachial sensory studies were performed and paraspinal muscles were tested with a needle. IMPRESSION: This is an unremarkable study with no significant abnormality. MD LIZETTE Emerson/NIC / [id number]
== END 2024-03-05 06:01 | disposition home or self-care (01) ==
LOC: HO.NEURO 06:00
PROVIDERS: PCP Internal Medicine; Visit Provider Internal Medicine
DX: R20.2 Paresthesia of skin (principal)
CPT/HCPCS: 95886; 95910

== ENCOUNTER → 2024-03-06 12:23 | Outpatient (BNVA) | payer OTHER, SELFPAY | PROVIDERS: PCP Internal Medicine; Visit Provider Internal Medicine | DX: M25.522 Pain in left elbow (principal); M79.632 Pain in left forearm; E66.9 Obesity, unspecified | CPT/HCPCS: 96127; 99212 ==

== ENCOUNTER 2024-03-18 08:41 | Outpatient (AMB) | payer OTHER, SELFPAY ==
[2024-03-18 08:51] VITALS: BMI 35.1
--- NOTE | 2024-03-18 08:51 | MHC.OFFVIS ---
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 States she has sorness that is constant. Pain worsen with twisting of arm and picking up a water bottle. States this started about 3 months ago, no injury she can recall. Patient denies numbness, tingling, finger locking or any prior injuries or surgeries. No therapy or injections. EMG done. IMPRESSION: This is an unremarkable study with no significant abnormality. 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 States she has sorness that is constant. Pain worsen with twisting of arm and picking up a water bottle. States this started about 3 months ago, no injury she can recall. Patient denies numbness, tingling, finger locking or any prior injuries or surgeries. No therapy or injections. EMG done. IMPRESSION: This is an unremarkable study with no significant abnormality. [facility] Medical History History of blood transfusion Physical exam Helicobacter pylori (H. pylori) Gallbladder polyp Class 1 obesity with body mass index (BMI) of 33.0 to 33.9 in adult GERD (gastroesophageal reflux disease) Right upper quadrant abdominal pain Migraines Photosensitivity Mild asthma Breast implant status Surgical History History of cholecystectomy History of esophagogastroduodenoscopy (EGD) History of blepharoplasty Urethral diverticulum History of tubal ligation History of abdominoplasty Hx of breast implants, bilateral History of wisdom tooth extraction Family History Father Diabetes Mother No problems noted. 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 occupation: [employer]/ rt hand Current occupational exposures/hazards: No Cognitive needs: No Hearing needs: No Vision needs: No Female Reproductive History Menstrual Age of Menarche: 14 Review of Systems Const All systems reviewed & are unremarkable except as noted in HPI and below Physical Exam Vital Signs: BMI result Body Mass Index 35.1 Extrem Other: Patient's left elbow normal to inspection No erythema, ecchymosis, edema noted No lacerations, abrasions, open areas No evidence of infection Patient reports mild tenderness to palpation of the left lateral epicondyle No tenderness to palpation of the left knee epicondyle, olecranon process, radial head or in the left elbow Positive Cozen's test in the left Distal sensation intact Capillary refill brisk Office Procedures Joint Inj/Aspir; Non-Pain Clin Joint Injection/Drain Prep: site was prepped using aseptic technique and injection warnings given Procedure: The patient tolerated the procedure well and there was some relief with the local anesthesia Elbows, Wrist, Hands, Elbow Injection Medium joint 53239: Left Elbow Coding Details: Left lateral epicondyle injection Procedure code (CPT) selection complete Assessment & Plan Assessment & Plan (1) Left lateral epicondylitis: Code(s): M77.12 - Lateral epicondylitis, left elbow Category: Medical Plan 1. Left lateral epicondylitis Patient is educated about this condition Patient is educated about the treatment options available Patient would like to proceed with OT and steroid injection The risks and benefits of a steroid injection including but not limited to risk of damage to blood vessels, nerves, tendons, infection, skin bleaching, failure to improve symptoms, increased pain, and possible need for further injections or other intervention were discussed with the patient and the patient wishes to proceed with the steroid injection. Once consent was obtained, I sterilely prepped the area over the lateral epicondyle of the left elbow. I then injected the area over the lateral epicondyle with a combination of 40 mg of dexamethasone and 1 mL of 1% lidocaine. The patient tolerated the procedure well with no complications. If the patient continues to experience symptoms over the next 4 weeks, they can make an appointment to return and discuss alternative treatment measures, such as physical therapy. Follow-up prn Coding Level of Care Code New Pt Level 3 (66636) Diagnoses Left lateral epicondylitis M77.12 CPT Codes Elbows, Wrist, Hands, - Elbow Injection Medium joint : Left Elbow ([id number])
--- OUTSIDE RECORDS SUMMARY | 2024-03-18 09:02 | XMS_ITS | Continuity of Care Document ---
Author Organization [facility] Address [address] [place] [address] Dr [address] [place] Har[place]inder [address] Phone Care Team Providers Care Safety Tech Name Role Phone Vito PATRICK, EDUAR, Fortnuato ALVARADO Unavailable U navailable Procedures Procedure Date Offic Cons New/estab Mod-hi 60- CT & [place] Duplex Scan-extrem Veins; Comp- CT & [place] Advance Directives Directive Yes / No Effective Date File Name No Information Encounters Encounter Description Practice Location Reason(s) For Visit Diagnoses Date Provider Providers Copied on Encounter [facility], [address] [place] [address] [address]Harjinder MD, [id number], tel:[phone] [facility] No Information 4 Vito PATRICK RVT, RPVI Robert. [address] [place] [address], [id number] , [place]. tel:[phone] Offic Cons New/estab Mod-hi 60- CT & [place] [facility], [address] [place] [address] [address]Harjinder [place], [id number], tel:[phone] [facility] ([facility]opathic) without complications of bilateral lower extremityRest less legs syndromeVenou s insufficiency (chronic) (peripheral)P ruritus, unspecifiedCr amp and spasmLocalize d edema 4 Vito PATRICK RVT, RPVI Robert. [address], [place], [id number] , [place]. tel:[phone] Referring Provider: Mireille Hernandez MD, [address], [address] [place] D/B/A: [place], [address]. tel:[phone] [facility], [address] [facility] [address], [place] Harjinder, [id number], tel:[phone] [facility] [place] [facility] [place] Chronic venous hypertension (idiopathic) with other complications of bilateral lower extremity 4 Vito PATRICK, RVT, RPVI Fortunato. [address] [facility], [address], [place], [place], [id number] , [place]. [phone] Referring Provider: Mireille Hernandez MD, 2 [facility] , [address] [place] D/B/A: [place], [address]. tel:[phone] Family History Family Member Type Diagnosis Age At Onset No Information Payers Payer name Insurance type Covered green party ID Authorslim gonzalez(s) [facility] [id number] Social History Type Description Quantity Date [...] No Information Instructions Date Instruction Additional Infor audrajuan manuel Giving Encouragement to exercise Related to Body mass index (BMI) 35.0-35.9, adult Diet education Related to Body mass index (BMI) 35.0-35.9, adult Lifestyle education Related to B nova mass index (BMI) 35.0-35.9, adult Compression stocking usage as conservative measure Related to Chronic venous hypertension (idiopathic) without complications of bilateral lower extremity Patient education booklet given Related to Chronic venous hypertension (idiopathic) without complications of bilateral lower extremity Assessments Type Assessment Date No Information Patient Care Teams Name Effective Dates (start - stop) Status Members No Information
--- OUTSIDE RECORDS SUMMARY | 2024-03-18 09:02 | XMS_ITS | Clinical Summary ---
Author Organization [facility] Address [address] [place] [address] Phone Care Team Providers Care Vanstone Machine Operator Name Role Phone Unavailable Primary Care Provider Unavailabl e Immunizations Name Administration Dates Next Due DTP 05/13/1998, 9,01/12/1998,05/26,05/13/1989 HPV, Quadrivalent 02/21/2008,02/19/2007,12/19/19 07 Hep B, ped/adol 12/14/1999,08/13/1999,07/13/1999 Hib (PRP-T) 05/13/1989 IPV 04/12/1998,01/12/1998,05/13/1989 Influenza, injectable, trivalent 12/18/2006 MMR 02/12/1999,08/10/1998 Meningococcal Conj (Menactra) MCV4P 12/18/2006 OPV 05/26/1992 Td (adult) (Tenivac), 5 Lf t etanus toxoid, PF, adsorbed 08/10/1998 Tdap 12/18/2006 Social History Tobacco Use Types Packs/Day Years Used Date Smoking Tobacco: Never Assessed Comments Unknown Sex and Gender Information Value Date Recorded Sex Assigned at Not on file Legal Sex Female 4:50 PM EDT Gender Identity Not on file Sexual Orientation Not on file Plan of Treatment Health Maintenance Due Date Last Done Comments Varicella Vaccines (1 of 2 - 13+ 2-dose series) 10/15/2000 DTaP,Tdap,and Td Vaccines (8 - Td or Tdap) 12/18/2016 12/18/2006, 08/10/1998, 05/13/1998, Additional history exists Influenza Vaccines (#1) 2023 12/18/2006 COVID-19 Vaccine (2023- season) 2023 HIB Vaccines Completed 05/13/1989 IPV Vaccines Completed 04/12/1998, 12/16, 05/26/1992, Additional history exists MMR Vaccines Completed 02/12/1999, 08/10/1998 Hepatitis B Vaccines Completed 12/14/1999, 08/13/1999, 07/13/1999 Meningococcal Vaccine Aged Out 12/18/2006 No genesis holly eligible based on patient's age to complete this topic HPV Vaccines Completed 02/21/2008, 08/2007, 12/18/2006 Hepatitis A Vaccines Aged Out No long er eligible based on patient's age to complete this topic Men B Vaccine Aged Out No longer elig ible based on patient's age to complete this topic Pneumococcal Vaccine Aged Out No long er eligible based on patient's age to complete this topic
--- OUTSIDE RECORDS SUMMARY | 2024-03-18 09:02 | XMS_ITS | Encounter Summary ---
Author Organization [facility] Address [address] [place] [address] Phone Care Team Providers Care Keyboard Instrument Tuner Name Role Phone Jojo Elliott MD Primary Care Provider [phone] Encounter Details Date Type Department Care Team (Late st Contact Info) Description 12/15/2016 Conversion Encounter [facility] [address] [place] [address] Social History Tobacco Use Types Packs/Day Years Used Date Smoking Tobacco: Never Assessed Comments Unknown Sex and Gender Information Value Date Recorded Sex Assigned at Not on file Legal Sex Female 4:50 PM EDT Gender Identity Not on file Sexual Orientation Not on file documented as of this encounter Plan of Treatment Not on file documented as of this encounter Visit Diagnoses Not on filedocumented in this encounter Care Teams Keyboard Instrument Tuner Relationship Specialty Start Date End Date Jojo Elliott MD [address] [place] [address] PCP - General 09/23/16 07/28/22 documented as of this encounter
== END 2024-03-18 09:21 | disposition home or self-care (01) ==
PROVIDERS: PCP Internal Medicine
DX: M77.12 Lateral epicondylitis, left elbow (principal)
CPT/HCPCS: 20550; 99203

== ENCOUNTER → 2024-03-18 08:41 | Outpatient (BNVA) | payer OTHER, SELFPAY | PROVIDERS: PCP Internal Medicine | DX: M77.12 Lateral epicondylitis, left elbow (principal) | CPT/HCPCS: 20550; 99202; J1100; J2003 ==

== ENCOUNTER 2024-04-03 12:27 | Outpatient (AMB) | payer OTHER, SELFPAY ==
--- OUTSIDE RECORDS SUMMARY | 2024-04-03 12:48 | XMS_ITS | Continuity of Care Document ---
Author Organization [facility] Address [address] [place] [address] Dr [address] [place] Harjinder [address] Phone Care Team Providers Care Safety Fire Boss Name Role Phone Vito PATRICK, EDUAR, Fortunato ALVARADO Unavailable U navailable Procedures Procedure Date Offic Cons New/estab Mod-hi 60- CT & [place] Duplex Scan-extrem Veins; Comp- CT & [place] Advance Directives Directive Yes / No Effective Date File Name No Information Encounters Encounter Description Practice Location Reason(s) For Visit Diagnoses Date Provider Providers Copied on Encounter [facility], [address] [place] [address] [address]Harjinder [place], [id number], tel:[phone] [facility] No Information 4 Vito PATRICK RVT, RPVI Robert. [address] [place] [address], [id number] , [place]. tel:[phone] Offic Cons New/estab Mod-hi 60- CT & [place] [facility], [address] [place] [address] [address] 1000Harjinder [place], [id number], tel:[phone] [facility] (idiopathic) without complications of bilateral lower extremityRest less legs syndromeVenou s insufficiency (chronic) (peripheral)P ruritus, unspecifiedCr amp and spasmLocalize d edema 4 Vito PATRICK RVT, RPVI Robert. [address], [place], [id number] , [place]. [phone] Referring Provider: Mireille Hernandez MD, [address], [address] [place] D/B/A: [place], [address]. tel:[phone] [facility], [address] [facility] [address], [place] Harjinder, [id number], tel:[phone] [facility] [place] Chronic venous hypertension (idiopathic) with other complications of bilateral lower extremity 4 Vito PATRICK, RVT, RPVI Fortunato. [address] [facility], [address], [place], [place], [id number] , [place]. [phone] Referring Provider: Mireille Hernandez MD, 2 [facility] , [address] [place] D/B/A: [place], [address]. tel:[phone] Family History Family Member Type Diagnosis Age At Onset No Information Payers Payer name Insurance type Covered green party ID Authorslim gonzalez(s) [facility] [id number] Social History Type Description Quantity Date [...]
[2024-04-03 13:06] VITALS: BP 120/80; PULSE 79; O2SAT 100
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
== END 2024-04-03 14:21 | disposition home or self-care (01) ==
PROVIDERS: PCP Internal Medicine; Visit Provider Physician Assistant
DX: S63.502A Unspecified sprain of left wrist, initial encounter (principal); M79.642 Pain in left hand; V89.2XXA Person injured in unspecified motor-vehicle accident, traffic, initial encounter; Z04.3 Encounter for examination and observation following other accident; M79.641 Pain in right hand

== ENCOUNTER 2024-04-03 12:27 | Outpatient (REF) | payer OTHER, SELFPAY ==
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
--- OUTSIDE RECORDS SUMMARY | 2024-04-03 14:00 | XMS_ITS | Clinical Summary ---
Author Organization [facility] Address [address] [place] [address] Phone Care Team Providers Care Pediatric Physical Therapist Name Role Phone Unavailable Primary Care Provider Unavailabl e Immunizations Immunization Administration Dates Next Due DTP 05/13/1998, 9,01/12/1998,05/26,05/13/1989 [...]
--- OUTSIDE RECORDS SUMMARY | 2024-04-03 14:00 | XMS_ITS | Encounter Summary ---
Author Organization [facility] Address [address] [place] [address] Phone Care Team Providers Care Radio Operator Ground Name Role Phone Jojo Elliott MD Primary Care Provider [phone] Encounter Details Date Type Department Care Team (Late st Contact Info) Description 12/15/2016 Conversion Encounter [facility] [place] [address] [place] [address] Social History Tobacco Use Types Packs/Day Years [...] on filedocumented in this encounter Care Teams Radio Operator Ground Relationship Specialty Start Date End Date Jojo Elliott MD [address] [place] [address] PCP - General 09/23/16 07/28/22 documented as of this encounter
--- OUTSIDE RECORDS SUMMARY | 2024-04-03 14:00 | XMS_ITS | Continuity of Care Document ---
Author Organization [facility] Address [address] [place] [address] [address] [place] Harjinder [address] Phone Care Team Providers Care Operations Officer Name Role Phone Vito PATRICK, EDUAR, Fortunato ALVARADO Unavailable U navailable Procedures Procedure Date Offic Cons New/estab Mod-hi 60- CT & [place] Duplex Scan-extrem Veins; Comp- CT & [place] Advance Directives Directive Yes / No Effective Date File Name No Information Encounters Encounter Description Practice Location Reason(s) For Visit Diagnoses Date Provider Providers Copied on Encounter [facility], [address] [place] [address] [address]Harjinder [place], [id number], tel:[phone] [facility] No Information 4 Vito PATRICK RVT, RPVI Robert. [address] [place] [address], [id number] , [place]. tel:[phone] Offic Cons New/estab Mod-hi 60- CT & [place] [facility], [address] [place] [address] [address]Harjinder [place], [id number], tel:[phone] [facility] (idiopathic) without complications of bilateral lower extremityRest less legs syndromeVenou s insufficiency (chronic) (peripheral)P ruritus, unspecifiedCr amp and spasmLocalize d edema 4 Vito PATRICK RVT, RPVI Robert. [address], [place], [id number] , [place]. tel:[phone] Referring Provider: Mireille Hernandez MD, [address], [address] [place] D/B/A: [place], [address]. tel:[phone] [facility], [address] [facility] [address], [place] Harjinder, [id number], tel:[phone] [facility] - [place] - [place] Chronic venous hypertension (idiopathic) with other complications of bilateral lower extremity 4 Vito PATRICK, RVT, RPVI Fortunato. [address] [facility], [address], [place], [place], [id number] , [place]. [phone] Referring Provider: Mireille Hernandez MD, 2 [facility] , [address] [place] D/B/A: [place], [address]. tel:[phone] Family History Family Member Type Diagnosis Age At Onset No Information Payers Payer name Insurance type Covered democrat ID Authorslim gonzalez(s) [facility] [id number] Social History Type Description Quantity Date [...]
== END 2024-04-03 12:28 | disposition home or self-care (01) ==
LOC: HO.HMGCX 12:27
PROVIDERS: PCP Internal Medicine; Visit Provider Physician Assistant
DX: M79.641 Pain in right hand (principal); M79.642 Pain in left hand; S63.502A Unspecified sprain of left wrist, initial encounter; V89.2XXA Person injured in unspecified motor-vehicle accident, traffic, initial encounter
CPT/HCPCS: 73110; 73130

== ENCOUNTER → 2024-04-03 13:55 | Outpatient (BNV) | payer OTHER, SELFPAY | PROVIDERS: PCP Internal Medicine; Visit Provider Radiology Diagnostic Radiology | DX: M79.632 Pain in left forearm (principal) | CPT/HCPCS: 73110; 73130 ==

== ENCOUNTER 2024-05-14 10:18 | Outpatient (AMB) | payer OTHER, SELFPAY ==
--- NOTE | 2024-05-14 10:19 | A.OFFVIS_ITS ---
Vital Signs 05/14/24 10:20 Height 5 ft 2 in Weight 196 lb BMI 35.8 BP 102/64 Intake Visit Reasons: Vaginal lump Intake Note: pt c/o bump on left labia Director Airport Operations: Director Airport Operations Present (Betty) Allergies No Known Allergies Allergy (Verified 05/14/24 10:20) Is last menstrual period known: Yes Last menstrual period: 05/11/24 HPI Comments Details: Patient is here today with concerns of an itchy bump that comes and goes for years. She squeezed it and nothing came out. No urinary symptoms. History of chronic random pelvic pain. Has heavy menses today. Admits 2 finger cleaning and feels an internal bump that is nontender. She is worried that she may have HPV is she was told she had it in the past. [facility] Medical History History of blood transfusion Physical exam Helicobacter pylori (H. pylori) Gallbladder polyp Class 1 obesity with body mass index (BMI) of 33.0 to 33.9 in adult GERD (gastroesophageal reflux disease) Right upper quadrant abdominal pain Migraines Photosensitivity Mild asthma Breast implant status Surgical History History of cholecystectomy History of esophagogastroduodenoscopy (EGD) History of blepharoplasty Urethral diverticulum History of tubal ligation History of abdominoplasty Hx of breast implants, bilateral History of wisdom tooth extraction Family History Father Diabetes Mother No problems noted. 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 Current occupational exposures/hazards: No Cognitive needs: No Hearing needs: No Vision needs: No Female Reproductive History Menstrual Age of Menarche: 14 Date of last menstrual period: 05/11/24 Review of Systems Const All systems reviewed & are unremarkable except as noted in HPI and below Endo Reports no additional complaints Physical Exam Vital Signs: Last Vital Signs BP 102/64 05/14/24 10:20 BMI result Body Mass Index 35.8 Const General: cooperative, healthy appearing and no acute distress Other: External-shaven vulva with scattered warehouse order picker sores, and slight follicular inflammation. Dayanara clitoral lump noted 1 o'clock position of fink, not HPV or HSV, no erythema or open lesions. Punctate center appears to be enlarged area 2-3 mm, appears to be a small sebaceous gland, nontender, not inflamed. Introitus tampon string with bled noted. Psych Appearance: well kempt Attitude: cooperative Thought process: Normal thought process present Assessment & Plan Assessment & Plan (1) Vulvar lump: Code(s): N90.89 - Other specified noninflammatory disorders of vulva and perineum Plan Discussed: Skin findings, dayanara clitoral bump appears to be inflamed sebaceous gland with possible scarring and thickening. Is not HPV or HSV. Advised no finger cleaning, external shaving or hair removal mechanism for hair as a prote ctive device and important. Encouraged her not to pick. Consider addressing her anxiety and OCD behaviors with a therapist. Advised to return to the office for GC chlamydia when not on her menstrual cycle, and to assess the vaginal lump. Has a appointment for annual exam in September. The patient expressed understanding and agreement with the plan of care. All of her questions and concerns were addressed to the best of my ability. This note is constructed using voice recognition software. While every effort has been made to ensure accuracy, experimental display builder errors may have been included. Coding Level of Care Code Est Pt Level 3 (53665) Diagnoses Vulvar lump N90.89
[2024-05-14 10:20] VITALS: BP 102/64; BMI 35.8
--- OUTSIDE RECORDS SUMMARY | 2024-05-14 12:04 | XMS_ITS | Clinical Summary ---
Author Organization [facility] Address [address] [place] [address] Phone Care Team Providers Care Grout Pump Operator Name Role Phone Unavailable Primary Care [...]
--- OUTSIDE RECORDS SUMMARY | 2024-05-14 12:04 | XMS_ITS | Encounter Summary ---
Author Organization [facility] Address [address] [place] [address] Phone Care Team Providers Care Edge Cutter Name Role Phone Jojo Elliott MD Primary Care Provider Encounter Details Date Type Department Care Team (Late st Contact Info) Description 12/15/2016 Conversion Encounter [facility] [place] [address] [place] [address] Social History Tobacco Use Types Packs/Day Years [...] on filedocumented in this encounter Care Teams Edge Cutter Relationship Specialty Start Date End Date Jojo Elliott MD [address] [place] [address] PCP - General 09/23/16 07/28/22 documented as of this encounter
== END 2024-05-14 12:54 | disposition home or self-care (01) ==
LOC: HO.HWS 10:19
PROVIDERS: PCP Internal Medicine; Referring Provider Advanced Practice Midwife; Visit Provider Advanced Practice Midwife
DX: N90.89 Other specified noninflammatory disorders of vulva and perineum (principal)
CPT/HCPCS: 99213

== ENCOUNTER → 2024-05-14 10:18 | Outpatient (BNVA) | payer OTHER, SELFPAY | PROVIDERS: PCP Internal Medicine; Visit Provider Advanced Practice Midwife | DX: N90.89 Other specified noninflammatory disorders of vulva and perineum (principal) | CPT/HCPCS: 99212 ==

== ENCOUNTER → 2024-05-15 08:07 | Outpatient (BNVA) | payer OTHER, SELFPAY | PROVIDERS: PCP Internal Medicine; Visit Provider Physician Assistant Surgical ==

== ENCOUNTER 2024-05-27 07:57 | Outpatient (AMB) | payer OTHER, SELFPAY ==
--- OUTSIDE RECORDS SUMMARY | 2024-05-27 08:00 | XMS_ITS | Clinical Summary ---
Author Organization [facility] Address [address] [place] [address] Phone Care Team Providers Care Biazzi Nitrator Operator Name Role Phone Unavailable Primary Care [...]
--- OUTSIDE RECORDS SUMMARY | 2024-05-27 08:00 | XMS_ITS | Encounter Summary ---
Author Organization [facility] Address [address] [place] [address] Phone Care Team Providers Care Power Shovel Operator Name Role Phone Jojo Elliott MD Primary Care Provider [phone] Encounter Details Date Type Department Care Team (Late st Contact Info) Description 12/15/2016 Conversion Encounter [facility] [place] [address] [place] [address] Social History Tobacco Use Types Packs/Day Years [...] on filedocumented in this encounter Care Teams Power Shovel Operator Relationship Specialty Start Date End Date Jojo Elliott MD [address] [place] [address] PCP - General 09/23/16 07/28/22 documented as of this encounter
--- OUTSIDE RECORDS SUMMARY | 2024-05-27 08:00 | XMS_ITS | Continuity of Care Document ---
Author Organization [facility] Address [address] [place] [address] [address] MD Harjinder [phone] Phone Care Team Providers Care Flower Picker Name Role Phone Vito PATRICK, EDUAR, Fortunato ALVARADO Unavailable U navailable Allergies, Adverse Reactions, Alerts Substance Reaction Status Criticality amoxicillin Active No Information Procedures Procedure Date Endovenous Laser, 1st Vein- CT & [place] [...] Diagnoses Date Provider Providers Copied on Encounter [facility], [address] [place] [address] [address], [place], [id number], [place] tel:[phone] [facility] No Information 5 Vito PATRICK, CHRISTIANO WITT. [address] [facility], [address], [place], [place], [id number] , [place]. tel:[phone] [facility], [address] [facility] [address]Harjinder [place], [id number], [place] tel:[phone] [facility] - [place] [facility] [place] Chronic venous hypertension (idiopathic) with inflammation of left lower extremity Apr-1 0-202 5 Vito PATRICK RVT, CHRISTIANO Bucio. [address] [facility], [address], [place], [place], [id number] , [place]. tel: [phone] Referring Provider: Mireille Hernandez MD, [address] [facility] [address]Trung, [address] [place] D/B/A: [place], [address]. tel:[phone] [facility], [address] [place] [address] Dr [address] 1000Harjinder [place], [id number], [place] tel:[phone] [facility] - [place] Chronic venous hypertension (idiopathic) with inflammation of left lower extremity Apr-0 9-202 5 Vito PATRICK RVT, CHRISTIANO Bucio. [address] [place] [address], Suite [facility], [place], [place], [id number] , [place]. tel: [phone] Referring Provider: Mireille Hernandez MD, 2 [facility] , [address] [place] [address] D/B/A: [place], [address]. tel:[phone] [facility], [address] [place] [address] Dr [address] 1000aHrjinder [place], [id number], [place] tel:[phone] [facility] - [place] Chronic venous hypertension (idiopathic) with inflammation of right lower extremity Apr-0 8-202 5 Vito PATRICK RVT, CHRISTIANO Bucio. [address] [place] [address], Suite [facility], [place], [place], [id number] , [place]. tel: [phone] Referring Provider: Mireille Hernandez MD, 2 [facility] , [address] [place] [address] D/B/A: [place], [address]. tel:[phone] [facility], [address] [place] [address] Dr [address]Harjinder [place], [id number], [place] tel:[phone] CVR [facility] Chronic venous hypertension (idiopathic) with inflammation of right lower extremity Apr-0 5 Vito PATRICK, EDUAR, CHRISTIANO Bucio. [address] [place] [address], [place] [address], [place], [place], [id number] , [place]. tel:[phone] Referring Provider: Mireille Hernandez MD, [address] [facility] [address]Trung, [address] [place] [address] D/B/A: [facility] [place], [address]. tel:[phone] [facility], [address] [place] [address] Dr [address]Suite Harjinder Arthur MD, [id number], [place] tel:[phone] CVR [facility] No Information Apr- 5 Vito PATRICK, EDUAR, CHRISTIANO Bucio. [address] [place] [address], [place], [place], [id number] , [place]. tel:[phone] Offic/outpt E&m Estab 5 Min Trial- Telemedicine CT & [place] [facility], [address] [place] [address] [address] 1000Suite 1000Harjinder [place], [id number], [place] tel:[phone] [facility] Chronic venous hypertension (idiopathic) with other complication s of bilateral lower extremityCra mp and spasmRestles s legs syndromePrur itus, unspecified Mar-0 5 Vito PATRICK RVT, CHRISTIANO Bucio. [address] [place] [address], [place] [address], [place], [place], [id number] , [place]. tel:[phone] Referring Provider: Mireille Hernandez MD, [address] [facility] [address]Trung, [address] [place] D/B/A: [facility] [place], [address]. tel:[phone] Offic Cons New/estab Mod-hi 60- CT & [place] [facility], [address] [place] [address] [address] 1000Suite 1000Harjinder [place], [id number], [place] tel:[phone] [facility] (idiopathic) without complication s of bilateral lower extremityRes tless legs syndromeVeno us insufficienc y (chronic) (peripheral) Pruritus, unspecifiedC ramp and spasmLocaliz ed edema 4 Vito PATRICK RVT, CHRISTIANO Bucio. [address] [facility], [address], [place], [place], [id number] , [place]. tel:[phone] Referring Provider: Mireille Hernandez MD, 2 [facility] , [address] [place] [address] D/B/[place]: [place], [address]. tel:[phone] [facility], [address] [facility] [address], [place] Har[place]inder, [id number], [place] tel:[phone] R - [facility] Chronic venous hypertension (idiopathic) with other complication s of bilateral lower extremity 4 Vito PATRICK RVT, CHRISTIANO Bucio. [address] [facility], [address], [facility] [place], [place], [id number] , [place]. tel:[phone] Referring Provider: Mireille Hernandez MD, [address] [place] [address] , [address] [place] [address] D/B/[place]: [place], [address]. tel:[phone] Family History Family Member Type Diagnosis Age At Onset No Information Payers Payer name Insurance type Covered democrat ID Authoriza timitra(s) [facility] [id number] Social History Type Description Quantity Date Captured [...]
--- NOTE | 2024-05-27 09:04 | MHC.OFFVISWM ---
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: Details: Start time: 9.01am, End time: 9.36am ?I spent 30 minutes speaking with the patient on the phone plus an additional 5 minutes reviewing and updating records for a total of 35 minutes HPI Comments Details: Previous weight loss efforts: Phentermine: 20lbs (regained), Wegovy: gained 3lbs, exercise Wakes up: 7am, Sleeps: 11pm Breakfast: skips Lunch: 12pm (take out food) Dinner: 5pm (meat, rice, beans) Snacks: none Exercise: gym membership Beverages: Coffee: none, tea: none, soda: none, juice: one per day, ETOH: none PFSH Medical History (Updated 05/27/24 @ 09:08 by Landry Mcconnell MD) Anxiety History of blood transfusion Physical exam Helicobacter pylori (H. pylori) Gallbladder polyp Class 1 obesity with body mass index (BMI) of 33.0 to 33.9 in adult GERD (gastroesophageal reflux disease) Right upper quadrant abdominal pain Migraines Photosensitivity Mild asthma Breast implant status Surgical History History of cholecystectomy History of esophagogastroduodenoscopy (EGD) History of blepharoplasty Urethral diverticulum History of tubal ligation History of abdominoplasty Hx of breast implants, bilateral History of wisdom tooth extraction Family History Father Diabetes Mother No problems noted. 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 Current occupational exposures/hazards: No Cognitive needs: No Hearing needs: No Vision needs: No Female Reproductive History Menstrual Age of Menarche: 14 Telehealth Telehealth Telehealth Platform: Telephone Location of provider rendering services: practice address Location of patient: address on file Patient Identification confirmed using: Name, : Yes Telehealth method: voice only Patient verbally consented to treatment: Yes Patient verbally consented to billing insurance company: Yes Patient informed of any privacy concerns related to visit: Yes Minutes spent on Phone/Video with Pt.: 35 Assessment & Plan Assessment & Plan (1) Obesity (BMI 35.0-39.9 without comorbidity): Code(s): E66.9 - Obesity, unspecified Category: Medical Plan: 1.? Plan for lap sleeve gastrectomy. If diaphragmatic or ventral hernias are present at time of surgery, these will be repaired laparoscopically as well. I emphasized the importance of close follow-up, adherence to instructions and good communication. The surgery does not replace the need to change your lifestlyle which is the cause of the obesity problem. The surgery provides the motivation to try again to change your lifestyle, it reduces the appetite and make the transition to a better lifestyle easier and doubles the amount of weight you would lose compared to doing the lifestyle change without the surgery. You will need to be on a liquid diet with protein shakes for 2 weeks before surgery to maximize weight loss and boost your nutritional status to recover better from surgery and also for the first two weeks after surgery to let the stomach heal before we introduce other foods. After the first 2 weeks we will introduce protein bars and soft foods like scrambled eggs, cottage cheese and yogurt and after the 6th week will introduce meat, fish and cooked vegetables in small amounts. Over time you should be able to eat everything in small amounts. Side effects like nausea, vomiting, heartburn or abdominal pain are not common in the practice unless you are not following in the practice. This operation requires lifetime commitment to following in our practice and communication with me. You will much less weight and experience side effects if you don?t communicate or not following in the practice. Complications are rare and in our practice is about 1/10 of the national average. However, you can develop bleeding that may require transfusion (hasn?t happened for year in the practice), you may from complications (we did not have any deaths in the practice) and infections. Infections are usually a result of breakdown in communication or not understanding or following directions correctly. They are difficult to treat, they can happen during the first 6 weeks, they may require to be in the hospital for weeks or even months, not being able to eat by mouth and you may have drains and surgeries to try and correct the issue. Other risks and complications include possible conversion to an open procedure, leaks, small bowel obstruction, blood clots, cardiac, or pulmonary complications, as terminal manager complications such as ulcers, insufficient weight loss and vitamin deficiencies. 2. Nutritional counseling. Start with 2 CELEBRATE REBUILD protein (buy at [facility] gift shop) shakes (HALF scoop EACH in 8oz low fat unsweetened almond milk each) at 8am-10am and 11am-1pm, 1 protein bar (CELEBRATE protein bars, buy at [facility] [employer] shop) at 2pm-4pm, dinner at 5pm (8 forks of protein and 8 forks of salad/vegetables) AND one more protein bar after dinner at 7pm-9pm. If you feel hungry, you could do another HALF protein bar at 9pm-10pm So you do 2 protein shakes, 2 to 2.5 protein bars and one meal per day. Meal to include lean meat (beef, fish, pork, turkey, chicken), or sao tomean yogurt, or egg whites, or beans with a salad with olive oil and fruits (berries, pears, apples, kiwi). Avoid salt, breads, potatoes, rice, pasta, desserts. 3. Each shake would be drunk slowly, like coffee in a period of 2 hours. 4. Cut each bar in 4 pieces and eat each piece in 30min ?to make each bar last 2 hours. 5. I emphasized the importance of measuring accurately the food portion and measure it when serving the food in plate 6. The meal portions include 8 full-size forks of meat and 8 full-size forks of salad. You always eat the meat portion but you can replace up to 4 forks for salad/vegetables with rice, potatoes or pasta, or a fruit ?if you like. The less you do it the better weight loss will be. 7. One full-size fork is what it can be scooped on the fork without falling aside and not what can be bit with the fork. Use regular forks like those you find in a typical restaurant. 8.? Please buy the body composition scale we discussed and send me weight measurements as soon as possible and then once a week. Always include your diet and exercise plan. 9. Start treadmill with an incline of 2.0 and speed of 3.0. Increase incline by 1 every 3 min to a max incline of 8.0, stay 3min at 8.0 and then return to 2.0 and repeat same steps until calorie goal is met. Goal is to burn 2000 calories per week on exercise, which means either 300 calories daily. 10. The best choice would be to purchase a stationary bike, elliptical or treadmill at home that can track calories. Let me know if you do so I can give you an exercise plan. 11.?It is important of avoiding and for at least 18 months postoperatively and has been discussed at the infosession. 12. Goal is to lose at least 1.5-2lbs per week 13. Goal to lose 10% of your weight before surgery, which is about 19lbs. Ultimate weight goal: 170lbs before surgery 14. Please follow the diet plan exactly without any change. If you don't like something about the plan or you feel hungry you need to communicate with me so I can help you revise the plan. You should not change the plan yourself 15. To be scheduled for EGD to assess the stomach's anatomy. The possibility of biopsies was discussed. Patient needs to avoid use of NSAIDs and aspirin for 1 week prior to EGD. You must be on liquids only the day before your endoscopy. Risks of perforation and bleeding was discussed with the patient. This will be an outpatient procedure with IV sedation. Orders: Orders Hemoglobin A1c Today E66.9 - Obesity, unspecified, K21.9 - Gastro-esophageal reflux disease without esophagitis, Z68.35 - Body mass index [BMI] 35.0-35.9, adult H Pylori Breath Test Today E66.9 - Obesity, unspecified, K21.9 - Gastro-esophageal reflux disease without esophagitis, Z68.35 - Body mass index [BMI] 35.0-35.9, adult Complete Blood Count Auto Diff Today E66.9 - Obesity, unspecified, K21.9 - Gastro-esophageal reflux disease without esophagitis, Z68.35 - Body mass index [BMI] 35.0-35.9, adult Vitamin B12 and Folate Today E66.9 - Obesity, unspecified, K21.9 - Gastro-esophageal reflux disease without esophagitis, Z68.35 - Body mass index [BMI] 35.0-35.9, adult C Reactive Protein Today E66.9 - Obesity, unspecified, K21.9 - Gastro-esophageal reflux disease without esophagitis, Z68.35 - Body mass index [BMI] 35.0-35.9, adult Vitamin B1 Today E66.9 - Obesity, unspecified, K21.9 - Gastro-esophageal reflux disease without esophagitis, Z68.35 - Body mass index [BMI] 35.0-35.9, adult Vitamin A Today E66.9 - Obesity, unspecified, K21.9 - Gastro-esophageal reflux disease without esophagitis, Z68.35 - Body mass index [BMI] 35.0-35.9, adult Ferritin Today E66.9 - Obesity, unspecified, K21.9 - Gastro-esophageal reflux disease without esophagitis, Z68.35 - Body mass index [BMI] 35.0-35.9, adult ECG 12 lead EKG Today E66.9 - Obesity, unspecified, K21.9 - Gastro-esophageal reflux disease without esophagitis, Z68.35 - Body mass index [BMI] 35.0-35.9, adult Insulin Today E66.9 - Obesity, unspecified, K21.9 - Gastro-esophageal reflux disease without esophagitis, Z68.35 - Body mass index [BMI] 35.0-35.9, adult Lipid Panel Today E66.9 - Obesity, unspecified, K21.9 - Gastro-esophageal reflux disease without esophagitis, Z68.35 - Body mass index [BMI] 35.0-35.9, adult IRON PROFILE Today E66.9 - Obesity, unspecified, K21.9 - Gastro-esophageal reflux disease without esophagitis, Z68.35 - Body mass index [BMI] 35.0-35.9, adult Comprehensive Met. Panel Today E66.9 - Obesity, unspecified, K21.9 - Gastro-esophageal reflux disease without esophagitis, Z68.35 - Body mass index [BMI] 35.0-35.9, adult Zinc Today E66.9 - Obesity, unspecified, K21.9 - Gastro-esophageal reflux disease without esophagitis, Z68.35 - Body mass index [BMI] 35.0-35.9, adult TSH reflex Free T4 Today E66.9 - Obesity, unspecified, K21.9 - Gastro-esophageal reflux disease without esophagitis, Z68.35 - Body mass index [BMI] 35.0-35.9, adult Vitamin D 25-OH Total Today E66.9 - Obesity, unspecified, K21.9 - Gastro-esophageal reflux disease without esophagitis, Z68.35 - Body mass index [BMI] 35.0-35.9, adult US abdomen comp w elastography Today E66.9 - Obesity, unspecified, K21.9 - Gastro-esophageal reflux disease without esophagitis, Z68.35 - Body mass index [BMI] 35.0-35.9, adult XR chest 2V Today E66.9 - Obesity, unspecified, K21.9 - Gastro-esophageal reflux disease without esophagitis, Z68.35 - Body mass index [BMI] 35.0-35.9, adult FL upper GI w air Today E66.9 - Obesity, unspecified, K21.9 - Gastro-esophageal reflux disease without esophagitis, Z68.35 - Body mass index [BMI] 35.0-35.9, adult Referrals Behavioral Health Referral E66.9 - Obesity, unspecified, K21.9 - Gastro-esophageal reflux disease without esophagitis, Z68.35 - Body mass index [BMI] 35.0-35.9, adult Nutrition/Dietitian Referral E66.9 - Obesity, unspecified, K21.9 - Gastro-esophageal reflux disease without esophagitis, Z68.35 - Body mass index [BMI] 35.0-35.9, adult
[2024-05-27 09:13] VITALS: BMI 34.6
== END 2024-05-27 09:37 | disposition home or self-care (01) ==
LOC: HO.HBS 07:57
PROVIDERS: PCP Internal Medicine; Visit Provider Surgery
DX: E66.811 Obesity, class 1 (principal); Z68.34 Body mass index [BMI] 34.0-34.9, adult
CPT/HCPCS: 99203

== ENCOUNTER 2024-05-27 07:57 | Outpatient (REF) | payer OTHER, SELFPAY ==
--- NOTE | ~2024-05-27 | XR_ITS ---
EXAMINATION: XR CHEST 2 VIEWS HISTORY: E66.9 - Obesity, unspecified COMPARISON: Comparison is made with the prior examination dated 04/18/2022. FINDINGS: PA and lateral views of the chest are submitted. The lungs are expanded and clear. There is no pleural effusion, pneumothorax, or pulmonary vascular congestion. The heart is normal in size. The bones are intact. XR/XR chest 2V IMPRESSION: No acute cardiopulmonary abnormality. Electronically signed by: Fortunato Wade MD 05/28/2024 07:54 AM EDT
[2024-05-27 11:57] LABS: MANUAL DIFF FLAG NO
--- NOTE | 2024-05-27 12:07 | ECG_ITS ---
Test Reason : e66.9 Blood Pressure : */* mmHG Vent. Rate : 66 BPM Atrial Rate : 66 BPM P-R Int : 152 ms QRS Dur : 82 ms QT Int : 408 ms P-R-T Axes : 51 31 32 degrees QTcB Int : 427 ms Normal sinus rhythm Normal ECG When compared with ECG of 01-Dec-2023 18:49, No significant change was found Referred By: Landry Mcconnell Electronically Signed By: SARA DAVID MD
[2024-05-27 12:25] LABS: Basophils Percent Auto 0.4 % (0-2); Eosinophils Absolute Auto 0.1 X10*3/uL (0.0-0.4); Eosinophils Percent Auto 1.9 % (0-4); Hematocrit 40.3 % (37.0-47.0); Hemoglobin 13.2 g/dl (12.0-16.0); Imm Gran Abs Auto 0.03 X10*3/uL (0.00-0.03); Imm Gran Pct Auto 0.4 % (0.0-0.4); Lymphocytes Absolute Auto 1.8 X10*3/uL (1.2-4.9); Lymphocytes Percent Auto 26.2 % (20-40); Mean Corpuscular HGB Conc 32.8 g/dl (31.0-35.0); Mean Corpuscular Hemoglobin 29.6 pg (27.0-33.0); Mean Corpuscular Volume 90.4 fL (80.0-98.0); Mean Platelet Volume 9.3 fL (9.4-12.3); Monocytes Absolute Auto 0.4 X10*3/uL (0.1-1.2); Monocytes Percent Auto 6.2 % (2-11); Neutrophils Absolute Auto 4.5 x10*3/uL (2.0-8.3); Neutrophils Percent Auto 64.9 % (45-73); Platelet Count 235 X10*3/uL (160-400); Red Blood Count 4.46 X10*6/uL (4.20-5.50); Red Cell Distribution Width 12.6 % (11.0-16.0)
[2024-05-27 12:33] LABS: Estimated Average Glucose 105 mg/dL; Hemoglobin A1C 118.9152 umol/L; Hemoglobin A1c % 5.3 % (<6.0); Total Hemoglobin (HGBA1C) 3453.5016 umol/L
[2024-05-27 13:01] LABS: Alanine Aminotransferase 27 U/L (0-31); Albumin Level 3.8 g/dL (3.5-5.0); Alkaline Phosphatase 118 U/L (39-117); Anion Gap 9 (12-20); Aspartate Amino Transferase 21 U/L (5-31); Bilirubin Total 0.2 mg/dL (0.0-1.0); Blood Urea Nitrogen 9 mg/dL (9-16); C Reactive Protein 0.56 mg/dL (< or = 0.50); Calcium 8.8 mg/dL (8.4-10.2); Carbon Dioxide 25 mmol/L (22-29); Chloride 111 mmol/L (96-108); Cholesterol 137 mg/dL (<200); Estimated Glomerular Filt Rate > 60; Glucose Random 89 mg/dL (60-115); HDL Cholesterol 47 mg/dL (>40); Iron 42 mcg/dL (30-160); LDL Cholesterol Calculated 80 mg/dL (<100); Percent Iron Saturation 16 % (15-50); Sodium 141 mmol/L (135-145); Total Iron Binding Capacity 260 mcg/dL (228-428); Total Protein 7.1 g/dL (6.5-8.0); Triglycerides 54 mg/dL (<150); Unsaturated Iron Binding 218 ug/dL
[2024-05-27 13:15] LABS: Ferritin 29 ng/mL (10-122); Vitamin D 25-OH Total 17.6 ng/mL (>30)
[2024-05-27 13:27] LABS: Folate 5.4 ng/mL (> or = 4.0); Vitamin B12 479 pg/mL (200-900)
[2024-05-27 13:31] LABS: Insulin 13 uU/mL (2-29)
--- OUTSIDE RECORDS SUMMARY | 2024-05-27 13:47 | XMS_ITS | Encounter Summary ---
Author Organization [facility] Address [address] [place] [address] Phone Care Team Providers Care Medical Delivery Technician Name Role Phone Jojo Elliott MD Primary Care Provider [phone] Encounter Details Date Type Department Care Team (Late st Contact Info) Description 12/15/2016 Conversion Encounter [facility] [place] [address] [place] [address] Social History Tobacco Use Types Packs/Day Years [...] on filedocumented in this encounter Care Teams Medical Delivery Technician Relationship Specialty Start Date End Date Jojo Elliott MD [address] [place] [address] PCP - General 09/23/16 07/28/22 documented as of this encounter
--- OUTSIDE RECORDS SUMMARY | 2024-05-27 13:47 | XMS_ITS | Continuity of Care Document ---
Author Organization [facility] Address [address] [place] [address] [address] [place] [phone] Phone Care Team Providers Care Nutrition Teacher Name Role Phone Vito PATRICK, EDUAR, Fortunato [...] Providers Copied on Encounter [facility], [address] [place] [address] [address]Harjinder [place], [id number], [place] tel:[phone] [facility] [place] Encounter for follow-up examination after completed treatment for conditions other than malignant neoplasmVari cose veins of bilateral lower extremities with pain May- Vito PATRICK, EDUAR, CHRISTIANO Bucio. [address] [facility] [address], [place], [place], [id number] , [place]. tel: [phone] Referring Provider: Mireille Hernandez MD, [address] [facility] [address]Trung, [address] [place] [address] D/B/A: reeceantwan [facility] [place], [address]. tel:[phone] [facility], [address] [place] [address] [address]Harjinder [place], [id number], [place] tel:[phone] [facility] [place] Chronic venous hypertension (idiopathic) with inflammation of left lower extremity Apr-1 0-202 5 Vito PATRICK RVT, RPFELICIA Bucio. [address] [place] [address], Suite [facility], [facility], [place], [id number] , [place]. tel: [phone] Referring Provider: Mireille Hernandez MD, [address] [facility] [address]Trung, [address] D/B/A: claudia [facility] [place], [address]. tel:[phone] [facility], [address] [place] [address] [address]Harjinder [place], [id number], [place] tel:[phone] [facility] [place] Chronic venous hypertension (idiopathic) with inflammation of left lower extremity Apr-0 9-202 5 Vito PATRICK RVT, RPFELICIA Fortunato. [address] [place] [address], Suite [facility], [facility], [place], [id number] , [place]. tel: [phone] Referring Provider: Mireille Hernandez MD, 2 [facility] , [address] D/B/A: [place], [address]. tel:[phone] [facility], [address] [place] [address] Dr [address]Harjinder [place], [id number], [place] tel:[phone] [facility] [place] Chronic venous hypertension (idiopathic) with inflammation of right lower extremity Apr-0 8-202 5 Vito PATRICK RVT, RPFELICIA Fortunato. [address] [facility], [address], [facility], [place], [id number] , [place]. tel: [phone] Referring Provider: Mireille Hernandez MD, [address] [facility] , [address] [place] D/B/A: [place]aud[place], [address]. tel:[phone] [place] [facility], [address] [place] [address] [address]Harjinder [place], [id number], [place] tel:[phone] [facility] - [facility] Chronic venous hypertension (idiopathic) with inflammation of right lower extremity Apr-0 5 Vito PATRICK RVT, CHRISTIANO Bucio. [address] [facility], [address], [facility] [place], [id number] , [place]. tel:[phone] Referring Provider: Mireille Hernandez MD, 2 [facility] , [address] [place] [address] D/B/A: [place], [address]. tel:[phone] [place] [facility], [address] [place] [address] [address]Harjinder [place], [id number], [place] tel:[phone] [facility] No Information Mar-2 5 Vito PATRICK RVT, CHRISTIANO uBcio. [address] [facility], [address], [facility] [place], [id number] , [place]. tel:[phone] Offic/outpt E&m Estab 5 Min Trial- Telemedicine [place] & [place] [facility], [address] [place] [address] [address]Harjinder [place], [id number], [place] tel:[phone] [facility] Chronic venous hypertension (idiopathic) with other complication s of bilateral lower extremityCra mp and spasmRestles s legs syndromePrur itus, unspecified Mar-0 5 Vito PATRICK RVT, CHRISTIANO Bucio. [address] [facility], [address], [facility] [place], [id number] , [place]. tel:[phone] Referring Provider: Mireille Hernandez MD, [address] [facility] , [address] [place] D/B/A: [place]aud[place], [address]. tel:[phone] Offic Cons New/estab Mod-hi 60- CT & [place] [facility], [address] [place] [address] [address]Harjinder [place], [id number], [place] tel:[phone] [facility] Chronic venous hypertension (idiopathic) without complication s of bilateral lower extremityRes tless legs syndromeVeno us insufficienc y (chronic) (peripheral) Pruritus, unspecifiedC ramp and spasmLocaliz ed edema 4 Vito PATRICK RVT, RPVI Robert. [address] [facility], [place] [address], [place], [place], [id number] , [place]. tel:[phone] Referring Provider: Mireille Hernandez MD, 2 [facility] , [address] [place] D/B/A: [place], [address]. tel:[phone] [place] [facility], [address] [place] [address] [address]Harjinder [place], [id number], [place] tel:[phone] [facility] (idiopathic) with other complication s of bilateral lower extremity 4 Vito PATRICK RVT, RPVI Robert. [address] [facility], [place] [address], [place], [place], [id number] , [place]. tel:[phone] Referring Provider: Mireille Hernandez MD, [address] [place] [address] , [address] [place] [address] D/B/A: [place], [address]. tel:[phone] Family History Family Member Type Diagnosis Age At Onset No Information Payers Payer name Insurance type Covered democrat ID Authoriza tion(s) [facility] [id number] Social History Type Description Quantity Date Captured [...]
--- OUTSIDE RECORDS SUMMARY | 2024-05-27 13:47 | XMS_ITS | Clinical Summary ---
Author Organization [facility] Address [address] [place] [address] Phone Care Team Providers Care Horse Shoer Name Role Phone Unavailable Primary Care Provider [...] 07/13/1999 Meningococcal Vaccine Aged Out 12/18/2006 No genseis holly eligible based on patient's age to [...]
[2024-05-30 03:02] LABS: Vitamin A 30 mcg/dL (38-98)
[2024-05-30 18:33] LABS: Zinc 65 mcg/dL (60-130)
[2024-06-06 15:53] LABS: Vitamin B1 6 nmol/L (8-30)
== END 2024-05-27 07:58 | disposition home or self-care (01) ==
LOC: HO.XRAY 07:57
PROVIDERS: PCP Internal Medicine; Visit Provider Surgery
DX: E66.9 Obesity, unspecified (principal); Z68.35 Body mass index [BMI] 35.0-35.9, adult; K21.9 Gastro-esophageal reflux disease without esophagitis
CPT/HCPCS: 36415; 71046; 80053; 80061; 82306; 82607; 82728; 82746; 83036; 83525; 83540; 84425; 84443; 84590; 84630; 85025; 86140; 93005

== ENCOUNTER → 2024-05-27 11:57 | Outpatient (BNV) | payer OTHER, SELFPAY | PROVIDERS: PCP Internal Medicine; Visit Provider Radiology Diagnostic Radiology | DX: E66.9 Obesity, unspecified (principal) | CPT/HCPCS: 71046 ==

== ENCOUNTER → 2024-05-27 12:07 | Outpatient (BNV) | payer OTHER, SELFPAY | PROVIDERS: PCP Internal Medicine; Visit Provider Internal Medicine Cardiovascular Disease | DX: E66.9 Obesity, unspecified (principal) | CPT/HCPCS: 93010 ==

== ENCOUNTER 2024-06-17 10:10 | Day surgery (SDC) | payer OTHER, SELFPAY ==
--- OUTSIDE RECORDS SUMMARY | 2024-06-14 13:39 | XMS_ITS | Clinical Summary ---
Author Organization [facility] Address [address] [place] [address] Phone Care Team Providers Care Conference Planner Name Role Phone Unavailable Primary Care Provider [...]
--- OUTSIDE RECORDS SUMMARY | 2024-06-14 13:39 | XMS_ITS | Encounter Summary ---
Author Organization [facility] Address [address] [place] [address] Phone Care Team Providers Care Black Top Paver Operator Name Role Phone Jojo Elliott MD Primary Care Provider [phone] Encounter Details Date Type Department Care Team (Late st Contact Info) Description 12/15/2016 Conversion Encounter [facility] [place] [address] [place] [address] Social History Tobacco Use Types Packs/Day Years [...] on filedocumented in this encounter Care Teams Black Top Paver Operator Relationship Specialty Start Date End Date Jojo Elliott MD [address] [place] [address] PCP - General 09/23/16 07/28/22 documented as of this encounter
[2024-06-17 10:39] VITALS: BMI 35.7
[2024-06-17 10:42] VITALS: BP 119/74; PULSE 60; RESP 18; TEMP 36.4; O2SAT 99
--- NOTE | 2024-06-17 10:43 | MHC.SHP ---
Pre-Procedural Eval Section A - 24 Hr Update-Section A only Date of Service: 06/17/24 The patient is an INPATIENT: No The patient has been examined within 24 hours of the surgical procedure. The History & Physical has been completed within 30 days and I have reviewed it.: Yes Section B - Complete if H&P > 30 days Chief Complaint: Morbid (severe) obesity due to excess calories Details of Present Illness: GERD Relevant Family History (Specify if Yes): No Relevant Social History: None Present Medications: None Medical History: No relevant PMH History of Previous Operations: No relevant previous surgery Allergies: Allergies Allergy/AdvReac Type Severity Reaction Status Date / Time No Known Allergies Allergy Verified 05/27/24 09:04 Review of Systems Sugical H&P ROS: Negative: Constitution, Cardiovascular, Respiratory, Neurological, Psychiatric, Hem-Onc, Allergic/Immunologic, Gastrointestinal, Genitourinary, Musculoskeletal, Integumentary, Endocrine and Eyes/Ears/Nose/Throat Exam Surgical H&P Exam: Normal: HEENT, Normal: Heart, Normal: Lungs, Normal: Extremities, Normal: Abdomen, Normal: Skin and Normal: Neurological Plan Diagnosis/Plan: Unchanged (EGD to assess etiology of GERD. Risks of bleeding and perforation were discussed with the patient and she is in agreement with the plan.) I have reviewed the history and physical and performed a pertinent physical examination on my patient. No changes have occurred unless specified. Time Spent With Patient Time: Total time managing care of this patient today ____ minutes.
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
--- NOTE | 2024-06-17 10:47 | PM.OP ---
Brief Operative Note Date of Service: 06/17/24 Pre-op diagnosis: GERD Post-op diagnosis: same (& gastritis) Procedure: PROCEDURE DATE: 06/17/2024 PREOPERATIVE DIAGNOSIS: GERD POSTOPERATIVE DIAGNOSIS: ?Same as above. Gastritis PROCEDURE: [id number]-[id number] with biopsies Surgeon: Sydnie Mcconnell M.D.. Ph.D. Promotions Director: None ? Anesthesia: IV sedation Estimated blood loss: ?Minimal FINDINGS AND PROCEDURE: ? OPERATIVE INDICATIONS: ?The patient is a 38 year old female known to me who is interested in bariatric surgery. The patient has GERD Based on this information I recommended an upper endoscopy to evaluate the patient's symptoms. Risks and complications of the surgery were discussed with the patient in advance particularly the possibility of perforation or bleeding that may require surgical intervention. The patient understood the risks and was in agreement with the plan. ? PROCEDURE: After informed consent was obtained by the patient, the patient was ?transferred to the Operating Room and was placed in the supine position.? After successful induction of IV sedation, a mouth block was inserted and the patient was placed in the left lateral decubitus position. An upper endoscopy was performed next, the oropharynx and esophagus appeared within the normal limits. There was no hiatal hernia. The z-line was smooth. Two biopsies were obtained from the distal esophagus 2-3 cm proximal to the GE junction and two additional biopsies from the GE junction. The stomach was entered and it appeared to be of normal size. There was mild gastritis throughout the stomach. There was no stricture or ulcer. A biopsy was obtained from the gastric fundus and the antrum. No significant bleeding was noted from any of the biopsy sites. Retroflexion of the scope confirmed a normal GE junction. The scope was then advanced into the duodenum which appeared to be normal as well. At that point the duodenum ?and the stomach were decompressed and the scope was withdrawn from the patient's mouth. The patient extubated and was transferred in stable condition to the Recovery Room for further care. I was present and performed all steps of the procedure. There were no residents to assist with this case. Yehuda Mcconnell M.D., Ph.D. Surgeon: Landry Mcconnell MD Anesthesia: MAC Was an Promotions Director used for this Procedure?: No Estimated blood loss (mL): 0 IV fluids (mL): 400 Urine output (mL): 0 Pathology: other (1) antrum x1, 2) fundus x1, 3) GE junction x2, 4) distal esophagus x2) Condition: stable Disposition: PACU
[2024-06-17] MEDS: Lactated Ringers 1,000 ML 80 ML IVCONT (11:03)
[2024-06-17 11:18] VITALS: BP 96/52; PULSE 61; RESP 18; TEMP 36.1; O2SAT 99
[2024-06-17 11:33] VITALS: BP 117/81; PULSE 72; RESP 18; O2SAT 99
== END 2024-06-17 12:03 | disposition home or self-care (01) ==
PROVIDERS: PCP Internal Medicine; Visit Provider Surgery
PROC: 0DJ08ZZ Inspection of Upper Intestinal Tract, Via Natural or Artificial Opening Endoscopic (ICD-10-PCS; CPT 43235; principal; 2024-06-17 12:10)
DX: K21.9 Gastro-esophageal reflux disease without esophagitis (principal); E66.01 Morbid (severe) obesity due to excess calories; Z68.35 Body mass index [BMI] 35.0-35.9, adult; K29.50 Unspecified chronic gastritis without bleeding; J45.909 Unspecified asthma, uncomplicated; G43.909 Migraine, unspecified, not intractable, without status migrainosus; F41.9 Anxiety disorder, unspecified; Z98.82 Breast implant status; Z92.89 Personal history of other medical treatment; Z90.49 Acquired absence of other specified parts of digestive tract
CPT/HCPCS: 43239; 88305; 88313; 88342; J2003; J2704

== ENCOUNTER → 2024-06-17 10:10 | Outpatient (BNV) | payer OTHER, SELFPAY | PROVIDERS: PCP Internal Medicine; Visit Provider Surgery | DX: K21.9 Gastro-esophageal reflux disease without esophagitis (principal); K29.70 Gastritis, unspecified, without bleeding | CPT/HCPCS: 43239 ==

== ENCOUNTER 2024-06-25 09:18 | Outpatient (AMB) | payer OTHER, SELFPAY ==
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
--- OUTSIDE RECORDS SUMMARY | 2024-06-25 09:47 | XMS_ITS | Encounter Summary ---
Author Organization [facility] Address [address] [place] [address] Phone Care Team Providers Care Tool Straightener Name Role Phone Jojo Elliott MD Primary Care Provider Encounter Details Date Type Department Care Team (Late st Contact Info) Description 12/15/2016 Conversion Encounter [facility] [place] [address] [place] [address] Social History Tobacco Use Types Packs/Day Years [...] on filedocumented in this encounter Care Teams Tool Straightener Relationship Specialty Start Date End Date Jojo Elliott MD [address] [place] [address] PCP - General 09/23/16 07/28/22 documented as of this encounter
--- OUTSIDE RECORDS SUMMARY | 2024-06-25 09:47 | XMS_ITS | Continuity of Care Document ---
Author Organization [facility] Address [address] [place] [address] [address] [place] Harjinder [id number] Phone Care Team Providers Care Professor Of Marketing Name Role Phone Vito PATRICK, EDUAR, Fortunato [...] Providers Copied on Encounter [facility], [address] [place] [address] [address]Harjinder [place], [id number], [place] tel:[phone] [facility] [place] Encounter for follow-up examination after completed treatment for conditions other than malignant neoplasmVari cose veins of bilateral lower extremities with pain May- Vito PATRICK, EDUAR, CHRISTIANO Bucio. [address] [facility] [address], [place], [place], [id number] , [place]. tel: [phone] Referring Provider: Mireille Hernandez MD, [address] [facility] [address]Trung, [address] [place] [address] D/B/A: reeceantwan [facility] [place], [address]. tel:[phone] [facility], [address] [place] [address] [address]Harjinder [place], [id number], [place] tel:[phone] [facility] [place] [facility] [place] Chronic venous hypertension (idiopathic) with inflammation of left lower extremity Apr-1 0-202 5 Vito PATRICK RVT, RPFELICIA Bucio. [address] [place] [address], Suite [facility], [facility], [place], [id number] , [place]. tel: [phone] Referring Provider: Mireille Hernandez MD, [address] [facility] [address]Trung, [address] D/B/A: claudia [facility] [place], [address]. tel:[phone] [facility], [address] [place] [address] [address]Harjinder [place], [id number], [place] tel:[phone] [facility] [place] Chronic venous hypertension (idiopathic) with inflammation of left lower extremity Apr-0 9-202 5 Vito PATRICK RVT, RPFELICIA Fortunato. [address] [place] [address], Suite [facility], [facility], [place], [id number] , [place]. tel: [phone] Referring Provider: Mireille Hernandez MD, [address] [facility] , [address] D/B/A: [place], [address]. tel:[phone] [facility], [address] [place] [address] Dr [address]Harjinder [place], [id number], [place] tel:[phone] [facility] [place] Chronic venous hypertension (idiopathic) with inflammation of right lower extremity Apr-0 8-202 5 Vito PATRICK RVT, RPFELICIA Fortunato. [address] [facility], [address], [facility], [place], [id number] , [place]. tel: [phone] Referring Provider: Mireille Hernandez MD, [address] [facility] , [address] [place] D/B/A: [place], [address]. tel:[phone] [place] [facility], [address] [place] [address] [address]Harjinder [place], [id number], [place] tel:[phone] [facility] - [facility] Chronic venous hypertension (idiopathic) with inflammation of right lower extremity Apr-0 5 Vito PATRICK RVT, CHRISTIANO Bucio. [address] [facility], [address], [facility] [place] [place] [id number] , [place]. tel:[phone] Referring Provider: Mireille Hernandez MD, 2 [facility] , [address] [place] [address] D/B/A: [place], [address]. tel:[phone] [place] [facility], [address] [place] [address] [address]Harjinder [place], [id number], [place] tel:[phone] [facility] - [facility] No Information Mar-2 5 Vito PATRICK RVT, CHRISTIANO Bucio. [address] [facility], [address], [facility] [place], [id number] , [place]. tel:[phone] Offic/outpt E&m Estab 5 Min Trial- Telemedicine [place] & [place] [facility], [address] [place] [address] [address]Harjinder [place], [id number], [place] tel:[phone] [facility] - [facility] Chronic venous hypertension (idiopathic) with other complication s of bilateral lower extremityCra mp and spasmRestles s legs syndromePrur itus, unspecified Mar-0 5 Vito PATRICK RVT, CHRISTIANO Bucio. [address] [facility], [address], [facility] [place], [id number] , [place]. tel:[phone] Referring Provider: Mireille Hernandez MD, [address] [facility] , [address] [place] D/B/A: [place], [address]. tel:[phone] Offic Cons New/estab Mod-hi 60- [place] & [place] [facility], [address] [place] [address] [address]Harjinder [place], [id number], [place] tel:[phone] [facility] - [facility] Chronic venous hypertension (idiopathic) without complication s of bilateral lower extremityRes tless legs syndromeVeno us insufficienc y (chronic) (peripheral) Pruritus, unspecifiedC ramp and spasmLocaliz ed edema 4 Vito PATRICK RVT, CHRISTIANO Bucio. [address] [facility], [place] [address], [place], [place], [id number] , [place]. tel:[phone] Referring Provider: Mireille Hernandez MD, [address] [place] [address] , [address] [place] [address] D/B/A: [place], [address]. tel:[phone] [place] [facility], [address] [place] [address] [address]Harjinder [place], [id number], [place] tel:[phone] [facility] ([facility]opathic) with other complication s of bilateral lower extremity 4 Vito PATRICK RVT, RPVI Robert. [address] [facility], [place] [address], [place], [place], [id number] , [place]. tel:[phone] Referring Provider: Mireille Hernandez MD, [address] [place] [address] , [address] [place] [address] D/B/A: [place], [address]. tel:[phone] Family History Family Member Type Diagnosis Age At Onset No Information Payers Payer name Insurance type Covered constitution party ID Authoriza tion(s) [facility] [id number] Social History Type Description Quantity Date Captured [...]
--- OUTSIDE RECORDS SUMMARY | 2024-06-25 09:47 | XMS_ITS | Clinical Summary ---
Author Organization [facility] Address [address] [place] [phone] Phone Care Team Providers Care Direct Sales Consultant Name Role Phone Unavailable Primary Care Provider [...]
== END 2024-06-25 09:50 | disposition home or self-care (01) ==
LOC: HO.HBST 09:18
PROVIDERS: PCP Internal Medicine; Visit Provider Counselor Mental Health
DX: F43.20 Adjustment disorder, unspecified (principal); Z72.4 Inappropriate diet and eating habits; Z71.89 Other specified counseling
CPT/HCPCS: 90791

== ENCOUNTER 2024-07-11 11:18 | Outpatient (AMB) | payer OTHER, SELFPAY ==
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
--- OUTSIDE RECORDS SUMMARY | 2024-07-11 11:41 | XMS_ITS | Clinical Summary ---
Author Organization [facility] Address [address] [place] [id number] Phone Care Team Providers Care Supervisor [employer] Name Role Phone Unavailable Primary Care Provider [...]
== END 2024-07-11 12:04 | disposition home or self-care (01) ==
LOC: HO.HBST 11:18
PROVIDERS: PCP Internal Medicine; Visit Provider Counselor Mental Health
DX: F43.20 Adjustment disorder, unspecified (principal); Z72.4 Inappropriate diet and eating habits; Z71.89 Other specified counseling
CPT/HCPCS: 90834

== ENCOUNTER → 2024-07-11 11:18 | Outpatient (BNVA) | payer OTHER, SELFPAY | PROVIDERS: PCP Internal Medicine; Visit Provider Counselor Mental Health ==

== ENCOUNTER 2024-08-01 09:05 | Outpatient (AMB) | payer OTHER, SELFPAY ==
--- NOTE | 2024-08-01 09:00 | A.OFFWM_ITS ---
Intake Intake Visit Reasons: VIDEO BH F/U Allergies No Known Allergies Allergy (Verified 05/27/24 09:04) PFSH Medical History Anxiety History of blood transfusion Physical exam Helicobacter pylori (H. pylori) Gallbladder polyp Class 1 obesity with body mass index (BMI) of 33.0 to 33.9 in adult GERD (gastroesophageal reflux disease) Right upper quadrant abdominal pain Migraines Photosensitivity Mild asthma Breast implant status Surgical History History of cholecystectomy History of esophagogastroduodenoscopy (EGD) History of blepharoplasty Urethral diverticulum History of tubal ligation History of abdominoplasty Hx of breast implants, bilateral History of wisdom tooth extraction Family History Father Diabetes Mother No problems noted. 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 Patient expresses some ambivalence about surgery and appears to have limited insight into the long-term behavioral com mitments required postoperatively. Objective: Patient presented for a follow-up behavioral health visit as part of the Surgical Weight Loss Program (SWLP). The session focused on current functioning, daily routine, and identified challenges and barriers to progress. The patient demonstrated difficulty articulating a clear and realistic plan for postoperative changes. There is limited evidence of sustained behavioral readiness or effective coping strategies to manage the demands of post-surgical life. Cognitive Behavioral Therapy (CBT) techniques were utilized to begin challenging biased thinking patterns and to support mindset shifts related to habit formation, discipline, and stress management. The session also addressed ongoing life stressors and their impact on behavioral consistency. A collaborative, strengths-based approach was implemented to help the patient leverage available resources, establish supportive systems, identify current obstacles, and begin creating practical solutions. Efforts were made to reframe negative or self-limiting thoughts such as ?It?s too hard? or ?I can?t do it,? and replace them with more adaptive and empowering perspectives. Homework was assigned, focusing on behavior tracking, structured planning, and increased self-awareness around current habits. Assessment/Response: * Mental status: Patient was cooperative and oriented during the session. * Risk reported/identified: None. Assessment & Plan Assessment & Plan (1) Adjustment disorder: Code(s): F43.20 - Adjustment disorder, unspecified (2) Inappropriate diet or eating habits: Code(s): Z72.4 - Inappropriate diet and eating habits (3) Pre-bariatric surgery psychological evaluation: Code(s): Z71.89 - Other specified counseling Plan -Recommend continued engagement in behavioral counseling to address ambivalence, enhance motivation, and support the development of sustainable lifestyle and behavioral changes. -Encourage the patient to establish structured, realistic goals and maintain regular follow-up with the multidisciplinary weight management team. -Re-evaluation for behavioral health clearance will occur once the patient demonstrates improved readiness and consistent adherence to preoperative recommendations. -This provider will inform the clinical team of the patient's expressed interest in medical weight loss options, including phentermine and Zepbound. Next carlitos: 09/11/24 at 9am, TH Telehealth Telehealth Telehealth Platform: [employer] Location of provider rendering services: other (Home office. [place], [place]) Location of patient: address on file Patient Identification confirmed using: Name, : Yes Telehealth method: voice only Patient verbally consented to treatment: Yes Patient verbally consented to billing insurance company: Yes Patient informed of any privacy concerns related to visit: Yes Minutes spent on Phone/Video with Pt.: 60 Coding Level of Care Code Established Pt Tele Psytx >53 mins (88735) Patient Type Established Diagnoses Adjustment disorder F43.20 Inappropriate diet or eating habits Z72.4 Pre-bariatric surgery psychological evaluation Z71.89 Time Spent (min) 60
--- OUTSIDE RECORDS SUMMARY | 2024-08-01 09:41 | XMS_ITS | Clinical Summary ---
Author Organization [facility] Address [address] [place] [id number] Phone Care Team Providers Care Neurology Nurse Name Role Phone Unavailable Primary Care Provider [...]
== END 2024-08-01 09:40 | disposition home or self-care (01) ==
LOC: HO.HBST 09:05
PROVIDERS: PCP Internal Medicine; Visit Provider Counselor Mental Health
DX: F43.20 Adjustment disorder, unspecified (principal); Z72.4 Inappropriate diet and eating habits; Z71.89 Other specified counseling
CPT/HCPCS: 90837

== ENCOUNTER → 2024-08-01 09:05 | Outpatient (BNVA) | payer OTHER, SELFPAY | PROVIDERS: PCP Internal Medicine; Visit Provider Counselor Mental Health ==

== ENCOUNTER 2024-08-14 15:33 | Outpatient (AMB) | payer OTHER, SELFPAY ==
--- OUTSIDE RECORDS SUMMARY | 2024-05-27 07:15 | XMS_ITS | Continuity of Care Document ---
Author Organization [facility] Address [address] [place] [address] [address] [place] [address] Phone Care Team Providers Care Check Grader Name Role Phone Vito PATRICK, EDUAR, Fortunato ALVARADO Unavailable U navailable Allergies, Adverse Reactions, Alerts Substance Reaction Status Criticality amoxicillin Active No Information Procedures Procedure Date Duplex Scan-extrem Veins; Comp- CT & [place] Endovenous Laser, 1st Vein- CT & [place] Endovenous Laser, 1st Vein- CT & [place] Endovenous Laser, 1st Vein- CT & [place] Endovenous Laser, 1st Vein- CT & [place] Offic/outpt E&m Estab 5 Min Trial- Telem edicine CT & [place] Offic Cons New/estab Mod-hi 60- CT & [place] Duplex Scan-extrem Veins; Comp- CT & [place] Advance Directives Directive Yes / No Effective Date File Name No Information Encounters Encounter Description Practice Location Reason(s) For Visit Diagnoses Date Provider Providers Copied on Encounter [facility], [address] [place] [address] [address]Harjinder [place], [id number], [place] tel:[phone] [facility] [place] Encounter for follow-up examination after completed treatment for conditions other than malignant neoplasmVari cose veins of bilateral lower extremities with pain May- Vito PATRICK, EDUAR, CHRISTIANO Bucio. [address] [facility], [place], [place], [id number] , [place]. tel: [phone] Referring Provider: Mireille Hernandez MD, 2 [facility] DrTrung, [address] [place] [address] D/B/A: reeceantwan [facility] [place], [address]. tel:[phone] [facility], [address] [place] [address] [address]Harjinder [place], [id number], [place] tel:[phone] [facility] [place] Chronic venous hypertension (idiopathic) with inflammation of left lower extremity Apr-1 0-202 5 Vito PATRICK RVT, RPFELICIA Bucio. [address] [place] [address], Suite [facility], [facility], [place], [id number] , [place]. tel: [phone] Referring Provider: Mireille Hernandez MD, 2 [facility] DrTrung, [address] D/B/A: claudia [facility] [place], [address]. tel:[phone] [facility], [address] [place] [address] [address]Harjinder [place], [id number], [place] tel:[phone] [facility] [place] Chronic venous hypertension (idiopathic) with inflammation of left lower extremity Apr-0 9-202 5 Vito PATRICK RVT, RPFELICIA Fortunato. [address] [place] [address], Suite [facility], [facility], [place], [id number] , [place]. tel: [phone] Referring Provider: Mireille Hernandez MD, 2 [facility] , [address] D/B/A: [place], [address]. tel:[phone] [facility], [address] [place] [address] Dr [address]Harjinder [place], [id number], [place] tel:[phone] [facility] [place] Chronic venous hypertension (idiopathic) with inflammation of right lower extremity Apr-0 8-202 5 Vito PATRICK RVT, RPFELICIA Fortunato. [address] [facility], [address], [facility], [place], [id number] , [place]. tel: [phone] Referring Provider: Mireille Hernandez MD, 2 [facility] , [address] [place] D/B/A: [place], [address]. tel:[phone] [place], [address] [place] [address] [address]Harjinder [place], [id number], [place] tel:[phone] [facility] - [facility] Chronic venous hypertension (idiopathic) with inflammation of right lower extremity Apr-0 5 Vito PATRICK RVT, CHRISTIANO Bucio. [address] [facility], [address], [facility] [place], [id number] , [place]. tel:[phone] Referring Provider: Mireille Hernandez MD, 2 [facility] , [address] [place] [address] D/B/A: [place], [address]. tel:[phone] [facility], [address] [place] [address] [address] 1000Harjinder [place], [id number], [place] tel:[phone] [facility] - [facility] No Information Mar-2 5 Vito PATRICK RVT, CHRISTIANO Bucio. [address] [facility], [address], [facility] [place], [id number] , [place]. tel:[phone] Offic/outpt E&m Estab 5 Min Trial- Telemedicine CT & [place] [facility], [address] [place] [address] [address]Harjinder MD, [id number], [place] tel:[phone] [facility] - [facility] Chronic venous hypertension (idiopathic) with other complication s of bilateral lower extremityCra mp and spasmRestles s legs syndromePrur itus, unspecified Mar-0 5 Vito PATRICK RVT, CHRISTIANO Bucio. [address] [facility], [address], [facility] [place], [id number] , [place]. tel:[phone] Referring Provider: Mireille Hernandez MD, 2 [facility] , [address] [place] D/B/A: [place], [address]. tel:[phone] Offic Cons New/estab Mod-hi 60- CT & [place] [facility], [address] [place] [address] [address]Harjinder MD, [id number], [place] tel:[phone] [facility] - [facility] Chronic venous hypertension (idiopathic) without complication s of bilateral lower extremityRes tless legs syndromeVeno us insufficienc y (chronic) (peripheral) Pruritus, unspecifiedC ramp and spasmLocaliz ed edema 4 Vito PATRICK RVT, CHRISTIANO Bucio. [address] [facility], [place] [address], [place], [place], [id number] , [place]. tel:[phone] Referring Provider: Mireille Hernandez MD, [address] [place] [address] , [address] [place] [address] D/B/A: [place], [address]. tel:[phone] [place] [facility], [address] [place] [address] [address] 1000Harjinder MD, [id number], [place] tel:[phone] [facility] (idiopathic) with other complication s of bilateral lower extremity 4 Vito PATRICK RVT, RPVI Robert. [address] [facility], [place] [address], [place], [place], [id number] , [place]. tel:[phone] Referring Provider: Mireille Hernandez MD, [address] [place] [address] , [address] [place] [address] D/B/A: [place], [address]. tel:[phone] Family History Family Member Type Diagnosis Age At Onset No Information Payers Payer name Insurance type Covered alliance party ID Authoriza tion(s) [facility] [place] [id number] Social History Type Description Quantity Date Captured Comments Sex Female Smoking Status No Information Chief Complaint And Reason For Visit No Information Reason For Referral Reason For Referral No Information Plan Of Treatment Date Type Action Status Goal Diet education completed Referral Ordered: Weight management: Referral to physician timeframe: 3 Months (related to Body mass index (BMI) 35.0-35.9, adult) ordered History Of Present Illness Encounter Date Complaint History Of Prese nt Illness No Information Functional Status Date Functional Assessmen t No Information Instructions Date Instruction Additional Infor mation Compression stocking usage as conservative measure Related to Chronic venous hypertension (idiopathic) with other complications of bilateral lower extremity Patient education booklet given Related to Chronic venous hypertension (idiopathic) with other complications of bilateral lower extremity Giving Encouragement to exercise Related to Body [...]
--- NOTE | 2024-08-14 15:35 | AM.OFFWIN_ITS ---
Intake Vital Signs 08/14/24 15:36 Height 5 ft 2 in Weight 190 lb BMI 34.7 BP 102/76 Blood Pressure Location Lt brachial Position Sitting Pulse 80 Pulse Source Pulse Oximeter Temp 98.1 F Temp Source Oral Pulse Oximetry (%) 98 Oxygen Delivery Method Room Air Intake Visit Reasons: EP-?uti, thigh cellulitis Intake Note: presents with painful cyst like lesions on pubic region and thighs low abdominal pressure with burning sensation at the end of urinating Patient Tobacco Use Status: Never used Tobacco Allergies No Known Allergies Allergy (Verified 08/14/24 15:38) Do you need a note to return to daycare/school/sports/work: No HPI HPI Comments History of Present Illness Details History - The patient is a 38-year-old female pr esenting with concerns of recurrent cellulitis and symptoms suggestive of a urinary tract infection. - The patient developed cellulitis after picking at ingrown hairs post-waxing, which initially improved with amoxicillin but recurred due to continued picking. - She has been using hydrocortisone crea m without much improvement. - The patient reports lower abdominal pr essure and burning sensation at the end of urination for three days, following sexual intercourse, with no fever, foul smelling vaginal discharge or abnormal vaginal discharge. She denies low back pain. She admits to one partner other than her and would like a chlamydia and gonorrhea test. Physical Exam General: Cooperative, healthy appearing, comfortable, no acute distress and well developed Orientation: Patient oriented x3 Limitations: No limitations Head: Normal to inspection Ears: Hearing grossly normal bilaterally Nose: Normal External nose present Face and sinus: Normal facial exam Mouth: normal, moist oral mucosa Eyes: Appearance normal, both eyes and all related structures Neck: Normal visual inspection and Yes full ROM Respiratory: Normal respiratory effort and able to speak in complete sentences. Skin: Multiple papules in the pubic hair area that are raised erythematous, not fluctuant, not warm, no drainage, has a similar 1 on her upper inner right thigh and her left buttock. Neuro: Patient oriented x3 Extremities: Moving all extremities normally [facility] Medical History Anxiety History of blood transfusion Physical exam Helicobacter pylori (H. pylori) Gallbladder polyp Class 1 obesity with body mass index (BMI) of 33.0 to 33.9 in adult GERD (gastroesophageal reflux disease) Right upper quadrant abdominal pain Migraines Photosensitivity Mild asthma Breast implant status Surgical History History of cholecystectomy History of esophagogastroduodenoscopy (EGD) History of blepharoplasty Urethral diverticulum History of tubal ligation History of abdominoplasty Hx of breast implants, bilateral History of wisdom tooth extraction Family History Father Diabetes Mother No problems noted. 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 Current occupational exposures/hazards: No Cognitive needs: No Hearing needs: No Vision needs: No Female Reproductive History Menstrual Age of Menarche: 14 Review of Systems Const All systems reviewed & are unremarkable except as noted in HPI and below Physical Exam Vital Signs: Last Vital Signs Temp 98.1 F 08/14/24 15:36 Pulse 80 08/14/24 15:36 BP 102/76 08/14/24 15:36 Pulse Ox 98 08/14/24 15:36 Oxygen Delivery Method Room Air 08/14/24 15:36 BMI result Body Mass Index 34.7 Results AMB Urinalysis, Automated UA Leukoctes 0 Juanpablo/uL Last Edit by Violeta Snigh MA on 08/14/24 16:19 UA Nitrite Negative Last Edit by Violeta Singh MA on 08/14/24 16:19 UA Urobilinogen 0 mg/dL Last Edit by Violeta Singh MA on 08/14/24 16:19 UA Protein 15 mg/dL Last Edit by Violeta Singh MA on 08/14/24 16:19 UA pH 6.0 Last Edit by Violeta Singh MA on 08/14/24 16:19 UA Blood 2 Tae/uL Last Edit by Violeta Singh MA on 08/14/24 16:19 UA Specific [place] 1.025 Last Edit by Violeta Singh MA on 08/14/24 16:1 9 UA Ketone Negative Last Edit by Violeta Singh MA on 08/14/24 16:19 UA Bilirubin 0 mg/dL Last Edit by Violeta Singh MA on 08/14/24 16:19 UA Glucose 0 mg/dL Last Edit by Violeta Singh MA on 08/14/24 16:19 Results Reviewed Results Reviewed: Laboratory Last Values Urine pH (Auto) 6.0 08/14/24 16:10 Specific [place] (Auto) 1.025 08/14/24 16:10 Urine Protein (Auto) 15 mg/dL 08/14/24 16:10 Glucose (UA)(Auto) 0 mg/dL 08/14/24 16:10 Urine Ketones (Auto) Negative 08/14/24 16:10 Urine Blood (Auto) 2 Tae/uL 08/14/24 16:10 Urine Nitrite (Auto) Negative 08/14/24 16:10 Urine Bilirubin (Auto) 0 mg/dL 08/14/24 16:10 Urine Urobilinogen (Auto) 0 mg/dL 08/14/24 16:10 Leukocyte Esterase (Auto) 0 Juanpablo/uL 08/14/24 16:10 Assessment & Plan Assessment & Plan (1) At risk for sexually transmitted disease due to partner with multiple partners: Code(s): Z91.89 - Other specified personal risk factors, not elsewhere classified Plan: Patient was informed and verbally consented to the use of an ambient scribe for clinic note documentation during this visit as below (2) Dysuria: Code(s): R30.0 - Dysuria Plan: - urinalysis negative for leukocytes negative for nitrites positive for blood. We will treat based on symptoms - Urinary Tract Infection vs STI vs both - chlamydia gonorrhea testing has been sent, we will treat based on results as patient is not symptomatic today. - Request a clean urine sample for urinalysis and culture to confirm diagnosis. - Advise the patient to return for testing if unable to provide a sample during the visit. (3) Folliculitis: Code(s): L73.9 - Follicular disorder, unspecified Plan: - appears to be more of a folliculitis rather than a cellulitis, no antibiotics indicated at this time - Prescribe mupirocin cream to apply topically to affected areas to prevent further infection. - Advise the patient to avoid picking at ingrown hairs to prevent recurrence. Orders: Orders Urine Culture Today N39.0 - Urinary tract infection, site not specified AMB Urinalysis Automated Today R30.0 - Dysuria Medications: New cefuroxime axetil 500 mg PO Q12H 10 tabs 0RF mupirocin 2% 1 appl topical TID 22 grams 0RF Coding Level of Care Code Est Pt Level 4 (62781) Diagnoses At risk for sexually transmitted disease due to partner with multiple partners Z91.89 Dysuria R30.0 Folliculitis L73.9
[2024-08-14 15:36] VITALS: BP 102/76; PULSE 80; TEMP 36.7; O2SAT 98; BMI 34.7
--- OUTSIDE RECORDS SUMMARY | 2024-08-14 15:42 | XMS_ITS | Clinical Summary ---
Author Organization [facility] Address [address] [place] [id number] Phone Care Team Providers Care Trim Attacher Name Role Phone Unavailable Primary Care Provider [...] 12/18/2016 12/18/2006, 08/10/1998, 05/13/1998, Additional history exists COVID-19 Vaccine ( season) 2023 Influenza Vaccines (#1) 2024 12/18/2006 HIB Vaccines Completed 05/13/1989 IPV Vaccines Completed [...]
== END 2024-08-14 16:20 | disposition home or self-care (01) ==
PROVIDERS: PCP Internal Medicine; Visit Provider Physician Assistant
DX: Z91.89 Other specified personal risk factors, not elsewhere classified (principal); R30.0 Dysuria; L73.9 Follicular disorder, unspecified

== ENCOUNTER 2024-08-14 15:33 | Outpatient (REF) | payer OTHER, SELFPAY | END 2024-08-14 15:34 | disposition home or self-care (01) | LOC: HO.LAB 15:33 | PROVIDERS: PCP Internal Medicine | DX: N39.0 Urinary tract infection, site not specified (principal); R30.0 Dysuria; L03.115 Cellulitis of right lower limb; L73.1 Pseudofolliculitis barbae; Z91.89 Other specified personal risk factors, not elsewhere classified | CPT/HCPCS: 81003; 87086; 87088; 87186; 99212 ==

== ENCOUNTER 2024-08-15 12:27 | Outpatient (AMB) | payer OTHER, SELFPAY ==
--- OUTSIDE RECORDS SUMMARY | 2024-05-27 07:15 | XMS_ITS | Continuity of Care Document ---
Author Organization [facility] Address [address] [place] [address] [address] [place] [address] Phone Care Team Providers Care Benefit Specialist Name Role Phone Vito PATRICK, EDUAR, Fortunato [...] Providers Copied on Encounter [facility], [address] [place] [address] [address] 1000Harjinder [place], [id number], [place] tel:[phone] [facility] [place] Encounter for follow-up examination after completed treatment for conditions other than malignant neoplasmVari cose veins of bilateral lower extremities with pain May- Vito PATRICK, EDUAR, CHRISTIANO Bucio. [address] [facility] [address], [place], [place], [id number] , [place]. tel: [phone] Referring Provider: Mireille Hernandez MD, 2 [facility] DrTrung, [address] [place] [address] D/B/A: reeceantwan [facility] [place], [address]. tel:[phone] [facility], [address] [place] [address] [address] 1000Harjinder MD, [id number], [place] tel:[phone] [facility] [place] Chronic venous hypertension (idiopathic) with inflammation of left lower extremity Apr-1 0-202 5 Vito PATRICK RVT, RPFELICIA Bucio. [address] [place] [address], Suite [facility], [facility], [place], [id number] , [place]. tel: [phone] Referring Provider: Mireille Hernandez MD, 2 [facility] DrTrung, [address] D/B/A: claudia [facility] [place], [address]. tel:[phone] [facility], [address] [place] [address] [address] 1000Harjinder MD, [id number], [place] tel:[phone] [facility] [place] Chronic venous hypertension (idiopathic) with inflammation of left lower extremity Apr-0 9-202 5 Vito PATRICK RVT, RPFELICIA Fortunato. [address] [place] [address], Suite [facility], [facility], [place], [id number] , [place]. tel: [phone] Referring Provider: Mireille Hernandez MD, 2 [facility] , [address] D/B/A: [place], [address]. tel:[phone] [facility], [address] [place] [address] Dr [address] 1000Harjinder MD, [id number], [place] tel:[phone] [facility] [place] Chronic venous hypertension (idiopathic) with inflammation of right lower extremity Apr-0 8-202 5 Vito PATRICK RVT, RPFELICIA Fortunato. [address] [facility], [address], [facility], [place], [address] , [place]. tel: [phone] Referring Provider: Mireille Hernandez MD, 2 [facility] , [address] [place] D/B/A: [place], [address]. tel:[phone] [place] [facility], [address] [place] [address] [address] 1000Harjinder MD, [id number], [place] tel:[phone] [facility] - [facility] Chronic venous hypertension (idiopathic) with inflammation of right lower extremity Apr-0 5 Vito PATRICK RVT, CHRISTIANO Bucio. [address] [facility], [address], [facility], [id number] , [place]. tel:[phone] Referring Provider: Mireille Hernandez MD, 2 [facility] , [address] [place] [address] D/B/A: [place], [address]. tel:[phone] [place] [facility], [address] [place] [address] [address] 1000Harjinder MD, [id number], [place] tel:[phone] [facility] - [facility] No Information Mar-2 5 Vito PATRICK RVT, CHRISTIANO Bucio. [address] [facility], [address], [facility] [place], [id number] , [place]. tel:[phone] Offic/outpt E&m Estab 5 Min Trial- Telemedicine CT & [place] [facility], [address] [place] [address] [address] 1000Harjinder MD, [id number], [place] tel:[phone] [facility] - [facility] Chronic venous hypertension (idiopathic) with other complication s of bilateral lower extremityCra mp and spasmRestles s legs syndromePrur itus, unspecified Mar-0 5 Vito PATRICK RVT, CHRISTIANO Bucio. [address] [facility], [address], [facility], [address] , [place]. tel:[phone] Referring Provider: Mireille Hernandez MD, 2 [facility] , [address] [place] D/B/A: [place], [address]. tel:[phone] Offic Cons New/estab Mod-hi 60- CT & [place] [facility], [address] [place] [address] [address] 1000Harjinder MD, [id number], [place] tel:[phone] [facility] Chronic venous hypertension (idiopathic) without complication s of bilateral lower extremityRes tless legs syndromeVeno us insufficienc y (chronic) (peripheral) Pruritus, unspecifiedC ramp and spasmLocaliz ed edema 4 Vito PATRICK RVT, CHRISTIANO Bucio. [address] [facility], [place] [address], [place], [place], [id number] , [place]. tel:[phone] Referring Provider: Mireille Hernandez MD, [address] [place] [address] , [address] [place] [address] D/B/[place]: [place], [address]. tel:[phone] [place] [facility], [address] [place] [address] [address] 1000Harjinder MD, [id number], [place] tel:[phone] [facility] hypertension (idiopathic) with other complication s of bilateral lower extremity 4 Vito PATRICK RVT, RPVI Robert. [address] [facility], [place] [address], [place], [place], [id number] , [place]. tel:[phone] Referring Provider: Mireille Hernandez MD, [address] [place] [address] , [address] [place] [address] D/B/[place]: [place], [address]. tel:[phone] Family History Family Member Type Diagnosis Age At Onset No Information Payers Payer name Insurance type Covered alliance party ID Authoriza tion(s) [facility] HealthNet [facility] [id number] Social History Type Description Quantity Date Captured [...] No Information Instructions Date Instruction Additional Infor audraion Patient education booklet given Related to Chronic venous hypertension (idiopathic) with other complications of bilateral lower extremity Compression stocking [...]
--- OUTSIDE RECORDS SUMMARY | 2024-08-15 12:43 | XMS_ITS | Clinical Summary ---
Author Organization [facility] Address [address] [place] [id number] Phone Care Team Providers Care Assistant Manager/Embalmer Name Role Phone Unavailable Primary Care Provider [...]
[2024-08-15 12:56] VITALS: BP 100/56; PULSE 78; TEMP 36.9; O2SAT 98; BMI 34.8
--- NOTE | 2024-08-15 12:56 | AM.OFFWIN_ITS ---
Intake Vital Signs 08/15/24 12:56 Height 5 ft 2 in Weight 190 lb 6 oz BMI 34.8 BP 100/56 L Blood Pressure Location Rt brachial Position Sitting Pulse 78 Pulse Source Pulse Oximeter Temp 98.4 F Temp Source Oral Pulse Oximetry (%) 98 Oxygen Delivery Method Room Air Intake Visit Reasons: EP ? 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 Pt reports that symptoms started 3-4 days ago, and c/o pain with urination. Reports waking up this morning with sharp lower back pain and severe burning and cramping lower abdomen. Deneis fevers, chills, nausea or vomiting. Pt was seen yesterday for similar issue and was prescribed Abx. Urinalysis was positive for NIT. Urine was sent for culture, pending results. STI panel pending results. Pt started the Abx yesterday after picking them up from pharmacy. Pt returns to the clinic because she feels symptoms are getting worse. [facility] Medical History Anxiety History of blood transfusion Physical exam Helicobacter pylori (H. pylori) Gallbladder polyp Class 1 obesity with body mass index (BMI) of 33.0 to 33.9 in adult GERD (gastroesophageal reflux disease) Right upper quadrant abdominal pain Migraines Photosensitivity Mild asthma Breast implant status Surgical History History of cholecystectomy History of esophagogastroduodenoscopy (EGD) History of blepharoplasty Urethral diverticulum History of tubal ligation History of abdominoplasty Hx of breast implants, bilateral History of wisdom tooth extraction Family History Father Diabetes Mother No problems noted. 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 Current occupational exposures/hazards: No Cognitive needs: No Hearing needs: No Vision needs: No Female Reproductive History Menstrual Age of Menarche: 14 Review of Systems Const All systems reviewed & are unremarkable except as noted in HPI and below Physical Exam Vital Signs: Last Vital Signs Temp 98.4 F 08/15/24 12:56 Pulse 78 08/15/24 12:56 BP 100/56 L 08/15/24 12:56 Pulse Ox 98 08/15/24 12:56 Oxygen Delivery Method Room Air 08/15/24 12:56 BMI result Body Mass Index 34.8 Const General: no acute distress Nutritional Appearance: overweight Orientation/consciousness: patient oriented x3 Resp Effort & Inspection: normal respiratory effort Cardio Heart sounds: S1 normal heart sound present and S2 normal heart sound present General: Yes no CVA tenderness and Yes deferred (Declined Pelvic exam.) Back/Spine/Pelvis Back: no CVA tenderness Neuro General: patient oriented x3 Results AMB Urinalysis, Automated UA Leukoctes 70 Juanpablo/uL Last Edit by Licha Zuñiga MA on 08/15/24 14:08 UA Nitrite Negative Last Edit by Licha Zuñiga MA on 08/15/24 14:08 UA Urobilinogen 0.2 mg/dL Last Edit by Licha Zuñiga MA on 08/15/24 14:08 UA Protein 30 mg/dL Last Edit by Licha Zuñiga MA on 08/15/24 14:08 UA pH 7.0 Last Edit by Licha Zuñiga MA on 08/15/24 14:08 UA Blood 200 Tae/uL Last Edit by Licha Zuñiga MA on 08/15/24 14:08 UA Specific [place] 1.015 Last Edit by Licha Zuñiga MA on 08/15/24 14:08 UA Ketone Negative Last Edit by Licha Zuñiga MA on 08/15/24 14:08 UA Bilirubin 0 mg/dL Last Edit by Licha Zuñiga MA on 08/15/24 14:08 UA Glucose 0 mg/dL Last Edit by Licha Zuñiga MA on 08/15/24 14:08 Results Reviewed Results Reviewed: Laboratory Last Values Urine pH (Auto) 7.0 08/15/24 13:14 Specific [place] (Auto) 1.015 08/15/24 13:14 Urine Protein (Auto) 30 mg/dL 08/15/24 13:14 Glucose (UA)(Auto) 0 mg/dL 08/15/24 13:14 Urine Ketones (Auto) Negative 08/15/24 13:14 Urine Blood (Auto) 200 Tae/uL 08/15/24 13:14 Urine Nitrite (Auto) Negative 08/15/24 13:14 Urine Bilirubin (Auto) 0 mg/dL 08/15/24 13:14 Urine Urobilinogen (Auto) 0.2 mg/dL 08/15/24 13:14 Leukocyte Esterase (Auto) 70 Juanpablo/uL 08/15/24 13:14 Assessment & Plan Assessment & Plan (1) Dysuria: Code(s): R30.0 - Dysuria Plan: Urinalysis positive for JUANPABLO and large Blood cells Continue on Cefuroxime as prescribed Hydrate well with plenty of Fluids. Urine culture pending. Orders: Orders CT NG by PCR Vag/Cerv Today Sirena Callejas PA-C Z91.89 - Other specified personal risk factors, not elsewhere classified AMB Urinalysis Automated Today Yessy Warren PA-C Z13.9 - Encounter for screening, unspecified Coding Level of Care Code Est Pt Level 4 (33504) Diagnoses Dysuria R30.0 Time Spent (min) 20
== END 2024-08-15 14:04 | disposition home or self-care (01) ==
PROVIDERS: PCP Internal Medicine; Visit Provider Nurse Practitioner Family
DX: Z13.9 Encounter for screening, unspecified (principal); R30.0 Dysuria

== ENCOUNTER 2024-08-15 12:27 | Outpatient (REF) | payer OTHER, SELFPAY ==
[2024-08-15 21:36] LABS: CT PCR Urine NOT DETECTED (Not Detect.); NG PCR Urine NOT DETECTED (Not Detect.)
== END 2024-08-15 12:28 | disposition home or self-care (01) ==
LOC: HO.LAB 12:27
PROVIDERS: PCP Internal Medicine; Visit Provider Physician Assistant
DX: R30.0 Dysuria (principal)
CPT/HCPCS: 36415; 81003; 87491; 87591; 99212

== ENCOUNTER 2024-08-20 00:18 | Emergency (ER) | payer OTHER, SELFPAY ==
--- OUTSIDE RECORDS SUMMARY | 2024-05-27 07:15 | XMS_ITS | Continuity of Care Document ---
Author Organization [facility] Address [address] [place] [address] [address] [place] Harjinder [id number] Phone Care Team Providers Care Bonbon Dipper Name Role Phone Vito PATRICK, EDUAR, Fortunato [...] Providers Copied on Encounter [facility], [address] [place] [address] [address]Harjinder [place], [id number], [place] tel:[phone] [facility] [place] Encounter for follow-up examination after completed treatment for conditions other than malignant neoplasmVari cose veins of bilateral lower extremities with pain May- Vito PATRICK, EDUAR, CHRISTIANO Bucio. [address] [facility] [address], [place], [place], [id number] , [place]. tel: [phone] Referring Provider: Mireille Hernandez MD, 2 [facility] DrTrung, [address] [place] [address] D/B/A: reeceantwan [facility] [place], [address]. tel:[phone] [facility], [address] [place] [address] [address]Harjinder [place], [id number], [place] tel:[phone] [facility] - [place] Chronic venous hypertension (idiopathic) with inflammation of left lower extremity Apr-1 0-202 5 Vito PATRICK RVT, RPFELICIA Bucio. [address] [place] [address], Suite [facility], [facility], [place], [id number] , [place]. tel: [phone] Referring Provider: Mireille Hernandez MD, 2 [facility] DrTrung, [address] D/B/A: claudia [facility] [place], [address]. tel:[phone] [facility], [address] [place] [address] [address]Harjinder [place], [id number], [place] tel:[phone] [facility] [place] Chronic venous hypertension (idiopathic) with inflammation of left lower extremity Apr-0 9-202 5 Vito PATRICK RVT, RPFELICIA Fortunato. [address] [place] [address], Suite [facility], [facility], [place], [id number] , [place]. tel: [phone] Referring Provider: Mireille Hernandez MD, 2 [facility] , [address] D/B/A: [place], [address]. tel:[phone] [facility], [address] [place] [address] Dr [address]Harjinder [place], [id number], [place] tel:[phone] [facility] [place] Chronic venous hypertension (idiopathic) with inflammation of right lower extremity Apr-0 8-202 5 Vito PATRICK RVT, RPFELICIA Fortunato. [address] [facility], [address], [facility], [place], [id number] , [place]. tel: [phone] Referring Provider: Mireille Hernandez MD, 2 [facility] , [address] [place] D/B/A: [place], [address]. tel:[phone] [place] [facility], [address] [place] [address] [address]Harjinder [place], [id number], [place] tel:[phone] CVR - [facility] Chronic venous hypertension (idiopathic) with inflammation of right lower extremity Apr-0 5 Vito PATRICK RVT, CHRISTIANO Bucio. [address] [facility], [address], [facility] [place], [id number] , [place]. tel:[phone] Referring Provider: Mireille Hernandez MD, 2 [facility] , [address] [place] [address] D/B/A: [place], [address]. tel:[phone] [place] [facility], [address] [place] [address] [address] [address]Harjinder [place], [id number], [place] tel:[phone] CVR - [facility] No Information Mar-2 5 Vito PATRICK RVT, CHRISTIANO Bucio. [address] [facility], [address], [facility] [place], [id number] , [place]. tel:[phone] Offic/outpt E&m Estab 5 Min Trial- Telemedicine [place] & [place] [facility], [address] [place] [address] [address]Harjinder MD, [id number], [place] tel:[phone] CVR - [facility] Chronic venous hypertension (idiopathic) with other complication s of bilateral lower extremityCra mp and spasmRestles s legs syndromePrur itus, unspecified Mar-0 5 Vito PATRICK RVT, CHRISTIANO Bucio. [address] [facility], [address], [facility] [place], [id number] , [place]. tel:[phone] Referring Provider: Mireille Hernandez MD, 2 [facility] , [address] [place] D/B/A: [place], [address]. tel:[phone] Offic Cons New/estab Mod-hi 60- CT & [place] [facility], [address] [place] [address] [address]Harjinder [place], [id number], [place] tel:[phone] CVR - [facility] Chronic venous hypertension (idiopathic) without complication s of bilateral lower extremityRes tless legs syndromeVeno us insufficienc y (chronic) (peripheral) Pruritus, unspecifiedC ramp and spasmLocaliz ed edema 4 Vito PATRICK RVT, CHRISTIANO Bucio. [address] [facility], [place] [address], [place], [place], [id number] , [place]. tel:[phone] Referring Provider: Mireille Hernandez MD, [address] [place] [address] , [address] [place] [address] D/B/A: [place], [address]. tel:[phone] [place] [facility], [address] [place] [address] [address]Harjinder [place], [id number], [place] tel:[phone] [facility] ([facility]opathic) with other complication s of bilateral lower extremity 4 Vito PATRICK RVT, RPVI Robert. [address] [facility], [place] [address], [place], [place], [id number] , [place]. tel:[phone] Referring Provider: Mireille Hernandez MD, [address] [place] [address] , [address] [place] [address] D/B/A: [place], [address]. tel:[phone] Family History Family Member Type Diagnosis Age At Onset No Information Payers Payer name Insurance type Covered alliance party ID Authoriza tion(s) [facility] [place] [place] [employer] [facility] [id number] Social History Type Description Quantity Date Captured [...]
[2024-08-20 00:21] VITALS: BP 122/72; PULSE 67; RESP 17; TEMP 36.3; O2SAT 98; BMI 34.7
[2024-08-20 00:44] LABS: MANUAL DIFF FLAG NO
[2024-08-20 00:47] LABS: Appearance Urine Cloudy; Glucose Urine UA Negative (Negative); PH 7.0 (5.0-9.0); Specific Gravity - Urine 1.020 (1.005-1.025); UMIC TRIGGER UACC YES
[2024-08-20 00:49] LABS: Hematocrit 35.2 % (37.0-47.0); Hemoglobin 12.0 g/dl (12.0-16.0); Imm Gran Abs Auto 0.09 X10*3/uL (0.00-0.03); Imm Gran Pct Auto 1.0 % (0.0-0.4); Lymphocytes Absolute Auto 2.6 X10*3/uL (1.2-4.9); Mean Corpuscular HGB Conc 34.1 g/dl (31.0-35.0); Mean Corpuscular Hemoglobin 30.0 pg (27.0-33.0); Mean Corpuscular Volume 88.0 fL (80.0-98.0); NRBC Abs Auto 0.000 X10*3/uL (0.0-0.012); NRBC Pct Auto 0.0 /100WBC (0.0-0.2); Platelet Count 236 X10*3/uL (160-400); Red Blood Count 4.00 X10*6/uL (4.20-5.50); White Blood Count 9.0 X10*3/uL (4.8-10.8)
[2024-08-20 00:50] LABS: UACC Culture Trigger YES
[2024-08-20 01:31] LABS: Alanine Aminotransferase 26 U/L (0-31); Albumin Level 4.0 g/dL (3.5-5.0); Alkaline Phosphatase 99 U/L (39-117); Anion Gap 12 (12-20); Aspartate Amino Transferase 22 U/L (5-31); Blood Urea Nitrogen 19 mg/dL (9-16); Calcium 8.6 mg/dL (8.4-10.2); Carbon Dioxide 22 mmol/L (22-29); Chloride 110 mmol/L (96-108); Creatinine Clr Calc Pharmacy 125.7; Estimated Glomerular Filt Rate > 60; Potassium 3.7 mmol/L (3.3-5.1); Sodium 140 mmol/L (135-145); Total Protein 6.8 g/dL (6.5-8.0)
== END 2024-08-20 04:59 | disposition left against medical advice (07) ==
PROVIDERS: Emergency Provider Emergency Medicine; PCP Internal Medicine
DX: R30.0 Dysuria (principal); R31.9 Hematuria, unspecified; Z53.21 Procedure and treatment not carried out due to patient leaving prior to being seen by health care provider
CPT/HCPCS: 36415; 80048; 80076; 81001; 85025; 87086; 87088; 87186; 99281; 99282

== ENCOUNTER 2024-08-20 09:47 | Emergency (ER) | payer OTHER, SELFPAY ==
--- OUTSIDE RECORDS SUMMARY | 2024-05-27 07:15 | XMS_ITS | Continuity of Care Document ---
Author Organization [facility] Address [address] [place] [address] [address] [place] [address] Phone Care Team Providers Care Plant Worker Name Role Phone Vito PATRICK, EDUAR, Fortunato [...] Providers Copied on Encounter [facility], [address] [place] [address] [address]Harjinder MD, [id number], [place] tel:[phone] [facility] [place] Encounter for follow-up examination after completed treatment for conditions other than malignant neoplasmVari cose veins of bilateral lower extremities with pain May- Vito PATRICK, EDUAR, CHRISTIANO Bucio. [address] [facility], [place], [place], [id number] , [place]. tel: [phone] Referring Provider: Mireille Hernandez MD, 2 [facility] DrTrung, [address] [place] [address] D/B/A: reeceantwan [facility] [place], [address]. tel:[phone] [facility], [address] [place] [address] [address] 1000Harjinder MD, [id number], [place] tel:[phone] [facility] [place] Chronic venous hypertension (idiopathic) with inflammation of left lower extremity Apr-1 0-202 5 Vito PATRICK RVT, RPFELICIA Bucio. [address] [place] [address], Suite [facility], [facility], [place], [id number] , [place]. tel: [phone] Referring Provider: Mireille Hernandez MD, 2 [facility] DrTrung, [address] D/B/A: claudia [facility] [place], [address]. tel:[phone] [facility], [address] [place] [address] [address] 1000Harjinder MD, [id number], [place] tel:[phone] [facility] [place] Chronic venous hypertension (idiopathic) with inflammation of left lower extremity Apr-0 9-202 5 Vito PATRICK RVT, RPFELICIA Fortunato. [address] [place] [address], Suite [facility], [facility], [place], [id number] , [place]. tel: [phone] Referring Provider: Mireille Hernandez MD, 2 [facility] , [address] D/B/A: [place], [address]. tel:[phone] [facility], [address] [place] [address] Dr [address] 1000Harjinder MD, [id number], [place] tel:[phone] [facility] [place] Chronic venous hypertension (idiopathic) with inflammation of right lower extremity Apr-0 8-202 5 Vito PATRICK RVT, RPFELICIA Fortunato. [address] [facility], [address], [facility], [place], [address] , [place]. tel: [phone] Referring Provider: Mireille Hernandez MD, 2 [facility] , [address] [place] D/B/A: [place], [address]. tel:[phone] [place] [facility], [address] [place] [address] [address] 1000Harjinder MD, [id number], [place] tel:[phone] [facility] - [facility] Chronic venous hypertension (idiopathic) with inflammation of right lower extremity Apr-0 5 Vito PATRICK RVT, CHRISTIANO Bucio. [address] [facility], [address], [facility] [place] [place], [id number] , [place]. tel:[phone] Referring Provider: Mireille Hernandez MD, 2 [facility] , [address] [place] [address] D/B/A: [place], [address]. tel:[phone] [facility], [address] [place] [address] [address] 1000Harjinder MD, [id number], [place] tel:[phone] [facility] - [facility] No Information Mar-2 5 Vito PATRICK RVT, CHRISTIANO Bucio. [address] [facility], [address], [facility] [place], [id number] , [place]. tel:[phone] Offic/outpt E&m Estab 5 Min Trial- Telemedicine CT & [place] [facility], [address] [place] [address] [address] 1000Harjinder MD, [id number], [place] tel:[phone] [facility] - [facility] Chronic venous hypertension (idiopathic) with other complication s of bilateral lower extremityCra mp and spasmRestles s legs syndromePrur itus, unspecified Mar-0 5 Vito PATRICK RVT, CHRISTIANO Bucio. [address] [facility], [address], [facility], [address] , [place]. tel:[phone] Referring Provider: Mireille Hernandez MD, 2 [facility] , [address] [place] D/B/A: [place], [address]. tel:[phone] Offic Cons New/estab Mod-hi 60- CT & [place] [facility], [address] [place] [address] [address] 1000Harjinder MD, [id number], [place] tel:[phone] [facility] - [facility] Chronic venous hypertension (idiopathic) without complication s of bilateral lower extremityRes tless legs syndromeVeno us insufficienc y (chronic) (peripheral) Pruritus, unspecifiedC ramp and spasmLocaliz ed edema 4 Vito PATRICK RVT, CHRISTIANO Bucio. [address] [facility], [place] [address], [place], [place], [id number] , [place]. tel:[phone] Referring Provider: Mireille Hernandez MD, [address] [place] [address] , [address] [place] [address] D/B/[place]: [place], [address]. tel:[phone] [place] [facility], [address] [place] [address] [address] 1000Harjinder MD, [id number], [place] tel:[phone] [facility] venous hypertension (idiopathic) with other complication s of bilateral lower extremity 4 Vito PATRICK RVT, RPVI Robert. [address] [facility], [place] [address], [place], [place], [id number] , [place]. tel:[phone] Referring Provider: Mireille Hernandez MD, [address] [place] [address] , [address] [place] [address] D/B/A: [place], [address]. tel:[phone] Family History Family Member Type Diagnosis Age At Onset No Information Payers Payer name Insurance type Covered libertarian ID Authoriza tion(s) [facility] HealthNet [facility] [id number] Social History Type Description Quantity Date Captured [...]
--- NOTE | ~2024-08-20 | CT_ITS ---
EXAMINATION: CT ABDOMEN AND PELVIS WITHOUT CONTRAST CLINICAL INFORMATION: Flank pain. COMPARISON: September 30, 2021. TECHNIQUE: Multidetector volumetric imaging was performed from the superior aspect of the liver through the pubic symphysis. Sagittal and coronal reformatted images were obtained on the technologist's workstation. This CT examination was performed using dose optimization techniques as appropriate, variously including the following: *Automated exposure control *Adjustment of mA and/or kV according to patient size (this includes techniques or standardized protocols for targeted exams where dose is matched to indication/reason for exam; i.e. extremities or head) *Use of iterative reconstruction technique 626 mGy centimeter. FINDINGS: Inadequate evaluation of the intra-abdominal organs and vascular structures due to lack of IV contrast. LUNG BASES: No acute airspace disease. Scarring right middle lung lobe and lingula. LIVER, GALLBLADDER, AND BILIARY TREE: Liver measures 15 cm. 9 mm hypodensity, right hepatic lobe.. Status post cholecystectomy. No intrahepatic or extrahepatic biliary ductal dilatation. PANCREAS: No peripancreatic fluid collection. No main pancreatic ductal dilatation. SPLEEN: 10 cm. ADRENAL GLANDS: No nodular lesions. KIDNEYS AND URETERS: Right kidney: 1 mm nonobstructing calculus upper pole midportion junction. No hydronephrosis. Left kidney: Numerous less than 2 mm calculi throughout the pelvicalyceal system. No hydronephrosis. BLADDER: Fluid-filled. GASTROINTESTINAL TRACT: Appendix is normal. Abundant stool. No intestinal obstruction pattern. No pneumatosis intestinalis. No gross intestinal wall thickening. No ascites. No pneumoperitoneum. ABDOMINAL WALL: No gross umbilical hernia. LYMPH NODES: No gross lymphadenopathy. VASCULAR: No aneurysm, abdominal aorta. No gross calcified plaques. PELVIC VISCERA: Inadequate evaluation. OSSEOUS STRUCTURES: Spondylosis L4-5 and L5-S1. No acute fracture or listhesis in the axial skeleton. No lytic or blastic lesions. CT/CT abdomen pelvis wo IV con IMPRESSION: Bilateral nonobstructing nephrolithiasis. 9 mm hypodensity right hepatic lobe. Fleischner guidelines were followed. Electronically signed by: Lamont Staples MD 08/20/2024 01:45 PM EDT
[2024-08-20 10:05] VITALS: BP 109/70; PULSE 70; RESP 16; TEMP 37.1; O2SAT 98; BMI 35.4
--- NOTE | 2024-08-20 13:00 | PC.NURSE ---
reports having labs and a UA completed last night. She states she waited a prolong period of time before LWCT
--- NOTE | 2024-08-20 13:02 | ED_ITS ---
HPI - General Adult General Chief complaint: Abdominal Pain Stated complaint: kidney stone Time Seen by Provider: 08/20/24 13:01 Source: patient Mode of arrival: ambulatory Limitations: no limitations History of Present Illness ED Provider: Michelle Eason PA-C HPI narrative: Patient is a 38 year old assigned female at with a history of migraines and kidney stones presenting to the emergency department today with back pain. Patient states that over the last day she has had back / flank pain and believes it to be a kidney stone. Patient denies any dizziness, lightheadedness, abdominal pain, nausea, vomiting, fever, chills, blurry vision, double vision, loss of vision, chest pain, difficulty breathing, shortness of breath, night sweats, pain with urination, increased urinary frequency, increased urinary urgency, blood in her urine or stool, syncope or a near syncopal episode, recent trauma or falls, bowel incontinence, bladder incontinence, or any other complaints at this time. Onset (ago): day(s) Location: back Exacerbating factors: none Treatments prior to arrival: none Related Data Home Medications ?Medication ?Instructions ?Recorded ?Confirmed etonogestrel 0.12 mg-ethinyl vag ring vaginal 08/14/24 estradiol 0.015 mg/24 hr vaginal ring Previous Rx's ?Medication ?Instructions ?Recorded cholecalciferol (vitamin D3) 125 125 mcg PO DAILY #90 caps 05/27/24 mcg (5,000 unit) capsule mecobalamin (vitamin B12) 1,000 1,000 mcg sublingual D AILY #90 tabs 05/27/24 mcg disintegrating tablet,sublingual thiamine HCl (vitamin B1) 100 mg 100 mg PO DAILY #90 t abs 06/18/24 tablet vitamin A palmitate 3,000 mcg 3,000 mcg PO DAILY #90 c aps 06/18/24 (10,000 unit) capsule cefuroxime axetil 500 mg tablet 500 mg PO Q12H #10 tab s 08/14/24 mupirocin 2 % topical ointment 1 appl topical TID #22 grams 08/14/24 phentermine 37.5 mg tablet 37.5 mg PO DAILY 30 days #3 0 tabs 08/16/24 cefuroxime axetil 250 mg tablet 250 mg PO BID 7 days # 14 tabs 08/20/24 Allergies Allergy/AdvReac Type Severity Reaction Status Date / Time No Known Allergies Allergy Verified 08/20/24 10:08 Review of Systems 2 Constitutional: Constitutional: Reports no additional constitutional complaints, Denies chills, Denies fever(s) and Denies night sweats Eyes: Eyes: Reports no additional eye complaints, Denies blurry vision, Denies change in vision, Denies diplopia, Denies eye discharge, Denies loss of vision and Denies eye pain ENT: Denies dizziness Cardiovascular: Cardiovascular: Reports no additional cardiovascular complaints, Denies chest pain, Denies lightheadedness, Denies Loss of Consciousness and Denies dyspnea Respiratory: Respiratory: Reports no additional respiratory complaints and Denies dyspnea Gastrointestinal: Gastrointestinal: Reports no additional gastrointestinal complaints, Denies abdominal pain, Denies melena, Denies hematochezia, Denies change in bowel habits and Denies change in stool character Genitourinary: Genitourinary: Denies hematuria, Denies urinary frequency, Denies dysuria, Reports flank pain, Denies urinary incontinence, Denies urinary hesitancy and Denies urinary urgency Musculoskeletal: Musculoskeletal: Reports no additional musculoskeletal complaints, Reports back pain, Denies numbness and Denies tingling Neurologic: Denies dizziness, Denies loss of vision, Denies numbness and Denies tingling Psychiatric: Psychiatric: Reports no additional psychiatric complaints Endocrine: Endocrine: Reports no additional endocrine complaints Hematologic/Lymphatic: Hematologic/Lymphatic: Reports no additional hematologic/lymphatic complaints Allergic/Immunologic: Allergic/Immunologic: Reports no additional allergic/immunologic complaints PMFSH Past Medical History Attestation statement: The following information was validated with the patient. Source: old records reviewed and nursing notes reviewed Medical History Anxiety History of blood transfusion Physical exam Helicobacter pylori (H. pylori) Gallbladder polyp Class 1 obesity with body mass index (BMI) of 33.0 to 33.9 in adult GERD (gastroesophageal reflux disease) Right upper quadrant abdominal pain Migraines Photosensitivity Mild asthma Breast implant status Surgical History History of cholecystectomy History of esophagogastroduodenoscopy (EGD) History of blepharoplasty Urethral diverticulum History of tubal ligation History of abdominoplasty Hx of breast implants, bilateral History of wisdom tooth extraction Family History Family History Father Diabetes Mother No problems noted. Maternal Grandmother Diabetes Pacemaker CVD (cardiovascular disease) Paternal Grandfather Alcoholism Substance use disorder Family/Other ADHD Chronic mental illness Asthma Social History Social History Housing: House Alcohol intake: current Alcohol intake frequency: a few times a month Alcohol type: wine and other Patient Tobacco Use Status: Never used Tobacco Smoked in Last 30 Days: No e-Cigarette/Vaping Use: Never Used Second Hand Smoke Exposure: No Use of substances other than those prescribed or required for medical reasons: No Advance Directives: No Advance Directives Information Provided: Yes Do you have a plan to hurt others: No Plan Patient : No service: No Current occupational status: employed 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 Current occupational exposures/hazards: No Cognitive needs: No Hearing needs: No Vision needs: No Physical Exam ED Vital Signs: Vital Signs - 24 hr 08/20/24 10:05 08/20/24 13:25 08/20/24 14:34 Temperature 98.8 F 98.3 F 98.3 F Pulse Rate 70 80 80 Respiratory Rate 16 20 20 Blood Pressure 109/70 121/79 121/79 Pulse Oximetry 98 99 99 Oxygen Delivery Method Room Air Room Air BMI result Body Mass Index 35.4 Const General: cooperative, no acute distress, alert and awake Nutritional Appearance: well nourished Orientation/consciousness: patient oriented x3 HENMT Head: Yes normal to inspection and Yes atraumatic Ears: hearing grossly normal bilaterally and external ears normal General nose exam: Normal external nose present, no nasal discharge noted and no epistaxis Face and sinus: Yes normal facial exam, No abrasion and No laceration Mouth: Normal oral and palatal mucosa present, no drooling and no muffled voice Eyes General: appearance normal, both eyes and all related structures Periorbital: periorbital findings normal Eyelids: Yes eyelids normal Conjunctivae: conjunctivae normal Pupils: Equal, round and reactive pupils present EOM: EOMs intact bilaterally Neck Neck: Yes normal visual inspection, Yes full ROM and Yes no lymphadenopathy Resp Effort & Inspection: normal respiratory effort and able to speak in complete sentences Neuro General: patient oriented x3, moves all extremities and CN's II-XI intact bilaterally Cranial nerves: Yes Equal, round and reactive pupils present Cognition (Neuro): normal cognition Extrem General: Yes normal to inspection, Yes full ROM and Yes capillary refill normal Psych Appearance: grossly normal Mental Status: mental status grossly normal Affect: normal affect Attitude: cooperative Thought process: Normal thought process present Thought content: Normal thought content present Insight: Good insight present (Psych) Medications Administered Discontinued Medications Generic Name Dose Route Start Last Admin Trade Name Isaac PRN Reason Stop Dose Admin Ceftriaxone Sodium 1 gm 08/20/24 13:41 08/20/24 13:49 Ceftriaxone Sodium 1 Gm Vial IVPUSH 08/20/24 13:42 1 gm ONCE ONE Administration Sodium Chloride 1,000 mls @ 999 mls/hr 08/20/24 13:45 08/20/24 13:50 Ns IV 08/20/24 14:45 999 mls/hr .Q1H1M FAWAD Administration Ketorolac Tromethamine 15 mg 08/20/24 13:41 08/20/24 13:49 Ketorolac Tromethamine 15 Mg/Ml Vial IVPUSH 08/20/24 13:42 15 mg ONCE ONE Administration Medical Decision Making Medical Decision Making [facility] Narrative: Patient is a 38 year old assigned female at with a history of migraines and kidney stones presenting to the emergency department today with back pain. Patient's physical exam was unremarkable. Patient's blood work was unremarkable. Patient's urine showed evidence of a urinary tract infection. Patient's CT abd/pelvis showed no acute process. I explained my physical exam findings as well as all test results to the patient. I answered all questions asked by the patient. Patient's clinical presentation is most consistent with a UTI vs. pyelonephritis. I stressed the importance of the patient taking her medication as directed (either prescribed or as the over the counter packaging recommends). I stressed the importance of the patient following up with her primary care provider. I stressed the importance of the patient returning to the emergency department immediately if her symptoms were to worsen or if she were to develop any dizziness, shortness of breath, difficulty breathing, chest pain, blurry vision, loss of vision, nausea, vomiting, abdominal pain, fever, chills, back pain, or any other complaints. Patient verbalized agreement and understanding with this treatment plan and discharge. Differential Diagnosis Differential Diagnoses: The differential diagnosis associated with the presentation includes Kidney stones UTI Flank pain Back pain Admission/Observation Consideration of admission/observation: Escalation of care including admission/observation considered Patient would have been admitted to the hospital had her work up had any findings where hospital admission was appropriate and her clinical presentation warranted hospital admission. Lab Data [facility] Lab Attestation statement: I reviewed the patient's lab results. My interpretation of these results are in the [facility] Rationale portion of this note. 08/20/24 13:33 08/20/24 13:33 Labs: Lab Results 08/20/24 Range/Units 13:33 WBC 9.5 (4.8-10.8) X10*3/uL RBC 4.29 (4.20-5.50) X10*6/uL Hgb 12.9 (12.0-16.0) g/dl Hct 38.1 (37.0-47.0) % MCV 88.8 (80.0-98.0) fL MCH 30.1 (27.0-33.0) pg MCHC 33.9 (31.0-35.0) g/dl RDW 13.4 (11.0-16.0) % Plt Count 236 (160-400) X10*3/uL MPV 8.9 L (9.4-12.3) fL Immature Gran % (Auto) 0.4 (0.0-0.4) % Neut % (Auto) 70.7 (45-73) % Lymph % (Auto) 21.5 (20-40) % [place] % (Auto) 6.1 (2-11) % Eos % (Auto) 1.1 (0-4) % Baso % (Auto) 0.2 (0-2) % Lymph # (Auto) 2.0 (1.2-4.9) X10*3/uL [place] # (Auto) 0.6 (0.1-1.2) X10*3/uL Eos # (Auto) 0.1 (0.0-0.4) X10*3/uL Baso # (Auto) 0.0 (0.0-0.2) X10*3/uL Abs Immat Gran (auto) 0.04 H (0.00-0.03) X10*3/uL Absolute Neuts (auto) 6.7 (2.0-8.3) x10*3/uL Absolute Nucleated RBC 0.000 (0.0-0.012) X10*3/uL Nucleated RBC % (auto) 0.0 (0.0-0.2) /100WBC Sodium 139 (135-145) mmol/L Potassium 4.1 (3.3-5.1) mmol/L Chloride 109 H (96-108) mmol/L Carbon Dioxide 22 (22-29) mmol/L Anion Gap 12 (12-20) BUN 13 (9-16) mg/dL Creatinine 0.64 (0.5-1.4) mg/dL Estim Creat Clear Calc 125.0 Estimated GFR > 60 Random Glucose 91 (60-115) mg/dL Calcium 8.7 (8.4-10.2) mg/dL Magnesium 1.9 (1.6-2.6) mg/dL Total Bilirubin 0.2 (0.0-1.0) mg/dL AST 36 H (5-31) U/L ALT 28 (0-31) U/L Alkaline Phosphatase 90 (39-117) U/L Total Protein 7.3 (6.5-8.0) g/dL Albumin 4.0 (3.5-5.0) g/dL Beta HCG, Quant < 2 mIU/mL Independent Interpretation I performed an independent interpretation of an: CT Scan Interpretation: My interpretation is in agreement with the radiologist's impression of this imaging study. L Report Number: [id number]: Total DLP = 626.00 mGy-cm EXAMINATION: CT ABDOMEN AND PELVIS WITHOUT CONTRAST CLINICAL INFORMATION: Flank pain. COMPARISON: September 30, 2021. TECHNIQUE: Multidetector volumetric imaging was performed from the superior aspect of the liver through the pubic symphysis. Sagittal and coronal reformatted images were obtained on the technologist's workstation. This CT examination was performed using dose optimization techniques as appropriate, variously including the following: *Automated exposure control *Adjustment of mA and/or kV according to patient size (this includes techniques or standardized protocols for targeted exams where dose is matched to indication/reason for exam; i.e. extremities or head) *Use of iterative reconstruction technique 626 mGy centimeter. FINDINGS: Inadequate evaluation of the intra-abdominal organs and vascular structures due to lack of IV contrast. LUNG BASES: No acute airspace disease. Scarring right middle lung lobe and lingula. LIVER, GALLBLADDER, AND BILIARY TREE: Liver measures 15 cm. 9 mm hypodensity, right hepatic lobe.. Status post cholecystectomy. No intrahepatic or extrahepatic biliary ductal dilatation. PANCREAS: No peripancreatic fluid collection. No main pancreatic ductal dilatation. SPLEEN: 10 cm. ADRENAL GLANDS: No nodular lesions. KIDNEYS AND URETERS: Right kidney: 1 mm nonobstructing calculus upper pole midportion junction. No hydronephrosis. Left kidney: Numerous less than 2 mm calculi throughout the pelvicalyceal system. No hydronephrosis. BLADDER: Fluid-filled. GASTROINTESTINAL TRACT: Appendix is normal. Abundant stool. No intestinal obstruction pattern. No pneumatosis intestinalis. No gross intestinal wall thickening. No ascites. No pneumoperitoneum. ABDOMINAL WALL: No gross umbilical hernia. LYMPH NODES: No gross lymphadenopathy. VASCULAR: No aneurysm, abdominal aorta. No gross calcified plaques. PELVIC VISCERA: Inadequate evaluation. OSSEOUS STRUCTURES: Spondylosis L4-5 and L5-S1. No acute fracture or listhesis in the axial skeleton. No lytic or blastic lesions. CT/CT abdomen pelvis wo IV con IMPRESSION: Bilateral nonobstructing nephrolithiasis. 9 mm hypodensity right hepatic lobe. Fleischner guidelines were followed. Electronically signed by: Lamont Staples MD 08/20/2024 01:45 PM EDT Dictated By: Lamont Newman MD Signed By: Electronically signed by Lamont Ford MD 08/20/24 1345 Radiology Impression Discussion of test interpretation with radiology: I have reviewed the radiologist's reading. Prescription Management I considered prescription management with: Antibiotic (patient prescribed an antibiotic for UTI) Discharge Plan Discharge Clinical Impression: UTI (urinary tract infection) Patient Disposition: Home, Self-Care Instructions: Urinary Tract Infection in Women (DC) Additional Instructions: Your imaging today showed an incidental (found by accident) finding of a 9mm hypodensity of the right hepatic (liver) lobe. This is likely benign however it needs to be followed up by your primary care provider. Your urine is infected. Please take the antibiotics as directed. Follow up with your primary care provider. Return to the emergency department immediately if your symptoms worsen or if you develop any numbness, tingling, dizziness, shortness of breath, difficulty breathing, chest pain, blurry vision, loss of vision, nausea, vomiting, abdominal pain, fever, chills, back pain, or any other complaints. Please see the information below about our Patient Portal. If you are not yet enrolled in the [facility] Patient Portal, you will receive an enrollment email invitation following your visit to any [facility] setting. You may also self-enroll in the Patient Portal by visiting our website: [email or web address] The following information is required to access the Patient Portal: - Your [facility] Medical Record Number - Your personal home email address (must match what is in your electronic medical record, Registration staff can assist with this) - Name - Date of Capabilities of the Patient Portal: - Message some providers - View upcoming appointments - Access your health summary, medical history, and visit history - View current conditions and allergies - View procedure and lab results - View your medications, including guidelines, side effects, and precautions - Complete pre-appointment questionnaires requested by your provider - Ready summary reports of your office visits and procedures To access the Patient Portal Mobile [employer], follow these directions: - Search [employer] in the [employer] Store or [employer] Store - Download the [employer]gr[employer] - Search for [facility] - Enter your login/password Prescriptions: New cefuroxime axetil 250 mg tablet 250 mg PO BID 7 Days Qty: 14 0RF No Action vitamin A palmitate 3,000 mcg (10,000 unit) capsule 3,000 mcg PO DAILY Qty: 90 0RF thiamine HCl (vitamin B1) 100 mg tablet 100 mg PO DAILY Qty: 90 0RF phentermine 37.5 mg tablet 37.5 mg PO DAILY 30 Days Qty: 30 0RF Rx Instructions: must administer 30 minutes before or 1-2 hours after breakfast cholecalciferol (vitamin D3) 125 mcg (5,000 unit) capsule 125 mcg PO DAILY Qty: 90 0RF mecobalamin (vitamin B12) 1,000 mcg tablet,disintegrating 1,000 mcg sublingual DAILY Qty: 90 0RF Rx Instructions: place tablet under tongue and allow to dissolve for at least30 secs before swallowing etonogestrel-ethinyl estradiol 0.12-0.015 mg/24 hr ring vaginal mupirocin 2 % ointment 1 appl topical TID Qty: 22 0RF cefuroxime axetil 500 mg tablet 500 mg PO Q12H Qty: 10 0RF Referrals: Mireille Mari MD [Primary Care Provider, Internal Medicine] Interventions: ED Discharge Assessment Last Done: 08/20/24 14:34 Print Language: Turkmen
--- NOTE | 2024-08-20 13:20 | PC.NURSE ---
Pt to CT Scan.
[2024-08-20 13:25] VITALS: BP 121/79; PULSE 80; RESP 20; TEMP 36.8; O2SAT 99
--- NOTE | 2024-08-20 13:40 | PC.NURSE ---
38 F presents to ED with lower abd pain 3/10, sts it hurts when she pees and believes she has kidney stones. A+OX4 and ambulatory. RR even and unlabored, denies CP or SOB. Calm, cooperative.
[2024-08-20 13:42] LABS: MANUAL DIFF FLAG NO
[2024-08-20 13:46] LABS: Hematocrit 38.1 % (37.0-47.0); Hemoglobin 12.9 g/dl (12.0-16.0); Imm Gran Abs Auto 0.04 X10*3/uL (0.00-0.03); Imm Gran Pct Auto 0.4 % (0.0-0.4); Lymphocytes Absolute Auto 2.0 X10*3/uL (1.2-4.9); Mean Corpuscular HGB Conc 33.9 g/dl (31.0-35.0); Mean Corpuscular Hemoglobin 30.1 pg (27.0-33.0); Mean Corpuscular Volume 88.8 fL (80.0-98.0); NRBC Abs Auto 0.000 X10*3/uL (0.0-0.012); NRBC Pct Auto 0.0 /100WBC (0.0-0.2); Platelet Count 236 X10*3/uL (160-400); Red Blood Count 4.29 X10*6/uL (4.20-5.50); White Blood Count 9.5 X10*3/uL (4.8-10.8)
--- OUTSIDE RECORDS SUMMARY | 2024-08-20 14:03 | XMS_ITS | Clinical Summary ---
Author Organization [facility] Address [address] [place] [id number] Phone Care Team Providers Care Organizational Psychologist Name Role Phone Unavailable Primary Care Provider [...]
[2024-08-20 14:11] LABS: Alanine Aminotransferase 28 U/L (0-31); Albumin Level 4.0 g/dL (3.5-5.0); Alkaline Phosphatase 90 U/L (39-117); Anion Gap 12 (12-20); Aspartate Amino Transferase 36 U/L (5-31); Blood Urea Nitrogen 13 mg/dL (9-16); Calcium 8.7 mg/dL (8.4-10.2); Carbon Dioxide 22 mmol/L (22-29); Chloride 109 mmol/L (96-108); Creatinine Clr Calc Pharmacy 125.0; Estimated Glomerular Filt Rate > 60; Magnesium 1.9 mg/dL (1.6-2.6); Potassium 4.1 mmol/L (3.3-5.1); Sodium 139 mmol/L (135-145); Total Protein 7.3 g/dL (6.5-8.0)
[2024-08-20 14:34] VITALS: BP 121/79; PULSE 80; RESP 20; TEMP 36.8; O2SAT 99
== END 2024-08-20 15:01 | disposition home or self-care (01) ==
PROVIDERS: Physician Assistant Medical; Emergency Provider Emergency Medicine Emergency Medical Services; PCP Internal Medicine
DX: N39.0 Urinary tract infection, site not specified (principal); R10.9 Unspecified abdominal pain
CPT/HCPCS: 36415; 74176; 80053; 83735; 84702; 85025; 96361; 96374; 96375; 99284; 99285; J0696; J1885

== ENCOUNTER → 2024-08-20 13:03 | Outpatient (BNV) | payer OTHER, SELFPAY | PROVIDERS: Emergency Provider Emergency Medicine Emergency Medical Services; PCP Internal Medicine; Visit Provider Radiology Diagnostic Radiology | DX: N20.0 Calculus of kidney (principal); K76.89 Other specified diseases of liver | CPT/HCPCS: 74176 ==

== ENCOUNTER 2024-09-11 09:30 | Outpatient (AMB) | payer OTHER, SELFPAY ==
--- NOTE | 2024-09-11 09:10 | A.OFFWM_ITS ---
Intake Intake Visit Reasons: TV BH F/U Allergies No Known Allergies Allergy (Verified 08/20/24 10:08) PFS Medical History Anxiety History of blood transfusion Physical exam Helicobacter pylori (H. pylori) Gallbladder polyp Class 1 obesity with body mass index (BMI) of 33.0 to 33.9 in adult GERD (gastroesophageal reflux disease) Right upper quadrant abdominal pain Migraines Photosensitivity Mild asthma Breast implant status Surgical History History of cholecystectomy History of esophagogastroduodenoscopy (EGD) History of blepharoplasty Urethral diverticulum History of tubal ligation History of abdominoplasty Hx of breast implants, bilateral History of wisdom tooth extraction Family History Father Diabetes Mother No problems noted. 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 She reached out to her primary care provider (PCP) and was prescribed Phentermine, which she began taking on Monday. The PCP also ordered fasting labs in response to the patient's reported symptoms of weakness and other unspecified concerns. The patient was previously advised (based on Valentina labs completed for this program) that she had deficiencies in vitamins D, B12, B1, and A, and supplements were prescribed. The patient describes ongoing sources of stress, including her children's behavior, financial strain, and persistent physical health issues. Objective: The patient participated in a follow-up visit conducted via phone. She appeared inattentive during the session, requiring frequent redirection. Behavioral health interventions included supportive counseling, psychoeducation on the importance of behavioral consistency in the pre-surgical phase, and motivational interviewing techniques to explore ambivalence and reinforce personal accountability. Despite being receptive in tone, the patient demonstrated minimal insight into her patterns of avoidance and limited follow-through on previously discussed goals. She expressed passive awareness of her role in the lack of progress but did not demonstrate concrete planning or ownership of next steps. She continued to externalize barriers without actively engaging in problem-solving. These patterns indicate ongoing resistance and raise concern regarding her readiness for bariatric surgery at this time. Assessment/Response: * Mental status: WNL * Risk reported/identified: None -Behavioral engagement remains low. Alth ough the patient expresses desire to proceed with surgery, her current behavior is inconsistent with program expectations. Limited progress has been made toward nutritional and physical activity goals. -Psychosocial stressors (family, finance s, health) are likely contributing to low motivation and follow-through. -Readiness for surgery remains questiona ble given lack of demonstrated behavioral change and follow-through. Food/Weight/Diet Expectations of change PT started the program at 189Lbs. The initial goal was to lose 10% of her weight before surgery, which is about 19 lbs. Ultimate weight goal: 170 Lbs before surgery. Weight as of 06/18/24: 192 lbs. Weight as of 09/10/2024: 192Lbs PT is implementing the following: Current meal plan: 2 protein shakes, 2 to 2.5 protein bars, and one meal per day. *Currently not following it - Will start again Exercise plan: 1 hr walk daily. - None currently. Scale: Yes Communication: Not recently. Assessment & Plan Assessment & Plan (1) Adjustment disorder: Code(s): F43.20 - Adjustment disorder, unspecified (2) Inappropriate diet or eating habits: Code(s): Z72.4 - Inappropriate diet and eating habits Plan Patient will return for a follow-up in approximately 5 weeks. By that time, she is expected to be actively implementing her prescribed meal and exercise plan and demonstrate a higher level of commitment to the program. She has been advised to resume contact with Dr. Walker to coordinate care. This provider will update the surgical team regarding current concerns about patient engagement and readiness. Next appointment is scheduled for 10/16/2024 at 12:00 PM. However, the appointment may be canceled if the patient remains disengaged and is discharged from the program due to non-compliance. Telehealth Telehealth Telehealth Platform: Media Chaperone Location of provider rendering services: other (Home office. [place], [place]) Location of patient: address on file Patient Identification confirmed using: Name, : Yes Telehealth method: voice only Patient verbally consented to treatment: Yes Patient verbally consented to billing insurance company: Yes Patient informed of any privacy concerns related to visit: Yes Minutes spent on Phone/Video with Pt.: 45 Coding Level of Care Code Established Pt Tele Psytx 45 mins (37299) Patient Type Established Diagnoses Adjustment disorder F43.20 Inappropriate diet or eating habits Z72.4 Time Spent (min) 45
--- OUTSIDE RECORDS SUMMARY | 2024-09-11 09:58 | XMS_ITS | Clinical Summary ---
Author Organization [facility] Address [address] [place] [phone] Phone Care Team Providers Care Transitions Manager Name Role Phone Unavailable Primary Care Provider [...]
== END 2024-09-11 09:48 | disposition home or self-care (01) ==
LOC: HO.HBST 09:30
PROVIDERS: PCP Internal Medicine; Visit Provider Counselor Mental Health
DX: F43.20 Adjustment disorder, unspecified (principal); Z72.4 Inappropriate diet and eating habits
CPT/HCPCS: 90834

== ENCOUNTER 2024-09-12 08:57 | Outpatient (REF) | payer OTHER, SELFPAY ==
[2024-09-12 09:16] LABS: MANUAL DIFF FLAG NO
[2024-09-12 09:43] LABS: Hematocrit 40.5 % (37.0-47.0); Hemoglobin 13.8 g/dl (12.0-16.0); Imm Gran Abs Auto 0.03 X10*3/uL (0.00-0.03); Imm Gran Pct Auto 0.4 % (0.0-0.4); Lymphocytes Absolute Auto 1.7 X10*3/uL (1.2-4.9); Mean Corpuscular HGB Conc 34.1 g/dl (31.0-35.0); Mean Corpuscular Hemoglobin 30.1 pg (27.0-33.0); Mean Corpuscular Volume 88.2 fL (80.0-98.0); NRBC Abs Auto 0.000 X10*3/uL (0.0-0.012); NRBC Pct Auto 0.0 /100WBC (0.0-0.2); Platelet Count 250 X10*3/uL (160-400); Red Blood Count 4.59 X10*6/uL (4.20-5.50); White Blood Count 7.0 X10*3/uL (4.8-10.8)
[2024-09-12 10:34] LABS: Alanine Aminotransferase 36 U/L (0-31); Albumin Level 4.4 g/dL (3.5-5.0); Alkaline Phosphatase 104 U/L (39-117); Anion Gap 14 (12-20); Aspartate Amino Transferase 26 U/L (5-31); Blood Urea Nitrogen 10 mg/dL (9-16); Calcium 8.6 mg/dL (8.4-10.2); Carbon Dioxide 24 mmol/L (22-29); Chloride 106 mmol/L (96-108); Estimated Glomerular Filt Rate > 60; Iron 86 mcg/dL (30-160); Percent Iron Saturation 29 % (15-50); Potassium 3.6 mmol/L (3.3-5.1); Sodium 140 mmol/L (135-145); Total Iron Binding Capacity 295 mcg/dL (228-428); Total Protein 7.6 g/dL (6.5-8.0); Unsaturated Iron Binding 209 ug/dL
[2024-09-12 10:52] LABS: Thyroid Stimulating Hormone 0.52 uIU/mL (0.32-4.0)
[2024-09-12 10:59] LABS: Folate 8.5 ng/mL (> or = 4.0); Vitamin B12 410 pg/mL (200-900)
== END 2024-09-12 08:58 | disposition home or self-care (01) ==
LOC: HO.LAB 08:57
PROVIDERS: Absent Provider Surgery; PCP Internal Medicine; Visit Provider Internal Medicine
DX: E53.8 Deficiency of other specified B group vitamins (principal); D64.9 Anemia, unspecified; E50.9 Vitamin A deficiency, unspecified; E51.9 Thiamine deficiency, unspecified; E66.9 Obesity, unspecified; E55.9 Vitamin D deficiency, unspecified
CPT/HCPCS: 36415; 80053; 82306; 82607; 82746; 83540; 84425; 84443; 84590; 85025

== ENCOUNTER 2024-09-19 09:26 | Outpatient (REF) | payer OTHER, SELFPAY ==
[2024-09-19 11:56] LABS: HBc Num1 0.05 S/CO (0.00-0.79); HIV Num 1 0.05 S/CO (0.00-0.99); Syphilis Screen Nonreactive (Nonreactive); ~HepC Num1 0.14 S/CO (0.00-0.79); ~Hepatitis C Antibody Nonreactive (Nonreactive)
[2024-09-19 13:17] LABS: Bacterial Vaginosis PCR POSITIVE (Negative); Candida Group PCR NOT DETECTED (Not Detect); Candida glab krusei PCR NOT DETECTED (Not Detect); Trichomonas vaginalis PCR NOT DETECTED (Not Detect)
[2024-09-19 13:47] LABS: CT PCR NOT DETECTED (Not Detect.); NG PCR NOT DETECTED (Not Detect.)
== END 2024-09-19 09:27 | disposition home or self-care (01) ==
LOC: HO.LAB 09:26
PROVIDERS: PCP Internal Medicine; Visit Provider Advanced Practice Midwife
DX: Z01.419 Encounter for gynecological examination (general) (routine) without abnormal findings (principal); R10.2 Pelvic and perineal pain; N93.0 Postcoital and contact bleeding; Z20.2 Contact with and (suspected) exposure to infections with a predominantly sexual mode of transmission; Z11.9 Encounter for screening for infectious and parasitic diseases, unspecified; Z11.4 Encounter for screening for human immunodeficiency virus [HIV]; Z11.51 Encounter for screening for human papillomavirus (HPV); Z11.3 Encounter for screening for infections with a predominantly sexual mode of transmission; Z11.8 Encounter for screening for other infectious and parasitic diseases; Z98.51 Tubal ligation status
CPT/HCPCS: 36415; 81515; 86704; 86780; 86803; 87389; 87491; 87591; 87626; 88175; 99395

== ENCOUNTER 2024-09-19 09:26 | Outpatient (AMB) | payer OTHER, SELFPAY ==
--- NOTE | 2024-09-19 09:34 | MHC.OFFVIS ---
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 Equipment Washer concerns: wants all testing and pap, anxious regarding papa hx, admits to multiple partners, feels anxious, and is adamant to have a Pap smear done, counseled re: standard to care recommendations. Regular monthly menses. Currently is sexually active. She denies vaginal itching or irritation. STI screening offered; she accepts. She tries to eat healthy and stays active with exercise. Denies family history of breast, ovarian or colon cancer. Last pap smear 2022, negative. Hx of abnl pap, Colpo-NILAM I/HPV, paps negative-2016, 2019, 2022. [facility] Medical History (Updated 09/19/24 @ 12:35 by Radha Gomez CNM) Abnormal Pap smear of cervix Pelvic pain Anxiety History of blood transfusion Physical exam Helicobacter pylori (H. pylori) Gallbladder polyp Class 1 obesity with body mass index (BMI) of 33.0 to 33.9 in adult GERD (gastroesophageal reflux disease) Right upper quadrant abdominal pain Migraines Photosensitivity Mild asthma Breast implant status Surgical History History of cholecystectomy History of esophagogastroduodenoscopy (EGD) History of blepharoplasty Urethral diverticulum History of tubal ligation History of abdominoplasty Hx of breast implants, bilateral History of wisdom tooth extraction Family History Father Diabetes Mother No problems noted. 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 Current occupational exposures/hazards: No Cognitive needs: No Hearing needs: No Vision needs: No Female Reproductive History Menstrual Age of Menarche: 14 Duration of menses: 6-7 days Date of last menstrual period: 09/10/24 control method: none Total pregnancies: 7 Full term: 6 Ab spontaneous: 1 Date of last pap smear: 09/14/22 (negative pap smear, negative hpv ) History of abnormal pap smear: Yes (ASCUS 2013 2012, CIN1 2010) Date of Mammogram: 02/19/24 (bi rad 2) Review of Systems Const All systems reviewed & are unremarkable except as noted in HPI and below Reports as per HPI Eyes Reports no additional complaints ENT Reports no additional complaints Card Reports no additional complaints Resp Reports no additional complaints GI Reports as per HPI and Reports no additional complaints Reports as per HPI Musc Reports no additional complaints Skin/Breast Reports as per HPI Neuro Reports no additional complaints Psych Reports no additional complaints Endo Reports no additional complaints Wayne/Lymph Reports no additional complaints Aller/Immun Reports no additional complaints Physical Exam Vital Signs: Last Vital Signs BP 108/72 09/19/24 09:57 BMI result Body Mass Index 34.4 Const General: cooperative, healthy appearing, no acute distress, well developed and alert Orientation/consciousness: patient oriented x3 HEENT Head: Yes normal to inspection Eyes General: appearance normal, both eyes and all related structures Neck Neck: Yes normal visual inspection Thyroid: Thyroid normal Chest Chest palpation & inspection: normal inspection of the chest and other (no puckering, dimpling, peau de orange, retraction, discharge, masses) Breast/axilla inspection: normal inspection of the breasts (Bilateral surgical scarring) Breast/axilla palpation: normal palpation of the breasts Resp Effort & Inspection: normal respiratory effort GI Inspection: Yes normal to inspection and Yes scar Palpation (GI): Soft to palpation Rectal Exam - Female: deferred General: Yes bladder normal to palpation External Female Exam: normal external appearance and normal appearance of the urethra Speculum Exam - Vagina: normal appearance of the vagina, normal palpation and normal vaginal discharge Speculum Exam - Cervix: normal appearance of the cervix and normal palpation Bimanual exam- vagina & uterus: normal bimanual exam, normal palpation, uterine size normal, bladder normal to palpation, normal palpation and non-tender Bimanual Exam- Adnexa, other: no masses and tender (Generalized bilaterally) Skin General skin exam: no rashes or lesions noted Rashes: no rashes Neuro General: patient oriented x3 Cognition (Neuro): normal cognition Extrem General: Yes normal to inspection Psych Attitude: cooperative Thought process: Normal thought process present Assessment & Plan Assessment & Plan (1) Well woman exam with routine gynecological exam: Code(s): Z01.419 - Encounter for gynecological examination (general) (routine) without abnormal findings Category: Medical Plan: Discussed: Current recommendations for pap smears per ASCCP guidelines-counseled extensively, Pap screening obtained today. GC chlamydia and BV panel obtained. Patient will go to the lab for additional STD screening bled work today. Breast awareness and periodic breast exams. Maintain a healthy lifestyle including a well balanced diet and routine exercise. Use condoms for STI prevention. Patient verbalizes understanding and agrees to the plan of care. She was given opportunity to ask questions and all questions were answered to the best of my ability. RTO in one year for annual line construction engineer examination. This note is constructed using voice recognition software. While every effort has been made to ensure accuracy, chassis engineer errors may have been included. (2) Pelvic pain: Code(s): R10.2 - Pelvic and perineal pain Category: Medical Plan Plan workup: Cultures as noted above, pelvic ultrasound, pelvic warnings reviewed, plan follow up in person for test results. The patient expressed understanding and agreement with the plan of care. All of her questions and concerns were addressed to the best of my ability. Total time I personally spent on visit and management today: ?20 minutes. Time spent included review of pertinent office notes in the electronic health record; review of laboratory and imaging results; review of personal family medical history; performing physical exam; discussing diagnosis and plan of care with the patient; documenting the encounter in the EMR. This note is constructed using voice recognition software. While every effort has been made to ensure accuracy, chassis engineer errors may have been included. Orders: Orders HIV Ab/Ag Today Z20.2 - Contact with and (suspected) exposure to infections with a predominantly sexual mode of transmission Hepatitis C Antibody Reflex Today Z20.2 - Contact with and (suspected) exposure to infections with a predominantly sexual mode of transmission Hepatitis B Core Antibody Today Z20.2 - Contact with and (suspected) exposure to infections with a predominantly sexual mode of transmission Syphilis Screen Today Z20.2 - Contact with and (suspected) exposure to infections with a predominantly sexual mode of transmission CT NG by PCR Vag/Cerv Today N93.0 - Postcoital and contact bleeding, R10.2 - Pelvic and perineal pain Bacterial Vaginosis Panel Today N93.0 - Postcoital and contact bleeding, R10.2 - Pelvic and perineal pain US pelvic and transvaginal Today R10.2 - Pelvic and perineal pain Coding Level of Care Code Est Pt Prev Care 18-39y([id number]) Diagnoses Well woman exam with routine gynecological exam Z01.419 Pelvic pain R10.2
--- OUTSIDE RECORDS SUMMARY | 2024-09-19 09:51 | XMS_ITS | Clinical Summary ---
Author Organization [facility] Address [address] [place] [phone] Phone Care Team Providers Care Production Designer Name Role Phone Unavailable Primary Care Provider [...]
[2024-09-19 09:57] VITALS: BP 108/72; BMI 34.4
== END 2024-09-19 11:46 | disposition home or self-care (01) ==
PROVIDERS: PCP Internal Medicine; Visit Provider Advanced Practice Midwife
DX: Z01.419 Encounter for gynecological examination (general) (routine) without abnormal findings (principal); R10.2 Pelvic and perineal pain
CPT/HCPCS: 99395; 99459

== ENCOUNTER 2024-09-19 11:10 | Outpatient (REF) | payer OTHER, SELFPAY | END 2024-09-19 11:11 | disposition home or self-care (01) | LOC: HO.LNP 11:10 | PROVIDERS: Visit Provider Advanced Practice Midwife | DX: Z13.89 Encounter for screening for other disorder (principal) | CPT/HCPCS: 87626; 88175 ==

== ENCOUNTER 2024-11-05 08:44 | Outpatient (AMB) | payer OTHER, SELFPAY ==
[2024-11-05 08:49] VITALS: BP 112/64; PULSE 70; TEMP 36.2; O2SAT 98; BMI 32.8
--- NOTE | 2024-11-05 08:49 | A.OFFPC_ITS ---
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: No Accompanied by: Self / Same As Patient Allergies No Known Allergies Allergy (Verified 11/05/24 09:21) Medication List - Last Reconciled 11/05/24 by Mireille Linn MD cholecalciferol (vitamin D3) 125 mcg PO DAILY mecobalamin (vitamin B12) 1,000 mcg sublingual DAILY mupirocin 2% 1 appl topical TID phentermine 37.5 mg PO DAILY 30 days thiamine HCl (vitamin B1) 100 mg PO DAILY vitamin A palmitate 3,000 mcg PO DAILY Tobacco use date assessed: 11/05/24 Dental Screening Dental Screen Date: 11/05/24 Did you have a dental visit in the last 12 months?: Yes Did you have a dental problem in the last 6 months where you did not have access to dental care?: No Was dental information given to patient?: Patient has dentist HPI HPI Comments History of Present Illness Details The patient is a 39-year-old female presenting with a physical exam and follow-up on obesity management. The patient has a history of obesity with a BMI of 32, classified as class 1 obesity. She has been prescribed phentermine and has experienced some weight loss. The patient is aware of the potential side effects of phentermine, including hypertension, myocardial infarction, and cerebrovascular accident. She denies experiencing chest pain or dyspnea. The patient received a Tdap vaccination in 2016, with the next dose due in 2026. Her vaccines are up to date, and she does not smoke and has never smoked. [facility] Medical History (Reviewed 11/05/24 @ : by Mireille Linn MD) Abnormal Pap smear of cervix Pelvic pain Anxiety History of blood transfusion Physical exam Helicobacter pylori (H. pylori) Gallbladder polyp Class 1 obesity with body mass index (BMI) of 33.0 to 33.9 in adult GERD (gastroesophageal reflux disease) Right upper quadrant abdominal pain Migraines Photosensitivity Mild asthma Breast implant status Surgical History (Reviewed 11/05/24 @ : by Mireille Linn MD) History of cholecystectomy History of esophagogastroduodenoscopy (EGD) History of blepharoplasty Urethral diverticulum History of tubal ligation History of abdominoplasty Hx of breast implants, bilateral History of wisdom tooth extraction Family History Father Diabetes Mother No problems noted. 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 1. Little interest or pleasure in doing things: not at all 2. Feeling down, depressed, or hopeless: not at all 3. Trouble falling or staying asleep, or sleeping too much: not at all 4. Feeling tired or having little energy: not at all 5. Poor appetite or overeating: not at all 6. Feeling bad about yourself - or that you are a failure or have let yourself or your family down: not at all 7. Trouble concentrating on things, such as reading the newspaper or watching television: not at all 8. Moving or speaking so slowly that other people could have noticed. Or the opposite - being so fidgety or restless that you have been moving around a lot more than usual: not at all 9. Thoughts that you would be better off or of hurting yourself in some way: not at all Total score: 0 Depression Screening Interpretation: Negative Depression Screening Done: Yes 13877 - PHQ-9 Billing: Yes Source: Developed by Drs. Fortunato Perez, Carol Navarrete, Fan Palomares and colleagues, with an educational lexie from [employer]. Thrive Questionnaire Date Thrive assessed: 02/16/24 I am a: Patient What is your living situation today?: I have a steady place to live Within the past 12 months, did the food you bought not last and you didn't have the money to get more?: Never true Within the past 12 months, did you worry whether your food would run out before you got money to buy more?: Never true Do you have trouble paying for medicines?: No Do you have trouble getting transportation to medical appointments?: No Do you have trouble paying your heating and electricity bill?: No Do you have trouble taking care of your child, family member or friend?: No Do you have trouble with day-to-day activities such as bathing, preparing meals, shopping, managing finances, etc.?: No Are you currently unemployed and looking for a job?: No Are you interested in more education?: No Please select the resources that you would like help with: None Currently or been in a relationship where the following occur: No concerns reported THRIVE Score: 0 AUDIT C Alcohol Use Questionnaire (AUDIT-C) 1. How often do you have a drink containing alcohol?: Never 3. How often do you have six or more drinks on one occasion?: Never Total Score: 0 Score Reviewed/Action Taken: No DENISA-7 AMB Questionnaire DENISA-7 Date DENISA - 7 assessed: 03/06/24 Feeling nervous, anxious, or on edge: 0 = Not at all Not being able to stop or control worryin = Not at all Worrying too much about different things: 0 = Not at all Trouble relaxin = Not at all Being so restless that it is hard to sit still: 0 = Not at all Becoming easily annoyed or irritable: 0 = Not at all Feeling afraid as if something awful might happen: 0 = Not at all Total DENISA-7 score (0-4 normal; 5-9 mild; 10-14 moderate; 15-21 severe): 0 Source: Developed by Drs. Fortunato Perez, Carol Navarrete, Fan Palomares and colleagues, with an educational lexie from [employer]. DENISA-7 Assessment Billing DENISA-7 Assessment Tool: DENISA-7 Assessment 75759 Review of Systems Const All systems reviewed & are unremarkable except as noted in HPI and below Card Denies chest pain at rest, Denies chest pain with activity, Denies edema, Denies irregular heart rhythm, Denies claudication, Denies dyspnea, Denies dyspnea on exertion, Denies orthopnea, Denies paroxysmal nocturnal dyspnea and Denies slow heart rate Resp Denies cough, Denies dyspnea and Denies dyspnea on exertion GI Denies abdominal pain, Denies change in bowel habits, Denies excessive flatus, Denies nausea and Denies vomiting Denies urinary incontinence, Denies urinary hesitancy and Denies urinary urgency Musc Denies abnormal gait, Denies atrophy, Denies deformity and Denies limited range of motion Skin/Breast Denies bleeding lesions, Denies changing lesions and Denies rash Neuro Denies abnormal gait and Denies lack of coordination Physical exam (Primary Care) Vital Signs: Last Vital Signs Temp 97.1 F 11/05/24 08:49 Pulse 70 11/05/24 08:49 BP 112/64 11/05/24 08:49 Pulse Ox 98 11/05/24 08:49 Oxygen Delivery Method Room Air 11/05/24 08:49 BMI result Body Mass Index 32.8 BMI Assessment/Plan discussion: High BMI High, discussed plan: lifestyle, weight reduction, dietary and physical activity Tobacco/Smoking Status: Tobacco use Status Tobacco use date assessed 11/05/24 11/05/24 08:52 Patient Tobacco Use Status Never used Tobacco 11/05/24 08:52 e-Cigarette/Vaping Use Never Used 11/05/24 08:52 PHQ-9: PHQ-9 Score PHQ-9: Total score 0 11/05/24 08:52 Depression Screening Interpretation: Negative Thrive Assessment: Date of Thrive Assessment Date Thrive assessed 02/16/24 11/05/24 08:52 Currently or been in a relationship where the following occur: No concerns reported [facility] Head: Yes normal to inspection, Yes normocephalic and Yes atraumatic Ears: external ears normal Eyes General: appearance normal, both eyes and all related structures Eyelids: Yes eyelids normal Conjunctivae: conjunctivae normal Neck Neck: Yes normal visual inspection and Yes supple Resp Effort & Inspection: normal respiratory effort Auscultation: clear to auscultation bilaterally Cardio Jugular venous distension: no JVD Rate: regular rate Rhythm: regular rhythm Heart sounds: S1 normal heart sound present and S2 normal heart sound present GI Inspection: Yes normal to inspection Palpation (GI): Soft to palpation and nontender Auscultation: normal bowel sounds Skin General skin exam: no rashes or lesions noted Neuro General: no focal motor deficits Extrem General: Yes full ROM Psych Appearance: grossly normal Coding Level of Care Code Est Pt Prev Care 18-39y(30069) Diagnoses Physical exam Z00.00 Additional Codes PHQ-9 - 84519 - PHQ-9 Billing: Yes ([id number]) DENISA-7 Assessment Billing - DENISA-7 Assessment Tool: DENISA-7 Assessment 98953 ([id number]) Time Spent (min) 30 Assessment & Plan Assessment & Plan (1) Physical exam: Code(s): Z00.00 - Encounter for general adult medical examination without abnormal findings Category: Medical Plan Plan Patient was informed and verbally consented to the use of an ambient scribe for clinic note documentation during this visit. 1. Encounter for general adult medical examination without abnormal findings Z00.00 The patient is currently managing obesity with a BMI of 32 through the use of phentermine. She is aware of the potential side effects, including hypertension, myocardial infarction, and cerebrovascular accident, and denies any current symptoms such as chest pain or dyspnea. Tdap for 2026.
== END 2024-11-05 09:35 | disposition home or self-care (01) ==
LOC: HO.HMCH 08:45
PROVIDERS: PCP Internal Medicine; Visit Provider Internal Medicine
DX: Z00.00 Encounter for general adult medical examination without abnormal findings (principal)

== ENCOUNTER → 2024-11-05 08:44 | Outpatient (BNVA) | payer OTHER, SELFPAY | PROVIDERS: PCP Internal Medicine; Visit Provider Internal Medicine | DX: Z00.00 Encounter for general adult medical examination without abnormal findings (principal); E66.811 Obesity, class 1; Z68.32 Body mass index [BMI] 32.0-32.9, adult | CPT/HCPCS: 96127; 99395 ==